=== PATIENT | female | born 1965 | race Caucasian/White ===

== ENCOUNTER 2016-12-09 07:35 | Day surgery (SDC) | payer MEDICARE, MEDICAID ==
[~2016-12-09 07:35] MED LIST: ALBUMIN HUMAN 250 ML IV PRN
[2016-12-09 08:15] LABS: HEMATOCRIT 29.5 % (36.0-47.0); HGB HCT DIFFERENCE -2.5; MEAN CORPUSCULAR HEMOGLOBIN 21.1 pg (27.0-33.4); MEAN CORPUSCULAR HGB CONC 30.5 g/dL (32.0-36.0); MEAN CORPUSCULAR VOLUME 69 fl (80-97); RED BLOOD COUNT 4.25 10^6/uL (3.72-5.28); RED CELL DISTRIBUTION WIDTH 22.5 % (11.5-14.0); WHITE BLOOD COUNT 7.6 10^3/uL (4.0-10.5)
[2016-12-09 08:21] LABS: PROTHROMBIN TIME 16.5 SEC (11.4-15.4)
[2016-12-09 08:22] LABS: PARTIAL THROMBOPLASTIN TIME 42.2 SEC (23.5-35.8)
[2016-12-09 08:33] LABS: BLOOD UREA NITROGEN 5 mg/dL (7-20); CREATININE RESULT 0.53 mg/dL (0.52-1.25)
[2016-12-09 10:45] LABS: FLUID APPEARANCE HAZY; FLUID TYPE PERITONEAL
[2016-12-09 11:07] LABS: FLUID RBC SIDE 1 65
[2016-12-09 11:08] LABS: FLUID RBC DILUENT USED NONE USED; FLUID RBC DILUTION FACTOR 1; FLUID RBC SIDE 2 75; TOTAL RBC SQUARES COUNTED FLD 225
[2016-12-09] MEDS ORDERED: OXYCODONE-ACETAMINOPHEN 5-325 MG TABLET ONE (11:10)
[2016-12-09] MEDS ORDERED: OXYCODONE-ACETAMINOPHEN 5-325 MG TABLET PO ONE (12:00)
[2016-12-09 12:31] VITALS: BP 97/54
== END 2016-12-09 12:35 | disposition home or self-care (01) ==
LOC: RAD 07:35
PROVIDERS: ATTEND Internal Medicine Gastroenterology
PROC: 0W9F3ZZ Drainage of Abdominal Wall, Percutaneous Approach (ICD-10-PCS; principal; 2016-12-09)
DX: R18.8 Other ascites (principal); K74.69 Other cirrhosis of liver; I85.00 Esophageal varices without bleeding; R10.13 Epigastric pain; F17.210 Nicotine dependence, cigarettes, uncomplicated; I10 Essential (primary) hypertension; E78.00 Pure hypercholesterolemia, unspecified; I25.10 Atherosclerotic heart disease of native coronary artery without angina pectoris; G62.9 Polyneuropathy, unspecified; M47.9 Spondylosis, unspecified; Z79.899 Other long term (current) drug therapy; Z79.1 Long term (current) use of non-steroidal anti-inflammatories (NSAID); Z79.01 Long term (current) use of anticoagulants; Z85.43 Personal history of malignant neoplasm of ovary
CPT/HCPCS: 36415; 84520; 82565; 85027; 85610; 85730; 89050; 88162; 49083; P9047; A9270

== ENCOUNTER 2017-02-16 20:27 | Emergency (ER) | payer MEDICARE, MEDICAID ==
[2017-02-16] MEDS ORDERED: OXYCODONE-ACETAMINOPHEN 5-325 MG TABLET PO ONE (22:29)
[2017-02-16] MEDS ORDERED: BENZONATATE 100 MG CAPSULE PO ONE (22:29)
--- NOTE | 2017-02-16 22:29 | ER Document Report ---
ED Respiratory Problem - General Chief Complaint: Productive Cough Stated Complaint: SHAKINESS/UNSTEADY Time Seen by Provider: 02/16/17 22:27 Mode of Arrival: Ambulatory Information source: Patient Notes: Patient is a 51-year-old female with a history of cirrhosis and ovarian cancer with chemotherapy ending in 2009 who presents to the ER today for possible pneumonia diagnosed on chest x-ray by primary care provider. Patient primary care provider, Dr. Mane told her to come to the emergency department for this. She states that she has had a cough that is productive after falling 4 days ago from a seizure and hurting her chest. Patient states that she fell flat on her chest onto the floor while having [address] Mane at the chest x-ray to begin with. Her generalized seizures that she has had for over a year now. she states that she thought she had broken her breastbone, she denies any history of COPD, asthma, congestive heart failure but has had 3 stents placed due to heart attack 2 years ago. She admits to chest pain All across her chest "from the cough." She states that she thinks she had a fever in the office but is uncertain. Denies any shortness of breath or wheezing. TRAVEL OUTSIDE OF THE [place] IN LAST 30 DAYS: No - Related Data Allergies/Adverse Reactions: No Known Allergies Allergy (Verified 09/20/16 15:54) Past Medical History - General Information source: Patient - Social History Smoking Status: Current Every Day Smoker Family History: Malignancy Patient has suicidal ideation: No Patient has homicidal ideation: No - Past Medical History Cardiac Medical History: Reports: Hx Congestive Heart Failure, Hx Coronary Artery Disease, Hx Heart Attack, Hx Hypercholesterolemia, Hx Hypertension, Hx Peripheral Vascular Disease Pulmonary Medical History: Denies: Hx Asthma, Hx Bronchitis, Hx COPD, Hx Pneumonia Neurological Medical History: Reports: Hx Cerebrovascular Accident, Hx Migraine. Denies: Hx Seizures Renal/ Medical History: Denies: Hx Peritoneal Dialysis Malignancy Medical History: Reports: Hx Ovarian Cancer GI Medical History: Reports: Hx Endoscopy Musculoskeltal Medical History: Reports Hx Arthritis Psychiatric Medical History: Reports: Hx Anxiety, Hx Bipolar Disorder, Hx Depression Past Surgical History: Reports: Hx Cardiac Surgery, Hx Coronary Stent - x2, Hx Gynecologic Surgery, Hx Hysterectomy, Hx Oral Surgery, Hx Orthopedic Surgery - C7 plate/fusion, Hx Tonsillectomy - Immunizations Hx Diphtheria, Pertussis, Tetanus Vaccination: Yes Review of Systems - Review of Systems Constitutional: See HPI EENT: No symptoms reported Cardiovascular: No symptoms reported Respiratory: See HPI Gastrointestinal: No symptoms reported Genitourinary: No symptoms reported Female Genitourinary: No symptoms reported Musculoskeletal: No symptoms reported Skin: No symptoms reported Hematologic/Lymphatic: No symptoms reported Neurological/Psychological: See HPI Physical Exam - Vital signs Vitals: Temp Pulse Resp BP Pulse Ox 97.7 F 70 17 136/78 H 98 02/16/17 21:10 02/16/17 21:10 02/16/17 21:10 02/16/17 21:10 02/16/17 21:10 - Notes Notes: PHYSICAL EXAMINATION: GENERAL: chronically ill-appearing, but in no acute distress. HEAD: Atraumatic, normocephalic. EYES: Pupils equal round and reactive to light, extraocular movements intact, sclera anicteric, conjunctiva are normal. NECK: Normal range of motion, supple without lymphadenopathy LUNGS: Diminished lung sounds in the right lung, No wheezes rales or rhonchi. HEART: Regular rate and rhythm without murmurs ABDOMEN: Distended, no tenderness. No guarding, no rebound BACK: no vertebral tenderness, normal ROM GI/: no CVA tenderness EXTREMITIES: Normal range of motion, no pitting edema. No cyanosis. NEUROLOGICAL: Cranial nerves grossly intact. Normal sensory/motor exams. PSYCH: Normal mood, normal affect. SKIN: Warm, Dry, normal turgor, no rashes or lesions noted Course - Re-evaluation Re-evalutation: 02/16/17 23:23 has a history of low potassium, today it is 3. Patient received IV potassium as well as p.o. potassium. her white blood cell count is normal today and chest x- ray reveals a moderate pleural effusion on the right with atelectasis. consulted with Dr. Archer on this case who agrees with my plan to send pt home with spirometer, keep her on abx and prednisone that Dr. Mane gave her, and since she's not having any issues breathing, have her follow up with him outpatient or return here with worsening symptoms. 02/16/17 23:24 02/17/17 04:15 - Vital Signs Vital signs: Temp Pulse Resp BP Pulse Ox 98.6 F 87 16 130/88 H 96 02/17/17 01:33 02/17/17 01:33 02/17/17 01:33 02/17/17 01:33 02/17/17 01:33 - Laboratory Result Diagrams: 02/16/17 22:30 02/16/17 22:30 Laboratory results interpreted by me: 02/16/17 02/16/17 22:30 22:30 Hgb 8.3 L Hct 27.6 L MCV 74 L MCH 22.3 L MCHC 30.1 L RDW 18.5 H Potassium 3.0 L* BUN 6 L Creatinine 0.51 L Glucose 112 H Direct Bilirubin 0.5 H Alkaline Phosphatase 167 H Creatine Kinase < 20 L Albumin 2.4 L Discharge - Discharge Clinical Impression: Pleural effusion, Cough, Hypokalemia Chest pain Qualifiers: Chest pain type: unspecified Qualified Code(s): R07.9 - Chest pain, unspecified Condition: Stable Disposition: HOME, SELF-CARE Additional Instructions: Use the incentive spirometer every hour while you are awake. This is very important. Return immediately for any new or worsening symptoms. Follow up with primary care provider, call tomorrow to make followup appointment. Prescriptions: Cyclobenzaprine HCl [Flexeril 10 mg Tablet] 10 mg PO TIDP PRN #15 tab PRN Reason: Promethazine/Dextromethorphan [Promethazine-Dm Syrup] 5 ml PO Q6 PRN #120 ml PRN Reason: Referrals: COURTNEY MANE DO [Primary Care Provider] - Follow up as needed
[2017-02-16 22:42] LABS: ABSOLUTE LYMPHOCYTES (AUTO) 1.4 10^3/uL (0.5-4.7); ABSOLUTE MONOCYTES (AUTO) 0.8 10^3/uL (0.1-1.4); BASOPHILS % (AUTO) 0.2 % (0-2); HEMATOCRIT 27.6 % (36.0-47.0); HEMOGLOBIN 8.3 g/dL (12.0-15.5); HGB HCT DIFFERENCE -2.7; LYMPHOCYTES % (AUTO) 17.3 % (13-45); MEAN CORPUSCULAR HEMOGLOBIN 22.3 pg (27.0-33.4); MEAN CORPUSCULAR HGB CONC 30.1 g/dL (32.0-36.0); MEAN CORPUSCULAR VOLUME 74 fl (80-97); RED BLOOD COUNT 3.72 10^6/uL (3.72-5.28); RED CELL DISTRIBUTION WIDTH 18.5 % (11.5-14.0); SEGMENTED NEUTROPHILS % (AUTO) 72.5 % (42-78); WHITE BLOOD COUNT 8.2 10^3/uL (4.0-10.5)
[2017-02-16 22:54] LABS: ALANINE AMINOTRANSFERASE 22 U/L (9-52); ALBUMIN 2.4 g/dL (3.5-5.0); ALKALINE PHOSPHATASE 167 U/L (38-126); ANION GAP 12 (5-19); ASPARTATE AMINO TRANSFERASE 17 U/L (14-36); BILIRUBIN,DIRECT 0.5 mg/dL (0.0-0.4); BILIRUBIN,TOTAL 0.6 mg/dL (0.2-1.3); BLOOD UREA NITROGEN 6 mg/dL (7-20); CALCIUM 8.9 mg/dL (8.4-10.2); CARBON DIOXIDE 27 mmol/L (22-30); CHLORIDE 104 mmol/L (98-107); CREATINE KINASE < 20 U/L (30-135); CREATININE RESULT 0.51 mg/dL (0.52-1.25); GLUCOSE 112 mg/dL (75-110); LIPASE 35.6 U/L (23-300); SODIUM 142.6 mmol/L (137-145); TOTAL PROTEIN 6.4 g/dL (6.3-8.2)
[2017-02-16] MEDS ORDERED: POTASSIUM CHLORIDE 10 MEQ TABLET.SA PO ONE (23:01)
[2017-02-16] MEDS ORDERED: POTASSI CL 20 MEQ/50 ML RIDER 50 ML IV ONE (23:01)
--- NOTE | 2017-02-16 23:05 | RADIOLOGY REPORT (SQ) ---
EXAM DESCRIPTION: CHEST PA/LAT COMPLETED DATE/TIME: 02/16/2017 10:39 pm REASON FOR STUDY: cough COMPARISON: 11/09/2015 EXAM PARAMETERS: NUMBER OF VIEWS: two views TECHNIQUE: Digital Frontal and Lateral radiographic views of the chest acquired. RADIATION DOSE: NA LIMITATIONS: none FINDINGS: LUNGS AND PLEURA: Moderate Right subpulmonic pleural effusion and lower lobe atelectasis- airspace disease. Left lung appears clear. MEDIASTINUM AND HILAR STRUCTURES: Age-appropriate contour in its visualized portions. HEART AND VASCULAR STRUCTURES: Heart normal size. No evidence for failure. BONES: No acute findings. Old left rib fractures. HARDWARE: None in the chest. OTHER: No other significant finding. IMPRESSION: Moderate Right subpulmonic pleural effusion and lower lobe atelectasis-airspace disease. TECHNICAL DOCUMENTATION: JOB ID: [id number] [email or web address]- All Rights Reserved
[2017-02-16 23:06] LABS: CREATINE KINASE MB 0.51 ng/mL (<4.55)
[2017-02-16 23:07] LABS: TROPONIN I < 0.012 ng/mL
[2017-02-17 01:34] VITALS: BP 130/88
--- NOTE | 2017-02-17 08:22 | EKG REPORT ---
SEVERITY:- ABNORMAL ECG - SINUS RHYTHM MULTIPLE PREMATURE COMPLEXES, SUPRAVEN BORDERLINE T ABNORMALITIES, INFERIOR-ANTERIOR LEADS : Confirmed by: Kevin Lange MD 17-Feb-2017 08:22:09
== END 2017-02-17 01:32 | disposition home or self-care (01) ==
LOC: ER 20:27
DX: J90 Pleural effusion, not elsewhere classified (principal); J98.11 Atelectasis; E87.6 Hypokalemia; R07.9 Chest pain, unspecified; R05 Cough; I25.10 Atherosclerotic heart disease of native coronary artery without angina pectoris; I25.2 Old myocardial infarction; I10 Essential (primary) hypertension; F17.200 Nicotine dependence, unspecified, uncomplicated; Z98.61 Coronary angioplasty status; Z85.43 Personal history of malignant neoplasm of ovary; Z92.21 Personal history of antineoplastic chemotherapy; Z91.81 History of falling; Z86.73 Personal history of transient ischemic attack (TIA), and cerebral infarction without residual deficits
CPT/HCPCS: 93005; 99284; 96365; 82553; 82550; 83690; 85025; 80053; 84484; 71020; 93010; A9270 ×3; J3480

== ENCOUNTER 2017-02-19 01:50 | Inpatient (IN) | payer MEDICARE, MEDICAID ==
[2017-02-19 02:19] LABS: PROTHROMBIN TIME 15.2 SEC (11.4-15.4)
[2017-02-19] MEDS ORDERED: ETOMIDATE INJ/PF 20 MG/10 ML SDV IV ONE (02:22)
[2017-02-19 02:33] LABS: CREATINE KINASE MB 0.54 ng/mL (<4.55)
[2017-02-19 02:34] LABS: TROPONIN I < 0.012 ng/mL
--- NOTE | 2017-02-19 02:34 | ER Document Report ---
ED General - General Stated Complaint: RESPIRATORY FAILURE Notes: Patient is a 51-year-old female is brought in by ambulance because she was found lying in her bed unresponsive. Paramedics arrived she was somewhat not arousable. They did give her Narcan. There is no response to Narcan. She received 2 mg IV. They said that the did not have much history for them. Patient is completely unresponsive and unable to give me any information. In reviewing her records she was seen here 3 days ago and was being treated for pneumonia. History from previous notes includes liver failure , cirrhosis, and history of ovarian cancer. TRAVEL OUTSIDE OF THE [place] IN LAST 30 DAYS: No - Related Data Allergies/Adverse Reactions: No Known Allergies Allergy (Verified 09/20/16 15:54) Past Medical History - Social History Smoking Status: Unknown if Ever Smoked Frequency of alcohol use: unknown Drug Abuse: Other - unknown Family History: Malignancy - Past Medical History Cardiac Medical History: Reports: Hx Congestive Heart Failure, Hx Coronary Artery Disease, Hx Heart Attack, Hx Hypercholesterolemia, Hx Hypertension, Hx Peripheral Vascular Disease Pulmonary Medical History: Denies: Hx Asthma, Hx Bronchitis, Hx COPD, Hx Pneumonia Neurological Medical History: Reports: Hx Cerebrovascular Accident, Hx Migraine. Denies: Hx Seizures Renal/ Medical History: Denies: Hx Peritoneal Dialysis Malignancy Medical History: Reports: Hx Ovarian Cancer GI Medical History: Reports: Hx Endoscopy Musculoskeltal Medical History: Reports Hx Arthritis Psychiatric Medical History: Reports: Hx Anxiety, Hx Bipolar Disorder, Hx Depression Past Surgical History: Reports: Hx Cardiac Surgery, Hx Coronary Stent - x2, Hx Gynecologic Surgery, Hx Hysterectomy, Hx Oral Surgery, Hx Orthopedic Surgery - C7 plate/fusion, Hx Tonsillectomy - Immunizations Hx Diphtheria, Pertussis, Tetanus Vaccination: Yes Review of Systems - Review of Systems -: Yes ROS unobtainable due to patient's medical condition - Patient is unresponsive. Physical Exam - Vital signs Vitals: Resp 18 02/19/17 01:52 - Notes Notes: General Appearance: Unresponsive. Does not respond to verbal or painful stimuli. Patient has recurrent posturing of upper extremities. Vitals: reviewed, See vital signs table. Head: no swelling or tenderness to the head Eyes: PERRL, EOMI, Conjuctiva clear. Pupils are normal size. They are not pinpoint. They both respond to light. Mouth: No decreasd moisture Throat: No tonsillar inflammation, No airway obstruction, No lymphadenopathy Lungs: No wheezing, No rales, No rhonci, No accessory muscle use, good air exchange bilaterally. Heart: Normal rate, Regular rythm, No murmur, no rub Abdomen: Normal BS, soft, No rigidity, No abdominal tenderness, large distended abdomen consistent with cirrhosis. Abdomen is soft and not tense. Extremities: strength 5/5 in all extremities, good pulses in all extremities, no swelling or tenderness in the extremities, no edema. Skin: warm, dry, appropriate color, no rash Neuro: Unresponsive. Does not respond to verbal or painful stimuli. Patient has recurrent posturing of upper extremities. Course - Re-evaluation Re-evalutation: 02/19/17 02:36 Upon evaluation of the patient patient is completely unresponsive. She had no significant gag reflex. She had posturing. She obviously not protecting her airway. She arrived with paramedics manually ventilating her via Ambu bag and mask. The above aforementioned medications for intubation. She was given etomidate as well as rocuronium. Patient was initially admitted with [place]. Cords were easily visualized however the patient's airways anterior and the rigid kaleidoscope stylette would not allow the tube to go anterior enough to cords. This is a patient with immediately aborted. We began to ventilate patient again she began to vomit. She vomited several times with recurrent suctioning. - Vital Signs Vital signs: Temp Pulse Resp BP Pulse Ox 30 H 171/102 H 97 02/19/17 03:47 02/19/17 03:47 02/19/17 03:47 - Laboratory Result Diagrams: 02/19/17 01:57 02/19/17 01:57 Laboratory results interpreted by me: 02/19/17 02/19/17 02/19/17 01:57 01:57 01:57 WBC 18.5 H D Hgb 10.0 L Hct 34.3 L MCV 76 L MCH 22.1 L MCHC 29.1 L RDW 18.3 H Absolute Neutrophils 10.8 H Absolute Lymphocytes 5.5 H Absolute Monocytes 2.1 H VBG pH VBG pCO2 Lactic Acid 4.1 H Direct Bilirubin 0.6 H Alkaline Phosphatase 181 H Albumin 3.1 L Urine Protein Salicylates < 1.0 L 02/19/17 02/19/17 01:57 03:36 WBC Hgb Hct MCV MCH MCHC RDW Absolute Neutrophils Absolute Lymphocytes Absolute Monocytes VBG pH 7.06 L* VBG pCO2 91.0 H* Lactic Acid Direct Bilirubin Alkaline Phosphatase Albumin Urine Protein 100 H Salicylates - EKG Interpretation by Me Additional EKG results interpreted by me: 02/19/17 03:26 Reviewed and interpreted by me. EKG shows normal sinus rhythm with rate [address] segment elevation or depression. No ischemic T-wave inversions. HI interval, QRS duration are within normal range. QT interval slightly prolonged. Patient does have small Q waves in inferior leads which are unchanged in comparison to old EKG from February 16, 2017. - Transfer of Care Notes: 02/19/17 04:26 Etiology of the patient's respiratory failure is not clear. Her lung parham were clear upon arrival. She was requiring manual ventilation upon arrival. She unfortunately did aspirate shortly after getting here. She was intubated. Patient will be started on antibiotics due to recent history of pneumonia as well as aspiration. I am very concerned that the patient was already having recurrent posturing of her upper extremities upon arrival to the ER. Unclear exactly how long she was unresponsive and down at her home for paramedics arriving. I did speak with the hospitalist who agrees to admit the patient for further workup and treatment. Dictation of this chart was performed using voice recognition software; therefore, there may be some unintended grammatical errors. Critical Care Note - Critical Care Note Total time excluding time spent on procedures (mins): 45 Comments: Critical Care time for this patient not including time spent on procedures approximately 45 minutes due to management of airway, sedation titration, discussions with the admitting hospitalist. Discharge - Discharge Clinical Impression: Respiratory failure Qualifiers: Chronicity: unspecified Respiratory failure complication: hypoxia and hypercapnia Qualified Code(s): J96.91 - Respiratory failure, unspecified with hypoxia Altered mental status Qualifiers: Altered mental status type: unspecified Qualified Code(s): R41.82 - Altered mental status, unspecified Pneumonia Qualifiers: Pneumonia type: due to unspecified organism Laterality: bilateral Lung location : unspecified part of lung Qualified Code(s): J18.9 - Pneumonia, unspecified organism Disposition: ADMITTED INPATIENT Admitting Provider: Hospitalist Unit Admitted: ICU
[2017-02-19 02:36] LABS: ALANINE AMINOTRANSFERASE 19 U/L (9-52); ALBUMIN 3.1 g/dL (3.5-5.0); ALCOHOL < 10 mg/dL (NONE DETECTED); ALKALINE PHOSPHATASE 181 U/L (38-126); ANION GAP 13 (5-19); ASPARTATE AMINO TRANSFERASE 25 U/L (14-36); BILIRUBIN,DIRECT 0.6 mg/dL (0.0-0.4); BILIRUBIN,TOTAL 0.8 mg/dL (0.2-1.3); BLOOD UREA NITROGEN 9 mg/dL (7-20); CALCIUM 8.9 mg/dL (8.4-10.2); CARBON DIOXIDE 25 mmol/L (22-30); CHLORIDE 106 mmol/L (98-107); CREATINE KINASE 30 U/L (30-135); CREATININE RESULT 0.66 mg/dL (0.52-1.25); GLUCOSE 102 mg/dL (75-110); POTASSIUM 3.9 mmol/L (3.6-5.0); SODIUM 143.9 mmol/L (137-145); TOTAL PROTEIN 7.8 g/dL (6.3-8.2)
[2017-02-19 02:43] LABS: VENOUS BLOOD BASE EXCESS -6.3 mmol/L; VENOUS BLOOD HCO3 25.2 mmol/L (20-32)
[2017-02-19] MEDS ORDERED: PROPOFOL INJ 200 MG/20 ML VIAL IV ONE (02:44)
[2017-02-19 02:45] LABS: VENOUS BLOOD PH 7.06 (7.30-7.42)
--- NOTE | 2017-02-19 02:47 | RADIOLOGY REPORT (SQ) ---
EXAM DESCRIPTION: CT HEAD WITHOUT COMPLETED DATE/TIME: 02/19/2017 2:34 am REASON FOR STUDY: ams COMPARISON: 08/08/2015 TECHNIQUE: Axial images acquired through the brain without intravenous contrast. Images reviewed wi th bone, brain and subdural windows. Images stored on PACS. All CT scanners at this facility use dose modulation, iterative reconstruction, and/or weight based d osing when appropriate to reduce radiation dose to as low as reasonably achievable (ALARA). [facility]: Dose Right [facility]: CareDose [facility]: Dose Right [facility]: Teradose 4D [facility]: reportbrain RADIATION DOSE: 64.61 mGy. LIMITATIONS: None. FINDINGS: VENTRICLES: Normal size and contour. CEREBRUM: No masses. No hemorrhage. No midline shift. Areas of low density in the white matter mos t likely due to chronic micro-vascular ischemic change. Specifically, previously described hypoatten uation involving the left frontal lobe, while slightly more conspicuous on today's exam, is stable in size and distribution. Note is made of interval development of a right lacunar infarct (chronic). No evidence for acute infarction. CEREBELLUM: No masses. No hemorrhage. No alteration of density. No evidence for acute infarction. EXTRAAXIAL SPACES: Mild age-related involutional change. No fluid collections. No masses. ORBITS AND GLOBE: No intra- or extraconal masses. Normal contour of globe without masses. CALVARIUM: No fracture. PARANASAL SINUSES: Fluid levels are seen within the maxillary, sphenoid and ethmoid air cells. The f rontal and mastoid air cells are clear. SOFT TISSUES: No mass or hematoma. OTHER: Atherosclerotic vascular calcifications are seen of the cavernous segments of the internal car otid arteries bilaterally as well as the intradural right vertebral artery. IMPRESSION: No acute findings. Interval development of a right lacunar infarct. Essentially stable appearance of left frontal lobe hypoattenuation ; given concomitant vascular calcifications, favor t his to be on the basis of previous ischemic event. TECHNICAL DOCUMENTATION: JOB ID: [id number] Quality ID # [id number]: Final reports with documentation of one or more dose reduction techniques (e.g., Au tomated exposure control, adjustment of the mA and/or kV according to patient size, use of iterative reconstruction technique) 2010 [employer]- All Rights Reserved
[2017-02-19] MEDS ORDERED: PROPOFOL 100 ML IV ONE (02:49)
[2017-02-19 03:04] LABS: ABSOLUTE LYMPHOCYTES (AUTO) 5.5 10^3/uL (0.5-4.7); ABSOLUTE MONOCYTES (AUTO) 2.1 10^3/uL (0.1-1.4); ABSOLUTE NEUT (AUTO) 10.8 10^3/uL (1.7-8.2); BASOPHILS % (AUTO) 0.2 % (0-2); EOSINOPHILS % (AUTO) 0.1 % (0-6); LYMPHOCYTES % (AUTO) 29.7 % (13-45); MEAN CORPUSCULAR HEMOGLOBIN 22.1 pg (27.0-33.4); MEAN CORPUSCULAR HGB CONC 29.1 g/dL (32.0-36.0); MEAN CORPUSCULAR VOLUME 76 fl (80-97); MONOCYTES % (AUTO) 11.4 % (3-13); RED BLOOD COUNT 4.52 10^6/uL (3.72-5.28); RED CELL DISTRIBUTION WIDTH 18.3 % (11.5-14.0); SEGMENTED NEUTROPHILS % (AUTO) 58.6 % (42-78)
--- NOTE | 2017-02-19 03:17 | RADIOLOGY REPORT (SQ) ---
EXAM DESCRIPTION: CHEST SINGLE VIEW COMPLETED DATE/TIME: 02/19/2017 2:47 am REASON FOR STUDY: ams COMPARISON: 02/16/2017 EXAM PARAMETERS: NUMBER OF VIEWS: One view. TECHNIQUE: Single frontal radiographic view of the chest acquired. RADIATION DOSE: NA LIMITATIONS: None. FINDINGS: LUNGS AND PLEURA: Near complete opacification of the right black thorax likely on the basis of pleural effusion and/or parenchymal opacities. Patchy left black thorax pulmonary opacities. No pneumothorax evident. MEDIASTINUM AND HILAR STRUCTURES: Grossly stable. HEART AND VASCULAR STRUCTURES: Unchanged. BONES: No acute findings. HARDWARE: Endotracheal tube which appears to abut the graham. Enteric tube terminates subdiaphragmat ically out of the field of view. Cervicothoracic ACDF. OTHER: No other significant finding. IMPRESSION: 1. Increased opacification of the right black thorax likely on the basis of layering ple ural effusion. Increased left pulmonary parenchymal opacities in the study interval. 2. The endotracheal tube appears to abut the graham; recommend retracting 4 to 5 cm. Enteric tube w ithout evidence of gross complication. TECHNICAL DOCUMENTATION: JOB ID: [id number]
[2017-02-19 03:23] LABS: HEMATOCRIT 34.3 % (36.0-47.0); HGB HCT DIFFERENCE -4.3
[2017-02-19 03:29] LABS: WHITE BLOOD COUNT 18.5 10^3/uL (4.0-10.5)
[2017-02-19] MEDS ORDERED: LEVOFLOXACIN 750 MG/D5W RTU 150 ML IV ONE (03:54)
[2017-02-19 04:10] LABS: URINE BARBITURATES SCREEN NEGATIVE; URINE METHADONE SCREEN NEGATIVE; URINE OPIATES LOW NEGATIVE; URINE PHENCYCLIDINE SCREEN NEGATIVE
[2017-02-19] MEDS ORDERED: METOPROLOL TARTRATE PF/INJ 5 MG/5 ML SDV IV PRN (04:10)
[2017-02-19 04:11] LABS: APPEARANCE,URINE CLEAR; BILIRUBIN,URINE NEGATIVE (NEGATIVE); GLUCOSE, URINE NEGATIVE (NEGATIVE); KETONES,URINE NEGATIVE (NEGATIVE); LEUKOCYTE ESTERASE,URINE NEGATIVE (NEGATIVE); NITRITE,URINE NEGATIVE (NEGATIVE); PROTEIN,URINE 100 mg/dL (NEGATIVE); URINE SPECIFIC GRAVITY 1.006; UROBILINOGEN,URINE NEGATIVE mg/dL (<2.0)
[2017-02-19] MEDS ORDERED: NORMAL SALINE 1000 ML 1,000 ML IV ONE ×2 (04:16→08:02)
--- NOTE | 2017-02-19 05:52 | PDOC H&P ---
History of Present Illness Admission Date/PCP: 02/19/17 04:10 Patient complains of: Unresponsive History of Present Illness: NIKKIE PAN is a 51 year old female with a past medical history of hepatic cirrhosis, coronary artery disease with stents, coagulopathy, neuropathy, AVM of the hip, peripheral vascular disease, CVA, congestive heart failure, bipolar , left-sided carotid artery disease. Patient was diagnosed with pneumonia 3 days ago and was found prior to arrival by her unresponsive without pulses and questionable respiration he delivered chest compressions upon EMS arrival she has an oxygen saturation of 40% is cyanotic and with extensor posturing of the upper extremity. In the emergency room she begins to vomit and aspirate and is intubated. Workup includes a CT of the head showing new lacunar infarct. And referred to the hospitalist for admission. Additional history is unavailable. Past Medical History Cardiac Medical History: Reports: Congestive Heart Failure, Coronary Artery Disease, Myocardial Infarction, Hyperlipidema, Hypertension, Peripheral Vascular Disease Pulmonary Medical History: Denies: Asthma, Bronchitis, Chronic Obstructive Pulmonary Disease (COPD), Pneumonia Neurological Medical History: Reports: Migraine Denies: Seizures Malignancy Medical History: Reports: Ovarian Cancer Musculoskeltal Medical History: Reports: Arthritis Psychiatric Medical History: Reports: Bipolar Disorder, Depression Hematology: Denies: Anemia Past Surgical History Past Surgical History: Reports: Coronary Stent - x2, Hysterectomy, Orthopedic Surgery - C7 plate/fusion, Tonsillectomy Social History Information Source: Emergency Med Personnel, [facility] Records Lives with: Family Smoking Status: Unknown if Ever Smoked Frequency of Alcohol Use: None Hx Recreational Drug Use: No Hx Prescription Drug Abuse: Yes - Advance Directive Resuscitation Status: Full Code Family History Family History: Malignancy Parental Family History Reviewed: No - Unobtainable Children Family History Reviewed: No - Unobtainable Sibling(s) Family History Reviewed.: No Medication/Allergy Home Medications: Duloxetine HCl [Cymbalta] 30 tab PO QHS 02/22/16 Gabapentin 400 cap PO ASDIR PRN 02/22/16 Simvastatin 1 tab PO QHS 02/22/16 Furosemide [Lasix 20 mg Tablet] 30 mg PO DAILY 03/11/16 Nadolol 40 mg PO DAILY 05/03/16 Nitroglycerin [Nitro-Dur 5 mg (0.2 mg/Hr) Transdermal Patch] 1 each TD ASDIR PRN 05/03/16 Spironolactone [Aldactone] 100 mg PO DAILY 05/03/16 Omeprazole 20 mg PO DAILY 08/26/16 Lorazepam [Ativan] 1 mg PO DAILY 09/15/16 Buprenorphine HCl [Belbuca] 450 mcg BC BID 12/09/16 Ranitidine HCl [Zantac] 150 mg PO ASDIR PRN 12/09/16 Cyclobenzaprine HCl [Flexeril 10 mg Tablet] 10 mg PO TIDP PRN #15 tab 02/17/17 Promethazine/Dextromethorphan [Promethazine-Dm Syrup] 5 ml PO Q6 PRN #120 ml Allergies/Adverse Reactions: No Known Allergies Allergy (Verified 09/20/16 15:54) Review of Systems ROS unobtainable: Due to mental status - Intubated and sedated Physical Exam Vital Signs: Temp Pulse Resp BP Pulse Ox 98.2 F 84 22 H 151/98 H 100 02/19/17 05:11 02/19/17 05:11 02/19/17 05:11 02/19/17 05:11 02/19/17 05:11 General appearance: PRESENT: disheveled, thin, other - Cachexia with temporal wasting, abdominal distention with ascites. ET tube with copious thin secretions Head exam: PRESENT: atraumatic, normocephalic Eye exam: PRESENT: conjunctiva pink, EOMI, PERRLA. ABSENT: scleral icterus Ear exam: PRESENT: normal external ear exam Mouth exam: PRESENT: moist, tongue midline Neck exam: ABSENT: carotid bruit, JVD, lymphadenopathy, thyromegaly Respiratory exam: PRESENT: decreased breath sounds - Right sided dullness at the base, prolonged expiratory phas, rales, retraction, unlabored Cardiovascular exam: PRESENT: RRR. ABSENT: diastolic murmur, rubs, systolic murmur Pulses: PRESENT: normal dorsalis pedis pul Vascular exam: PRESENT: normal capillary refill GI/Abdominal exam: PRESENT: ascites, diminished bowel sounds, distended, hypoactive bowel sounds, soft, other - Hepatomegaly. ABSENT: guarding, tenderness Rectal exam: PRESENT: deferred Extremities exam: PRESENT: full ROM. ABSENT: calf tenderness, clubbing, pedal edema Neurological exam: PRESENT: altered - Intubated and sedated, upper extremity extensor posturing intermittently Skin exam: PRESENT: dry, intact, warm. ABSENT: cyanosis, rash Results Impressions: Chest X-Ray 02/19/17 01:56 IMPRESSION: 1. Increased opacification of the right black thorax likely on the basis of layering pleural effusion. Increased left pulmonary parenchymal opacities in the study interval. 2. The endotracheal tube appears to abut the graham; recommend retracting 4 to 5 cm. Enteric tube without evidence of gross complication. Head CT 02/19/17 01:56 IMPRESSION: No acute findings. Interval development of a right lacunar infarct. Essentially stable appearance of left frontal lobe hypoattenuation ; given concomitant vascular calcifications, favor this to be on the basis of previous ischemic event. Assessment & Plan - Diagnosis (1) CVA (cerebral vascular accident) Is this a current diagnosis for this admission?: YesPlan: New lacunar infarct from previous imaging, aspirin, Lipitor and supportive care with permissive hypertension, reevaluation of imaging via CT or MRI (2) Altered mental status Qualifiers: Altered mental status type: unspecified Qualified Code(s): R41.82 - Altered mental status, unspecified Is this a current diagnosis for this admission?: YesPlan: Multifactorial secondary to CVA, acute respiratory failure with pneumonia. Continue supportive care (3) Pneumonia Qualifiers: Pneumonia type: due to unspecified organism Laterality: bilateral Lung location: unspecified part of lung Qualified Code(s): J18.9 - Pneumonia , unspecified organism Is this a current diagnosis for this admission?: YesPlan: Community-acquired pneumonia 3 days prior empiric antibiotics initiated, additional large volume aspiration prior to intubation empiric antibiotics initiated follow-up CBC, chemistry and chest x-ray continuing ventilator support (4) Respiratory failure Qualifiers: Chronicity: unspecified Respiratory failure complication: hypoxia and hypercapnia Qualified Code(s): J96.91 - Respiratory failure, unspecified with hypoxia Is this a current diagnosis for this admission?: YesPlan: Multifactorial possibly secondary to CVA, multifactorial pneumonia, ABG pending as needed albuterol Atrovent supportive ventilator management - Time Time Spent: 50 to 70 Minutes - Inpatient Certification Medical Necessity: Need Close Monitoring Due to Risk of Patient Decompensation
[2017-02-19] MEDS ORDERED: CLINDAMYCIN PHOSPHATE INJ 300 MG/2 ML SDV IV PRN (06:00)
[2017-02-19] MEDS ORDERED: CLINDAMYCIN PHOSPHATE 750 MG in DEXTROSE 5%-WATER 100 ML IV SCH ×2 (06:00→10:00)
[2017-02-19 06:20] LABS: ARTERIAL BLOOD BASE EXCESS -4.3 mmol/L; ARTERIAL BLOOD O2 SATURATION 89.2 % (94-98)
[2017-02-19] MEDS ORDERED: PIPERACILLIN SODIUM/TAZOBACTAM 4.5 GM in NORMAL SALINE 100 ML IV SCH (07:00)
[2017-02-19] MEDS ORDERED: PIPERACILLIN/TAZOBACTAM 4.5 GM VIAL IV PRN (07:00)
--- NOTE | 2017-02-19 07:17 | RADIOLOGY REPORT (SQ) ---
EXAM DESCRIPTION: CHEST SINGLE VIEW COMPLETED DATE/TIME: 02/19/2017 6:59 am REASON FOR STUDY: intubated COMPARISON: Earlier the same day. NUMBER OF VIEWS: One view. TECHNIQUE: Single frontal radiographic image of the chest acquired. LIMITATIONS: None. FINDINGS: LUNGS AND PLEURA: Stable appearance. There is persistent diffuse bilateral airspace disea se right greater than left. MEDIASTINUM AND HILAR STRUCTURES: Stable heart size and mediastinal structures. HEART AND VASCULAR STRUCTURES: Stable appearance. SUPPORT DEVICES: Support lines and tubes remain in place. The endotracheal tube is low in position i t is at the graham recommend withdrawal of approximately 1.2 cm. BONES: No acute findings. OTHER: No other significant finding. IMPRESSION: Stable appearance of the chest. Endotracheal tube remains low in position is at the lev el of the graham. Recommend withdrawal of approximately 1.5 cm. COMMENT: This report was called to Aide, the patient's nurse at07:08 on 02/19/2017. TECHNICAL DOCUMENTATION: JOB ID: [id number] [facility]- All Rights Reserved
[2017-02-19] MEDS ORDERED: NOREPINEPHRINE BITARTRATE INJ/PF 4 MG/4 ML SDV IV ONE (07:58)
--- NOTE | 2017-02-19 08:42 | RADIOLOGY REPORT (SQ) ---
EXAM DESCRIPTION: CHEST SINGLE VIEW COMPLETED DATE/TIME: 02/19/2017 8:15 am REASON FOR STUDY: R/O Pneumothorax COMPARISON: 02/19/2017 with at 0650 hours. EXAM PARAMETERS: NUMBER OF VIEWS: One view. TECHNIQUE: Single frontal radiographic view of the chest acquired. RADIATION DOSE: NA LIMITATIONS: None. FINDINGS: LUNGS AND PLEURA: Diffuse airspace disease with right pleural effusion. No pneumothorax. MEDIASTINUM AND HILAR STRUCTURES: No masses. Contour normal. HEART AND VASCULAR STRUCTURES: Heart normal in size. Normal vasculature. BONES: No acute findings. HARDWARE: Endotracheal tube remains unchanged with the tip at the graham. Nasogastric tube with the tip in stomach. Hardware in the cervical spine. OTHER: No other significant finding. IMPRESSION: NO CHANGE IN APPEARANCE OF THE CHEST. NO PNEUMOTHORAX. TECHNICAL DOCUMENTATION: JOB ID: [id number]
[2017-02-19] MEDS: HEPARIN SOD (PORCINE) 5,000 UNIT/ML 1 ML SYRINGE SUBCUT SCH ×3 (08:47→22:12)
[2017-02-19 08:48] LABS: CREATINE KINASE MB 0.8 ng/mL (<4.55); TROPONIN I 0.019 ng/mL
[2017-02-19] MEDS: NORMAL SALINE 1000 ML 1,000 ML IV PRN ×2 (08:53→13:38)
[2017-02-19] MEDS: IPRATROPIUM/ALBUTEROL 0.5-2.5 MG/3 ML AMPUL NEB PRN (08:56)
[2017-02-19 08:57] LABS: ARTERIAL BLOOD BASE EXCESS -1.9 mmol/L; ARTERIAL BLOOD O2 SATURATION 92.6 % (94-98)
[2017-02-19] MEDS: THIAMINE HCL 100 MG, FOLIC ACID 1 MG in NORMAL SALINE 50 ML IV SCH (09:23)
[2017-02-19] MEDS: PIPERACILLIN SODIUM/TAZOBACTAM 4.5 GM in NORMAL SALINE 100 ML IV SCH ×3 (09:23→21:53)
--- NOTE | 2017-02-19 09:23 | EKG REPORT ---
SEVERITY:- ABNORMAL ECG - SINUS RHYTHM CONSIDER ANTERIOR INFARCT : Confirmed by: Kevin Lange MD 19-Feb-2017 09:23:12
[2017-02-19] MEDS ORDERED: METHYLPREDNISOLONE INJ 40 MG/1 ML SDV IV ONE (09:30)
--- NOTE | 2017-02-19 10:50 | PDOC PROGRESS REPORT ---
Subjective Progress Note for:: 02/19/17 Subjective:: Patient is intubated however she has had problems of hypotension is requiring IV fluids and IV pressors. Physical Exam Vital Signs: Temp Pulse Resp BP Pulse Ox 100.4 F 91 22 H 87/63 L 91 L 02/19/17 09:59 02/19/17 09:59 02/19/17 09:59 02/19/17 09:59 02/19/17 09:59 Intake & Output 02/18/17 02/19/17 02/20/17 06:59 06:59 06:59 Output Total 245 Balance -245 Weight 73.5 kg General appearance: PRESENT: mild distress Eye exam: PRESENT: conjunctiva pink. ABSENT: scleral icterus Mouth exam: PRESENT: moist, tongue midline Neck exam: ABSENT: carotid bruit, JVD, lymphadenopathy, thyromegaly Respiratory exam: PRESENT: rhonchi - Coarse rhonchi bilaterally., wheezes - Bilateral expiratory wheezes. ABSENT: rales Cardiovascular exam: PRESENT: systolic murmur, tachycardia. ABSENT: diastolic murmur, rubs GI/Abdominal exam: PRESENT: ascites, soft. ABSENT: rebound, tenderness Extremities exam: PRESENT: pedal edema - Trace pedal edema. ABSENT: calf tenderness, clubbing Neurological exam: PRESENT: other - Patient is intubated and sedated. Psychiatric exam: PRESENT: other - Unable to assess Skin exam: PRESENT: dry, intact, warm. ABSENT: cyanosis, rash Results Laboratory Results: 02/19/17 02/19/17 06:00 08:45 Carbonic Acid 2.50 H 1.44 H HCO3/H2CO3 Ratio 10:1 16:1 ABG pH 7.12 L* 7.32 L ABG pCO2 83.2 H* 48.0 H ABG pO2 75.0 L 69.7 L ABG HCO3 26.6 H 24.4 ABG O2 Saturation 89.2 L 92.6 L ABG Base Excess -4.3 -1.9 FiO2 100% 100% 02/19/17 02/19/17 08:00 08:00 Creatine Kinase 27 L CK-MB (CK-2) 0.80 Troponin I 0.019 Impressions: Head CT 02/19/17 01:56 IMPRESSION: No acute findings. Interval development of a right lacunar infarct. Essentially stable appearance of left frontal lobe hypoattenuation ; given concomitant vascular calcifications, favor this to be on the basis of previous ischemic event. Chest X-Ray 02/19/17 07:58 IMPRESSION: NO CHANGE IN APPEARANCE OF THE CHEST. NO PNEUMOTHORAX. Assessment & Plan - Diagnosis (1) Sepsis Is this a current diagnosis for this admission?: YesPlan: Has pneumonia and has developed hypotension. She most likely has sepsis. We will continue with IV fluids and vasopressors have been started. We will also give IV steroids given her acute COPD exacerbation. Will consult pulmonary medicine for their assistance with this critically ill patient. (2) Altered mental status Qualifiers: Altered mental status type: unspecified Qualified Code(s): R41.82 - Altered mental status, unspecified Is this a current diagnosis for this admission?: YesPlan: Most likely a combination of her pneumonia and the possibility of a CVA along with her underlying liver disease. Will treat for the pneumonia and hopefully her mental status will improve. (3) Pneumonia Qualifiers: Pneumonia type: due to unspecified organism Laterality: bilateral Lung location: unspecified part of lung Qualified Code(s): J18.9 - Pneumonia , unspecified organism Is this a current diagnosis for this admission?: YesPlan: Patient has pneumonia as well as what appears to be a COPD exacerbation. Will add on IV steroids to the antibiotics and nebulizers. (4) CVA (cerebral vascular accident) Is this a current diagnosis for this admission?: YesPlan: CT is not clear whether this is an acute CVA or not. It is an interval development since the last time but nothing else that would suggest it is an acute event. Treat with aspirin (5) Respiratory failure Qualifiers: Chronicity: unspecified Respiratory failure complication: hypoxia and hypercapnia Qualified Code(s): J96.91 - Respiratory failure, unspecified with hypoxia Is this a current diagnosis for this admission?: YesPlan: She has respiratory failure secondary to her underlying pneumonia and COPD exacerbation. Continue the ventilator and antibiotics. - Time Time Spent with patient: 25-34 minutes - Inpatient Certification Medical Necessity: Need for IV Antibiotics
--- NOTE | 2017-02-19 10:54 | Operative Report ---
Operative Report DATE OF SURGERY: 02/19/17 PREOPERATIVE DIAGNOSIS: Pneumonia POSTOPERATIVE DIAGNOSIS: Same OPERATION: 1. Ultrasound right neck. 2. Ultrasound directed insertion of triple-lumen central venous access catheter right internal jugular vein SURGEON: FROILAN DWYER ANESTHESIA: Local TISSUE REMOVED OR ALTERED: None COMPLICATIONS: None ESTIMATED BLOOD LOSS: 5 cc INTRAOPERATIVE FINDINGS: See below PROCEDURE: Informed consent was provided by [facility] power of assistant city attorney. Patient was placed in the Trendelenburg position right subclavian area was prepped and draped in sterile fashion. Surgical plan surgical timeout conducted. Right neck was scanned with a variable frequency linear transducer. Findings were significant for patent compressible right internal jugular vein Skin was anesthetized 1% plain lidocaine. Using the Seldinger technique, ultrasound guidance, needle and wire was threaded into the right internal jugular vein. Tract was dilated up with a triple-lumen central venous access catheter was threaded into the house. There was excellent blood flow through all 3 lm. Catheter was flushed with saline, secured to the skin with a Biopatch to the silk suture and sterile dressing Portable x-ray pending at time of dictation dictating.
[2017-02-19] MEDS ORDERED: ROCURONIUM BROMIDE INJ 50 MG/5 ML VIAL IV ONE (10:58)
[2017-02-19] MEDS: CLINDAMYCIN 900 MG/D5W RTU 50 ML IV SCH ×2 (11:02→17:30)
[2017-02-19] MEDS ORDERED: PHENYLEPHRINE HCL INJ/PF 10 MG/1 ML SDV ONE (11:16)
[2017-02-19] MEDS ORDERED: DEXTROSE 5%-WATER 250 ML with PHENYLEPHRINE HCL 40 MG IV PRN ×2 (11:24)
--- NOTE | 2017-02-19 11:50 | RADIOLOGY REPORT (SQ) ---
EXAM DESCRIPTION: CHEST SINGLE VIEW COMPLETED DATE/TIME: 02/19/2017 11:27 am REASON FOR STUDY: Status post right IJ CVP placement COMPARISON: 02/19/2017. EXAM PARAMETERS: NUMBER OF VIEWS: One view. TECHNIQUE: Single frontal radiographic view of the chest acquired. RADIATION DOSE: NA LIMITATIONS: None. FINDINGS: LUNGS AND PLEURA: Diffuse airspace disease and right pleural effusion. No pneumothorax. MEDIASTINUM AND HILAR STRUCTURES: No masses. Contour normal. HEART AND VASCULAR STRUCTURES: Heart normal in size. Normal vasculature. BONES: No acute findings. HARDWARE: Interval placement of a right-sided central line with the tip at the level of the right atr ium. Tip of the endotracheal tube is now located 5 cm proximal to the graham. Nasogastric tube with the tip in the stomach. Hardware in the cervical spine. OTHER: No other significant finding. IMPRESSION: LIFE LINES DESCRIBED. WITHDRAWAL OF THE CENTRAL LINE BY 3-4 CM MAY IMPROVE POSITIONI NG. NO PNEUMOTHORAX. OTHERWISE NO CHANGE IN APPEARANCE OF THE CHEST. TECHNICAL DOCUMENTATION: JOB ID: [id number]
[2017-02-19] MEDS ORDERED: ASPIRIN 300 MG SUPP, RECTAL PR ONE (12:00)
[2017-02-19] MEDS ORDERED: SODIUM BICARBONATE 8.4% INJ 50 MEQ/50 ML DISP.SYRIN ONE (12:04)
[2017-02-19 12:08] LABS: ABSOLUTE BASOPHILS # (AUTO) 0.1 10^3/uL (0.0-0.2); ABSOLUTE EOSINOPHILS # (AUTO) 0.1 10^3/uL (0.0-0.6); ABSOLUTE LYMPHOCYTES (AUTO) 2.8 10^3/uL (0.5-4.7); ABSOLUTE MONOCYTES (AUTO) 0.5 10^3/uL (0.1-1.4); ABSOLUTE NEUT (AUTO) 13.1 10^3/uL (1.7-8.2); BASOPHILS % (AUTO) 0.3 % (0-2); EOSINOPHILS % (AUTO) 0.5 % (0-6); HEMOGLOBIN 10.6 g/dL (12.0-15.5); LYMPHOCYTES % (AUTO) 17.2 % (13-45); MEAN CORPUSCULAR HGB CONC 29.5 g/dL (32.0-36.0); MEAN CORPUSCULAR VOLUME 75 fl (80-97); MONOCYTES % (AUTO) 2.9 % (3-13); RED BLOOD COUNT 4.83 10^6/uL (3.72-5.28); RED CELL DISTRIBUTION WIDTH 17.9 % (11.5-14.0); SEGMENTED NEUTROPHILS % (AUTO) 79.1 % (42-78); WHITE BLOOD COUNT 16.5 10^3/uL (4.0-10.5)
[2017-02-19 12:15] LABS: ARTERIAL BLOOD BASE EXCESS -1.1 mmol/L; ARTERIAL BLOOD O2 SATURATION 89.5 % (94-98)
[2017-02-19 12:15] LABS: ANION GAP 8 (5-19); BLOOD UREA NITROGEN 11 mg/dL (7-20); CALCIUM 8.1 mg/dL (8.4-10.2); CARBON DIOXIDE 24 mmol/L (22-30); CHLORIDE 108 mmol/L (98-107); CREATININE RESULT 0.55 mg/dL (0.52-1.25); GLUCOSE 100 mg/dL (75-110); MAGNESIUM 1.5 mg/dL (1.6-2.3); PHOSPHORUS 3.4 mg/dL (2.5-4.5); POTASSIUM 3.4 mmol/L (3.6-5.0); SODIUM 139.5 mmol/L (137-145)
[2017-02-19 12:25] LABS: HGB HCT DIFFERENCE -4.2
[2017-02-19] MEDS: METHYLPREDNISOLONE INJ 40 MG/1 ML SDV IV SCH ×2 (13:38→22:14)
[2017-02-19] MEDS: DEXTROSE 5%-WATER 250 ML with NOREPINEPHRINE BITARTRATE 4 MG IV PRN ×4 (13:39→19:25)
[2017-02-19] MEDS ORDERED: MAGNESIUM SULFATE 1 GM/D5W 100 ML IV ONE ×2 (13:45)
[2017-02-19] MEDS ORDERED: POTASSIUM CHLORIDE 20 MEQ/50 ML RTU IV ONE (13:45)
[2017-02-19] MEDS ORDERED: POTASSIUM CHLORIDE INJ 40 MEQ/20 ML SDV IV ONE (13:45)
[2017-02-19 16:32] LABS: ARTERIAL BLOOD BASE EXCESS -1.2 mmol/L; ARTERIAL BLOOD O2 SATURATION 97.3 % (94-98)
[2017-02-19 16:37] LABS: CREATINE KINASE MB 0.74 ng/mL (<4.55); TROPONIN I 0.013 ng/mL
[2017-02-19] MEDS: PROPOFOL 100 ML IV PRN (16:58)
[2017-02-19 17:51] LABS: ARTERIAL BLOOD BASE EXCESS 0.3 mmol/L; ARTERIAL BLOOD O2 SATURATION 98.2 % (94-98)
--- NOTE | 2017-02-19 18:15 | PDOC CONSULTATION ---
Consultation Consult Date: 02/19/17 Attending physician:: FROILAN DOE Consult reason:: ARF/PNA History of Present Illness Admission Date/PCP: 02/19/17 04:10 History of Present Illness: history from chart patient intubated.NIKKIE PAN is a 51 year old female with a past medical history of hepatic cirrhosis, coronary artery disease with stents, coagulopathy, neuropathy, AVM of the hip, peripheral vascular disease, CVA, congestive heart failure, bipolar, left-sided carotid artery disease. Patient was diagnosed with pneumonia 3 days ago and was found prior to arrival by her unresponsive without pulses and questionable respiration he delivered chest compressions upon EMS arrival she has an oxygen saturation of 40 % is cyanotic and with extensor posturing of the upper extremity. In the emergency room she begins to vomit and aspirate and is intubated. Workup includes a CT of the head showing new lacunar infarct. Additional history is unavailable. Past Medical History Cardiac Medical History: Reports: Congestive Heart Failure, Coronary Artery Disease, Myocardial Infarction, Hyperlipidema, Hypertension, Peripheral Vascular Disease Pulmonary Medical History: Denies: Asthma, Bronchitis, Chronic Obstructive Pulmonary Disease (COPD), Pneumonia Neurological Medical History: Reports: Migraine Denies: Seizures Malignancy Medical History: Reports: Ovarian Cancer Musculoskeltal Medical History: Reports: Arthritis Psychiatric Medical History: Reports: Bipolar Disorder, Depression Hematology: Denies: Anemia Past Surgical History Past Surgical History: Reports: Coronary Stent - x2, Hysterectomy, Orthopedic Surgery - C7 plate/fusion, Tonsillectomy Social History Information Source: [facility] Records Lives with: Family Smoking Status: Unknown if Ever Smoked Frequency of Alcohol Use: None Hx Recreational Drug Use: No Hx Prescription Drug Abuse: Yes - Advance Directive Resuscitation Status: Full Code Family History Family History: Malignancy Parental Family History Reviewed: No Children Family History Reviewed: No Sibling(s) Family History Reviewed.: No Medication/Allergy Home Medications: Unobtainable [Unobtainable] 02/19/17 Allergies/Adverse Reactions: No Known Allergies Allergy (Verified 09/20/16 15:54) Review of Systems ROS unobtainable: Due to endotracheal tube, Due to mental status Physical Exam Vital Signs: Temp Pulse Resp BP Pulse Ox 100.4 F 91 22 H 87/63 L 91 L 02/19/17 09:59 02/19/17 09:59 02/19/17 09:59 02/19/17 09:59 02/19/17 09:59 Intake & Output 02/18/17 02/19/17 02/20/17 06:59 06:59 06:59 Output Total 245 Balance -245 Weight 73.5 kg General appearance: PRESENT: no acute distress, disheveled, obese, well- developed Head exam: PRESENT: atraumatic, normocephalic Eye exam: PRESENT: conjunctiva pale Mouth exam: PRESENT: dry mucosa, neck supple, other - ET tube in place Neck exam: ABSENT: carotid bruit, JVD, lymphadenopathy, thyromegaly Respiratory exam: PRESENT: decreased breath sounds, rales, rhonchi, symmetrical , unlabored Cardiovascular exam: PRESENT: RRR, +S1, +S2 Pulses: PRESENT: normal radial pulses GI/Abdominal exam: PRESENT: normal bowel sounds, soft. ABSENT: distended, guarding, mass, organolmegaly, rebound, tenderness Rectal exam: PRESENT: deferred Gentrourinary exam: PRESENT: indwelling catheter Musculoskeletal exam: PRESENT: normal inspection Skin exam: PRESENT: dry, warm Results Laboratory Results: 02/19/17 02/19/17 06:00 08:45 Carbonic Acid 2.50 H 1.44 H HCO3/H2CO3 Ratio 10:1 16:1 ABG pH 7.12 L* 7.32 L ABG pCO2 83.2 H* 48.0 H ABG pO2 75.0 L 69.7 L ABG HCO3 26.6 H 24.4 ABG O2 Saturation 89.2 L 92.6 L ABG Base Excess -4.3 -1.9 FiO2 100% 100% 02/19/17 02/19/17 08:00 08:00 Creatine Kinase 27 L CK-MB (CK-2) 0.80 Troponin I 0.019 Impressions: Head CT 02/19/17 01:56 IMPRESSION: No acute findings. Interval development of a right lacunar infarct. Essentially stable appearance of left frontal lobe hypoattenuation ; given concomitant vascular calcifications, favor this to be on the basis of previous ischemic event. Chest X-Ray 02/19/17 07:58 IMPRESSION: NO CHANGE IN APPEARANCE OF THE CHEST. NO PNEUMOTHORAX. Assessment & Plan - Diagnosis (1) CVA (cerebral vascular accident) Is this a current diagnosis for this admission?: YesPlan: head CT abnormality (2) Respiratory failure Qualifiers: Chronicity: unspecified Respiratory failure complication: hypoxia and hypercapnia Qualified Code(s): J96.91 - Respiratory failure, unspecified with hypoxia Is this a current diagnosis for this admission?: YesPlan: improved with airway clearance may invariably need bronchoscopy (3) Pneumonia Qualifiers: Pneumonia type: aspiration pneumonia Laterality: bilateral Lung location: unspecified part of lung Qualified Code(s): J18.9 - Pneumonia, unspecified organism Is this a current diagnosis for this admission?: YesPlan: difficult to oxygenate swithched to BU Level ventilation w/o sucess until RN and RT were able to aspirate large mucous plugs at which time SAO2 improved (4) Sepsis Is this a current diagnosis for this admission?: YesPlan: currently beginning 2nd vasopressor agent - Time Critical Time spent with patient: 35 or more minutes
[2017-02-19 19:45] LABS: MAGNESIUM 1.6 mg/dL (1.6-2.3); POTASSIUM 3.6 mmol/L (3.6-5.0)
[2017-02-19 20:56] LABS: ARTERIAL BLOOD BASE EXCESS -0.5 mmol/L; ARTERIAL BLOOD O2 SATURATION 98.3 % (94-98)
[2017-02-19] MEDS: ATORVASTATIN CALCIUM 80 MG TABLET NG SCH (22:13)
[2017-02-19] MEDS: NORMAL SALINE INJ/PF 0.9% 10 ML SDV IV PRN (22:14)
[2017-02-19 23:12] LABS: CREATINE KINASE MB 0.24 ng/mL (<4.55)
[2017-02-19 23:14] LABS: TROPONIN I < 0.012 ng/mL
[2017-02-20] MEDS: PROPOFOL 100 ML IV PRN ×4 (00:14→19:33)
[2017-02-20] MEDS: NORMAL SALINE 1000 ML 1,000 ML IV PRN ×4 (02:00→21:50)
[2017-02-20] MEDS: CLINDAMYCIN 900 MG/D5W RTU 50 ML IV SCH ×3 (02:02→17:26)
[2017-02-20] MEDS: DEXTROSE 5%-WATER 250 ML with NOREPINEPHRINE BITARTRATE 4 MG IV PRN ×4 (02:51→10:53)
[2017-02-20] MEDS: PIPERACILLIN SODIUM/TAZOBACTAM 4.5 GM in NORMAL SALINE 100 ML IV SCH ×4 (02:51→20:51)
[2017-02-20 05:17] LABS: ARTERIAL BLOOD BASE EXCESS -0.5 mmol/L
[2017-02-20 05:31] LABS: ALANINE AMINOTRANSFERASE 22 U/L (9-52); ALKALINE PHOSPHATASE 131 U/L (38-126); ANION GAP 9 (5-19); ASPARTATE AMINO TRANSFERASE 21 U/L (14-36); BILIRUBIN,DIRECT 0.9 mg/dL (0.0-0.4); BILIRUBIN,TOTAL 1.1 mg/dL (0.2-1.3); BLOOD UREA NITROGEN 13 mg/dL (7-20); CARBON DIOXIDE 23 mmol/L (22-30); CHLORIDE 109 mmol/L (98-107); CHOLESTEROL 72.77 mg/dL (0-200); CREATININE RESULT 0.74 mg/dL (0.52-1.25); Direct HDL 19 mg/dL (>40); GLUCOSE 148 mg/dL (75-110); POTASSIUM 3.4 mmol/L (3.6-5.0); SODIUM 140.9 mmol/L (137-145); TOTAL PROTEIN 5.4 g/dL (6.3-8.2); TRIGLYCERIDES 204 mg/dL (<150)
[2017-02-20 05:33] LABS: HEMATOCRIT 31.7 % (36.0-47.0); HEMOGLOBIN 9.5 g/dL (12.0-15.5); HGB HCT DIFFERENCE -3.2; MEAN CORPUSCULAR HEMOGLOBIN 21.5 pg (27.0-33.4); MEAN CORPUSCULAR VOLUME 72 fl (80-97); RED BLOOD COUNT 4.41 10^6/uL (3.72-5.28); RED CELL DISTRIBUTION WIDTH 18.6 % (11.5-14.0); WHITE BLOOD COUNT 27.7 10^3/uL (4.0-10.5)
[2017-02-20 05:43] LABS: DIRECT LDL < 30 mg/dL (<100); VLDL CHOLESTEROL 40.8 mg/dL (10-31)
[2017-02-20 06:14] LABS: BASOPHILS % (MANUAL) 0 % (0-2); EOSINOPHILS % (MANUAL) 0 % (0-6); LYMPHOCYTES % (MANUAL) 8 % (13-45); TOTAL CELLS COUNTED 100
[2017-02-20 06:16] LABS: ANISOCYTOSIS 1+; HYPOCHROMASIA 1+; MICROCYTOSIS 1+; OVALOCYTES 1+; POLYCHROMASIA SLIGHT; TOXIC VACUOLATION PRESENT
[2017-02-20] MEDS: HEPARIN SOD (PORCINE) 5,000 UNIT/ML 1 ML SYRINGE SUBCUT SCH ×3 (06:18→21:12)
[2017-02-20] MEDS: METHYLPREDNISOLONE INJ 40 MG/1 ML SDV IV SCH ×3 (06:19→21:12)
--- NOTE | 2017-02-20 07:14 | RADIOLOGY REPORT (SQ) ---
EXAM DESCRIPTION: CHEST SINGLE VIEW COMPLETED DATE/TIME: 02/20/2017 6:56 am REASON FOR STUDY: resp fail/pna COMPARISON: 02/19/2017. EXAM PARAMETERS: NUMBER OF VIEWS: One view. TECHNIQUE: Single frontal radiographic view of the chest acquired. RADIATION DOSE: NA LIMITATIONS: None. FINDINGS: LUNGS AND PLEURA: Moderate mixed interstitial and airspace opacity worse in the right lowe r lobe. Moderate right lung volume. MEDIASTINUM AND HILAR STRUCTURES: No masses. Contour normal. HEART AND VASCULAR STRUCTURES: Heart normal in size. Normal vasculature. BONES: Bilateral lower rib fractures. HARDWARE: Adequate appearing endotracheal tube. Likely adequate nasogastric tube partially imaged to . Right internal jugular central line tip in the right atrium; consider 9 cm retraction. OTHER: No other significant finding. IMPRESSION: Moderate mixed interstitial and airspace opacity worse in the right lower lobe with some interval improvement. TECHNICAL DOCUMENTATION: JOB ID: [id number]
--- NOTE | 2017-02-20 09:31 | PDOC PROGRESS REPORT ---
Subjective Progress Note for:: 02/20/17 Subjective:: The patient was very hypotensive yesterday requiring Levophed and Juan- Synephrine. Her blood pressure has improved dramatically and her oxygen requirement has decreased. Her vasopressor requirement also has decreased substantially. Physical Exam Vital Signs: Temp Pulse Resp BP Pulse Ox 100.9 F H 110 H 13 132/87 H 99 02/20/17 08:00 02/20/17 08:00 02/20/17 08:00 02/20/17 08:00 02/20/17 08:00 Intake & Output 02/19/17 02/20/17 02/21/17 06:59 06:59 06:59 Intake Total 7549 Output Total 1610 50 Balance 5939 -50 Weight 73.5 kg 78.8 kg General appearance: PRESENT: mild distress Eye exam: PRESENT: conjunctiva pink. ABSENT: scleral icterus Ear exam: PRESENT: normal external ear exam Mouth exam: PRESENT: moist, tongue midline Neck exam: ABSENT: JVD Respiratory exam: PRESENT: rhonchi - Course rhonchi bilaterally.. ABSENT: rales , wheezes Cardiovascular exam: PRESENT: RRR. ABSENT: diastolic murmur, rubs, systolic murmur GI/Abdominal exam: PRESENT: ascites, normal bowel sounds, soft. ABSENT: tenderness Extremities exam: ABSENT: calf tenderness, clubbing, pedal edema Neurological exam: PRESENT: other - Intubated and sedated Psychiatric exam: PRESENT: other - Unable to assess Skin exam: PRESENT: dry, intact, warm. ABSENT: cyanosis, rash Results Laboratory Results: 02/20/17 05:05 02/20/17 05:05 02/19/17 02/19/17 02/19/17 11:40 11:40 12:10 WBC 16.5 H RBC 4.83 Hgb 10.6 L Hct 36.0 MCV 75 L MCH 22.0 L MCHC 29.5 L RDW 17.9 H Plt Count 499 H Seg Neutrophils % 79.1 H Lymphocytes % 17.2 Monocytes % 2.9 L Eosinophils % 0.5 Basophils % 0.3 Absolute Neutrophils 13.1 H Absolute Lymphocytes 2.8 Absolute Monocytes 0.5 Absolute Eosinophils 0.1 Absolute Basophils 0.1 Carbonic Acid 1.22 HCO3/H2CO3 Ratio 19:1 ABG pH 7.39 ABG pCO2 40.5 ABG pO2 57.2 L ABG HCO3 23.8 ABG O2 Saturation 89.5 L ABG Base Excess -1.1 FiO2 100% Sodium 139.5 Potassium 3.4 L Chloride 108 H Carbon Dioxide 24 Anion Gap 8 BUN 11 Creatinine 0.55 Est GFR ( Amer) > 60 Est GFR (Non-Af Amer) > 60 Glucose 100 Calcium 8.1 L Phosphorus 3.4 Magnesium 1.5 L Total Bilirubin AST ALT Alkaline Phosphatase Total Protein Albumin Triglycerides Cholesterol LDL Cholesterol Direct VLDL Cholesterol HDL Cholesterol 02/19/17 02/19/17 02/19/17 15:38 15:38 16:15 WBC RBC Hgb Hct MCV MCH MCHC RDW Plt Count Seg Neutrophils % Lymphocytes % Monocytes % Eosinophils % Basophils % Absolute Neutrophils Absolute Lymphocytes Absolute Monocytes Absolute Eosinophils Absolute Basophils Carbonic Acid Cancelled 0.89 L HCO3/H2CO3 Ratio Cancelled 24:1 ABG pH Cancelled 7.48 H ABG pCO2 Cancelled 29.5 L ABG pO2 Cancelled 87.0 ABG HCO3 Cancelled 21.4 ABG O2 Saturation Cancelled 97.3 ABG Base Excess Cancelled -1.2 FiO2 Cancelled 80% Sodium Potassium 3.6 Chloride Carbon Dioxide Anion Gap BUN Creatinine Est GFR ( Amer) Est GFR (Non-Af Amer) Glucose Calcium Phosphorus Magnesium 1.6 Total Bilirubin AST ALT Alkaline Phosphatase Total Protein Albumin Triglycerides Cholesterol LDL Cholesterol Direct VLDL Cholesterol HDL Cholesterol 02/19/17 02/19/17 02/20/17 17:35 20:23 05:05 WBC 27.7 H RBC 4.41 Hgb 9.5 L Hct 31.7 L MCV 72 L MCH 21.5 L MCHC 30.0 L RDW 18.6 H Plt Count 407 Seg Neutrophils % Not Reportable Lymphocytes % Not Reportable Monocytes % Not Reportable Eosinophils % Not Reportable Basophils % Not Reportable Absolute Neutrophils Not Reportable Absolute Lymphocytes Not Reportable Absolute Monocytes Not Reportable Absolute Eosinophils Not Reportable Absolute Basophils Not Reportable Carbonic Acid 0.86 L 0.95 L HCO3/H2CO3 Ratio 26:1 23:1 ABG pH 7.51 H 7.47 H ABG pCO2 28.6 L 31.4 L ABG pO2 101.6 H 108.4 H ABG HCO3 22.4 22.4 ABG O2 Saturation 98.2 H 98.3 H ABG Base Excess 0.3 -0.5 FiO2 75% 65% Sodium Potassium Chloride Carbon Dioxide Anion Gap BUN Creatinine Est GFR ( Amer) Est GFR (Non-Af Amer) Glucose Calcium Phosphorus Magnesium Total Bilirubin AST ALT Alkaline Phosphatase Total Protein Albumin Triglycerides Cholesterol LDL Cholesterol Direct VLDL Cholesterol HDL Cholesterol 02/20/17 02/20/17 05:05 05:05 WBC RBC Hgb Hct MCV MCH MCHC RDW Plt Count Seg Neutrophils % Lymphocytes % Monocytes % Eosinophils % Basophils % Absolute Neutrophils Absolute Lymphocytes Absolute Monocytes Absolute Eosinophils Absolute Basophils Carbonic Acid 0.93 L HCO3/H2CO3 Ratio 24:1 ABG pH 7.48 H ABG pCO2 31.0 L ABG pO2 140.4 H ABG HCO3 22.4 ABG O2 Saturation 99.0 H ABG Base Excess -0.5 FiO2 60% Sodium 140.9 Potassium 3.4 L Chloride 109 H Carbon Dioxide 23 Anion Gap 9 BUN 13 Creatinine 0.74 Est GFR ( Amer) > 60 Est GFR (Non-Af Amer) > 60 Glucose 148 H Calcium 8.0 L Phosphorus Magnesium Total Bilirubin 1.1 AST 21 ALT 22 Alkaline Phosphatase 131 H Total Protein 5.4 L Albumin 2.0 L Triglycerides 204 H Cholesterol 72.77 LDL Cholesterol Direct < 30 VLDL Cholesterol 40.8 H HDL Cholesterol 19 L 02/19/17 08:30 Tracheal Aspirate Gram Stain - Final 02/19/17 02/19/17 02/19/17 08:00 08:00 15:38 Creatine Kinase 27 L < 20 L CK-MB (CK-2) 0.80 Troponin I 0.019 02/19/17 02/19/17 02/19/17 15:38 22:45 22:45 Creatine Kinase < 20 L CK-MB (CK-2) 0.74 0.24 Troponin I 0.013 < 0.012 Impressions: Head CT 02/19/17 01:56 IMPRESSION: No acute findings. Interval development of a right lacunar infarct. Essentially stable appearance of left frontal lobe hypoattenuation ; given concomitant vascular calcifications, favor this to be on the basis of previous ischemic event. Chest X-Ray 02/20/17 06:00 IMPRESSION: Moderate mixed interstitial and airspace opacity worse in the right lower lobe with some interval improvement. Assessment & Plan - Diagnosis (1) Sepsis Is this a current diagnosis for this admission?: YesPlan: She has pneumonia as the cause for her sepsis. Patient has required vasopressors overnight however they have been decreased and hopefully can be weaned off today. (2) Altered mental status Qualifiers: Altered mental status type: unspecified Qualified Code(s): R41.82 - Altered mental status, unspecified Is this a current diagnosis for this admission?: YesPlan: Most likely a combination of her pneumonia and the possibility of a CVA along with her underlying liver disease. Will treat for the pneumonia and hopefully her mental status will improve. (3) Pneumonia Qualifiers: Pneumonia type: aspiration pneumonia Laterality: bilateral Lung location: unspecified part of lung Qualified Code(s): J18.9 - Pneumonia, unspecified organism Is this a current diagnosis for this admission?: YesPlan: Patient has pneumonia as well as what appears to be a COPD exacerbation. Continue with clindamycin, Zosyn, Solu-Medrol and nebulizers. (4) CVA (cerebral vascular accident) Is this a current diagnosis for this admission?: YesPlan: CT is not clear whether this is an acute CVA or not. It is an interval development since the last time but nothing else that would suggest it is an acute event. Treat with aspirin (5) Respiratory failure Qualifiers: Chronicity: unspecified Respiratory failure complication: hypoxia and hypercapnia Qualified Code(s): J96.91 - Respiratory failure, unspecified with hypoxia Is this a current diagnosis for this admission?: YesPlan: She has respiratory failure secondary to her underlying pneumonia and COPD exacerbation. Continue the ventilator and antibiotics. - Time Time Spent with patient: 25-34 minutes - Inpatient Certification Medical Necessity: Need Close Monitoring Due to Risk of Patient Decompensation, Need for IV Antibiotics
[2017-02-20] MEDS: POTASSI CL 20 MEQ/50 ML RIDER 50 ML IV SCH ×3 (09:35→13:52)
[2017-02-20] MEDS: ASPIRIN 300 MG SUPP, RECTAL PR SCH (09:37)
[2017-02-20] MEDS: THIAMINE HCL 100 MG, FOLIC ACID 1 MG in NORMAL SALINE 50 ML IV SCH (09:37)
--- NOTE | 2017-02-20 10:02 | PDOC PROGRESS REPORT ---
Subjective Progress Note for:: 02/20/17 Subjective:: intubated Physical Exam Vital Signs: Temp Pulse Resp BP Pulse Ox 100.9 F H 110 H 13 132/87 H 99 02/20/17 08:00 02/20/17 08:00 02/20/17 08:00 02/20/17 08:00 02/20/17 08:00 Intake & Output 02/19/17 02/20/17 02/21/17 06:59 06:59 06:59 Intake Total 7549 Output Total 1610 50 Balance 5939 -50 Weight 73.5 kg 78.8 kg General appearance: PRESENT: no acute distress, disheveled, obese, well- developed Head exam: PRESENT: atraumatic, normocephalic Eye exam: PRESENT: conjunctiva pale, EOMI Mouth exam: PRESENT: dry mucosa, neck supple, other - ET tube in place Neck exam: PRESENT: carotid bruit Respiratory exam: PRESENT: crackles, decreased breath sounds, prolonged expiratory phas, rhonchi, symmetrical, unlabored Cardiovascular exam: PRESENT: RRR, +S1, +S2 Pulses: PRESENT: normal radial pulses GI/Abdominal exam: PRESENT: normal bowel sounds, soft. ABSENT: distended, guarding, mass, organolmegaly, rebound, tenderness Rectal exam: PRESENT: deferred Gentrourinary exam: PRESENT: indwelling catheter Extremities exam: PRESENT: +1 edema Skin exam: PRESENT: dry, warm Results Laboratory Results: 02/20/17 05:05 02/20/17 05:05 02/19/17 02/19/17 02/19/17 08:45 11:40 11:40 WBC 16.5 H RBC 4.83 Hgb 10.6 L Hct 36.0 MCV 75 L MCH 22.0 L MCHC 29.5 L RDW 17.9 H Plt Count 499 H Seg Neutrophils % 79.1 H Lymphocytes % 17.2 Monocytes % 2.9 L Eosinophils % 0.5 Basophils % 0.3 Absolute Neutrophils 13.1 H Absolute Lymphocytes 2.8 Absolute Monocytes 0.5 Absolute Eosinophils 0.1 Absolute Basophils 0.1 Carbonic Acid 1.44 H HCO3/H2CO3 Ratio 16:1 ABG pH 7.32 L ABG pCO2 48.0 H ABG pO2 69.7 L ABG HCO3 24.4 ABG O2 Saturation 92.6 L ABG Base Excess -1.9 FiO2 100% Sodium 139.5 Potassium 3.4 L Chloride 108 H Carbon Dioxide 24 Anion Gap 8 BUN 11 Creatinine 0.55 Est GFR ( Amer) > 60 Est GFR (Non-Af Amer) > 60 Glucose 100 Calcium 8.1 L Phosphorus 3.4 Magnesium 1.5 L Total Bilirubin AST ALT Alkaline Phosphatase Total Protein Albumin Triglycerides Cholesterol LDL Cholesterol Direct VLDL Cholesterol HDL Cholesterol 02/19/17 02/19/17 02/19/17 12:10 15:38 15:38 WBC RBC Hgb Hct MCV MCH MCHC RDW Plt Count Seg Neutrophils % Lymphocytes % Monocytes % Eosinophils % Basophils % Absolute Neutrophils Absolute Lymphocytes Absolute Monocytes Absolute Eosinophils Absolute Basophils Carbonic Acid 1.22 Cancelled HCO3/H2CO3 Ratio 19:1 Cancelled ABG pH 7.39 Cancelled ABG pCO2 40.5 Cancelled ABG pO2 57.2 L Cancelled ABG HCO3 23.8 Cancelled ABG O2 Saturation 89.5 L Cancelled ABG Base Excess -1.1 Cancelled FiO2 100% Cancelled Sodium Potassium 3.6 Chloride Carbon Dioxide Anion Gap BUN Creatinine Est GFR ( Amer) Est GFR (Non-Af Amer) Glucose Calcium Phosphorus Magnesium 1.6 Total Bilirubin AST ALT Alkaline Phosphatase Total Protein Albumin Triglycerides Cholesterol LDL Cholesterol Direct VLDL Cholesterol HDL Cholesterol 02/19/17 02/19/17 02/19/17 16:15 17:35 20:23 WBC RBC Hgb Hct MCV MCH MCHC RDW Plt Count Seg Neutrophils % Lymphocytes % Monocytes % Eosinophils % Basophils % Absolute Neutrophils Absolute Lymphocytes Absolute Monocytes Absolute Eosinophils Absolute Basophils Carbonic Acid 0.89 L 0.86 L 0.95 L HCO3/H2CO3 Ratio 24:1 26:1 23:1 ABG pH 7.48 H 7.51 H 7.47 H ABG pCO2 29.5 L 28.6 L 31.4 L ABG pO2 87.0 101.6 H 108.4 H ABG HCO3 21.4 22.4 22.4 ABG O2 Saturation 97.3 98.2 H 98.3 H ABG Base Excess -1.2 0.3 -0.5 FiO2 80% 75% 65% Sodium Potassium Chloride Carbon Dioxide Anion Gap BUN Creatinine Est GFR ( Amer) Est GFR (Non-Af Amer) Glucose Calcium Phosphorus Magnesium Total Bilirubin AST ALT Alkaline Phosphatase Total Protein Albumin Triglycerides Cholesterol LDL Cholesterol Direct VLDL Cholesterol HDL Cholesterol 02/20/17 02/20/17 02/20/17 05:05 05:05 05:05 WBC 27.7 H RBC 4.41 Hgb 9.5 L Hct 31.7 L MCV 72 L MCH 21.5 L MCHC 30.0 L RDW 18.6 H Plt Count 407 Seg Neutrophils % Not Reportable Lymphocytes % Not Reportable Monocytes % Not Reportable Eosinophils % Not Reportable Basophils % Not Reportable Absolute Neutrophils Not Reportable Absolute Lymphocytes Not Reportable Absolute Monocytes Not Reportable Absolute Eosinophils Not Reportable Absolute Basophils Not Reportable Carbonic Acid 0.93 L HCO3/H2CO3 Ratio 24:1 ABG pH 7.48 H ABG pCO2 31.0 L ABG pO2 140.4 H ABG HCO3 22.4 ABG O2 Saturation 99.0 H ABG Base Excess -0.5 FiO2 60% Sodium 140.9 Potassium 3.4 L Chloride 109 H Carbon Dioxide 23 Anion Gap 9 BUN 13 Creatinine 0.74 Est GFR ( Amer) > 60 Est GFR (Non-Af Amer) > 60 Glucose 148 H Calcium 8.0 L Phosphorus Magnesium Total Bilirubin 1.1 AST 21 ALT 22 Alkaline Phosphatase 131 H Total Protein 5.4 L Albumin 2.0 L Triglycerides 204 H Cholesterol 72.77 LDL Cholesterol Direct < 30 VLDL Cholesterol 40.8 H HDL Cholesterol 19 L 02/19/17 08:30 Tracheal Aspirate Gram Stain - Final 02/19/17 02/19/17 02/19/17 08:00 08:00 15:38 Creatine Kinase 27 L < 20 L CK-MB (CK-2) 0.80 Troponin I 0.019 02/19/17 02/19/17 02/19/17 15:38 22:45 22:45 Creatine Kinase < 20 L CK-MB (CK-2) 0.74 0.24 Troponin I 0.013 < 0.012 Impressions: Head CT 02/19/17 01:56 IMPRESSION: No acute findings. Interval development of a right lacunar infarct. Essentially stable appearance of left frontal lobe hypoattenuation ; given concomitant vascular calcifications, favor this to be on the basis of previous ischemic event. Chest X-Ray 02/20/17 06:00 IMPRESSION: Moderate mixed interstitial and airspace opacity worse in the right lower lobe with some interval improvement. Assessment & Plan - Diagnosis (1) CVA (cerebral vascular accident) Is this a current diagnosis for this admission?: Yes (2) Respiratory failure Qualifiers: Chronicity: unspecified Respiratory failure complication: hypoxia and hypercapnia Qualified Code(s): J96.91 - Respiratory failure, unspecified with hypoxia Is this a current diagnosis for this admission?: YesPlan: Improving requiring continued support (3) Pneumonia Qualifiers: Pneumonia type: aspiration pneumonia Laterality: bilateral Lung location: unspecified part of lung Is this a current diagnosis for this admission?: YesPlan: wbc elavated (4) Sepsis Is this a current diagnosis for this admission?: YesPlan: currently beginning 2nd vasopressor agent - Time Critical Time spent with patient: 35 or more minutes
[2017-02-20] MEDS: ATORVASTATIN CALCIUM 80 MG TABLET NG SCH (21:12)
--- NOTE | 2017-02-20 21:13 | EKG REPORT ---
SEVERITY:- ABNORMAL ECG - SINUS TACHYCARDIA LOW VOLTAGE IN FRONTAL LEADS PROBABLE LVH WITH SECONDARY REPOL ABNRM BORDERLINE INFERIOR Q WAVES : Confirmed by: Zain Mccoy 20-Feb-2017 21:11:44
[2017-02-21] MEDS: PROPOFOL 100 ML IV PRN ×4 (00:49→21:30)
[2017-02-21] MEDS: CLINDAMYCIN 900 MG/D5W RTU 50 ML IV SCH ×3 (01:05→17:45)
[2017-02-21] MEDS: PIPERACILLIN SODIUM/TAZOBACTAM 4.5 GM in NORMAL SALINE 100 ML IV SCH ×4 (02:25→21:27)
[2017-02-21] MEDS: NORMAL SALINE 1000 ML 1,000 ML IV PRN ×2 (03:50→09:48)
[2017-02-21] MEDS: METHYLPREDNISOLONE INJ 40 MG/1 ML SDV IV SCH ×3 (05:06→21:29)
[2017-02-21] MEDS: HEPARIN SOD (PORCINE) 5,000 UNIT/ML 1 ML SYRINGE SUBCUT SCH (05:08)
[2017-02-21 05:32] LABS: ARTERIAL BLOOD BASE EXCESS -0.8 mmol/L; ARTERIAL BLOOD O2 SATURATION 99.3 % (94-98)
[2017-02-21] MEDS: DEXTROSE 5%-WATER 250 ML with NOREPINEPHRINE BITARTRATE 4 MG IV PRN ×2 (05:36)
[2017-02-21 05:52] LABS: ALANINE AMINOTRANSFERASE 25 U/L (9-52); ALBUMIN 1.8 g/dL (3.5-5.0); ALKALINE PHOSPHATASE 95 U/L (38-126); ANION GAP 10 (5-19); ASPARTATE AMINO TRANSFERASE 13 U/L (14-36); BILIRUBIN,DIRECT 0.7 mg/dL (0.0-0.4); BILIRUBIN,TOTAL 0.7 mg/dL (0.2-1.3); BLOOD UREA NITROGEN 20 mg/dL (7-20); CALCIUM 7.3 mg/dL (8.4-10.2); CARBON DIOXIDE 21 mmol/L (22-30); CHLORIDE 110 mmol/L (98-107); CREATININE RESULT 0.78 mg/dL (0.52-1.25); GLUCOSE 140 mg/dL (75-110); MAGNESIUM 1.6 mg/dL (1.6-2.3); PHOSPHORUS 4.3 mg/dL (2.5-4.5); POTASSIUM 3.7 mmol/L (3.6-5.0); SODIUM 140.8 mmol/L (137-145); TOTAL PROTEIN 4.8 g/dL (6.3-8.2)
[2017-02-21 05:57] LABS: ABSOLUTE BASOPHILS # (AUTO) 0.1 10^3/uL (0.0-0.2); ABSOLUTE LYMPHOCYTES (AUTO) 1.1 10^3/uL (0.5-4.7); ABSOLUTE MONOCYTES (AUTO) 0.7 10^3/uL (0.1-1.4); ABSOLUTE NEUT (AUTO) 16.7 10^3/uL (1.7-8.2); BASOPHILS % (AUTO) 0.3 % (0-2); HEMATOCRIT 23.5 % (36.0-47.0); HGB HCT DIFFERENCE -1.9; LYMPHOCYTES % (AUTO) 6.1 % (13-45); MEAN CORPUSCULAR HEMOGLOBIN 21.7 pg (27.0-33.4); MEAN CORPUSCULAR HGB CONC 30.6 g/dL (32.0-36.0); MEAN CORPUSCULAR VOLUME 71 fl (80-97); MONOCYTES % (AUTO) 3.9 % (3-13); RED BLOOD COUNT 3.31 10^6/uL (3.72-5.28); RED CELL DISTRIBUTION WIDTH 18.2 % (11.5-14.0); SEGMENTED NEUTROPHILS % (AUTO) 89.7 % (42-78); WHITE BLOOD COUNT 18.7 10^3/uL (4.0-10.5)
[2017-02-21 06:00] LABS: HEMOGLOBIN 7.2 g/dL (12.0-15.5)
--- NOTE | 2017-02-21 07:41 | RADIOLOGY REPORT (SQ) ---
EXAM DESCRIPTION: CHEST SINGLE VIEW COMPLETED DATE/TIME: 02/21/2017 7:13 am REASON FOR STUDY: resp failure/pna/sepsis COMPARISON: 02/20/2017. EXAM PARAMETERS: NUMBER OF VIEWS: One view. TECHNIQUE: Single frontal radiographic view of the chest acquired. RADIATION DOSE: NA LIMITATIONS: None. FINDINGS: LUNGS AND PLEURA: Moderate right infrahilar opacity, small mixed interstitial and airspace opacity of the left mid lung field, and moderate lung volumes. Moderate haziness -layered effusion of the right lung base. MEDIASTINUM AND HILAR STRUCTURES: No masses. Contour normal. HEART AND VASCULAR STRUCTURES: Heart normal in size. Normal vasculature. BONES: No acute findings. HARDWARE: Adequate appearing endotracheal tube and likely adequate nasogastric tube partially imaged. Lower cervical hardware fusion. Tip of a right internal jugular central line at the right atrium ; consider 7 cm retraction. OTHER: No other significant finding. IMPRESSION: Moderate mixed interstitial and airspace opacity bilateral, somewhat evolved. Lines and tubes. TECHNICAL DOCUMENTATION: JOB ID: [id number]
--- NOTE | 2017-02-21 08:11 | PDOC PROGRESS REPORT ---
Subjective Progress Note for:: 02/21/17 Subjective:: Patient remained on the ventilator and intubated. Patient on Levophed and diprivan. No reported temperature spikes no respiratory distress diarrhea nor any nausea vomiting. Abdomen is more distended. History of cirrhosis. Hemoglobin dropped but platelets and WBC dropped as well. Physical Exam Vital Signs: Temp Pulse Resp BP Pulse Ox 99.3 F 73 13 102/60 100 02/20/17 18:00 02/20/17 20:00 02/21/17 06:15 02/21/17 06:07 02/21/17 06:15 Intake & Output 02/20/17 02/21/17 02/22/17 06:59 06:59 06:59 Intake Total 7549 3858 Output Total 1610 1710 Balance 5939 2148 Weight 78.8 kg 82.6 kg General appearance: PRESENT: obese, other - Intubated and sedated Head exam: PRESENT: normocephalic Eye exam: PRESENT: conjunctiva pale Mouth exam: PRESENT: moist, neck supple Neck exam: ABSENT: JVD Respiratory exam: PRESENT: clear to auscultation alecia - Anteriorly, decreased breath sounds - Lower lung parham posteriorly Cardiovascular exam: PRESENT: RRR. ABSENT: gallop GI/Abdominal exam: PRESENT: distended, hypoactive bowel sounds, other - Dullness to percussion Extremities exam: PRESENT: +1 edema Neurological exam: PRESENT: other - Sedated and intubated Psychiatric exam: ABSENT: agitated Focused psych exam: ABSENT: restlessness Skin exam: PRESENT: dry, warm. ABSENT: cyanosis Results Laboratory Results: 02/21/17 05:20 02/21/17 05:20 02/21/17 02/21/17 02/21/17 05:20 05:20 05:20 WBC 18.7 H RBC 3.31 L Hgb 7.2 L D Hct 23.5 L MCV 71 L MCH 21.7 L MCHC 30.6 L RDW 18.2 H Plt Count 286 Seg Neutrophils % 89.7 H Lymphocytes % 6.1 L Monocytes % 3.9 Eosinophils % 0.0 Basophils % 0.3 Absolute Neutrophils 16.7 H Absolute Lymphocytes 1.1 Absolute Monocytes 0.7 Absolute Eosinophils 0.0 Absolute Basophils 0.1 Carbonic Acid 0.93 L HCO3/H2CO3 Ratio 24:1 ABG pH 7.48 H ABG pCO2 31.0 L ABG pO2 173.6 H ABG HCO3 22.5 ABG O2 Saturation 99.3 H ABG Base Excess -0.8 FiO2 60% Sodium 140.8 Potassium 3.7 Chloride 110 H Carbon Dioxide 21 L Anion Gap 10 BUN 20 Creatinine 0.78 Est GFR ( Amer) > 60 Est GFR (Non-Af Amer) > 60 Glucose 140 H Calcium 7.3 L Phosphorus 4.3 Magnesium 1.6 Total Bilirubin 0.7 AST 13 L ALT 25 Alkaline Phosphatase 95 Total Protein 4.8 L Albumin 1.8 L 02/19/17 08:30 Tracheal Aspirate Gram Stain - Final 02/19/17 08:30 Tracheal Aspirate Sputum Culture - Final C.albicans/C.dubliniensis Normal Maria De Jesus Absent 02/19/17 02/19/17 02/19/17 08:00 08:00 15:38 Creatine Kinase 27 L < 20 L CK-MB (CK-2) 0.80 Troponin I 0.019 02/19/17 02/19/17 02/19/17 15:38 22:45 22:45 Creatine Kinase < 20 L CK-MB (CK-2) 0.74 0.24 Troponin I 0.013 < 0.012 Impressions: Head CT 02/19/17 01:56 IMPRESSION: No acute findings. Interval development of a right lacunar infarct. Essentially stable appearance of left frontal lobe hypoattenuation ; given concomitant vascular calcifications, favor this to be on the basis of previous ischemic event. Chest X-Ray 02/21/17 06:00 IMPRESSION: Moderate mixed interstitial and airspace opacity bilateral, somewhat evolved. Lines and tubes. Assessment & Plan - Diagnosis (1) Respiratory failure Qualifiers: Chronicity: acute Respiratory failure complication: hypoxia and hypercapnia Qualified Code(s): J96.01 - Acute respiratory failure with hypoxia; J96.02 - Acute respiratory failure with hypercapnia Is this a current diagnosis for this admission?: Yes (2) Pneumonia Qualifiers: Pneumonia type: aspiration pneumonia Laterality: bilateral Lung location: unspecified part of lung Is this a current diagnosis for this admission?: Yes (3) Sepsis Qualifiers: Sepsis type: sepsis due to unspecified organism Qualified Code(s): A41.9 - Sepsis, unspecified organism Is this a current diagnosis for this admission?: Yes (4) COPD exacerbation Is this a current diagnosis for this admission?: Yes (5) Anemia Qualifiers: Anemia type: unspecified type Qualified Code(s): D64.9 - Anemia, unspecified Is this a current diagnosis for this admission?: Yes (6) Liver cirrhosis Qualifiers: Hepatic cirrhosis type: unspecified hepatic cirrhosis Ascites presence : with ascites Qualified Code(s): K74.60 - Unspecified cirrhosis of liver Is this a current diagnosis for this admission?: Yes (7) Essential hypertension Is this a current diagnosis for this admission?: Yes (8) Peripheral vascular disease Is this a current diagnosis for this admission?: Yes (9) Carotid atherosclerosis Qualifiers: Laterality: left Qualified Code(s): I65.22 - Occlusion and stenosis of left carotid artery Is this a current diagnosis for this admission?: Yes (10) Hyperlipidemia Qualifiers: Hyperlipidemia type: unspecified Qualified Code(s): E78.5 - Hyperlipidemia, unspecified Is this a current diagnosis for this admission?: Yes (11) Bipolar disorder Qualifiers: Active/Remission status: remission status unspecified Qualified Code (s): F31.9 - Bipolar disorder, unspecified Is this a current diagnosis for this admission?: Yes (12) CVA (cerebral vascular accident) Qualifiers: CVA mechanism: unspecified Qualified Code(s): I63.9 - Cerebral infarction, unspecified Is this a current diagnosis for this admission?: Yes - Time Time Spent with patient: 25-34 minutes - Plan Summary Plan Summary: Begin diuretics. Therapeutic paracentesis. Decrease intravenous fluids. We will repeat hemoglobin hematocrit before deciding on transfusion. Monitor electrolytes. Follow-up chest x-ray in the morning. Continue current antibiotics. Weaning as per pulmonary.
[2017-02-21] MEDS: FUROSEMIDE INJ/PF 40 MG/4 ML SDV IV SCH ×2 (09:30→21:29)
[2017-02-21] MEDS: METOLAZONE 2.5 MG TABLET NG SCH ×2 (09:32→21:28)
[2017-02-21] MEDS: ASPIRIN 300 MG SUPP, RECTAL PR SCH (09:32)
[2017-02-21 09:48] LABS: HEMATOCRIT 23.8 % (36.0-47.0); HGB HCT DIFFERENCE -1.9; MEAN CORPUSCULAR HGB CONC 30.5 g/dL (32.0-36.0); MEAN CORPUSCULAR VOLUME 72 fl (80-97); RED BLOOD COUNT 3.31 10^6/uL (3.72-5.28); RED CELL DISTRIBUTION WIDTH 18.1 % (11.5-14.0); WHITE BLOOD COUNT 18.4 10^3/uL (4.0-10.5)
[2017-02-21] MEDS: THIAMINE HCL 100 MG, FOLIC ACID 1 MG in NORMAL SALINE 50 ML IV SCH (09:49)
[2017-02-21 09:55] LABS: HEMOGLOBIN 7.3 g/dL (12.0-15.5)
--- NOTE | 2017-02-21 13:43 | PDOC PROGRESS REPORT ---
Subjective Progress Note for:: 02/21/17 Subjective:: intubated Physical Exam Vital Signs: Temp Pulse Resp BP Pulse Ox 99.3 F 73 13 102/60 100 02/20/17 18:00 02/20/17 20:00 02/21/17 06:15 02/21/17 06:07 02/21/17 06:15 Intake & Output 02/20/17 02/21/17 02/22/17 06:59 06:59 06:59 Intake Total 7547 3858 Output Total 1618 1290 Balance 5939 2148 Weight 78.8 kg 82.6 kg General appearance: PRESENT: no acute distress, disheveled, obese, well- developed Head exam: PRESENT: atraumatic, normocephalic Eye exam: PRESENT: conjunctiva pale Mouth exam: PRESENT: dry mucosa, neck supple, tongue midline - ET tube in place Neck exam: ABSENT: carotid bruit, JVD, lymphadenopathy, thyromegaly Respiratory exam: PRESENT: crackles, decreased breath sounds, prolonged expiratory phas, rhonchi, symmetrical, unlabored Cardiovascular exam: PRESENT: RRR, +S1, +S2 Pulses: PRESENT: normal radial pulses GI/Abdominal exam: PRESENT: normal bowel sounds, soft. ABSENT: distended, guarding, mass, organolmegaly, rebound, tenderness Rectal exam: PRESENT: deferred Gentrourinary exam: PRESENT: indwelling catheter Skin exam: PRESENT: dry, warm Results Laboratory Results: 02/21/17 05:20 02/21/17 05:20 02/21/17 02/21/17 02/21/17 05:20 05:20 05:20 WBC 18.7 H RBC 3.31 L Hgb 7.2 L D Hct 23.5 L MCV 71 L MCH 21.7 L MCHC 30.6 L RDW 18.2 H Plt Count 286 Seg Neutrophils % 89.7 H Lymphocytes % 6.1 L Monocytes % 3.9 Eosinophils % 0.0 Basophils % 0.3 Absolute Neutrophils 16.7 H Absolute Lymphocytes 1.1 Absolute Monocytes 0.7 Absolute Eosinophils 0.0 Absolute Basophils 0.1 Carbonic Acid 0.93 L HCO3/H2CO3 Ratio 24:1 ABG pH 7.48 H ABG pCO2 31.0 L ABG pO2 173.6 H ABG HCO3 22.5 ABG O2 Saturation 99.3 H ABG Base Excess -0.8 FiO2 60% Sodium 140.8 Potassium 3.7 Chloride 110 H Carbon Dioxide 21 L Anion Gap 10 BUN 20 Creatinine 0.78 Est GFR ( Amer) > 60 Est GFR (Non-Af Amer) > 60 Glucose 140 H Calcium 7.3 L Phosphorus 4.3 Magnesium 1.6 Total Bilirubin 0.7 AST 13 L ALT 25 Alkaline Phosphatase 95 Total Protein 4.8 L Albumin 1.8 L 02/19/17 08:30 Tracheal Aspirate Gram Stain - Final 02/19/17 08:30 Tracheal Aspirate Sputum Culture - Final C.albicans/C.dubliniensis Normal Maria De Jesus Absent 02/19/17 02/19/17 02/19/17 08:00 08:00 15:38 Creatine Kinase 27 L < 20 L CK-MB (CK-2) 0.80 Troponin I 0.019 02/19/17 02/19/17 02/19/17 15:38 22:45 22:45 Creatine Kinase < 20 L CK-MB (CK-2) 0.74 0.24 Troponin I 0.013 < 0.012 Impressions: Head CT 02/19/17 01:56 IMPRESSION: No acute findings. Interval development of a right lacunar infarct. Essentially stable appearance of left frontal lobe hypoattenuation ; given concomitant vascular calcifications, favor this to be on the basis of previous ischemic event. Chest X-Ray 02/21/17 06:00 IMPRESSION: Moderate mixed interstitial and airspace opacity bilateral, somewhat evolved. Lines and tubes. Assessment & Plan - Diagnosis (1) CVA (cerebral vascular accident) Qualifiers: CVA mechanism: unspecified Qualified Code(s): I63.9 - Cerebral infarction, unspecified Is this a current diagnosis for this admission?: Yes (2) Respiratory failure Qualifiers: Chronicity: acute Respiratory failure complication: hypoxia and hypercapnia Qualified Code(s): J96.01 - Acute respiratory failure with hypoxia Is this a current diagnosis for this admission?: YesPlan: Remains on bilevel ventilation withdrawing support gradually tolerating well (3) Pneumonia Qualifiers: Pneumonia type: aspiration pneumonia Laterality: bilateral Lung location: unspecified part of lung Is this a current diagnosis for this admission?: YesPlan: no positive cultures (4) Sepsis Qualifiers: Sepsis type: sepsis due to unspecified organism Qualified Code(s): A41.9 - Sepsis, unspecified organism Is this a current diagnosis for this admission?: YesPlan: Currently down to 1 vasopressor agent and weaning from all support - Time Critical Time spent with patient: 35 or more minutes - 50 minutes
[2017-02-21] MEDS ORDERED: DEXTROSE 50%-WATER SYRINGE 12.5 GM/25 ML DOSE IV PRN (18:47)
[2017-02-21] MEDS ORDERED: DEXTROSE 40% GEL 15 GM TUBE X 2 PO PRN (18:47)
[2017-02-21] MEDS ORDERED: DEXTROSE 40% GEL 15 GM TUBE PO PRN (18:47)
[2017-02-21] MEDS ORDERED: DEXTROSE 50%-WATER SYRINGE 25 GM/50 ML DOSE IV PRN (18:47)
[2017-02-21] MEDS ORDERED: GLUCAGON,HUMAN RECOMB 1 MG INJ IM PRN (18:47)
[2017-02-21] MEDS: ATORVASTATIN CALCIUM 80 MG TABLET NG SCH (21:28)
[2017-02-22] MEDS: INSULIN LISPRO 100 UNIT/ML 3 ML VIAL SUBCUT SCH ×5 (00:20→23:15)
[2017-02-22] MEDS: CLINDAMYCIN 900 MG/D5W RTU 50 ML IV SCH ×3 (01:49→17:39)
[2017-02-22] MEDS: PIPERACILLIN SODIUM/TAZOBACTAM 4.5 GM in NORMAL SALINE 100 ML IV SCH ×4 (02:34→20:08)
[2017-02-22] MEDS: PROPOFOL 100 ML IV PRN ×4 (02:35→21:48)
[2017-02-22] MEDS: METHYLPREDNISOLONE INJ 40 MG/1 ML SDV IV SCH ×3 (05:00→21:47)
[2017-02-22] MEDS: NORMAL SALINE 1000 ML 1,000 ML IV PRN ×2 (05:02→17:39)
[2017-02-22 05:20] LABS: ARTERIAL BLOOD BASE EXCESS 3.4 mmol/L; ARTERIAL BLOOD O2 SATURATION 96.6 % (94-98)
[2017-02-22 05:42] LABS: ABSOLUTE LYMPHOCYTES (AUTO) 0.8 10^3/uL (0.5-4.7); ABSOLUTE MONOCYTES (AUTO) 0.8 10^3/uL (0.1-1.4); ABSOLUTE NEUT (AUTO) 8.7 10^3/uL (1.7-8.2); BASOPHILS % (AUTO) 0.3 % (0-2); HEMATOCRIT 21.6 % (36.0-47.0); HEMOGLOBIN 6.8 g/dL (12.0-15.5); HGB HCT DIFFERENCE -1.2; LYMPHOCYTES % (AUTO) 7.9 % (13-45); MEAN CORPUSCULAR HEMOGLOBIN 22.2 pg (27.0-33.4); MEAN CORPUSCULAR HGB CONC 31.3 g/dL (32.0-36.0); MEAN CORPUSCULAR VOLUME 71 fl (80-97); MONOCYTES % (AUTO) 7.3 % (3-13); RED BLOOD COUNT 3.06 10^6/uL (3.72-5.28); RED CELL DISTRIBUTION WIDTH 18.1 % (11.5-14.0); SEGMENTED NEUTROPHILS % (AUTO) 84.5 % (42-78); WHITE BLOOD COUNT 10.3 10^3/uL (4.0-10.5)
[2017-02-22 05:46] LABS: ANION GAP 9 (5-19); BLOOD UREA NITROGEN 19 mg/dL (7-20); CALCIUM 7.6 mg/dL (8.4-10.2); CARBON DIOXIDE 28 mmol/L (22-30); CHLORIDE 104 mmol/L (98-107); CREATININE RESULT 0.84 mg/dL (0.52-1.25); GLUCOSE 114 mg/dL (75-110); MAGNESIUM 1.5 mg/dL (1.6-2.3); PHOSPHORUS 4.6 mg/dL (2.5-4.5); SODIUM 141.2 mmol/L (137-145)
[2017-02-22 05:50] LABS: POTASSIUM 2.6 mmol/L (3.6-5.0)
[2017-02-22] MEDS ORDERED: MAGNESIUM SULFATE/D5W 1 GM/100 ML RTUPB IV ONE (06:32)
[2017-02-22] MEDS ORDERED: POTASSI CL 20 MEQ/50 ML RIDER 20 MEQ/50 ML RTUPB IV ONE ×2 (06:32→22:54)
--- NOTE | 2017-02-22 06:56 | RADIOLOGY REPORT (SQ) ---
EXAM DESCRIPTION: CHEST SINGLE VIEW COMPLETED DATE/TIME: 02/22/2017 6:35 am REASON FOR STUDY: Resp failure COMPARISON: 02/21/2017. EXAM PARAMETERS: NUMBER OF VIEWS: One view. TECHNIQUE: Single frontal radiographic view of the chest acquired. RADIATION DOSE: NA LIMITATIONS: Rotated. FINDINGS: LUNGS AND PLEURA: Moderate right infrahilar airspace opacity, worsened moderate pulmonary edema pattern, rotated view, moderate left pleural effusion. MEDIASTINUM AND HILAR STRUCTURES: No masses. Contour normal. HEART AND VASCULAR STRUCTURES: Heart normal in size. Normal vasculature. BONES: No acute findings. HARDWARE: Adequate appearing endotracheal tube. Likely adequate nasogastric tube courses inferiorly off the image midline. Right internal jugular central line is partially obscured with tip likely in the right atrium; consider 8 cm retraction. Lower cervical hardware. OTHER: No other significant finding. IMPRESSION: Interval worsening includes a moderate right infrahilar opacity and moderate pulmonary e gustabo pattern and left pleural effusion. Lines and tubes. TECHNICAL DOCUMENTATION: JOB ID: [id number]
[2017-02-22] MEDS: POTASSI CL 20 MEQ/50 ML RIDER 50 ML IV SCH ×4 (07:38→12:56)
[2017-02-22] MEDS ORDERED: FUROSEMIDE INJ/PF 40 MG/4 ML SDV IV PRN (07:50)
--- NOTE | 2017-02-22 07:58 | PDOC PROGRESS REPORT ---
Subjective Progress Note for:: 02/22/17 Subjective:: Patient remained on the ventilator and intubated. Patient off Levophed and remained on Diprivan. No reported temperature spikes no respiratory distress diarrhea nor any nausea vomiting. Abdomen is distended. History of cirrhosis. Hemoglobin dropped as well as magnesium and potassium. Negative fluid balance today of about 4 L. Physical Exam Vital Signs: Temp Pulse Resp BP Pulse Ox 99.3 F 67 23 H 99/54 L 94 02/20/17 18:00 02/21/17 19:47 02/22/17 06:00 02/22/17 05:53 02/22/17 06:00 Intake & Output 02/21/17 02/22/17 02/23/17 06:59 06:59 06:59 Intake Total 3858 2670 Output Total 1710 0395 Balance 2148 -4705 Weight 82.6 kg 77.6 kg General appearance: PRESENT: no acute distress, other - Intubated and sedated Head exam: PRESENT: normocephalic Eye exam: PRESENT: conjunctiva pale Mouth exam: PRESENT: moist, neck supple Neck exam: ABSENT: JVD Respiratory exam: PRESENT: rhonchi - Scattered bilateral. ABSENT: wheezes Cardiovascular exam: PRESENT: RRR. ABSENT: gallop GI/Abdominal exam: PRESENT: distended, other - Noted shifting dullness Extremities exam: PRESENT: +1 edema Neurological exam: PRESENT: other - Sedated and intubated Psychiatric exam: ABSENT: agitated Focused psych exam: ABSENT: restlessness Skin exam: PRESENT: dry, warm. ABSENT: cyanosis Results Laboratory Results: 02/22/17 05:00 02/22/17 05:00 02/21/17 02/22/17 02/22/17 07:55 05:00 05:00 WBC 18.4 H RBC 3.31 L Hgb 7.3 L Hct 23.8 L MCV 72 L MCH 22.0 L MCHC 30.5 L RDW 18.1 H Plt Count 284 Seg Neutrophils % Lymphocytes % Monocytes % Eosinophils % Basophils % Absolute Neutrophils Absolute Lymphocytes Absolute Monocytes Absolute Eosinophils Absolute Basophils Carbonic Acid 1.11 HCO3/H2CO3 Ratio 24:1 ABG pH 7.48 H ABG pCO2 36.8 ABG pO2 79.9 L ABG HCO3 27.0 H ABG O2 Saturation 96.6 ABG Base Excess 3.4 FiO2 40% Sodium 141.2 Potassium 2.6 L* D Chloride 104 Carbon Dioxide 28 Anion Gap 9 BUN 19 Creatinine 0.84 Est GFR ( Amer) > 60 Est GFR (Non-Af Amer) > 60 Glucose 114 H Calcium 7.6 L Phosphorus 4.6 H Magnesium 1.5 L Blood Type Antibody Screen 02/22/17 02/22/17 05:00 06:37 WBC 10.3 RBC 3.06 L Hgb 6.8 L Hct 21.6 L MCV 71 L MCH 22.2 L MCHC 31.3 L RDW 18.1 H Plt Count 200 Seg Neutrophils % 84.5 H Lymphocytes % 7.9 L Monocytes % 7.3 Eosinophils % 0.0 Basophils % 0.3 Absolute Neutrophils 8.7 H Absolute Lymphocytes 0.8 Absolute Monocytes 0.8 Absolute Eosinophils 0.0 Absolute Basophils 0.0 Carbonic Acid HCO3/H2CO3 Ratio ABG pH ABG pCO2 ABG pO2 ABG HCO3 ABG O2 Saturation ABG Base Excess FiO2 Sodium Potassium Chloride Carbon Dioxide Anion Gap BUN Creatinine Est GFR ( Amer) Est GFR (Non-Af Amer) Glucose Calcium Phosphorus Magnesium Blood Type O POSITIVE Antibody Screen NEGATIVE 02/19/17 02/19/17 02/19/17 08:00 08:00 15:38 Creatine Kinase 27 L < 20 L CK-MB (CK-2) 0.80 Troponin I 0.019 02/19/17 02/19/17 02/19/17 15:38 22:45 22:45 Creatine Kinase < 20 L CK-MB (CK-2) 0.74 0.24 Troponin I 0.013 < 0.012 Impressions: Head CT 02/19/17 01:56 IMPRESSION: No acute findings. Interval development of a right lacunar infarct. Essentially stable appearance of left frontal lobe hypoattenuation ; given concomitant vascular calcifications, favor this to be on the basis of previous ischemic event. Chest X-Ray 02/22/17 06:00 IMPRESSION: Interval worsening includes a moderate right infrahilar opacity and moderate pulmonary edema pattern and left pleural effusion. Lines and tubes. Assessment & Plan - Diagnosis (1) Respiratory failure Qualifiers: Chronicity: acute Respiratory failure complication: hypoxia and hypercapnia Qualified Code(s): J96.01 - Acute respiratory failure with hypoxia Is this a current diagnosis for this admission?: Yes (2) Pneumonia Qualifiers: Pneumonia type: aspiration pneumonia Laterality: bilateral Lung location: unspecified part of lung Is this a current diagnosis for this admission?: Yes (3) Sepsis Qualifiers: Sepsis type: sepsis due to unspecified organism Qualified Code(s): A41.9 - Sepsis, unspecified organism Is this a current diagnosis for this admission?: Yes (4) COPD exacerbation Is this a current diagnosis for this admission?: Yes (5) Anemia Qualifiers: Anemia type: unspecified type Qualified Code(s): D64.9 - Anemia, unspecified Is this a current diagnosis for this admission?: Yes (6) Liver cirrhosis Qualifiers: Hepatic cirrhosis type: unspecified hepatic cirrhosis Ascites presence : with ascites Qualified Code(s): K74.60 - Unspecified cirrhosis of liver Is this a current diagnosis for this admission?: Yes (7) Essential hypertension Is this a current diagnosis for this admission?: Yes (8) Peripheral vascular disease Is this a current diagnosis for this admission?: Yes (9) Carotid atherosclerosis Qualifiers: Laterality: left Qualified Code(s): I65.22 - Occlusion and stenosis of left carotid artery Is this a current diagnosis for this admission?: Yes (10) Hyperlipidemia Qualifiers: Hyperlipidemia type: unspecified Qualified Code(s): E78.5 - Hyperlipidemia, unspecified Is this a current diagnosis for this admission?: Yes (11) Bipolar disorder Qualifiers: Active/Remission status: remission status unspecified Qualified Code (s): F31.9 - Bipolar disorder, unspecified Is this a current diagnosis for this admission?: Yes (12) CVA (cerebral vascular accident) Qualifiers: CVA mechanism: unspecified Qualified Code(s): I63.9 - Cerebral infarction, unspecified Is this a current diagnosis for this admission?: Yes - Time Time Spent with patient: 25-34 minutes - Plan Summary Plan Summary: Transfuse 2 units of packed RBC. Replace magnesium and potassium and recheck hemoglobin hematocrit and electrolytes in the morning. Continue Lasix but discontinue Zaroxolyn. For possible therapeutic paracentesis today. We will check stool for occult blood, continue antibiotics and supportive care. Weaning ventilator per pulmonary protocol.
[2017-02-22] MEDS: MAGNESIUM SULFATE/D5W 100 ML IV SCH ×2 (08:16→09:08)
[2017-02-22] MEDS ORDERED: BISACODYL 10 MG SUPP.RECT PR ONE (09:30)
[2017-02-22] MEDS: THIAMINE HCL 100 MG, FOLIC ACID 1 MG in NORMAL SALINE 50 ML IV SCH (10:31)
[2017-02-22] MEDS: FAMOTIDINE INJ/PF 20 MG/2 ML SDV IV SCH ×2 (10:31→21:48)
[2017-02-22] MEDS: FUROSEMIDE INJ/PF 40 MG/4 ML SDV IV SCH ×2 (11:15→21:47)
--- NOTE | 2017-02-22 12:16 | RADIOLOGY REPORT (SQ) ---
EXAM DESCRIPTION: U/S ABD PARACENTESIS COMPLETED DATE/TIME: 02/22/2017 11:30 am REASON FOR STUDY: ascites/Therapeautic paracentesis COMPARISON Multiple previous LIMITATIONS: None. PROCEDURE: After obtaining informed consent, the patient was brought to the ultrasound suite. The p rocedure was performed with the patient on a gurney. Ultrasound was used to identify a prominent poc ket of ascites in the right lower quadrant. An appropriate access site was selected. The patient wa s prepped and draped in usual sterile fashion. The access site was anesthetized with 4.5 mL 1% lido wilian. A [id number] needle was advanced into the fluid. After aspiration of fluid the needle, the catheter was advanced off the needle into the fluid. A total of 6,000 mL of straw-colored fluid was removed. The patient tolerated the procedure well left the department in satisfactory condition. Specimens were sent for diagnostic testing. IMPRESSION: Successful ultrasound-guided diagnostic and therapeutic paracentesis COMMENT: Patient medication list reviewed: Yes- Quality ID# [id number]:Eligible professional attests to doc umenting in the medical record they obtained, updated, or reviewed the patient's current medications. Quality ID #76: The patient was prepped and draped using maximum sterile barrier technique including cap, mask, sterile gown, sterile gloves, a large sterile sheet, hand hygiene, and 2% Chlorhexidine fo r cutaneous antisepsis. When ultrasound is used, sterile ultrasound techniques are followed requiring sterile gel and sterile probes. Quality ID #[id number]: Final reports for procedures using fluoroscopy that document radiation exposure glendy fara, or exposure time and number of fluorographic images (if radiation exposure indices are not avail able) TECHNICAL DOCUMENTATION: JOB ID: [id number] [employer]- All Rights Reserved
[2017-02-22] MEDS: HEPARIN SOD (PORCINE) 5,000 UNIT/ML 1 ML SYRINGE SUBCUT SCH ×2 (14:35→21:47)
[2017-02-22] MEDS: IPRATROPIUM/ALBUTEROL 0.5-2.5 MG/3 ML AMPUL NEB PRN (20:24)
[2017-02-22 21:14] LABS: HEMATOCRIT 31.7 % (36.0-47.0); HGB HCT DIFFERENCE -1.1; MEAN CORPUSCULAR HEMOGLOBIN 23.8 pg (27.0-33.4); MEAN CORPUSCULAR HGB CONC 32.1 g/dL (32.0-36.0); MEAN CORPUSCULAR VOLUME 74 fl (80-97); RED BLOOD COUNT 4.27 10^6/uL (3.72-5.28); RED CELL DISTRIBUTION WIDTH 19.6 % (11.5-14.0); WHITE BLOOD COUNT 9.9 10^3/uL (4.0-10.5)
[2017-02-22 21:16] LABS: HEMOGLOBIN 10.2 g/dL (12.0-15.5)
[2017-02-22 21:33] LABS: ANION GAP 9 (5-19); BLOOD UREA NITROGEN 18 mg/dL (7-20); CALCIUM 7.9 mg/dL (8.4-10.2); CARBON DIOXIDE 28 mmol/L (22-30); CHLORIDE 102 mmol/L (98-107); CREATININE RESULT 0.69 mg/dL (0.52-1.25); GLUCOSE 129 mg/dL (75-110); MAGNESIUM 1.8 mg/dL (1.6-2.3); SODIUM 138.5 mmol/L (137-145)
[2017-02-22] MEDS: ATORVASTATIN CALCIUM 80 MG TABLET NG SCH (21:48)
[2017-02-23] MEDS: IPRATROPIUM/ALBUTEROL 0.5-2.5 MG/3 ML AMPUL NEB PRN (00:08)
[2017-02-23] MEDS: POTASSIUM CHLORIDE 20 MEQ/50 ML RTU IV SCH ×6 (00:18→20:19)
[2017-02-23] MEDS: CLINDAMYCIN 900 MG/D5W RTU 50 ML IV SCH ×3 (01:43→18:04)
[2017-02-23] MEDS: PROPOFOL 100 ML IV PRN ×2 (02:21→05:25)
[2017-02-23] MEDS: PIPERACILLIN SODIUM/TAZOBACTAM 4.5 GM in NORMAL SALINE 100 ML IV SCH ×4 (02:21→20:20)
[2017-02-23] MEDS: METHYLPREDNISOLONE INJ 40 MG/1 ML SDV IV SCH ×3 (05:24→21:53)
[2017-02-23] MEDS: NORMAL SALINE 1000 ML 1,000 ML IV PRN ×2 (05:25→21:52)
[2017-02-23] MEDS: HEPARIN SOD (PORCINE) 5,000 UNIT/ML 1 ML SYRINGE SUBCUT SCH (05:26)
[2017-02-23] MEDS: INSULIN LISPRO 100 UNIT/ML 3 ML VIAL SUBCUT SCH ×3 (06:34→18:07)
[2017-02-23 07:05] LABS: HEMATOCRIT 32.5 % (36.0-47.0); HEMOGLOBIN 10.5 g/dL (12.0-15.5); MEAN CORPUSCULAR HEMOGLOBIN 23.6 pg (27.0-33.4); MEAN CORPUSCULAR HGB CONC 32.3 g/dL (32.0-36.0); MEAN CORPUSCULAR VOLUME 73 fl (80-97); RED BLOOD COUNT 4.44 10^6/uL (3.72-5.28); RED CELL DISTRIBUTION WIDTH 19.9 % (11.5-14.0); WHITE BLOOD COUNT 12.3 10^3/uL (4.0-10.5)
[2017-02-23 07:06] LABS: ARTERIAL BLOOD BASE EXCESS 6.7 mmol/L; ARTERIAL BLOOD O2 SATURATION 96.8 % (94-98)
--- NOTE | 2017-02-23 07:17 | RADIOLOGY REPORT (SQ) ---
EXAM DESCRIPTION: CHEST SINGLE VIEW COMPLETED DATE/TIME: 02/23/2017 6:49 am REASON FOR STUDY: Follow-up congestion COMPARISON: Chest x-ray 02/22/2017. EXAM PARAMETERS: NUMBER OF VIEWS: One view TECHNIQUE: Single frontal radiograph of the chest. RADIATION DOSE: N/A LIMITATIONS: The patient is rotated. FINDINGS: TEMPORARY SUPPORT DEVICES:ETT in expected location. NG tube courses below the left black-d iaphragm in to the stomach. Right IJ central line with the tip overlying the region of the right atri um LUNGS AND PLEURA: There are small bilateral pleural effusions. There are bilateral infrahilar airspa ce opacities, right more than left. No pneumothorax. MEDIASTINUM AND HILAR STRUCTURES: No obvious masses. HEART AND VASCULAR STRUCTURES: The heart is not enlarged. Mild central vascular congestion. BONES: There are healed left-sided rib fractures. Orthopedic hardware in the lower cervical/ upper t horacic spine. IMPRESSION: Small bilateral pleural effusions. Bilateral infrahilar airspace opacities, right more than left, may represent pulmonary edema and /or pneumonia. Mild central vascular congestion. TECHNICAL DOCUMENTATION: JOB ID: [id number] 2010 [employer]- All Rights Reserved
[2017-02-23 07:23] LABS: ANION GAP 13 (5-19); BLOOD UREA NITROGEN 16 mg/dL (7-20); CARBON DIOXIDE 28 mmol/L (22-30); CHLORIDE 100 mmol/L (98-107); CREATININE RESULT 0.69 mg/dL (0.52-1.25); GLUCOSE 115 mg/dL (75-110); MAGNESIUM 1.6 mg/dL (1.6-2.3); PHOSPHORUS 4.7 mg/dL (2.5-4.5); POTASSIUM 3.2 mmol/L (3.6-5.0); SODIUM 140.7 mmol/L (137-145)
--- NOTE | 2017-02-23 08:20 | PDOC PROGRESS REPORT ---
Subjective Progress Note for:: 02/23/17 Subjective:: Patient had large volume paracentesis of about 6 L yesterday. Urine output negative balance of 5-6 L today. No reported temperature spikes, respiratory distress, nausea or vomiting. Patient had some bleeding reported on puncture sites and patient is on subcutaneous heparin. No reported melena or hematochezia. Had good bowel movement yesterday as well. Physical Exam Vital Signs: Temp Pulse Resp BP Pulse Ox 100.0 F 75 18 142/75 H 96 02/23/17 07:55 02/23/17 07:59 02/23/17 07:55 02/23/17 07:55 02/23/17 07:55 Intake & Output 02/22/17 02/23/17 02/24/17 06:59 06:59 06:59 Intake Total 2670 3881 Output Total 7375 9235 125 Balance -4705 -5354 -125 Weight 77.6 kg 65.5 kg General appearance: PRESENT: no acute distress, other - Intubated on dipriva drip Head exam: PRESENT: normocephalic Eye exam: PRESENT: conjunctiva pale Mouth exam: PRESENT: moist, neck supple Neck exam: ABSENT: JVD Respiratory exam: PRESENT: rhonchi - 148 overfew, unlabored. ABSENT: wheezes Cardiovascular exam: PRESENT: RRR. ABSENT: gallop GI/Abdominal exam: PRESENT: distended - Less, hyperactive bowel sounds, soft. ABSENT: tenderness Extremities exam: PRESENT: other - trace to +1 edema bilateral Neurological exam: PRESENT: alert, awake, oriented to situation Skin exam: PRESENT: dry, warm. ABSENT: cyanosis Results Laboratory Results: 02/23/17 06:47 02/23/17 06:47 02/22/17 02/22/17 02/22/17 06:37 15:45 21:04 WBC RBC Hgb Hct MCV MCH MCHC RDW Plt Count Carbonic Acid HCO3/H2CO3 Ratio ABG pH ABG pCO2 ABG pO2 ABG HCO3 ABG O2 Saturation ABG Base Excess FiO2 Sodium 138.5 Potassium 3.0 L* Chloride 102 Carbon Dioxide 28 Anion Gap 9 BUN 18 Creatinine 0.69 Est GFR ( Amer) > 60 Est GFR (Non-Af Amer) > 60 Glucose 129 H Calcium 7.9 L Phosphorus Magnesium 1.8 Stool Occult Blood POSITIVE Blood Type O POSITIVE Antibody Screen NEGATIVE 02/22/17 02/23/17 02/23/17 21:04 06:47 06:47 WBC 9.9 12.3 H RBC 4.27 4.44 Hgb 10.2 L D 10.5 L Hct 31.7 L 32.5 L MCV 74 L 73 L MCH 23.8 L 23.6 L MCHC 32.1 32.3 RDW 19.6 H 19.9 H Plt Count 185 209 Carbonic Acid HCO3/H2CO3 Ratio ABG pH ABG pCO2 ABG pO2 ABG HCO3 ABG O2 Saturation ABG Base Excess FiO2 Sodium 140.7 Potassium 3.2 L Chloride 100 Carbon Dioxide 28 Anion Gap 13 BUN 16 Creatinine 0.69 Est GFR ( Amer) > 60 Est GFR (Non-Af Amer) > 60 Glucose 115 H Calcium 8.0 L Phosphorus 4.7 H Magnesium 1.6 Stool Occult Blood Blood Type Antibody Screen 02/23/17 06:47 WBC RBC Hgb Hct MCV MCH MCHC RDW Plt Count Carbonic Acid 1.10 HCO3/H2CO3 Ratio 27:1 ABG pH 7.53 H ABG pCO2 36.7 ABG pO2 79.0 L ABG HCO3 29.8 H ABG O2 Saturation 96.8 ABG Base Excess 6.7 FiO2 30% Sodium Potassium Chloride Carbon Dioxide Anion Gap BUN Creatinine Est GFR ( Amer) Est GFR (Non-Af Amer) Glucose Calcium Phosphorus Magnesium Stool Occult Blood Blood Type Antibody Screen 02/19/17 02/19/17 02/19/17 08:00 08:00 15:38 Creatine Kinase 27 L < 20 L CK-MB (CK-2) 0.80 Troponin I 0.019 02/19/17 02/19/17 02/19/17 15:38 22:45 22:45 Creatine Kinase < 20 L CK-MB (CK-2) 0.74 0.24 Troponin I 0.013 < 0.012 Impressions: Head CT 02/19/17 01:56 IMPRESSION: No acute findings. Interval development of a right lacunar infarct. Essentially stable appearance of left frontal lobe hypoattenuation ; given concomitant vascular calcifications, favor this to be on the basis of previous ischemic event. Paracentesis Ultrasound 02/22/17 08:11 IMPRESSION: Successful ultrasound-guided diagnostic and therapeutic paracentesis Chest X-Ray 02/23/17 06:00 IMPRESSION: Small bilateral pleural effusions. Bilateral infrahilar airspace opacities, right more than left, may represent pulmonary edema and /or pneumonia. Mild central vascular congestion. Assessment & Plan - Diagnosis (1) Respiratory failure Qualifiers: Chronicity: acute Respiratory failure complication: hypoxia and hypercapnia Qualified Code(s): J96.01 - Acute respiratory failure with hypoxia Is this a current diagnosis for this admission?: Yes (2) Pneumonia Qualifiers: Pneumonia type: aspiration pneumonia Laterality: bilateral Lung location: unspecified part of lung Is this a current diagnosis for this admission?: Yes (3) Sepsis Qualifiers: Sepsis type: sepsis due to unspecified organism Qualified Code(s): A41.9 - Sepsis, unspecified organism Is this a current diagnosis for this admission?: Yes (4) COPD exacerbation Is this a current diagnosis for this admission?: Yes (5) Anemia Qualifiers: Anemia type: unspecified type Qualified Code(s): D64.9 - Anemia, unspecified Is this a current diagnosis for this admission?: Yes (6) Liver cirrhosis Qualifiers: Hepatic cirrhosis type: unspecified hepatic cirrhosis Ascites presence : with ascites Qualified Code(s): K74.60 - Unspecified cirrhosis of liver Is this a current diagnosis for this admission?: Yes (7) Essential hypertension Is this a current diagnosis for this admission?: Yes (8) Peripheral vascular disease Is this a current diagnosis for this admission?: Yes (9) Carotid atherosclerosis Qualifiers: Laterality: left Qualified Code(s): I65.22 - Occlusion and stenosis of left carotid artery Is this a current diagnosis for this admission?: Yes (10) Hyperlipidemia Qualifiers: Hyperlipidemia type: unspecified Qualified Code(s): E78.5 - Hyperlipidemia, unspecified Is this a current diagnosis for this admission?: Yes (11) Bipolar disorder Qualifiers: Active/Remission status: remission status unspecified Qualified Code (s): F31.9 - Bipolar disorder, unspecified Is this a current diagnosis for this admission?: Yes (12) CVA (cerebral vascular accident) Qualifiers: CVA mechanism: unspecified Qualified Code(s): I63.9 - Cerebral infarction, unspecified Is this a current diagnosis for this admission?: Yes (13) Esophageal varices Qualifiers: Esophageal varices type: secondary Esophageal varices bleeding: without bleeding Qualified Code(s): I85.10 - Secondary esophageal varices without bleeding Is this a current diagnosis for this admission?: Yes (14) Gastric ulcer Qualifiers: Gastric ulcer chronicity: unspecified ulcer chronicity Gastric ulcer complication status: unspecified whether hemorrhage or perforation present Qualified Code(s): K25.9 - Gastric ulcer, unspecified as acute or chronic, without hemorrhage or perforation Is this a current diagnosis for this admission?: Yes - Time Time Spent with patient: 25-34 minutes - Plan Summary Plan Summary: We will continue her current diuretics. Continue current antibiotics as well. We will check PT PTT. We will consult gastroenterology for the heme-positive stools and anemia. Continue to replace electrolytes as per protocol. Ventilator weaning per pulmonary service. I will resume the patient's nadolol and monitor blood pressure. D/C metoprolol.
[2017-02-23 08:59] LABS: PROTHROMBIN TIME 15.7 SEC (11.4-15.4)
[2017-02-23 09:00] LABS: PARTIAL THROMBOPLASTIN TIME 33.2 SEC (23.5-35.8)
[2017-02-23] MEDS ORDERED: NADOLOL 40 MG TABLET NG SCH (10:00)
[2017-02-23] MEDS: FAMOTIDINE INJ/PF 20 MG/2 ML SDV IV SCH (10:34)
[2017-02-23] MEDS: THIAMINE HCL 100 MG, FOLIC ACID 1 MG in NORMAL SALINE 50 ML IV SCH (10:35)
[2017-02-23] MEDS: FUROSEMIDE INJ/PF 40 MG/4 ML SDV IV SCH ×2 (10:38→21:53)
--- NOTE | 2017-02-23 12:47 | PDOC PROGRESS REPORT ---
Subjective Progress Note for:: 02/22/17 Subjective:: intubated Physical Exam Vital Signs: Temp Pulse Resp BP Pulse Ox 99.3 F 67 23 H 99/54 L 94 02/20/17 18:00 02/21/17 19:47 02/22/17 06:00 02/22/17 05:53 02/22/17 06:00 Intake & Output 02/21/17 02/22/17 02/23/17 06:59 06:59 06:59 Intake Total 3858 2260 Output Total 3883 8102 400 Balance 3926 -3454 -400 Weight 82.6 kg 77.6 kg General appearance: PRESENT: no acute distress, disheveled, obese, well- developed Head exam: PRESENT: atraumatic, normocephalic Eye exam: PRESENT: conjunctiva pale Mouth exam: PRESENT: dry mucosa, neck supple, other Neck exam: ABSENT: carotid bruit, JVD, lymphadenopathy, thyromegaly Respiratory exam: PRESENT: decreased breath sounds, prolonged expiratory phas, rales, rhonchi, symmetrical, unlabored Cardiovascular exam: PRESENT: RRR, +S1, +S2 Pulses: PRESENT: normal radial pulses GI/Abdominal exam: PRESENT: normal bowel sounds, soft. ABSENT: distended, guarding, mass, organolmegaly, rebound, tenderness Rectal exam: PRESENT: deferred Gentrourinary exam: PRESENT: indwelling catheter Extremities exam: PRESENT: +1 edema Skin exam: PRESENT: dry, warm Results Laboratory Results: 02/22/17 05:00 02/22/17 05:00 02/21/17 02/22/17 02/22/17 07:55 05:00 05:00 WBC 18.4 H RBC 3.31 L Hgb 7.3 L Hct 23.8 L MCV 72 L MCH 22.0 L MCHC 30.5 L RDW 18.1 H Plt Count 284 Seg Neutrophils % Lymphocytes % Monocytes % Eosinophils % Basophils % Absolute Neutrophils Absolute Lymphocytes Absolute Monocytes Absolute Eosinophils Absolute Basophils Carbonic Acid 1.11 HCO3/H2CO3 Ratio 24:1 ABG pH 7.48 H ABG pCO2 36.8 ABG pO2 79.9 L ABG HCO3 27.0 H ABG O2 Saturation 96.6 ABG Base Excess 3.4 FiO2 40% Sodium 141.2 Potassium 2.6 L* D Chloride 104 Carbon Dioxide 28 Anion Gap 9 BUN 19 Creatinine 0.84 Est GFR ( Amer) > 60 Est GFR (Non-Af Amer) > 60 Glucose 114 H Calcium 7.6 L Phosphorus 4.6 H Magnesium 1.5 L Blood Type Antibody Screen 02/22/17 02/22/17 05:00 06:37 WBC 10.3 RBC 3.06 L Hgb 6.8 L Hct 21.6 L MCV 71 L MCH 22.2 L MCHC 31.3 L RDW 18.1 H Plt Count 200 Seg Neutrophils % 84.5 H Lymphocytes % 7.9 L Monocytes % 7.3 Eosinophils % 0.0 Basophils % 0.3 Absolute Neutrophils 8.7 H Absolute Lymphocytes 0.8 Absolute Monocytes 0.8 Absolute Eosinophils 0.0 Absolute Basophils 0.0 Carbonic Acid HCO3/H2CO3 Ratio ABG pH ABG pCO2 ABG pO2 ABG HCO3 ABG O2 Saturation ABG Base Excess FiO2 Sodium Potassium Chloride Carbon Dioxide Anion Gap BUN Creatinine Est GFR ( Amer) Est GFR (Non-Af Amer) Glucose Calcium Phosphorus Magnesium Blood Type O POSITIVE Antibody Screen NEGATIVE 02/19/17 02/19/17 02/19/17 08:00 08:00 15:38 Creatine Kinase 27 L < 20 L CK-MB (CK-2) 0.80 Troponin I 0.019 02/19/17 02/19/17 02/19/17 15:38 22:45 22:45 Creatine Kinase < 20 L CK-MB (CK-2) 0.74 0.24 Troponin I 0.013 < 0.012 Impressions: Head CT 02/19/17 01:56 IMPRESSION: No acute findings. Interval development of a right lacunar infarct. Essentially stable appearance of left frontal lobe hypoattenuation ; given concomitant vascular calcifications, favor this to be on the basis of previous ischemic event. Chest X-Ray 02/22/17 06:00 IMPRESSION: Interval worsening includes a moderate right infrahilar opacity and moderate pulmonary edema pattern and left pleural effusion. Lines and tubes. Assessment & Plan - Diagnosis (1) CVA (cerebral vascular accident) Qualifiers: CVA mechanism: unspecified Qualified Code(s): I63.9 - Cerebral infarction, unspecified Is this a current diagnosis for this admission?: Yes (2) Respiratory failure Qualifiers: Chronicity: acute Respiratory failure complication: hypoxia and hypercapnia Qualified Code(s): J96.01 - Acute respiratory failure with hypoxia Is this a current diagnosis for this admission?: Yes (3) Pneumonia Qualifiers: Pneumonia type: aspiration pneumonia Laterality: bilateral Lung location: unspecified part of lung Is this a current diagnosis for this admission?: Yes (4) Sepsis Qualifiers: Sepsis type: sepsis due to unspecified organism Qualified Code(s): A41.9 - Sepsis, unspecified organism Is this a current diagnosis for this admission?: Yes (5) Pleural effusion Is this a current diagnosis for this admission?: Yes - Time Critical Time spent with patient: 35 or more minutes
--- NOTE | 2017-02-23 12:50 | PDOC PROGRESS REPORT ---
Subjective Progress Note for:: 02/23/17 Subjective:: Intubated, awake, responds to commands Physical Exam Vital Signs: Temp Pulse Resp BP Pulse Ox 100.0 F 75 18 142/75 H 96 02/23/17 07:55 02/23/17 07:59 02/23/17 07:55 02/23/17 07:55 02/23/17 07:55 Intake & Output 02/22/17 02/23/17 02/24/17 06:59 06:59 06:59 Intake Total 2670 3881 Output Total 7375 9235 125 Balance -4705 -5354 -125 Weight 77.6 kg 65.5 kg General appearance: PRESENT: no acute distress, cooperative, disheveled, well- developed Head exam: PRESENT: atraumatic, normocephalic Eye exam: PRESENT: conjunctiva pale, EOMI Mouth exam: PRESENT: moist, neck supple, other - Endotracheal tube in place Neck exam: ABSENT: carotid bruit, JVD, lymphadenopathy, thyromegaly Respiratory exam: PRESENT: decreased breath sounds, prolonged expiratory phas, rhonchi, symmetrical, unlabored Cardiovascular exam: PRESENT: RRR, +S1, +S2 Pulses: PRESENT: normal radial pulses GI/Abdominal exam: PRESENT: ascites Rectal exam: PRESENT: deferred Gentrourinary exam: PRESENT: indwelling catheter Extremities exam: PRESENT: +1 edema Neurological exam: PRESENT: alert, awake Skin exam: PRESENT: dry, warm Results Laboratory Results: 02/23/17 06:47 02/23/17 06:47 02/22/17 02/22/17 02/22/17 06:37 15:45 21:04 WBC RBC Hgb Hct MCV MCH MCHC RDW Plt Count Carbonic Acid HCO3/H2CO3 Ratio ABG pH ABG pCO2 ABG pO2 ABG HCO3 ABG O2 Saturation ABG Base Excess FiO2 Sodium 138.5 Potassium 3.0 L* Chloride 102 Carbon Dioxide 28 Anion Gap 9 BUN 18 Creatinine 0.69 Est GFR ( Amer) > 60 Est GFR (Non-Af Amer) > 60 Glucose 129 H Calcium 7.9 L Phosphorus Magnesium 1.8 Stool Occult Blood POSITIVE Blood Type O POSITIVE Antibody Screen NEGATIVE 02/22/17 02/23/17 02/23/17 21:04 06:47 06:47 WBC 9.9 12.3 H RBC 4.27 4.44 Hgb 10.2 L D 10.5 L Hct 31.7 L 32.5 L MCV 74 L 73 L MCH 23.8 L 23.6 L MCHC 32.1 32.3 RDW 19.6 H 19.9 H Plt Count 185 209 Carbonic Acid HCO3/H2CO3 Ratio ABG pH ABG pCO2 ABG pO2 ABG HCO3 ABG O2 Saturation ABG Base Excess FiO2 Sodium 140.7 Potassium 3.2 L Chloride 100 Carbon Dioxide 28 Anion Gap 13 BUN 16 Creatinine 0.69 Est GFR ( Amer) > 60 Est GFR (Non-Af Amer) > 60 Glucose 115 H Calcium 8.0 L Phosphorus 4.7 H Magnesium 1.6 Stool Occult Blood Blood Type Antibody Screen 02/23/17 06:47 WBC RBC Hgb Hct MCV MCH MCHC RDW Plt Count Carbonic Acid 1.10 HCO3/H2CO3 Ratio 27:1 ABG pH 7.53 H ABG pCO2 36.7 ABG pO2 79.0 L ABG HCO3 29.8 H ABG O2 Saturation 96.8 ABG Base Excess 6.7 FiO2 30% Sodium Potassium Chloride Carbon Dioxide Anion Gap BUN Creatinine Est GFR ( Amer) Est GFR (Non-Af Amer) Glucose Calcium Phosphorus Magnesium Stool Occult Blood Blood Type Antibody Screen 02/19/17 02/19/17 02/19/17 08:00 08:00 15:38 Creatine Kinase 27 L < 20 L CK-MB (CK-2) 0.80 Troponin I 0.019 02/19/17 02/19/17 02/19/17 15:38 22:45 22:45 Creatine Kinase < 20 L CK-MB (CK-2) 0.74 0.24 Troponin I 0.013 < 0.012 Impressions: Head CT 02/19/17 01:56 IMPRESSION: No acute findings. Interval development of a right lacunar infarct. Essentially stable appearance of left frontal lobe hypoattenuation ; given concomitant vascular calcifications, favor this to be on the basis of previous ischemic event. Paracentesis Ultrasound 02/22/17 08:11 IMPRESSION: Successful ultrasound-guided diagnostic and therapeutic paracentesis Chest X-Ray 02/23/17 06:00 IMPRESSION: Small bilateral pleural effusions. Bilateral infrahilar airspace opacities, right more than left, may represent pulmonary edema and /or pneumonia. Mild central vascular congestion. Assessment & Plan - Diagnosis (1) CVA (cerebral vascular accident) Qualifiers: CVA mechanism: unspecified Qualified Code(s): I63.9 - Cerebral infarction, unspecified Is this a current diagnosis for this admission?: Yes (2) Respiratory failure Qualifiers: Chronicity: acute Respiratory failure complication: hypoxia and hypercapnia Qualified Code(s): J96.01 - Acute respiratory failure with hypoxia Is this a current diagnosis for this admission?: YesPlan: Minute ventilation, respiratory rate, FiO2, airway pressures suggest successful extubation will proceed with extubation (3) Pneumonia Qualifiers: Pneumonia type: aspiration pneumonia Laterality: bilateral Lung location: unspecified part of lung Is this a current diagnosis for this admission?: Yes (4) Sepsis Qualifiers: Sepsis type: sepsis due to unspecified organism Qualified Code(s): A41.9 - Sepsis, unspecified organism Is this a current diagnosis for this admission?: Yes (5) Pleural effusion Is this a current diagnosis for this admission?: YesPlan: Endotracheal tube in place awaiting right-sided pleural drainage - Time Critical Time spent with patient: 35 or more minutes - 60 minutes extubation
[2017-02-23 15:36] LABS: ANION GAP 11 (5-19); BLOOD UREA NITROGEN 16 mg/dL (7-20); CALCIUM 7.7 mg/dL (8.4-10.2); CARBON DIOXIDE 31 mmol/L (22-30); CHLORIDE 98 mmol/L (98-107); CREATININE RESULT 0.64 mg/dL (0.52-1.25); GLUCOSE 104 mg/dL (75-110); POTASSIUM 3.2 mmol/L (3.6-5.0); SODIUM 140.1 mmol/L (137-145)
[2017-02-23 16:08] LABS: FLUID APPEARANCE HAZY; FLUID TYPE PLEURAL
[2017-02-23 16:18] LABS: FLUID RBC SIDE 1 125; FLUID RBC SIDE 2 135
[2017-02-23 16:19] LABS: FLUID RBC DILUENT USED NONE USED; FLUID RBC DILUTION FACTOR 1; TOTAL RBC SQUARES COUNTED FLD 50
--- NOTE | 2017-02-23 16:28 | RADIOLOGY REPORT (SQ) ---
EXAM DESCRIPTION: U/S THORACENTESIS WITH IMAGING COMPLETED DATE/TIME: 02/23/2017 3:41 pm REASON FOR STUDY: R thoracentesis COMPARISON: AP chest 02/23/2017, 0625 hours LIMITATIONS: None. PROCEDURE: Procedure, risks, benefit, and alternative explained to patient who then gave written con sent. The right lateral chest wall was marked using ultrasound guidance. A time-out was called for correct marking verification. Chest prepped and draped using sterile technique. Local anesthesia ach ieved using 4.5 ml of 1% lidocaine injection. An 18 gauge needle was introduced into the right later al pleural space. Fluid was aspirated. A 0.38 guidewire was placed through the needle into the righ t pleural space. Needle withdrawn. 10 German dilator used to dilate the tract. 10 German locking p igtail catheter was placed into the right posterior pleural space. Fluid was sent for testing. The 10 German locking pigtail catheter was placed to a Pleur-evac to water seal. No immediate complications Images acquired during the procedure were stored on PACS. FINDINGS: ENTRY SITE: Right lateral pleural space FLUID VOLUME: 400 mL FLUID ANALYSIS: Yes, sent for testing IMPRESSION: SUCCESSFUL ULTRASOUND-GUIDED CHEST TUBE PLACEMENT, RIGHT HEMITHORAX COMMENT: Patient medication list reviewed: Yes- Quality ID# [id number]:Eligible professional attests to doc umenting in the medical record they obtained, updated, or reviewed the patient's current medications. Quality ID #[id number]: Final reports for procedures using fluoroscopy that document radiation exposure glendy fara, or exposure time and number of fluorographic images (if radiation exposure indices are not avail able) TECHNICAL DOCUMENTATION: JOB ID: [id number] [employer]- All Rights Reserved
--- NOTE | 2017-02-23 16:30 | RADIOLOGY REPORT (SQ) ---
EXAM DESCRIPTION: CHEST SINGLE VIEW COMPLETED DATE/TIME: 02/23/2017 3:45 pm REASON FOR STUDY: chest tube placement COMPARISON: AP CHEST 02/23/2017 0625 HOURS EXAM PARAMETERS: NUMBER OF VIEWS: One view. TECHNIQUE: Single frontal radiographic view of the chest acquired. RADIATION DOSE: NA LIMITATIONS: None. FINDINGS: Since the prior chest film, a right-sided pleural space locking pigtail catheter was place d to drain pleural fluid. There is still residual pleural fluid in the right lateral costophrenic chaney lcus and along the inferior right hemithorax. Since the prior films, the endotracheal tube and nasogastric tubes have been removed. Right jugular central line tip right atrium unchanged. LUNGS AND PLEURA: Decrease in right pleural effusion compared to a 0625 hours. No right pneumothorax . Right basilar airspace disease atelectasis versus pneumonia. On the left side there is retrocardiac airspace disease atelectasis versus pneumonia. No left pleura l effusion or pneumothorax. MEDIASTINUM AND HILAR STRUCTURES: No masses. Contour normal. HEART AND VASCULAR STRUCTURES: Heart normal in size. Normal vasculature. BONES: No acute findings. HARDWARE: As above OTHER: No other significant finding. IMPRESSION: Slight decrease in right pleural effusion compared to 0625 hours. Right pleural space p igtail catheter, no right pneumothorax. Persistent dense consolidation in the right lower lobe and left retrocardiac region. TECHNICAL DOCUMENTATION: JOB ID: [id number]
[2017-02-23] MEDS ORDERED: POTASSI CL 20 MEQ/50 ML RIDER 20 MEQ/50 ML RTUPB IV ONE (17:17)
--- NOTE | 2017-02-23 19:41 | PDOC CONSULTATION ---
Consultation Consult Date: 02/23/17 History of Present Illness Admission Date/PCP: 02/19/17 04:10 History of Present Illness: This is a 51-year-old patient admitted on 02/11/2017 with change in mental status and pneumonia. She also had a new infarct from her CAT scan of the brain. She was intubated for a few days and seemed to be doing better off the ventilator. Consultation was requested for anemia and heme-positive stool. During this admission she has had a paracenteses with removal of 6 L of fluid. She also had a thoracocentesis with 400 cc of fluid removed. A chest tube was left in place. Patient has a chronic history of anemia presumably anemia of chronic disease. She has had GI bleeding from varices in the past and the last one was in March of last year. Her most recent hemoglobin was 9 in November of this year. She denies any bright red blood per rectum or melena. Her last EGD was in August during which small varices are identified and were not amenable to banding. She also had gastric ulcers. She had a colonoscopy also in August that showed diverticulosis. She has a history of cirrhosis and ascites and she has not been very compliant. She does not show up for appointments. She last had a large-volume paracenteses in November of this year. I am not sure if she has been taking medications including Lasix and spironolactone. She is also supposed to be on omeprazole. Past Medical History Cardiac Medical History: Reports: Congestive Heart Failure, Coronary Artery Disease, Myocardial Infarction, Hyperlipidema, Hypertension, Peripheral Vascular Disease Pulmonary Medical History: Denies: Asthma, Bronchitis, Chronic Obstructive Pulmonary Disease (COPD), Pneumonia Neurological Medical History: Reports: Migraine Denies: Seizures Malignancy Medical History: Reports: Ovarian Cancer Musculoskeltal Medical History: Reports: Arthritis Psychiatric Medical History: Reports: Bipolar Disorder, Depression Hematology: Denies: Anemia Past Surgical History Past Surgical History: EGD with banding in March 2016 and August 2016 without banding, colonoscopy in August 2016 Past Surgical History: Reports: Coronary Stent - x2, Hysterectomy, Orthopedic Surgery - C7 plate/fusion, Tonsillectomy Social History Lives with: Family Smoking Status: Unknown if Ever Smoked Frequency of Alcohol Use: None Hx Recreational Drug Use: No Hx Prescription Drug Abuse: Yes - Advance Directive Resuscitation Status: Full Code Family History Family History: Malignancy Parental Family History Reviewed: No Children Family History Reviewed: NA Sibling(s) Family History Reviewed.: NA Medication/Allergy Home Medications: Unobtainable [Unobtainable] 02/19/17 Allergies/Adverse Reactions: No Known Allergies Allergy (Verified 09/20/16 15:54) Physical Exam Vital Signs: Temp Pulse Resp BP Pulse Ox 99.9 F 69 20 157/77 H 99 02/23/17 18:00 02/23/17 18:00 02/23/17 18:41 02/23/17 18:40 02/23/17 18:41 Intake & Output 02/22/17 02/23/17 02/24/17 06:59 06:59 06:59 Intake Total 3681 8820 6710 Output Total 7442 [address] [facility] -4705 -5354 Weight 77.6 kg 65.5 kg Results Laboratory Results: 02/23/17 06:47 02/23/17 14:50 02/22/17 02/22/17 02/23/17 21:04 21:04 06:47 WBC 9.9 RBC 4.27 Hgb 10.2 L D Hct 31.7 L MCV 74 L MCH 23.8 L MCHC 32.1 RDW 19.6 H Plt Count 185 Carbonic Acid HCO3/H2CO3 Ratio ABG pH ABG pCO2 ABG pO2 ABG HCO3 ABG O2 Saturation ABG Base Excess FiO2 Sodium 138.5 140.7 Potassium 3.0 L* 3.2 L Chloride 102 100 Carbon Dioxide 28 28 Anion Gap 9 13 BUN 18 16 Creatinine 0.69 0.69 Est GFR ( Amer) > 60 > 60 Est GFR (Non-Af Amer) > 60 > 60 Glucose 129 H 115 H Calcium 7.9 L 8.0 L Phosphorus 4.7 H Magnesium 1.8 1.6 Fluid Type Fluid Source Fluid Color Fluid Appearance Fluid Viscosity Fluid WBC Fluid RBC 02/23/17 02/23/17 02/23/17 06:47 06:47 14:50 WBC 12.3 H RBC 4.44 Hgb 10.5 L Hct 32.5 L MCV 73 L MCH 23.6 L MCHC 32.3 RDW 19.9 H Plt Count 209 Carbonic Acid 1.10 HCO3/H2CO3 Ratio 27:1 ABG pH 7.53 H ABG pCO2 36.7 ABG pO2 79.0 L ABG HCO3 29.8 H ABG O2 Saturation 96.8 ABG Base Excess 6.7 FiO2 30% Sodium 140.1 Potassium 3.2 L Chloride 98 Carbon Dioxide 31 H Anion Gap 11 BUN 16 Creatinine 0.64 Est GFR ( Amer) > 60 Est GFR (Non-Af Amer) > 60 Glucose 104 Calcium 7.7 L Phosphorus Magnesium Fluid Type Fluid Source Fluid Color Fluid Appearance Fluid Viscosity Fluid WBC Fluid RBC 02/23/17 02/23/17 14:50 15:23 WBC RBC Hgb Hct MCV MCH MCHC RDW Plt Count Carbonic Acid HCO3/H2CO3 Ratio ABG pH ABG pCO2 ABG pO2 ABG HCO3 ABG O2 Saturation ABG Base Excess FiO2 Sodium Potassium Chloride Carbon Dioxide Anion Gap BUN Creatinine Est GFR ( Amer) Est GFR (Non-Af Amer) Glucose Calcium Phosphorus Magnesium 1.6 Fluid Type PLEURAL Fluid Source LUNG Fluid Color YELLOW Fluid Appearance HAZY Fluid Viscosity LIQUID Fluid WBC 553 Fluid RBC 650 02/19/17 02/19/17 02/19/17 08:00 08:00 15:38 Creatine Kinase 27 L < 20 L CK-MB (CK-2) 0.80 Troponin I 0.019 02/19/17 02/19/17 02/19/17 15:38 22:45 22:45 Creatine Kinase < 20 L CK-MB (CK-2) 0.74 0.24 Troponin I 0.013 < 0.012 Impressions: Head CT 02/19/17 01:56 IMPRESSION: No acute findings. Interval development of a right lacunar infarct. Essentially stable appearance of left frontal lobe hypoattenuation ; given concomitant vascular calcifications, favor this to be on the basis of previous ischemic event. Paracentesis Ultrasound 02/22/17 08:11 IMPRESSION: Successful ultrasound-guided diagnostic and therapeutic paracentesis Chest X-Ray 02/23/17 06:00 IMPRESSION: Small bilateral pleural effusions. Bilateral infrahilar airspace opacities, right more than left, may represent pulmonary edema and /or pneumonia. Mild central vascular congestion. Thoracentesis Ultrasound 02/23/17 08:31 IMPRESSION: SUCCESSFUL ULTRASOUND-GUIDED CHEST TUBE PLACEMENT, RIGHT HEMITHORAX Assessment & Plan - Diagnosis (1) Heme positive stool Is this a current diagnosis for this admission?: YesPlan: She has heme-positive stool with no evidence of significant GI bleed. No active intervention is planned at this time. She had an EGD and colonoscopy within the last 6 months that showed diverticulosis, small esophageal varices and gastric ulcers. She should remain on a PPI. She will need an EGD in another month or 2. (2) Ascites Qualifiers: Ascites type: other type Qualified Code(s): R18.8 - Other ascites Is this a current diagnosis for this admission?: YesPlan: She has chronic ascites that requires occasional large-volume paracenteses. 6 L was removed during this admission. We should continue with Lasix and spironolactone as soon as feasible. (3) Pleural effusion Is this a current diagnosis for this admission?: YesPlan: Pleural effusion is secondary to cirrhosis and ascites. She has a drainage tube in her right pleural cavity which I will suggest strongly to be removed. We should manage her effusion the same way her ascites is been managed. (4) Esophageal varices Qualifiers: Esophageal varices type: secondary Esophageal varices bleeding: without bleeding Qualified Code(s): I85.10 - Secondary esophageal varices without bleeding Is this a current diagnosis for this admission?: YesPlan: She only had small varices on her last endoscopy in August. Propranolol should be resumed as soon as feasible (5) Gastric ulcer Qualifiers: Gastric ulcer chronicity: unspecified ulcer chronicity Gastric ulcer complication status: unspecified whether hemorrhage or perforation present Qualified Code(s): K25.9 - Gastric ulcer, unspecified as acute or chronic, without hemorrhage or perforation Is this a current diagnosis for this admission?: Yes (6) Liver cirrhosis Qualifiers: Hepatic cirrhosis type: unspecified hepatic cirrhosis Ascites presence : with ascites Qualified Code(s): K74.60 - Unspecified cirrhosis of liver Is this a current diagnosis for this admission?: Yes
[2017-02-23] MEDS: FENTANYL CITRATE INJ/PF 100 MCG/2 ML AMPUL IV PRN (20:20)
[2017-02-23] MEDS: ATORVASTATIN CALCIUM 80 MG TABLET PO SCH (21:52)
[2017-02-24] MEDS: INSULIN LISPRO 100 UNIT/ML 3 ML VIAL SUBCUT SCH ×4 (01:46→17:32)
[2017-02-24] MEDS: CLINDAMYCIN 900 MG/D5W RTU 50 ML IV SCH ×3 (03:14→17:21)
[2017-02-24] MEDS: PIPERACILLIN SODIUM/TAZOBACTAM 4.5 GM in NORMAL SALINE 100 ML IV SCH ×4 (03:15→21:41)
[2017-02-24] MEDS: FENTANYL CITRATE INJ/PF 100 MCG/2 ML AMPUL IV PRN ×2 (03:15→08:29)
[2017-02-24 05:19] LABS: ARTERIAL BLOOD BASE EXCESS 9.3 mmol/L; ARTERIAL BLOOD O2 SATURATION 96.8 % (94-98)
[2017-02-24 05:22] LABS: HEMATOCRIT 33.6 % (36.0-47.0); HEMOGLOBIN 10.8 g/dL (12.0-15.5); HGB HCT DIFFERENCE -1.2; MEAN CORPUSCULAR HEMOGLOBIN 23.6 pg (27.0-33.4); MEAN CORPUSCULAR HGB CONC 32.3 g/dL (32.0-36.0); MEAN CORPUSCULAR VOLUME 73 fl (80-97); RED BLOOD COUNT 4.61 10^6/uL (3.72-5.28); RED CELL DISTRIBUTION WIDTH 20.9 % (11.5-14.0); WHITE BLOOD COUNT 14.8 10^3/uL (4.0-10.5)
[2017-02-24 05:36] LABS: ANION GAP 10 (5-19); BLOOD UREA NITROGEN 14 mg/dL (7-20); CARBON DIOXIDE 33 mmol/L (22-30); CHLORIDE 97 mmol/L (98-107); CREATININE RESULT 0.61 mg/dL (0.52-1.25); GLUCOSE 124 mg/dL (75-110); MAGNESIUM 1.6 mg/dL (1.6-2.3); POTASSIUM 3.4 mmol/L (3.6-5.0); SODIUM 139.5 mmol/L (137-145); TRIGLYCERIDES 187 mg/dL (<150)
[2017-02-24] MEDS: METHYLPREDNISOLONE INJ 40 MG/1 ML SDV IV SCH ×3 (06:31→21:42)
--- NOTE | 2017-02-24 07:15 | RADIOLOGY REPORT (SQ) ---
EXAM DESCRIPTION: CHEST SINGLE VIEW COMPLETED DATE/TIME: 02/24/2017 6:55 am REASON FOR STUDY: Respiratory failure COMPARISON: Chest x-ray 02/23/2017 EXAM PARAMETERS: NUMBER OF VIEWS: One view. TECHNIQUE: Single frontal radiographic view of the chest acquired. RADIATION DOSE: NA LIMITATIONS: The patient is rotated. FINDINGS: LUNGS AND PLEURA: Persistent small right-sided pleural effusion and right basilar airspace opacity. Airspace opacity also noted at the left lung base. MEDIASTINUM AND HILAR STRUCTURES: No masses. Contour normal. HEART AND VASCULAR STRUCTURES: Heart normal in size. No overt vascular congestion. BONES: No acute findings. HARDWARE: There is a right IJ central catheter with the tip overlying the region of the right atrium. There is a right-sided pigtail pleural catheter. IMPRESSION: No significant interval change in the small right pleural effusion. Bibasilar airspace opacities, may represent atelectasis or pneumonia. TECHNICAL DOCUMENTATION: JOB ID: [id number]
[2017-02-24] MEDS ORDERED: LANSOPRAZOLE 30 MG TAB.RAP.DR PO SCH (08:00)
[2017-02-24] MEDS: POTASSIUM CHLORIDE 20 MEQ/50 ML RTU IV SCH ×4 (08:14→19:51)
[2017-02-24] MEDS ORDERED: NORMAL SALINE 1000 ML 1,000 ML IV PRN ×2 (08:52→08:53)
--- NOTE | 2017-02-24 09:04 | PDOC PROGRESS REPORT ---
Subjective Progress Note for:: 02/24/17 Subjective:: Patient did well post extubation. No reported respiratory distress or temperature spikes. Patient denies any chest pain or shortness of breath. She denies any diarrhea as well. Patient remained on the chest tube. She is tolerating oral intake so far. Physical Exam Vital Signs: Temp Pulse Resp BP Pulse Ox 99.1 F 72 23 H 139/84 H 97 02/24/17 07:54 02/24/17 07:54 02/24/17 07:54 02/24/17 07:54 02/24/17 07:54 Intake & Output 02/23/17 02/24/17 02/25/17 06:59 06:59 06:59 Intake Total 3883 2406 Output Total 9235 6410 475 Balance -5354 -4004 -475 Weight 65.5 kg 61.8 kg General appearance: PRESENT: no acute distress, cooperative Head exam: PRESENT: normocephalic Eye exam: PRESENT: EOMI Mouth exam: PRESENT: moist, neck supple Neck exam: ABSENT: JVD Respiratory exam: PRESENT: clear to auscultation alecia, decreased breath sounds - Lower lung parham posteriorly. ABSENT: rhonchi, wheezes Cardiovascular exam: PRESENT: RRR. ABSENT: gallop GI/Abdominal exam: PRESENT: normal bowel sounds - On the other side, soft. ABSENT: distended, tenderness Extremities exam: PRESENT: other - Trace lower extremity edema Neurological exam: PRESENT: alert, awake, other - Mildly confused. Skin exam: PRESENT: dry, warm. ABSENT: cyanosis Results Laboratory Results: 02/24/17 05:05 02/24/17 05:05 02/23/17 02/23/17 02/23/17 14:50 14:50 15:23 WBC RBC Hgb Hct MCV MCH MCHC RDW Plt Count Carbonic Acid HCO3/H2CO3 Ratio ABG pH ABG pCO2 ABG pO2 ABG HCO3 ABG O2 Saturation ABG Base Excess FiO2 Sodium 140.1 Potassium 3.2 L Chloride 98 Carbon Dioxide 31 H Anion Gap 11 BUN 16 Creatinine 0.64 Est GFR ( Amer) > 60 Est GFR (Non-Af Amer) > 60 Glucose 104 Calcium 7.7 L Phosphorus Magnesium 1.6 Triglycerides Fluid Type PLEURAL Fluid Source LUNG Fluid Color YELLOW Fluid Appearance HAZY Fluid Viscosity LIQUID Fluid WBC 553 Fluid RBC 650 0602/24/17 02/24/17 05:05 05:05 05:05 WBC 14.8 H RBC 4.61 Hgb 10.8 L Hct 33.6 L MCV 73 L MCH 23.6 L MCHC 32.3 RDW 20.9 H Plt Count 188 Carbonic Acid 1.36 H HCO3/H2CO3 Ratio 24:1 ABG pH 7.49 H ABG pCO2 45.1 H ABG pO2 83.0 ABG HCO3 33.8 H ABG O2 Saturation 96.8 ABG Base Excess 9.3 FiO2 2L Sodium 139.5 Potassium 3.4 L Chloride 97 L Carbon Dioxide 33 H Anion Gap 10 BUN 14 Creatinine 0.61 Est GFR ( Amer) > 60 Est GFR (Non-Af Amer) > 60 Glucose 124 H Calcium 8.0 L Phosphorus 4.0 Magnesium 1.6 Triglycerides 187 H Fluid Type Fluid Source Fluid Color Fluid Appearance Fluid Viscosity Fluid WBC Fluid RBC 02/19/17 02/19/17 02/19/17 08:00 08:00 15:38 Creatine Kinase 27 L < 20 L CK-MB (CK-2) 0.80 Troponin I 0.019 02/19/17 02/19/17 02/19/17 15:38 22:45 22:45 Creatine Kinase < 20 L CK-MB (CK-2) 0.74 0.24 Troponin I 0.013 < 0.012 Impressions: Head CT 02/19/17 01:56 IMPRESSION: No acute findings. Interval development of a right lacunar infarct. Essentially stable appearance of left frontal lobe hypoattenuation ; given concomitant vascular calcifications, favor this to be on the basis of previous ischemic event. Paracentesis Ultrasound 02/22/17 08:11 IMPRESSION: Successful ultrasound-guided diagnostic and therapeutic paracentesis Thoracentesis Ultrasound 02/23/17 08:31 IMPRESSION: SUCCESSFUL ULTRASOUND-GUIDED CHEST TUBE PLACEMENT, RIGHT HEMITHORAX Chest X-Ray 02/24/17 06:00 IMPRESSION: No significant interval change in the small right pleural effusion. Bibasilar airspace opacities, may represent atelectasis or pneumonia. Assessment & Plan - Diagnosis (1) Respiratory failure Qualifiers: Chronicity: acute Respiratory failure complication: hypoxia and hypercapnia Qualified Code(s): J96.01 - Acute respiratory failure with hypoxia Is this a current diagnosis for this admission?: Yes (2) Pneumonia Qualifiers: Pneumonia type: aspiration pneumonia Laterality: bilateral Lung location: unspecified part of lung Is this a current diagnosis for this admission?: Yes (3) Sepsis Qualifiers: Sepsis type: sepsis due to unspecified organism Qualified Code(s): A41.9 - Sepsis, unspecified organism Is this a current diagnosis for this admission?: Yes (4) COPD exacerbation Is this a current diagnosis for this admission?: Yes (5) Anemia Qualifiers: Anemia type: unspecified type Qualified Code(s): D64.9 - Anemia, unspecified Is this a current diagnosis for this admission?: Yes (6) Liver cirrhosis Qualifiers: Hepatic cirrhosis type: unspecified hepatic cirrhosis Ascites presence : with ascites Qualified Code(s): K74.60 - Unspecified cirrhosis of liver Is this a current diagnosis for this admission?: Yes (7) Essential hypertension Is this a current diagnosis for this admission?: Yes (8) Peripheral vascular disease Is this a current diagnosis for this admission?: Yes (9) Carotid atherosclerosis Qualifiers: Laterality: left Qualified Code(s): I65.22 - Occlusion and stenosis of left carotid artery Is this a current diagnosis for this admission?: Yes (10) Hyperlipidemia Qualifiers: Hyperlipidemia type: unspecified Qualified Code(s): E78.5 - Hyperlipidemia, unspecified Is this a current diagnosis for this admission?: Yes (11) Bipolar disorder Qualifiers: Active/Remission status: remission status unspecified Qualified Code (s): F31.9 - Bipolar disorder, unspecified Is this a current diagnosis for this admission?: Yes (12) CVA (cerebral vascular accident) Qualifiers: CVA mechanism: unspecified Qualified Code(s): I63.9 - Cerebral infarction, unspecified Is this a current diagnosis for this admission?: Yes (13) Esophageal varices Qualifiers: Esophageal varices type: secondary Esophageal varices bleeding: without bleeding Qualified Code(s): I85.10 - Secondary esophageal varices without bleeding Is this a current diagnosis for this admission?: Yes (14) Gastric ulcer Qualifiers: Gastric ulcer chronicity: unspecified ulcer chronicity Gastric ulcer complication status: unspecified whether hemorrhage or perforation present Qualified Code(s): K25.9 - Gastric ulcer, unspecified as acute or chronic, without hemorrhage or perforation Is this a current diagnosis for this admission?: Yes - Time Time Spent with patient: 25-34 minutes - Plan Summary Plan Summary: Continue current antibiotics. We are going to decrease intravenous fluids. We will discuss with pulmonary regarding discontinuation of the chest tube. In the meantime I am going to decrease her diuretic dose. Replace electrolytes and monitor. We will transfer the patient to the stepdown unit. Continue supportive care.
[2017-02-24] MEDS ORDERED: NADOLOL 40 MG TABLET PO SCH (10:00)
--- NOTE | 2017-02-24 10:15 | PDOC PROGRESS REPORT ---
Subjective Progress Note for:: 02/24/17 Subjective:: 24 hrs s/p extubation Physical Exam Vital Signs: Temp Pulse Resp BP Pulse Ox 99.1 F 72 23 H 139/84 H 97 02/24/17 07:54 02/24/17 07:54 02/24/17 07:54 02/24/17 07:54 02/24/17 07:54 Intake & Output 02/23/17 02/24/17 02/25/17 06:59 06:59 06:59 Intake Total 3881 2406 Output Total 9235 6410 475 Balance -5354 -4004 -475 Weight 65.5 kg 61.8 kg General appearance: PRESENT: no acute distress, cooperative, disheveled, thin, well-developed Head exam: PRESENT: atraumatic, normocephalic Eye exam: PRESENT: conjunctiva pale, EOMI Mouth exam: PRESENT: dry mucosa, neck supple Neck exam: PRESENT: carotid bruit Respiratory exam: PRESENT: decreased breath sounds, prolonged expiratory phas, rhonchi, unlabored Cardiovascular exam: PRESENT: RRR, +S1, +S2 Pulses: PRESENT: normal radial pulses GI/Abdominal exam: PRESENT: normal bowel sounds, soft. ABSENT: distended, guarding, mass, organolmegaly, rebound, tenderness Rectal exam: PRESENT: deferred Gentrourinary exam: PRESENT: indwelling catheter Musculoskeletal exam: PRESENT: normal inspection Neurological exam: PRESENT: awake Psychiatric exam: PRESENT: flat affect Skin exam: PRESENT: dry, warm Results Laboratory Results: 02/24/17 05:05 02/24/17 05:05 02/23/17 02/23/17 02/23/17 14:50 14:50 15:23 WBC RBC Hgb Hct MCV MCH MCHC RDW Plt Count Carbonic Acid HCO3/H2CO3 Ratio ABG pH ABG pCO2 ABG pO2 ABG HCO3 ABG O2 Saturation ABG Base Excess FiO2 Sodium 140.1 Potassium 3.2 L Chloride 98 Carbon Dioxide 31 H Anion Gap 11 BUN 16 Creatinine 0.64 Est GFR ( Amer) > 60 Est GFR (Non-Af Amer) > 60 Glucose 104 Calcium 7.7 L Phosphorus Magnesium 1.6 Triglycerides Fluid Type PLEURAL Fluid Source LUNG Fluid Color YELLOW Fluid Appearance HAZY Fluid Viscosity LIQUID Fluid WBC 553 Fluid RBC 650 02/24/17 02/24/17 02/24/17 05:05 05:05 05:05 WBC 14.8 H RBC 4.61 Hgb 10.8 L Hct 33.6 L MCV 73 L MCH 23.6 L MCHC 32.3 RDW 20.9 H Plt Count 188 Carbonic Acid 1.36 H HCO3/H2CO3 Ratio 24:1 ABG pH 7.49 H ABG pCO2 45.1 H ABG pO2 83.0 ABG HCO3 33.8 H ABG O2 Saturation 96.8 ABG Base Excess 9.3 FiO2 2L Sodium 139.5 Potassium 3.4 L Chloride 97 L Carbon Dioxide 33 H Anion Gap 10 BUN 14 Creatinine 0.61 Est GFR ( Amer) > 60 Est GFR (Non-Af Amer) > 60 Glucose 124 H Calcium 8.0 L Phosphorus 4.0 Magnesium 1.6 Triglycerides 187 H Fluid Type Fluid Source Fluid Color Fluid Appearance Fluid Viscosity Fluid WBC Fluid RBC 02/19/17 02/19/17 02/19/17 08:00 08:00 15:38 Creatine Kinase 27 L < 20 L CK-MB (CK-2) 0.80 Troponin I 0.019 02/19/17 02/19/17 02/19/17 15:38 22:45 22:45 Creatine Kinase < 20 L CK-MB (CK-2) 0.74 0.24 Troponin I 0.013 < 0.012 Impressions: Head CT 02/19/17 01:56 IMPRESSION: No acute findings. Interval development of a right lacunar infarct. Essentially stable appearance of left frontal lobe hypoattenuation ; given concomitant vascular calcifications, favor this to be on the basis of previous ischemic event. Paracentesis Ultrasound 02/22/17 08:11 IMPRESSION: Successful ultrasound-guided diagnostic and therapeutic paracentesis Thoracentesis Ultrasound 02/23/17 08:31 IMPRESSION: SUCCESSFUL ULTRASOUND-GUIDED CHEST TUBE PLACEMENT, RIGHT HEMITHORAX Chest X-Ray 02/24/17 06:00 IMPRESSION: No significant interval change in the small right pleural effusion. Bibasilar airspace opacities, may represent atelectasis or pneumonia. Assessment & Plan - Diagnosis (1) CVA (cerebral vascular accident) Qualifiers: CVA mechanism: unspecified Qualified Code(s): I63.9 - Cerebral infarction, unspecified Is this a current diagnosis for this admission?: Yes (2) Respiratory failure Qualifiers: Chronicity: acute Respiratory failure complication: hypoxia and hypercapnia Qualified Code(s): J96.01 - Acute respiratory failure with hypoxia Is this a current diagnosis for this admission?: No (3) Pneumonia Qualifiers: Pneumonia type: aspiration pneumonia Laterality: bilateral Lung location: unspecified part of lung Is this a current diagnosis for this admission?: No (4) Sepsis Qualifiers: Sepsis type: sepsis due to unspecified organism Qualified Code(s): A41.9 - Sepsis, unspecified organism Is this a current diagnosis for this admission?: No (5) Pleural effusion Is this a current diagnosis for this admission?: YesPlan: thoracentesis - Time Critical Time spent with patient: 35 or more minutes - 40 min
[2017-02-24] MEDS: FUROSEMIDE INJ/PF 40 MG/4 ML SDV IV SCH (10:17)
[2017-02-24] MEDS: THIAMINE HCL 100 MG, FOLIC ACID 1 MG in NORMAL SALINE 50 ML IV SCH (10:52)
--- NOTE | 2017-02-24 11:48 | RADIOLOGY REPORT (SQ) ---
EXAM DESCRIPTION: CHEST SINGLE VIEW COMPLETED DATE/TIME: 02/24/2017 10:18 am REASON FOR STUDY: s/p chest tube removal COMPARISON: 02/25/2016 EXAM PARAMETERS: NUMBER OF VIEWS: One view. TECHNIQUE: Single frontal radiographic view of the chest acquired. RADIATION DOSE: NA LIMITATIONS: None. FINDINGS: LUNGS AND PLEURA: A chest tube is been removed from the right hemithorax. There appears t o be atelectasis in the right base. No pneumothorax is seen. Ill-defined airspace disease is presen t on the left. MEDIASTINUM AND HILAR STRUCTURES: No masses. Contour normal. HEART AND VASCULAR STRUCTURES: Heart normal in size. Normal vasculature. BONES: No acute findings. HARDWARE: A right internal jugular catheter has its tip in the right atrium. OTHER: No other significant finding. IMPRESSION: 1. Chest tube removal. 2. Atelectasis in the right lower lobe. A limited pneumonia versus subsegmental atelectasis is sugg ested on the left. TECHNICAL DOCUMENTATION: JOB ID: [id number]
[2017-02-24] MEDS: ONDANSETRON HCL INJ/PF 4 MG/2 ML SDV IV PRN (11:54)
[2017-02-24 14:55] LABS: PATH REVIEW PATHOLOGIST REVIEWED
[2017-02-24 15:52] LABS: ANION GAP 9 (5-19); BLOOD UREA NITROGEN 14 mg/dL (7-20); CALCIUM 8.4 mg/dL (8.4-10.2); CARBON DIOXIDE 34 mmol/L (22-30); CHLORIDE 95 mmol/L (98-107); CREATININE RESULT 0.61 mg/dL (0.52-1.25); GLUCOSE 109 mg/dL (75-110); POTASSIUM 3.4 mmol/L (3.6-5.0); SODIUM 138.1 mmol/L (137-145)
--- NOTE | 2017-02-24 17:28 | PDOC CONSULTATION ---
Consultation Consult Date: 02/24/17 Attending physician:: FERNANDA LYN Consult reason:: Previously placed central line in right atrium, requiring retraction back into superior vena cava. History of Present Illness Admission Date/PCP: 02/19/17 04:10 Patient complains of: Patient has no complaints. History of Present Illness: Patient had central line placed several days ago, and catheter has been noted in the right atrium. Catheter requires pullback into the superior vena cava. Past Medical History Cardiac Medical History: Reports: Congestive Heart Failure, Coronary Artery Disease, Myocardial Infarction, Hyperlipidema, Hypertension, Peripheral Vascular Disease Pulmonary Medical History: Denies: Asthma, Bronchitis, Chronic Obstructive Pulmonary Disease (COPD), Pneumonia Neurological Medical History: Reports: Migraine Denies: Seizures Malignancy Medical History: Reports: Ovarian Cancer Musculoskeltal Medical History: Reports: Arthritis Psychiatric Medical History: Reports: Bipolar Disorder, Depression Hematology: Denies: Anemia Past Surgical History Past Surgical History: Reports: Coronary Stent - x2, Hysterectomy, Orthopedic Surgery - C7 plate/fusion, Tonsillectomy Social History Lives with: Family Smoking Status: Unknown if Ever Smoked Frequency of Alcohol Use: None Hx Recreational Drug Use: No Hx Prescription Drug Abuse: Yes - Advance Directive Resuscitation Status: Full Code Family History Family History: Malignancy Parental Family History Reviewed: No - Not applicable Children Family History Reviewed: No Sibling(s) Family History Reviewed.: No - Not applicable. Medication/Allergy Home Medications: Unobtainable [Unobtainable] 02/19/17 Allergies/Adverse Reactions: No Known Allergies Allergy (Verified 09/20/16 15:54) Physical Exam Vital Signs: Temp Pulse Resp BP Pulse Ox 99.5 F 60 22 H 107/65 96 02/24/17 16:00 02/24/17 16:00 02/24/17 16:41 02/24/17 16:40 02/24/17 16:41 Intake & Output 02/23/17 02/24/17 02/25/17 06:59 06:59 06:59 Intake Total 1715 2255 50 Output Total 7381 6391 6778 Balance -5354 -4004 -3040 Weight 65.5 kg 61.8 kg Results Laboratory Results: 02/24/17 05:05 02/24/17 15:06 02/23/17 02/23/17 02/24/17 14:50 15:23 05:05 WBC RBC Hgb Hct MCV MCH MCHC RDW Plt Count Carbonic Acid 1.36 H HCO3/H2CO3 Ratio 24:1 ABG pH 7.49 H ABG pCO2 45.1 H ABG pO2 83.0 ABG HCO3 33.8 H ABG O2 Saturation 96.8 ABG Base Excess 9.3 FiO2 2L Sodium Potassium Chloride Carbon Dioxide Anion Gap BUN Creatinine Est GFR ( Amer) Est GFR (Non-Af Amer) Glucose Calcium Phosphorus Magnesium 1.6 Triglycerides Fluid Type PLEURAL Fluid Source LUNG Fluid Color YELLOW Fluid Appearance HAZY Fluid Viscosity LIQUID Fluid WBC 553 Fluid RBC 650 02/24/17 02/24/17 02/24/17 05:05 05:05 15:06 WBC 14.8 H RBC 4.61 Hgb 10.8 L Hct 33.6 L MCV 73 L MCH 23.6 L MCHC 32.3 RDW 20.9 H Plt Count 188 Carbonic Acid HCO3/H2CO3 Ratio ABG pH ABG pCO2 ABG pO2 ABG HCO3 ABG O2 Saturation ABG Base Excess FiO2 Sodium 139.5 138.1 Potassium 3.4 L 3.4 L Chloride 97 L 95 L Carbon Dioxide 33 H 34 H Anion Gap 10 9 BUN 14 14 Creatinine 0.61 0.61 Est GFR ( Amer) > 60 > 60 Est GFR (Non-Af Amer) > 60 > 60 Glucose 124 H 109 Calcium 8.0 L 8.4 Phosphorus 4.0 Magnesium 1.6 Triglycerides 187 H Fluid Type Fluid Source Fluid Color Fluid Appearance Fluid Viscosity Fluid WBC Fluid RBC 02/23/17 09:51 Sputum Gram Stain - Final 02/23/17 09:51 Sputum Sputum Culture - Final C.albicans/C.dubliniensis Normal Maria De Jesus Absent 02/19/17 02/19/17 02/19/17 08:00 08:00 15:38 Creatine Kinase 27 L < 20 L CK-MB (CK-2) 0.80 Troponin I 0.019 02/19/17 02/19/17 02/19/17 15:38 22:45 22:45 Creatine Kinase < 20 L CK-MB (CK-2) 0.74 0.24 Troponin I 0.013 < 0.012 Impressions: Head CT 02/19/17 01:56 IMPRESSION: No acute findings. Interval development of a right lacunar infarct. Essentially stable appearance of left frontal lobe hypoattenuation ; given concomitant vascular calcifications, favor this to be on the basis of previous ischemic event. Paracentesis Ultrasound 02/22/17 08:11 IMPRESSION: Successful ultrasound-guided diagnostic and therapeutic paracentesis Thoracentesis Ultrasound 02/23/17 08:31 IMPRESSION: SUCCESSFUL ULTRASOUND-GUIDED CHEST TUBE PLACEMENT, RIGHT HEMITHORAX Chest X-Ray 02/24/17 10:04 IMPRESSION: 1. Chest tube removal. 2. Atelectasis in the right lower lobe. A limited pneumonia versus subsegmental atelectasis is suggested on the left. Assessment & Plan - Plan Summary Plan Summary: Central line was pulled back 8 cm, after dressing removed and right neck prepped with alcohol based prep. Biopatch and Tegaderm applied and chest x-ray has been requested.
--- NOTE | 2017-02-24 18:04 | PDOC PROGRESS REPORT ---
Subjective Progress Note for:: 02/24/17 Physical Exam Vital Signs: Temp Pulse Resp BP Pulse Ox 99.5 F 60 20 129/60 H 97 02/24/17 16:00 02/24/17 16:00 02/24/17 17:41 02/24/17 17:40 02/24/17 17:41 Intake & Output 02/23/17 02/24/17 02/25/17 06:59 06:59 06:59 Intake Total 3886 5404 997 Output Total 1976 6450 3095 Balance -6290 -1266 -1129 Weight 65.5 kg 61.8 kg Results Laboratory Results: 02/24/17 05:05 02/24/17 15:06 02/23/17 02/24/17 02/24/17 15:23 05:05 05:05 WBC RBC Hgb Hct MCV MCH MCHC RDW Plt Count Carbonic Acid 1.36 H HCO3/H2CO3 Ratio 24:1 ABG pH 7.49 H ABG pCO2 45.1 H ABG pO2 83.0 ABG HCO3 33.8 H ABG O2 Saturation 96.8 ABG Base Excess 9.3 FiO2 2L Sodium 139.5 Potassium 3.4 L Chloride 97 L Carbon Dioxide 33 H Anion Gap 10 BUN 14 Creatinine 0.61 Est GFR ( Amer) > 60 Est GFR (Non-Af Amer) > 60 Glucose 124 H Calcium 8.0 L Phosphorus 4.0 Magnesium 1.6 Triglycerides 187 H Fluid Type PLEURAL Fluid Source LUNG Fluid Color YELLOW Fluid Appearance HAZY Fluid Viscosity LIQUID Fluid WBC 553 Fluid RBC 650 02/24/17 02/24/17 05:05 15:06 WBC 14.8 H RBC 4.61 Hgb 10.8 L Hct 33.6 L MCV 73 L MCH 23.6 L MCHC 32.3 RDW 20.9 H Plt Count 188 Carbonic Acid HCO3/H2CO3 Ratio ABG pH ABG pCO2 ABG pO2 ABG HCO3 ABG O2 Saturation ABG Base Excess FiO2 Sodium 138.1 Potassium 3.4 L Chloride 95 L Carbon Dioxide 34 H Anion Gap 9 BUN 14 Creatinine 0.61 Est GFR ( Amer) > 60 Est GFR (Non-Af Amer) > 60 Glucose 109 Calcium 8.4 Phosphorus Magnesium Triglycerides Fluid Type Fluid Source Fluid Color Fluid Appearance Fluid Viscosity Fluid WBC Fluid RBC 02/23/17 09:51 Sputum Gram Stain - Final 02/23/17 09:51 Sputum Sputum Culture - Final C.albicans/C.dubliniensis Normal Maria De Jesus Absent 02/19/17 02/19/17 02/19/17 08:00 08:00 15:38 Creatine Kinase 27 L < 20 L CK-MB (CK-2) 0.80 Troponin I 0.019 02/19/17 02/19/17 02/19/17 15:38 22:45 22:45 Creatine Kinase < 20 L CK-MB (CK-2) 0.74 0.24 Troponin I 0.013 < 0.012 Impressions: Head CT 02/19/17 01:56 IMPRESSION: No acute findings. Interval development of a right lacunar infarct. Essentially stable appearance of left frontal lobe hypoattenuation ; given concomitant vascular calcifications, favor this to be on the basis of previous ischemic event. Paracentesis Ultrasound 02/22/17 08:11 IMPRESSION: Successful ultrasound-guided diagnostic and therapeutic paracentesis Thoracentesis Ultrasound 02/23/17 08:31 IMPRESSION: SUCCESSFUL ULTRASOUND-GUIDED CHEST TUBE PLACEMENT, RIGHT HEMITHORAX Assessment & Plan - Plan Summary Plan Summary: Central line is now in the superior vena cava after being retracted 8 cm.
--- NOTE | 2017-02-24 18:06 | RADIOLOGY REPORT (SQ) ---
EXAM DESCRIPTION: CHEST SINGLE VIEW COMPLETED DATE/TIME: 02/24/2017 5:54 pm REASON FOR STUDY: Central Line retraction COMPARISON: None. EXAM PARAMETERS: NUMBER OF VIEWS: One view. TECHNIQUE: Single frontal radiographic view of the chest acquired. RADIATION DOSE: NA LIMITATIONS: None. FINDINGS: LUNGS AND PLEURA: The appearance of the lower lung parham is unchanged. There may be a sm all right pleural effusion. A limited infiltrate cannot be ruled out in either lung base. MEDIASTINUM AND HILAR STRUCTURES: No masses. Contour normal. HEART AND VASCULAR STRUCTURES: Heart normal in size. Normal vasculature. BONES: No acute findings. HARDWARE: The right internal jugular catheter has been withdrawn so that the tip is clearly in the chaney perior vena cava. OTHER: No other significant finding. IMPRESSION: Possible small right pleural effusion. Cannot rule out and infiltrate in either lung ba se. Catheter has been withdrawn somewhat. TECHNICAL DOCUMENTATION: JOB ID: [id number]
[2017-02-24] MEDS: ATORVASTATIN CALCIUM 80 MG TABLET PO SCH (21:41)
[2017-02-24] MEDS: NORMAL SALINE INJ/PF 0.9% 10 ML SDV IV PRN (21:42)
[2017-02-24] MEDS: IPRATROPIUM/ALBUTEROL 0.5-2.5 MG/3 ML AMPUL NEB PRN (22:25)
[2017-02-24 22:26] LABS: ANION GAP 7 (5-19); BLOOD UREA NITROGEN 14 mg/dL (7-20); CALCIUM 8.4 mg/dL (8.4-10.2); CARBON DIOXIDE 33 mmol/L (22-30); CHLORIDE 98 mmol/L (98-107); CREATININE RESULT 0.52 mg/dL (0.52-1.25); GLUCOSE 103 mg/dL (75-110); SODIUM 137.9 mmol/L (137-145)
[2017-02-24 22:43] LABS: ARTERIAL BLOOD BASE EXCESS 5.9 mmol/L
[2017-02-24] MEDS ORDERED: METHYLPREDNISOLONE INJ 40 MG/1 ML SDV ONE (22:43)
[2017-02-24] MEDS ORDERED: METHYLPREDNISOLONE INJ 40 MG/1 ML SDV IV ONE (22:45)
[2017-02-24] MEDS ORDERED: PROPOFOL 100 ML IV ONE (22:59)
[2017-02-24] MEDS ORDERED: PHARMACY COMMUNICATION ORDER MC NR (23:00)
--- NOTE | 2017-02-24 23:04 | RADIOLOGY REPORT (SQ) ---
EXAM DESCRIPTION: CHEST SINGLE VIEW COMPLETED DATE/TIME: 02/24/2017 10:54 pm REASON FOR STUDY: resp distress COMPARISON: 02/24/2017 NUMBER OF VIEWS: One view. TECHNIQUE: Single frontal radiographic view of the chest acquired. LIMITATIONS: None. FINDINGS: LUNGS AND PLEURA: Small to moderate bilateral pleural effusions with associated airspace d isease likely representing compressive atelectasis. MEDIASTINUM AND HILAR STRUCTURES: No masses or contour abnormality. HEART AND VASCULATURE: Cardiac enlargement. Vascular congestion. BONES: No acute findings. HARDWARE: Stable. OTHER: No other significant finding. IMPRESSION: MILD PULMONARY EDEMA WITH BILATERAL PLEURAL EFFUSIONS AND ASSOCIATED COMPRESSIVE ATELECT ASIS. TECHNICAL DOCUMENTATION: JOB ID: [id number] [employer]- All Rights Reserved
[2017-02-24 23:05] LABS: ARTERIAL BLOOD O2 SATURATION 70.6 % (94-98)
[2017-02-24] MEDS ORDERED: VANCOMYCIN HCL 0 MG in DEXTROSE 5%-WATER 250 ML IV NR (23:15)
[2017-02-24] MEDS ORDERED: ALBUTEROL SULFATE 0.083% NEB 2.5 MG/3 ML AMPUL NEB PRN (23:22)
[2017-02-24] MEDS ORDERED: VANCOMYCIN HCL INJ 1000 MG VIAL IV PRN (23:24)
[2017-02-24] MEDS ORDERED: VANCOMYCIN HCL INJ 500 MG VIAL IV PRN (23:25)
[2017-02-24] MEDS ORDERED: ACETYLCYSTEINE 20% SOLN 800 MG/4 ML VIAL.NEB NEB ONE (23:45)
--- NOTE | 2017-02-24 23:46 | RADIOLOGY REPORT (SQ) ---
EXAM DESCRIPTION: CHEST SINGLE VIEW COMPLETED DATE/TIME: 02/24/2017 11:36 pm REASON FOR STUDY: intubation COMPARISON: 02/24/2017. EXAM PARAMETERS: NUMBER OF VIEWS: One view. TECHNIQUE: Single frontal radiographic view of the chest acquired. RADIATION DOSE: NA LIMITATIONS: None. FINDINGS: LUNGS AND PLEURA: Overall improved aeration of the lungs with persistent bilateral pleural effusions and associated bibasilar airspace disease. No pneumothorax. MEDIASTINUM AND HILAR STRUCTURES: No masses. Contour normal. HEART AND VASCULAR STRUCTURES: Heart stable in size. Normal vasculature. BONES: No acute findings. HARDWARE: Interval placement of endotracheal tube which terminates approximately 14 mm above the tunde na. Enteric tube in expected location of the stomach. Right IJ venous catheter has been pulled back and is likely located within the brachiocephalic vein. OTHER: No other significant finding. IMPRESSION: INTERVAL PLACEMENT OF ENDOTRACHEAL TUBE AND NASOGASTRIC TUBE. ENDOTRACHEAL TUBE TERMINA ALBARO APPROXIMATELY 14 MM ABOVE THE HOLLY. RECOMMEND PULLING BACK 1 TO 2 CM. RIGHT IJ VENOUS CATHETER IS BEEN PULLED BACK AND IS NOW LOCATED LIKELY WITHIN THE BRACHIOCEPHALIC VEI N. IMPROVED AERATION OF THE LUNGS WITH PERSISTENT BILATERAL PLEURAL EFFUSIONS AND ASSOCIATED BIBASILAR A IRSPACE DISEASE. NO PNEUMOTHORAX. TECHNICAL DOCUMENTATION: JOB ID: [id number]
[2017-02-25] MEDS ORDERED: VANCOMYCIN HCL 1,250 MG in DEXTROSE 5%-WATER 250 ML IV ONE ×2
--- NOTE | 2017-02-25 00:06 | Operative Report ---
Operative Report DATE OF SURGERY: 02/25/17 Operative Report: Right subclavian vein central line insertion PREOPERATIVE DIAGNOSIS: No peripheral venous access, post-intubation for resp. failure. POSTOPERATIVE DIAGNOSIS: Same OPERATION: 1. Ultrasound right neck. 2. Ultrasound directed insertion of triple-lumen central venous access catheter right internal jugular vein SURGEON: FERNANDA LYN ANESTHESIA: Local TISSUE REMOVED OR ALTERED: None ESTIMATED BLOOD LOSS: 5 cc PROCEDURE: Insertion of right subclavian vein central line.
[2017-02-25 00:34] LABS: ARTERIAL BLOOD BASE EXCESS 4.8 mmol/L; ARTERIAL BLOOD O2 SATURATION 91.8 % (94-98)
[2017-02-25 00:38] LABS: HEMATOCRIT 35.6 % (36.0-47.0); HGB HCT DIFFERENCE -2.6; MEAN CORPUSCULAR HGB CONC 30.9 g/dL (32.0-36.0); MEAN CORPUSCULAR VOLUME 74 fl (80-97); RED CELL DISTRIBUTION WIDTH 20.3 % (11.5-14.0); WHITE BLOOD COUNT 21.6 10^3/uL (4.0-10.5)
[2017-02-25 00:40] LABS: PROTHROMBIN TIME 15.8 SEC (11.4-15.4)
[2017-02-25 00:41] LABS: PARTIAL THROMBOPLASTIN TIME 32.6 SEC (23.5-35.8)
[2017-02-25 00:48] LABS: ALANINE AMINOTRANSFERASE 30 U/L (9-52); ALBUMIN 2.4 g/dL (3.5-5.0); ALKALINE PHOSPHATASE 108 U/L (38-126); ASPARTATE AMINO TRANSFERASE 23 U/L (14-36); BILIRUBIN,DIRECT 0.7 mg/dL (0.0-0.4); BILIRUBIN,TOTAL 0.9 mg/dL (0.2-1.3); TOTAL PROTEIN 5.4 g/dL (6.3-8.2)
[2017-02-25 00:59] LABS: BASOPHILS % (MANUAL) 0 % (0-2); EOSINOPHILS % (MANUAL) 0 % (0-6); LYMPHOCYTES % (MANUAL) 7 % (13-45); TOTAL CELLS COUNTED 100
[2017-02-25 01:02] LABS: HYPOCHROMASIA 1+; TOXIC GRANULATION 1+
[2017-02-25 01:03] LABS: ANISOCYTOSIS 2+; MICROCYTOSIS 1+; OVALOCYTES 1+; POIKILOCYTOSIS 1+; TEAR DROP CELLS SLIGHT
--- NOTE | 2017-02-25 01:27 | OPERATIVE REPORT E ---
Operative Report NAME: NIKKIE PAN : 1965 AGE: 51Y DATE OF SURGERY: 02/25/2017 ROOM: 608 PREOPERATIVE DIAGNOSIS: No peripheral venous access post intubation for respiratory failure. POSTOPERATIVE DIAGNOSIS: No peripheral venous access post intubation for respiratory failure. OPERATION: Insertion of a right subclavian vein triple lumen catheter. SURGEON: FERNANDA LYN M.D. ANESTHESIA: Local 1% Xylocaine. COMPLICATIONS: None. CONDITION: Stable. FINDINGS: This 51-year-old female underwent pull back of a right internal jugular vein triple lumen catheter earlier today as the catheter was in the right atrium. The catheter was pulled back successfully and was lodged in the right superior vena cava. However, during the code, the patient went to respiratory failure and the catheter was dislodged out of the superior vena cava and venous access was lost. The patient is now in need of new venous access as she is respiratory failure and has been intubated. PROCEDURE: The patient's right chest was prepped and draped in usual sterile manner and local anesthesia was infiltrated. After injecting local anesthesia, we accessed her right subclavian vein percutaneously. When venous blood was noted in the syringe, the syringe was removed and guidewire was advanced through the needle into the superior vena cava presumably. The needle was removed. Vein dilators were placed over the guidewire to dilate the tract and then using the thorough Seldinger technique, the triple lumen catheter was advanced over the guidewire to 15 cm earl as the guidewire was removed. There was good upgrade and retrograde flow to each lumen and each was flushed with saline. The catheter was secured in usual manner. The Biopatch and Tegaderm were then placed in usual fashion. Portable chest x-rays shows a catheter in the superior vena cava without evidence of pneumothorax. The patient tolerated the procedure well and maintained on the ventilator and venous access has been successful. DICTATING PHYSICIAN: FERNANDA LYN M.D. [id number] PHY#: [id number] ID: [id number] JOB#: [id number] ACCT: [id number] cc:FERNANDA LYN M.D. >
[2017-02-25] MEDS: INSULIN LISPRO 100 UNIT/ML 3 ML VIAL SUBCUT SCH ×4 (01:28→17:08)
--- NOTE | 2017-02-25 02:46 | RADIOLOGY REPORT (SQ) ---
EXAM DESCRIPTION: CHEST SINGLE VIEW COMPLETED DATE/TIME: 02/25/2017 12:43 am REASON FOR STUDY: S/P Central Line Insertion COMPARISON: Chest x-ray 02/24/2017. EXAM PARAMETERS: NUMBER OF VIEWS: One view. TECHNIQUE: Single frontal radiographic view of the chest acquired portable upright at 2358 hours on . RADIATION DOSE: NA LIMITATIONS: The patient is rotated. FINDINGS: LUNGS AND PLEURA: There are small bilateral pleural effusions with bibasilar airspace opac ities. Trace right-sided pneumothorax. MEDIASTINUM AND HILAR STRUCTURES: Stable. HEART AND VASCULAR STRUCTURES: The heart is upper normal limit in size. No overt vascular congestion . BONES: No acute findings. HARDWARE: Endotracheal tube terminates approximately 2 cm above the graham. Right-sided subclavian c entral line has the tip overlying the region of the SVC. The right-sided IJ central catheter has bee n removed. Orthopedic hardware noted in the lower cervical spine. IMPRESSION: Trace right-sided pneumothorax status post central line placement. Small bilateral pleural effusions with bibasilar airspace opacities, may represent atelectasis or pne umonia. COMMENT: Pertinent findings on the imaging study reported as a CRITICAL RESULT to FERNANDA LYN MD at 02:37 hrs on 02/25/2017. Category of Critical Result: Pneumothorax. TECHNICAL DOCUMENTATION: JOB ID: [id number]
[2017-02-25] MEDS: IPRATROPIUM/ALBUTEROL 0.5-2.5 MG/3 ML AMPUL NEB SCH ×4 (02:54→20:09)
[2017-02-25] MEDS: CLINDAMYCIN 900 MG/D5W RTU 50 ML IV SCH ×3 (03:07→17:06)
[2017-02-25] MEDS: PROPOFOL 100 ML IV PRN ×4 (03:09→17:06)
[2017-02-25] MEDS: PIPERACILLIN SODIUM/TAZOBACTAM 4.5 GM in NORMAL SALINE 100 ML IV SCH ×4 (03:18→20:20)
--- NOTE | 2017-02-25 03:25 | RADIOLOGY REPORT (SQ) ---
EXAM DESCRIPTION: CHEST SINGLE VIEW COMPLETED DATE/TIME: 02/25/2017 1:21 am REASON FOR STUDY: ET Tube Adjustment COMPARISON: Chest x-ray 02/24/2017 EXAM PARAMETERS: NUMBER OF VIEWS: One view. TECHNIQUE: Single frontal radiographic view of the chest acquired portable upright on 02/25/2017 at 005 1 hours. RADIATION DOSE: NA LIMITATIONS: None. FINDINGS: LUNGS AND PLEURA: Redemonstration of a trace right pneumothorax measuring up to 1.0 cm at the lung apex. There are small bilateral pleural effusions with bibasilar airspace opacities. MEDIASTINUM AND HILAR STRUCTURES: No masses. Contour normal. HEART AND VASCULAR STRUCTURES: The heart is upper normal limit in size. No overt vascular congestion . BONES: No acute findings. HARDWARE: The endotracheal tube has the tip approximately 3 cm above the graham. The NG tube courses along the midline and terminates under the left hemidiaphragm, its tip is not included on this exam. There is a right-sided subclavian central line with the tip overlying the region of the SVC. Ortho pedic hardware noted in the lower cervical spine. IMPRESSION: No significant interval change in the appearance of the chest with a trace right-sided p neumothorax, small bilateral pleural effusions and bibasilar airspace opacities. TECHNICAL DOCUMENTATION: JOB ID: [id number]
--- NOTE | 2017-02-25 03:49 | PDOC PROGRESS REPORT ---
Subjective Progress Note for:: 02/25/17 Physical Exam Vital Signs: Temp Pulse Resp BP Pulse Ox 99.7 F 53 L 16 134/81 H 100 02/25/17 01:23 02/25/17 01:23 02/25/17 02:17 02/25/17 02:17 02/25/17 02:17 Intake & Output 02/23/17 02/24/17 02/25/17 06:59 06:59 06:59 Intake Total 3883 8073 997 Output Total 3640 6414 3990 Balance -5444 -2306 -1334 Weight 65.5 kg 61.8 kg Respiratory exam: PRESENT: clear to auscultation alecia, crackles, rhonchi, symmetrical. ABSENT: decreased breath sounds Results Laboratory Results: 02/25/17 00:15 02/24/17 21:45 02/23/17 02/24/17 02/24/17 15:23 05:05 05:05 WBC RBC Hgb Hct MCV MCH MCHC RDW Plt Count Seg Neutrophils % Lymphocytes % Monocytes % Eosinophils % Basophils % Absolute Neutrophils Absolute Lymphocytes Absolute Monocytes Absolute Eosinophils Absolute Basophils Carbonic Acid 1.36 H HCO3/H2CO3 Ratio 24:1 ABG pH 7.49 H ABG pCO2 45.1 H ABG pO2 83.0 ABG HCO3 33.8 H ABG O2 Saturation 96.8 ABG Base Excess 9.3 FiO2 2L Sodium 139.5 Potassium 3.4 L Chloride 97 L Carbon Dioxide 33 H Anion Gap 10 BUN 14 Creatinine 0.61 Est GFR ( Amer) > 60 Est GFR (Non-Af Amer) > 60 Glucose 124 H Calcium 8.0 L Phosphorus 4.0 Magnesium 1.6 Total Bilirubin AST ALT Alkaline Phosphatase Total Protein Albumin Triglycerides 187 H Fluid Type PLEURAL Fluid Source LUNG Fluid Color YELLOW Fluid Appearance HAZY Fluid Viscosity LIQUID Fluid WBC 553 Fluid RBC 650 02/24/17 02/24/17 02/24/17 05:05 15:06 21:45 WBC 14.8 H RBC 4.61 Hgb 10.8 L Hct 33.6 L MCV 73 L MCH 23.6 L MCHC 32.3 RDW 20.9 H Plt Count 188 Seg Neutrophils % Lymphocytes % Monocytes % Eosinophils % Basophils % Absolute Neutrophils Absolute Lymphocytes Absolute Monocytes Absolute Eosinophils Absolute Basophils Carbonic Acid HCO3/H2CO3 Ratio ABG pH ABG pCO2 ABG pO2 ABG HCO3 ABG O2 Saturation ABG Base Excess FiO2 Sodium 138.1 137.9 Potassium 3.4 L 4.0 Chloride 95 L 98 Carbon Dioxide 34 H 33 H Anion Gap 9 7 BUN 14 14 Creatinine 0.61 0.52 Est GFR ( Amer) > 60 > 60 Est GFR (Non-Af Amer) > 60 > 60 Glucose 109 103 Calcium 8.4 8.4 Phosphorus Magnesium Total Bilirubin AST ALT Alkaline Phosphatase Total Protein Albumin Triglycerides Fluid Type Fluid Source Fluid Color Fluid Appearance Fluid Viscosity Fluid WBC Fluid RBC 02/24/17 02/24/17 02/25/17 22:35 22:55 00:11 WBC RBC Hgb Hct MCV MCH MCHC RDW Plt Count Seg Neutrophils % Lymphocytes % Monocytes % Eosinophils % Basophils % Absolute Neutrophils Absolute Lymphocytes Absolute Monocytes Absolute Eosinophils Absolute Basophils Carbonic Acid 1.73 H 1.78 H 1.62 H HCO3/H2CO3 Ratio 18:1 18:1 19:1 ABG pH 7.38 7.35 7.38 ABG pCO2 57.4 H 59.1 H 53.8 H ABG pO2 36.5 L* 39.5 L* 64.2 L ABG HCO3 32.8 H 32.2 H 31.1 H ABG O2 Saturation 67.0 L 70.6 L 91.8 L ABG Base Excess 5.9 5.0 4.8 FiO2 10L 100% 100% Sodium Potassium Chloride Carbon Dioxide Anion Gap BUN Creatinine Est GFR ( Amer) Est GFR (Non-Af Amer) Glucose Calcium Phosphorus Magnesium Total Bilirubin AST ALT Alkaline Phosphatase Total Protein Albumin Triglycerides Fluid Type Fluid Source Fluid Color Fluid Appearance Fluid Viscosity Fluid WBC Fluid RBC 02/25/17 02/25/17 00:15 00:15 WBC 21.6 H RBC 4.80 Hgb 11.0 L Hct 35.6 L MCV 74 L MCH 23.0 L MCHC 30.9 L RDW 20.3 H Plt Count 243 Seg Neutrophils % Not Reportable Lymphocytes % Not Reportable Monocytes % Not Reportable Eosinophils % Not Reportable Basophils % Not Reportable Absolute Neutrophils Not Reportable Absolute Lymphocytes Not Reportable Absolute Monocytes Not Reportable Absolute Eosinophils Not Reportable Absolute Basophils Not Reportable Carbonic Acid HCO3/H2CO3 Ratio ABG pH ABG pCO2 ABG pO2 ABG HCO3 ABG O2 Saturation ABG Base Excess FiO2 Sodium Potassium Chloride Carbon Dioxide Anion Gap BUN Creatinine Est GFR ( Amer) Est GFR (Non-Af Amer) Glucose Calcium Phosphorus Magnesium Total Bilirubin 0.9 AST 23 ALT 30 Alkaline Phosphatase 108 Total Protein 5.4 L Albumin 2.4 L Triglycerides Fluid Type Fluid Source Fluid Color Fluid Appearance Fluid Viscosity Fluid WBC Fluid RBC 02/23/17 09:51 Sputum Gram Stain - Final 02/23/17 09:51 Sputum Sputum Culture - Final C.albicans/C.dubliniensis Normal Maria De Jesus Absent 02/19/17 02/19/17 02/19/17 08:00 08:00 15:38 Creatine Kinase 27 L < 20 L CK-MB (CK-2) 0.80 Troponin I 0.019 02/19/17 02/19/17 02/19/17 15:38 22:45 22:45 Creatine Kinase < 20 L CK-MB (CK-2) 0.74 0.24 Troponin I 0.013 < 0.012 02/25/17 00:15 Creatine Kinase CK-MB (CK-2) Troponin I 0.028 Impressions: Head CT 02/19/17 01:56 IMPRESSION: No acute findings. Interval development of a right lacunar infarct. Essentially stable appearance of left frontal lobe hypoattenuation ; given concomitant vascular calcifications, favor this to be on the basis of previous ischemic event. Paracentesis Ultrasound 02/22/17 08:11 IMPRESSION: Successful ultrasound-guided diagnostic and therapeutic paracentesis Thoracentesis Ultrasound 02/23/17 08:31 IMPRESSION: SUCCESSFUL ULTRASOUND-GUIDED CHEST TUBE PLACEMENT, RIGHT HEMITHORAX Chest X-Ray 02/25/17 00:00 IMPRESSION: No significant interval change in the appearance of the chest with a trace right-sided pneumothorax, small bilateral pleural effusions and bibasilar airspace opacities. Assessment & Plan - Plan Summary Plan Summary: Patient has 100% SaO2 with stable V.S. Pt, is on PEEP of 8. PTX is 5-7%. Pt. had right chest tube removed 2 days ago. Will observe with daily CXR's. Will intervene if Sao2 drops or if pt, becomes hemodynamically unstable.
[2017-02-25 04:19] LABS: ARTERIAL BLOOD BASE EXCESS 2.6 mmol/L; ARTERIAL BLOOD O2 SATURATION 98.7 % (94-98)
[2017-02-25 04:20] LABS: HEMATOCRIT 35.8 % (36.0-47.0); HEMOGLOBIN 11.2 g/dL (12.0-15.5); HGB HCT DIFFERENCE -2.2; MEAN CORPUSCULAR HGB CONC 31.2 g/dL (32.0-36.0); MEAN CORPUSCULAR VOLUME 74 fl (80-97); RED BLOOD COUNT 4.86 10^6/uL (3.72-5.28); RED CELL DISTRIBUTION WIDTH 20.5 % (11.5-14.0); WHITE BLOOD COUNT 26.5 10^3/uL (4.0-10.5)
[2017-02-25 04:37] LABS: BASOPHILS % (MANUAL) 0 % (0-2); EOSINOPHILS % (MANUAL) 0 % (0-6); LYMPHOCYTES % (MANUAL) 6 % (13-45); TOTAL CELLS COUNTED 100
[2017-02-25 04:40] LABS: TOXIC GRANULATION 1+
[2017-02-25 04:42] LABS: ACANTHOCYTES SLIGHT; ANISOCYTOSIS 2+; HYPOCHROMASIA 1+; MICROCYTOSIS 1+; OVALOCYTES 1+; POIKILOCYTOSIS 1+; TEAR DROP CELLS SLIGHT
[2017-02-25 04:43] LABS: ANION GAP 10 (5-19); BLOOD UREA NITROGEN 15 mg/dL (7-20); CALCIUM 8.3 mg/dL (8.4-10.2); CARBON DIOXIDE 30 mmol/L (22-30); CHLORIDE 99 mmol/L (98-107); CREATININE RESULT 0.57 mg/dL (0.52-1.25); GLUCOSE 148 mg/dL (75-110); MAGNESIUM 1.6 mg/dL (1.6-2.3); PHOSPHORUS 4.6 mg/dL (2.5-4.5); POTASSIUM 3.4 mmol/L (3.6-5.0); SODIUM 138.7 mmol/L (137-145)
[2017-02-25] MEDS: NORMAL SALINE INJ/PF 0.9% 10 ML SDV IV PRN (05:26)
[2017-02-25] MEDS: METHYLPREDNISOLONE INJ 40 MG/1 ML SDV IV SCH ×3 (05:26→22:10)
[2017-02-25] MEDS: HEPARIN SOD (PORCINE) 5,000 UNIT/ML 1 ML SYRINGE SUBCUT SCH ×3 (05:26→22:11)
[2017-02-25] MEDS: POTASSIUM CHLORIDE 20 MEQ/50 ML RTU IV SCH ×2 (06:38→07:45)
--- NOTE | 2017-02-25 07:01 | RADIOLOGY REPORT (SQ) ---
EXAM DESCRIPTION: CHEST SINGLE VIEW COMPLETED DATE/TIME: 02/25/2017 6:46 am REASON FOR STUDY: effusions COMPARISON: Chest x-ray 02/25/2017 at 0051 hours EXAM PARAMETERS: NUMBER OF VIEWS: One view TECHNIQUE: Single frontal radiograph of the chest portable upright on 02/25/2017 at 0633 hours. RADIATION DOSE: N/A LIMITATIONS: The patient is rotated. FINDINGS: TEMPORARY SUPPORT DEVICES:ETT in expected location. NG tube courses below the left black-d iaphragm in to the stomach. Right subclavian central line with the tip overlying the region of the SV C. LUNGS AND PLEURA: Interval improvement in the aeration of the lungs with decrease in the bilateral pl eural effusions and bibasilar airspace opacities. No pneumothorax is noted on this exam. MEDIASTINUM AND HILAR STRUCTURES: No masses. Contour normal. HEART AND VASCULAR STRUCTURES: The heart is not enlarged. No overt vascular congestion. BONES: No acute findings. OTHER: Orthopedic hardware noted in the lower cervical spine. IMPRESSION: Interval improvement in the aeration of the lungs with interval decrease in the small bi lateral pleural effusions and bibasilar airspace opacities. No pneumothorax visualized. Support devices in expected locations. TECHNICAL DOCUMENTATION: JOB ID: [id number] 2010 [employer]- All Rights Reserved
[2017-02-25] MEDS: LANSOPRAZOLE 30 MG TAB.RAP.DR NG SCH (07:45)
[2017-02-25] MEDS: ACETYLCYSTEINE 20% SOLN 800 MG/4 ML VIAL.NEB NEB SCH ×2 (08:06→20:09)
--- NOTE | 2017-02-25 08:14 | PDOC PROGRESS REPORT ---
Subjective Progress Note for:: 02/25/17 Subjective:: Patient condition deteriorated last night. Reportedly the patient developed hypoxia and cyanosis in the chest x-ray shows small pneumothorax from recent chest tube placement. No new infiltrates were noted. Patient eventually intubated and obtain thick mucus secretions. No reported temperature spikes, nausea or vomiting, diarrhea. Patient was not hypotensive. She is back on sedation. Physical Exam Vital Signs: Temp Pulse Resp BP Pulse Ox 99.3 F 64 16 147/78 H 98 02/25/17 05:49 02/25/17 05:49 02/25/17 06:32 02/25/17 06:32 02/25/17 06:32 Intake & Output 02/24/17 02/25/17 02/26/17 06:59 06:59 06:59 Intake Total 2406 2162 Output Total 6410 4195 Balance -4004 -2033 Weight 61.8 kg 61.1 kg General appearance: PRESENT: no acute distress, other - Intubated and sedated Head exam: PRESENT: normocephalic Eye exam: PRESENT: conjunctiva pale Mouth exam: PRESENT: moist, neck supple Neck exam: ABSENT: JVD Respiratory exam: PRESENT: rhonchi - Metabolic bilateral. ABSENT: wheezes Cardiovascular exam: PRESENT: RRR, systolic murmur - Left sternal border. ABSENT: gallop GI/Abdominal exam: PRESENT: soft. ABSENT: distended, tenderness Extremities exam: PRESENT: other - Trace lower extremity edema Neurological exam: PRESENT: altered - Intubated and sedated Skin exam: PRESENT: dry, warm. ABSENT: cyanosis Results Laboratory Results: 02/25/17 04:00 02/25/17 04:00 02/23/17 02/24/17 02/24/17 15:23 15:06 21:45 WBC RBC Hgb Hct MCV MCH MCHC RDW Plt Count Seg Neutrophils % Lymphocytes % Monocytes % Eosinophils % Basophils % Absolute Neutrophils Absolute Lymphocytes Absolute Monocytes Absolute Eosinophils Absolute Basophils Carbonic Acid HCO3/H2CO3 Ratio ABG pH ABG pCO2 ABG pO2 ABG HCO3 ABG O2 Saturation ABG Base Excess FiO2 Sodium 138.1 137.9 Potassium 3.4 L 4.0 Chloride 95 L 98 Carbon Dioxide 34 H 33 H Anion Gap 9 7 BUN 14 14 Creatinine 0.61 0.52 Est GFR ( Amer) > 60 > 60 Est GFR (Non-Af Amer) > 60 > 60 Glucose 109 103 Calcium 8.4 8.4 Phosphorus Magnesium Total Bilirubin AST ALT Alkaline Phosphatase Total Protein Albumin Fluid Type PLEURAL Fluid Source LUNG Fluid Color YELLOW Fluid Appearance HAZY Fluid Viscosity LIQUID Fluid WBC 553 Fluid RBC 650 02/24/17 02/24/17 02/25/17 22:35 22:55 00:11 WBC RBC Hgb Hct MCV MCH MCHC RDW Plt Count Seg Neutrophils % Lymphocytes % Monocytes % Eosinophils % Basophils % Absolute Neutrophils Absolute Lymphocytes Absolute Monocytes Absolute Eosinophils Absolute Basophils Carbonic Acid 1.73 H 1.78 H 1.62 H HCO3/H2CO3 Ratio 18:1 18:1 19:1 ABG pH 7.38 7.35 7.38 ABG pCO2 57.4 H 59.1 H 53.8 H ABG pO2 36.5 L* 39.5 L* 64.2 L ABG HCO3 32.8 H 32.2 H 31.1 H ABG O2 Saturation 67.0 L 70.6 L 91.8 L ABG Base Excess 5.9 5.0 4.8 FiO2 10L 100% 100% Sodium Potassium Chloride Carbon Dioxide Anion Gap BUN Creatinine Est GFR ( Amer) Est GFR (Non-Af Amer) Glucose Calcium Phosphorus Magnesium Total Bilirubin AST ALT Alkaline Phosphatase Total Protein Albumin Fluid Type Fluid Source Fluid Color Fluid Appearance Fluid Viscosity Fluid WBC Fluid RBC 02/25/17 02/25/17 02/25/17 00:15 00:15 04:00 WBC 21.6 H RBC 4.80 Hgb 11.0 L Hct 35.6 L MCV 74 L MCH 23.0 L MCHC 30.9 L RDW 20.3 H Plt Count 243 Seg Neutrophils % Not Reportable Lymphocytes % Not Reportable Monocytes % Not Reportable Eosinophils % Not Reportable Basophils % Not Reportable Absolute Neutrophils Not Reportable Absolute Lymphocytes Not Reportable Absolute Monocytes Not Reportable Absolute Eosinophils Not Reportable Absolute Basophils Not Reportable Carbonic Acid HCO3/H2CO3 Ratio ABG pH ABG pCO2 ABG pO2 ABG HCO3 ABG O2 Saturation ABG Base Excess FiO2 Sodium 138.7 Potassium 3.4 L Chloride 99 Carbon Dioxide 30 Anion Gap 10 BUN 15 Creatinine 0.57 Est GFR ( Amer) > 60 Est GFR (Non-Af Amer) > 60 Glucose 148 H Calcium 8.3 L Phosphorus 4.6 H Magnesium 1.6 Total Bilirubin 0.9 AST 23 ALT 30 Alkaline Phosphatase 108 Total Protein 5.4 L Albumin 2.4 L Fluid Type Fluid Source Fluid Color Fluid Appearance Fluid Viscosity Fluid WBC Fluid RBC 02/25/17 02/25/17 04:00 04:00 WBC 26.5 H RBC 4.86 Hgb 11.2 L Hct 35.8 L MCV 74 L MCH 23.0 L MCHC 31.2 L RDW 20.5 H Plt Count 222 Seg Neutrophils % Not Reportable Lymphocytes % Not Reportable Monocytes % Not Reportable Eosinophils % Not Reportable Basophils % Not Reportable Absolute Neutrophils Not Reportable Absolute Lymphocytes Not Reportable Absolute Monocytes Not Reportable Absolute Eosinophils Not Reportable Absolute Basophils Not Reportable Carbonic Acid 1.30 HCO3/H2CO3 Ratio 21:1 ABG pH 7.42 ABG pCO2 43.2 ABG pO2 130.8 H ABG HCO3 27.4 H ABG O2 Saturation 98.7 H ABG Base Excess 2.6 FiO2 80% Sodium Potassium Chloride Carbon Dioxide Anion Gap BUN Creatinine Est GFR ( Amer) Est GFR (Non-Af Amer) Glucose Calcium Phosphorus Magnesium Total Bilirubin AST ALT Alkaline Phosphatase Total Protein Albumin Fluid Type Fluid Source Fluid Color Fluid Appearance Fluid Viscosity Fluid WBC Fluid RBC 02/23/17 09:51 Sputum Gram Stain - Final 02/23/17 09:51 Sputum Sputum Culture - Final C.albicans/C.dubliniensis Normal Maria De Jesus Absent 02/19/17 02/19/17 02/19/17 08:00 08:00 15:38 Creatine Kinase 27 L < 20 L CK-MB (CK-2) 0.80 Troponin I 0.019 02/19/17 02/19/17 02/19/17 15:38 22:45 22:45 Creatine Kinase < 20 L CK-MB (CK-2) 0.74 0.24 Troponin I 0.013 < 0.012 02/25/17 00:15 Creatine Kinase CK-MB (CK-2) Troponin I 0.028 Impressions: Head CT 02/19/17 01:56 IMPRESSION: No acute findings. Interval development of a right lacunar infarct. Essentially stable appearance of left frontal lobe hypoattenuation ; given concomitant vascular calcifications, favor this to be on the basis of previous ischemic event. Paracentesis Ultrasound 02/22/17 08:11 IMPRESSION: Successful ultrasound-guided diagnostic and therapeutic paracentesis Thoracentesis Ultrasound 02/23/17 08:31 IMPRESSION: SUCCESSFUL ULTRASOUND-GUIDED CHEST TUBE PLACEMENT, RIGHT HEMITHORAX Chest X-Ray 02/25/17 06:00 IMPRESSION: Interval improvement in the aeration of the lungs with interval decrease in the small bilateral pleural effusions and bibasilar airspace opacities. No pneumothorax visualized. Support devices in expected locations. Assessment & Plan - Diagnosis (1) Respiratory failure Qualifiers: Chronicity: acute Respiratory failure complication: hypoxia and hypercapnia Qualified Code(s): J96.01 - Acute respiratory failure with hypoxia Is this a current diagnosis for this admission?: No (2) Pneumothorax on right Is this a current diagnosis for this admission?: Yes (3) Pneumonia Qualifiers: Pneumonia type: aspiration pneumonia Laterality: bilateral Lung location: unspecified part of lung Is this a current diagnosis for this admission?: No (4) Sepsis Qualifiers: Sepsis type: sepsis due to unspecified organism Qualified Code(s): A41.9 - Sepsis, unspecified organism Is this a current diagnosis for this admission?: No (5) COPD exacerbation Is this a current diagnosis for this admission?: Yes (6) Anemia Qualifiers: Anemia type: unspecified type Qualified Code(s): D64.9 - Anemia, unspecified Is this a current diagnosis for this admission?: Yes (7) Liver cirrhosis Qualifiers: Hepatic cirrhosis type: unspecified hepatic cirrhosis Ascites presence : with ascites Qualified Code(s): K74.60 - Unspecified cirrhosis of liver Is this a current diagnosis for this admission?: Yes (8) Essential hypertension Is this a current diagnosis for this admission?: Yes (9) Peripheral vascular disease Is this a current diagnosis for this admission?: Yes (10) Carotid atherosclerosis Qualifiers: Laterality: left Qualified Code(s): I65.22 - Occlusion and stenosis of left carotid artery Is this a current diagnosis for this admission?: Yes (11) Hyperlipidemia Qualifiers: Hyperlipidemia type: unspecified Qualified Code(s): E78.5 - Hyperlipidemia, unspecified Is this a current diagnosis for this admission?: Yes (12) Bipolar disorder Qualifiers: Active/Remission status: remission status unspecified Qualified Code (s): F31.9 - Bipolar disorder, unspecified Is this a current diagnosis for this admission?: Yes (13) CVA (cerebral vascular accident) Qualifiers: CVA mechanism: unspecified Qualified Code(s): I63.9 - Cerebral infarction, unspecified Is this a current diagnosis for this admission?: Yes (14) Esophageal varices Qualifiers: Esophageal varices type: secondary Esophageal varices bleeding: without bleeding Qualified Code(s): I85.10 - Secondary esophageal varices without bleeding Is this a current diagnosis for this admission?: Yes (15) Gastric ulcer Qualifiers: Gastric ulcer chronicity: unspecified ulcer chronicity Gastric ulcer complication status: unspecified whether hemorrhage or perforation present Qualified Code(s): K25.9 - Gastric ulcer, unspecified as acute or chronic, without hemorrhage or perforation Is this a current diagnosis for this admission?: Yes - Time Time Spent with patient: 25-34 minutes - Plan Summary Plan Summary: Patient's respiratory failure probably attributed to mucus plugging's. Small pneumothorax unlikely. We will continue antibiotics and sedation and ventilatory support. Pulmonary service to manage weaning and extubation. Begin tube feedings, replace electrolytes, continue supportive care. Monitor patient's pneumothorax with serial x-rays.
[2017-02-25] MEDS: NADOLOL 40 MG TABLET NG SCH (09:23)
[2017-02-25] MEDS: THIAMINE HCL 100 MG, FOLIC ACID 1 MG in NORMAL SALINE 50 ML IV SCH (09:24)
[2017-02-25] MEDS: FUROSEMIDE INJ/PF 40 MG/4 ML SDV IV SCH (09:24)
[2017-02-25] MEDS: FENTANYL CITRATE INJ/PF 100 MCG/2 ML AMPUL IV PRN ×3 (09:38→22:09)
--- NOTE | 2017-02-25 09:51 | Progress Note ---
Provider Note Provider Note: February 24, 2017: Contacted by patient's intensive care unit nurse approximately 10:30 PM stating that patient had experienced a sudden worsening of her respiratory status, along with development of rather prominent cyanosis. I went to the bedside several minutes later. Patient was noted to be rather prominently cyanotic. Acceptable blood pressure. Placed on BiPAP. Slight improvement in her overall level of cyanosis, but still fairly pronounced. Minimal improvement in her work of breathing, with respiratory rate in the high 20s/low 30s. Coarse respiratory sounds bilaterally. Chart reviewed. Given her multiple medical problems and overall clinical appearance, decision was made to proceed with endotracheal intubation. Discussed with patient in layperson's terms. She agreed. Accomplished by [employer]. Prior to her intubation, nursing staff did speak by phone with patient's daughter, relaying our plans. Daughter agreed with plans. Slow improvement post intubation in her overall level of cyanosis. Again, acceptable blood pressure. I discussed the patient by phone with Dr. Yip, who has been following her during her hospital stay. Recommendations made, entered into the electronic health record, and discussed with ICU nursing staff , including increased PEEP and addition of Mucomyst nebulizer treatments. Cyanosis fairly quickly resolved after this, again with acceptable blood pressure. Intravenous vancomycin added; pharmacy assisted with dosing. 60 minutes critical care time spent in evaluation management of patient, including direct bedside evaluation and multiple discussions with patient, multiple discussions with intensive care unit nursing staff, chart review, entering of multiple orders into the electronic health record, lab and radiology review, including direct review of the films themselves, followed by x -ray report review, along with telephone discussion with Dr. Yip.
--- NOTE | 2017-02-25 10:46 | EKG REPORT ---
SEVERITY:- BORDERLINE ECG - SINUS RHYTHM PROBABLE LEFT ATRIAL ABNORMALITY : Confirmed by: Zain Mccoy 25-Feb-2017 10:46:08
--- NOTE | 2017-02-25 11:13 | PDOC PROGRESS REPORT ---
Subjective Progress Note for:: 02/25/17 Subjective:: reintubate Physical Exam Vital Signs: Temp Pulse Resp BP Pulse Ox 99.3 F 66 27 H 144/88 H 92 02/25/17 05:49 02/25/17 08:54 02/25/17 08:45 02/25/17 08:32 02/25/17 08:45 Intake & Output 02/24/17 02/25/17 02/26/17 06:59 06:59 06:59 Intake Total 2406 2162 Output Total 6410 4195 310 Balance -4004 -2033 -310 Weight 61.8 kg 61.1 kg General appearance: PRESENT: no acute distress, disheveled, obese, well- developed Head exam: PRESENT: atraumatic, normocephalic Eye exam: PRESENT: conjunctiva pale Mouth exam: PRESENT: dry mucosa, neck supple, other - ET tube Neck exam: ABSENT: carotid bruit, JVD, lymphadenopathy, thyromegaly Respiratory exam: PRESENT: decreased breath sounds, prolonged expiratory phas, rhonchi, symmetrical Cardiovascular exam: PRESENT: RRR, +S1 Pulses: PRESENT: normal radial pulses GI/Abdominal exam: PRESENT: ascites Rectal exam: PRESENT: deferred Gentrourinary exam: PRESENT: indwelling catheter Skin exam: PRESENT: dry Results Laboratory Results: 02/25/17 04:00 02/25/17 04:00 02/23/17 02/24/17 02/24/17 15:23 15:06 21:45 WBC RBC Hgb Hct MCV MCH MCHC RDW Plt Count Seg Neutrophils % Lymphocytes % Monocytes % Eosinophils % Basophils % Absolute Neutrophils Absolute Lymphocytes Absolute Monocytes Absolute Eosinophils Absolute Basophils Carbonic Acid HCO3/H2CO3 Ratio ABG pH ABG pCO2 ABG pO2 ABG HCO3 ABG O2 Saturation ABG Base Excess FiO2 Sodium 138.1 137.9 Potassium 3.4 L 4.0 Chloride 95 L 98 Carbon Dioxide 34 H 33 H Anion Gap 9 7 BUN 14 14 Creatinine 0.61 0.52 Est GFR ( Amer) > 60 > 60 Est GFR (Non-Af Amer) > 60 > 60 Glucose 109 103 Calcium 8.4 8.4 Phosphorus Magnesium Total Bilirubin AST ALT Alkaline Phosphatase Total Protein Albumin Fluid Type PLEURAL Fluid Source LUNG Fluid Color YELLOW Fluid Appearance HAZY Fluid Viscosity LIQUID Fluid WBC 553 Fluid RBC 650 02/24/17 02/24/17 02/25/17 22:35 22:55 00:11 WBC RBC Hgb Hct MCV MCH MCHC RDW Plt Count Seg Neutrophils % Lymphocytes % Monocytes % Eosinophils % Basophils % Absolute Neutrophils Absolute Lymphocytes Absolute Monocytes Absolute Eosinophils Absolute Basophils Carbonic Acid 1.73 H 1.78 H 1.62 H HCO3/H2CO3 Ratio 18:1 18:1 19:1 ABG pH 7.38 7.35 7.38 ABG pCO2 57.4 H 59.1 H 53.8 H ABG pO2 36.5 L* 39.5 L* 64.2 L ABG HCO3 32.8 H 32.2 H 31.1 H ABG O2 Saturation 67.0 L 70.6 L 91.8 L ABG Base Excess 5.9 5.0 4.8 FiO2 10L 100% 100% Sodium Potassium Chloride Carbon Dioxide Anion Gap BUN Creatinine Est GFR ( Amer) Est GFR (Non-Af Amer) Glucose Calcium Phosphorus Magnesium Total Bilirubin AST ALT Alkaline Phosphatase Total Protein Albumin Fluid Type Fluid Source Fluid Color Fluid Appearance Fluid Viscosity Fluid WBC Fluid RBC 02/25/17 02/25/17 02/25/17 00:15 00:15 04:00 WBC 21.6 H RBC 4.80 Hgb 11.0 L Hct 35.6 L MCV 74 L MCH 23.0 L MCHC 30.9 L RDW 20.3 H Plt Count 243 Seg Neutrophils % Not Reportable Lymphocytes % Not Reportable Monocytes % Not Reportable Eosinophils % Not Reportable Basophils % Not Reportable Absolute Neutrophils Not Reportable Absolute Lymphocytes Not Reportable Absolute Monocytes Not Reportable Absolute Eosinophils Not Reportable Absolute Basophils Not Reportable Carbonic Acid HCO3/H2CO3 Ratio ABG pH ABG pCO2 ABG pO2 ABG HCO3 ABG O2 Saturation ABG Base Excess FiO2 Sodium 138.7 Potassium 3.4 L Chloride 99 Carbon Dioxide 30 Anion Gap 10 BUN 15 Creatinine 0.57 Est GFR ( Amer) > 60 Est GFR (Non-Af Amer) > 60 Glucose 148 H Calcium 8.3 L Phosphorus 4.6 H Magnesium 1.6 Total Bilirubin 0.9 AST 23 ALT 30 Alkaline Phosphatase 108 Total Protein 5.4 L Albumin 2.4 L Fluid Type Fluid Source Fluid Color Fluid Appearance Fluid Viscosity Fluid WBC Fluid RBC 02/25/17 02/25/17 04:00 04:00 WBC 26.5 H RBC 4.86 Hgb 11.2 L Hct 35.8 L MCV 74 L MCH 23.0 L MCHC 31.2 L RDW 20.5 H Plt Count 222 Seg Neutrophils % Not Reportable Lymphocytes % Not Reportable Monocytes % Not Reportable Eosinophils % Not Reportable Basophils % Not Reportable Absolute Neutrophils Not Reportable Absolute Lymphocytes Not Reportable Absolute Monocytes Not Reportable Absolute Eosinophils Not Reportable Absolute Basophils Not Reportable Carbonic Acid 1.30 HCO3/H2CO3 Ratio 21:1 ABG pH 7.42 ABG pCO2 43.2 ABG pO2 130.8 H ABG HCO3 27.4 H ABG O2 Saturation 98.7 H ABG Base Excess 2.6 FiO2 80% Sodium Potassium Chloride Carbon Dioxide Anion Gap BUN Creatinine Est GFR ( Amer) Est GFR (Non-Af Amer) Glucose Calcium Phosphorus Magnesium Total Bilirubin AST ALT Alkaline Phosphatase Total Protein Albumin Fluid Type Fluid Source Fluid Color Fluid Appearance Fluid Viscosity Fluid WBC Fluid RBC 02/23/17 09:51 Sputum Gram Stain - Final 02/23/17 09:51 Sputum Sputum Culture - Final C.albicans/C.dubliniensis Normal Maria De Jesus Absent 02/19/17 02/19/17 02/19/17 08:00 08:00 15:38 Creatine Kinase 27 L < 20 L CK-MB (CK-2) 0.80 Troponin I 0.019 02/19/17 02/19/17 02/19/17 15:38 22:45 22:45 Creatine Kinase < 20 L CK-MB (CK-2) 0.74 0.24 Troponin I 0.013 < 0.012 02/25/17 00:15 Creatine Kinase CK-MB (CK-2) Troponin I 0.028 Impressions: Head CT 02/19/17 01:56 IMPRESSION: No acute findings. Interval development of a right lacunar infarct. Essentially stable appearance of left frontal lobe hypoattenuation ; given concomitant vascular calcifications, favor this to be on the basis of previous ischemic event. Paracentesis Ultrasound 02/22/17 08:11 IMPRESSION: Successful ultrasound-guided diagnostic and therapeutic paracentesis Thoracentesis Ultrasound 02/23/17 08:31 IMPRESSION: SUCCESSFUL ULTRASOUND-GUIDED CHEST TUBE PLACEMENT, RIGHT HEMITHORAX Chest X-Ray 02/25/17 06:00 IMPRESSION: Interval improvement in the aeration of the lungs with interval decrease in the small bilateral pleural effusions and bibasilar airspace opacities. No pneumothorax visualized. Support devices in expected locations. Assessment & Plan - Diagnosis (1) CVA (cerebral vascular accident) Qualifiers: CVA mechanism: unspecified Qualified Code(s): I63.9 - Cerebral infarction, unspecified Is this a current diagnosis for this admission?: Yes (2) Respiratory failure Qualifiers: Chronicity: acute Respiratory failure complication: hypoxia and hypercapnia Qualified Code(s): J96.01 - Acute respiratory failure with hypoxia Is this a current diagnosis for this admission?: NoPlan: reintubated (3) Pneumonia Qualifiers: Pneumonia type: aspiration pneumonia Laterality: bilateral Lung location: unspecified part of lung Is this a current diagnosis for this admission?: NoPlan: new CXR changes R LOWer lobe presumably reaspiration (4) Sepsis Qualifiers: Sepsis type: sepsis due to unspecified organism Qualified Code(s): A41.9 - Sepsis, unspecified organism Is this a current diagnosis for this admission?: No - Time Critical Time spent with patient: 35 or more minutes
[2017-02-25] MEDS ORDERED: SUCCINYLCHOLINE CHLORIDE INJ 200 MG/10 ML VIAL ONE (15:24)
[2017-02-25] MEDS: NORMAL SALINE 1000 ML 1,000 ML IV PRN (15:38)
[2017-02-25] MEDS: VANCOMYCIN HCL 1,000 MG in DEXTROSE 5%-WATER 250 ML IV SCH (18:17)
[2017-02-25] MEDS: ATORVASTATIN CALCIUM 80 MG TABLET NG SCH (22:10)
[2017-02-26] MEDS: INSULIN LISPRO 100 UNIT/ML 3 ML VIAL SUBCUT SCH ×4 (00:48→17:39)
[2017-02-26] MEDS: CLINDAMYCIN 900 MG/D5W RTU 50 ML IV SCH ×3 (01:03→17:30)
[2017-02-26] MEDS: IPRATROPIUM/ALBUTEROL 0.5-2.5 MG/3 ML AMPUL NEB SCH ×4 (01:51→21:01)
[2017-02-26] MEDS: PIPERACILLIN SODIUM/TAZOBACTAM 4.5 GM in NORMAL SALINE 100 ML IV SCH ×4 (02:17→21:25)
[2017-02-26] MEDS: NORMAL SALINE 1000 ML 1,000 ML IV PRN (03:33)
[2017-02-26] MEDS: PROPOFOL 100 ML IV PRN ×3 (03:33→17:29)
[2017-02-26] MEDS: METHYLPREDNISOLONE INJ 40 MG/1 ML SDV IV SCH ×3 (05:04→21:26)
[2017-02-26] MEDS: NORMAL SALINE INJ/PF 0.9% 10 ML SDV IV PRN ×2 (05:04→21:26)
[2017-02-26] MEDS: HEPARIN SOD (PORCINE) 5,000 UNIT/ML 1 ML SYRINGE SUBCUT SCH ×3 (05:04→21:26)
[2017-02-26 05:42] LABS: ABSOLUTE LYMPHOCYTES (AUTO) 1.4 10^3/uL (0.5-4.7); ABSOLUTE MONOCYTES (AUTO) 0.9 10^3/uL (0.1-1.4); ABSOLUTE NEUT (AUTO) 11.3 10^3/uL (1.7-8.2); BASOPHILS % (AUTO) 0.2 % (0-2); HEMOGLOBIN 10.1 g/dL (12.0-15.5); HGB HCT DIFFERENCE -1.7; LYMPHOCYTES % (AUTO) 10.1 % (13-45); MEAN CORPUSCULAR HEMOGLOBIN 23.4 pg (27.0-33.4); MEAN CORPUSCULAR HGB CONC 31.6 g/dL (32.0-36.0); MEAN CORPUSCULAR VOLUME 74 fl (80-97); MONOCYTES % (AUTO) 6.4 % (3-13); RED BLOOD COUNT 4.32 10^6/uL (3.72-5.28); RED CELL DISTRIBUTION WIDTH 20.8 % (11.5-14.0); SEGMENTED NEUTROPHILS % (AUTO) 83.3 % (42-78); WHITE BLOOD COUNT 13.5 10^3/uL (4.0-10.5)
[2017-02-26 05:49] LABS: ARTERIAL BLOOD BASE EXCESS 5.8 mmol/L; ARTERIAL BLOOD O2 SATURATION 96.8 % (94-98)
[2017-02-26 05:55] LABS: ANION GAP 9 (5-19); BLOOD UREA NITROGEN 17 mg/dL (7-20); CALCIUM 8.1 mg/dL (8.4-10.2); CARBON DIOXIDE 30 mmol/L (22-30); CHLORIDE 100 mmol/L (98-107); CREATININE RESULT 0.54 mg/dL (0.52-1.25); GLUCOSE 117 mg/dL (75-110); MAGNESIUM 1.7 mg/dL (1.6-2.3); POTASSIUM 3.3 mmol/L (3.6-5.0); SODIUM 138.7 mmol/L (137-145); TRIGLYCERIDES 224 mg/dL (<150)
[2017-02-26] MEDS: VANCOMYCIN HCL 1,000 MG in DEXTROSE 5%-WATER 250 ML IV SCH ×2 (06:09→18:14)
[2017-02-26] MEDS: ACETYLCYSTEINE 20% SOLN 800 MG/4 ML VIAL.NEB NEB SCH ×2 (07:49→21:02)
--- NOTE | 2017-02-26 08:01 | RADIOLOGY REPORT (SQ) ---
EXAM DESCRIPTION: CHEST SINGLE VIEW COMPLETED DATE/TIME: 02/26/2017 6:07 am REASON FOR STUDY: Respiratory failure, intubated COMPARISON: Chest x-ray 02/25/2017. EXAM PARAMETERS: NUMBER OF VIEWS: One view TECHNIQUE: Single frontal radiograph of the chest. RADIATION DOSE: N/A LIMITATIONS: None. FINDINGS: TEMPORARY SUPPORT DEVICES:ETT in expected location. NG tube courses below the left black-d iaphragm in to the stomach. Right subclavian central line with the tip overlying the region of the SV C. LUNGS AND PLEURA: Mild bibasilar atelectasis. No pleural effusion or pneumothorax. MEDIASTINUM AND HILAR STRUCTURES: No masses. Contour normal. HEART AND VASCULAR STRUCTURES: Heart size normal. No overt vascular congestion. BONES: Remote left-sided rib fractures. OTHER: Orthopedic hardware noted at the lower cervical spine. IMPRESSION: Mild bibasilar atelectasis. Support devices in expected locations. TECHNICAL DOCUMENTATION: JOB ID: [id number] [employer]- All Rights Reserved
[2017-02-26] MEDS: FENTANYL CITRATE INJ/PF 100 MCG/2 ML AMPUL IV PRN (08:07)
[2017-02-26] MEDS: LANSOPRAZOLE 30 MG TAB.RAP.DR NG SCH (08:08)
[2017-02-26] MEDS: NADOLOL 40 MG TABLET NG SCH (09:15)
[2017-02-26] MEDS: POTASSIUM CHLORIDE 20 MEQ/50 ML RTU IV SCH ×4 (09:15→19:40)
[2017-02-26] MEDS: THIAMINE HCL 100 MG, FOLIC ACID 1 MG in NORMAL SALINE 50 ML IV SCH (09:15)
--- NOTE | 2017-02-26 09:17 | PDOC PROGRESS REPORT ---
Subjective Progress Note for:: 02/26/17 Subjective:: Patient remains on the ventilator. No reported temperature spikes, respiratory distress, diarrhea. Tolerating tube feedings. Slightly positive balance today. This is apparently discontinued as reported. Abdomen however started to have increasing girth. Physical Exam Vital Signs: Temp Pulse Resp BP Pulse Ox 99.3 F 62 15 121/74 98 02/26/17 08:00 02/26/17 08:00 02/26/17 08:00 02/26/17 08:00 02/26/17 08:00 Intake & Output 02/25/17 02/26/17 02/27/17 06:59 06:59 06:59 Intake Total 2162 2914 60 Output Total 4195 2880 75 Balance -2032 34 -15 Weight 61.1 kg 59.1 kg General appearance: PRESENT: no acute distress, other - Intubated and sedated Head exam: PRESENT: normocephalic Eye exam: PRESENT: conjunctiva pale Mouth exam: PRESENT: neck supple Neck exam: ABSENT: JVD Respiratory exam: PRESENT: rhonchi - Minimal bilateral. ABSENT: wheezes Cardiovascular exam: PRESENT: RRR, systolic murmur - Left sternal border. ABSENT: gallop GI/Abdominal exam: PRESENT: distended - Mildly, positive fluid wave, soft, other. ABSENT: tenderness Extremities exam: PRESENT: other - Trace lower extremity edema Psychiatric exam: ABSENT: agitated Focused psych exam: ABSENT: restlessness Skin exam: PRESENT: dry, warm. ABSENT: cyanosis Results Laboratory Results: 02/26/17 05:15 02/26/17 05:15 02/23/17 02/23/17 02/23/17 15:23 15:23 15:23 WBC RBC Hgb Hct MCV MCH MCHC RDW Plt Count Seg Neutrophils % Lymphocytes % Monocytes % Eosinophils % Basophils % Absolute Neutrophils Absolute Lymphocytes Absolute Monocytes Absolute Eosinophils Absolute Basophils Carbonic Acid HCO3/H2CO3 Ratio ABG pH ABG pCO2 ABG pO2 ABG HCO3 ABG O2 Saturation ABG Base Excess FiO2 Sodium Potassium Chloride Carbon Dioxide Anion Gap BUN Creatinine Est GFR ( Amer) Est GFR (Non-Af Amer) Glucose Calcium Magnesium Triglycerides Fluid Glucose 121 Fluid Total Protein Fluid LDH 180 Fluid Amylase 101 02/23/17 02/25/17 02/26/17 15:23 11:55 05:15 WBC RBC Hgb Hct MCV MCH MCHC RDW Plt Count Seg Neutrophils % Lymphocytes % Monocytes % Eosinophils % Basophils % Absolute Neutrophils Absolute Lymphocytes Absolute Monocytes Absolute Eosinophils Absolute Basophils Carbonic Acid 1.30 HCO3/H2CO3 Ratio 23:1 ABG pH 7.46 H ABG pCO2 43.2 ABG pO2 84.5 ABG HCO3 30.2 H ABG O2 Saturation 96.8 ABG Base Excess 5.8 FiO2 30% Sodium Potassium 3.9 Chloride Carbon Dioxide Anion Gap BUN Creatinine Est GFR ( Amer) Est GFR (Non-Af Amer) Glucose Calcium Magnesium Triglycerides Fluid Glucose Fluid Total Protein 2.7 Fluid LDH Fluid Amylase 02/26/17 02/26/17 05:15 05:15 WBC 13.5 H RBC 4.32 Hgb 10.1 L Hct 32.0 L MCV 74 L MCH 23.4 L MCHC 31.6 L RDW 20.8 H Plt Count 227 Seg Neutrophils % 83.3 H Lymphocytes % 10.1 L Monocytes % 6.4 Eosinophils % 0.0 Basophils % 0.2 Absolute Neutrophils 11.3 H Absolute Lymphocytes 1.4 Absolute Monocytes 0.9 Absolute Eosinophils 0.0 Absolute Basophils 0.0 Carbonic Acid HCO3/H2CO3 Ratio ABG pH ABG pCO2 ABG pO2 ABG HCO3 ABG O2 Saturation ABG Base Excess FiO2 Sodium 138.7 Potassium 3.3 L Chloride 100 Carbon Dioxide 30 Anion Gap 9 BUN 17 Creatinine 0.54 Est GFR ( Amer) > 60 Est GFR (Non-Af Amer) > 60 Glucose 117 H Calcium 8.1 L Magnesium 1.7 Triglycerides 224 H Fluid Glucose Fluid Total Protein Fluid LDH Fluid Amylase 02/23/17 15:23 Pleural Fluid - Right Pleural Effusion AFB Smear Concentration - Final 02/23/17 15:23 Pleural Fluid - Right Pleural Effusion Acid Fast Bacilli Smear - Final 02/19/17 02/19/17 02/19/17 08:00 08:00 15:38 Creatine Kinase 27 L < 20 L CK-MB (CK-2) 0.80 Troponin I 0.019 02/19/17 02/19/17 02/19/17 15:38 22:45 22:45 Creatine Kinase < 20 L CK-MB (CK-2) 0.74 0.24 Troponin I 0.013 < 0.012 02/25/17 00:15 Creatine Kinase CK-MB (CK-2) Troponin I 0.028 Impressions: Head CT 02/19/17 01:56 IMPRESSION: No acute findings. Interval development of a right lacunar infarct. Essentially stable appearance of left frontal lobe hypoattenuation ; given concomitant vascular calcifications, favor this to be on the basis of previous ischemic event. Paracentesis Ultrasound 02/22/17 08:11 IMPRESSION: Successful ultrasound-guided diagnostic and therapeutic paracentesis Thoracentesis Ultrasound 02/23/17 08:31 IMPRESSION: SUCCESSFUL ULTRASOUND-GUIDED CHEST TUBE PLACEMENT, RIGHT HEMITHORAX Chest X-Ray 02/26/17 06:00 IMPRESSION: Mild bibasilar atelectasis. Support devices in expected locations. Assessment & Plan - Diagnosis (1) Respiratory failure Qualifiers: Chronicity: acute Respiratory failure complication: hypoxia and hypercapnia Qualified Code(s): J96.01 - Acute respiratory failure with hypoxia Is this a current diagnosis for this admission?: No (2) Pneumothorax on right Is this a current diagnosis for this admission?: Yes (3) Pneumonia Qualifiers: Pneumonia type: aspiration pneumonia Laterality: bilateral Lung location: unspecified part of lung Is this a current diagnosis for this admission?: No (4) Sepsis Qualifiers: Sepsis type: sepsis due to unspecified organism Qualified Code(s): A41.9 - Sepsis, unspecified organism Is this a current diagnosis for this admission?: No (5) COPD exacerbation Is this a current diagnosis for this admission?: Yes (6) Anemia Qualifiers: Anemia type: unspecified type Qualified Code(s): D64.9 - Anemia, unspecified Is this a current diagnosis for this admission?: Yes (7) Liver cirrhosis Qualifiers: Hepatic cirrhosis type: unspecified hepatic cirrhosis Ascites presence : with ascites Qualified Code(s): K74.60 - Unspecified cirrhosis of liver Is this a current diagnosis for this admission?: Yes (8) Essential hypertension Is this a current diagnosis for this admission?: Yes (9) Peripheral vascular disease Is this a current diagnosis for this admission?: Yes (10) Carotid atherosclerosis Qualifiers: Laterality: left Qualified Code(s): I65.22 - Occlusion and stenosis of left carotid artery Is this a current diagnosis for this admission?: Yes (11) Hyperlipidemia Qualifiers: Hyperlipidemia type: unspecified Qualified Code(s): E78.5 - Hyperlipidemia, unspecified Is this a current diagnosis for this admission?: Yes (12) Bipolar disorder Qualifiers: Active/Remission status: remission status unspecified Qualified Code (s): F31.9 - Bipolar disorder, unspecified Is this a current diagnosis for this admission?: Yes (13) CVA (cerebral vascular accident) Qualifiers: CVA mechanism: unspecified Qualified Code(s): I63.9 - Cerebral infarction, unspecified Is this a current diagnosis for this admission?: Yes (14) Esophageal varices Qualifiers: Esophageal varices type: secondary Esophageal varices bleeding: without bleeding Qualified Code(s): I85.10 - Secondary esophageal varices without bleeding Is this a current diagnosis for this admission?: Yes (15) Gastric ulcer Qualifiers: Gastric ulcer chronicity: unspecified ulcer chronicity Gastric ulcer complication status: unspecified whether hemorrhage or perforation present Qualified Code(s): K25.9 - Gastric ulcer, unspecified as acute or chronic, without hemorrhage or perforation Is this a current diagnosis for this admission?: Yes - Time Time Spent with patient: 25-34 minutes - Plan Summary Plan Summary: We are going to continue antibiotics to complete a total of 2 weeks. In the meantime we will resume Lasix about once a day. Continue to monitor input and output. We will add Aldactone. Monitor and replace electrolytes as per protocol. Continue supportive care. Weaning as per pulmonary service.
[2017-02-26] MEDS: FUROSEMIDE INJ/PF 40 MG/4 ML SDV IV SCH (10:29)
[2017-02-26] MEDS: SPIRONOLACTONE 25 MG TABLET NG SCH (10:30)
--- NOTE | 2017-02-26 13:26 | RADIOLOGY REPORT (SQ) ---
EXAM DESCRIPTION: KUB/ABDOMEN (SINGLE VIEW) COMPLETED DATE/TIME: 02/26/2017 12:55 pm REASON FOR STUDY: NG placement COMPARISON: None. NUMBER OF VIEWS: One view. TECHNIQUE: Supine radiographic image of the abdomen acquired for nasogastric tube placement LIMITATIONS: Pelvis not included in the field of view FINDINGS: A nasogastric tube is present with the tip and side port in the stomach. BOWEL GAS PATTERN: Stomach is decompressed. Few dilated small bowel loops in the mid abdomen, nonspe cific . CALCIFICATIONS: No suspicious calcifications. SOFT TISSUES: No gross mass or suggestion of organomegaly. HARDWARE: Nasogastric tube tip and side port in the stomach. BONES: No acute fracture. No worrisome bone lesions. OTHER: Lung bases are clear. IMPRESSION: Nasogastric tube tip and side port in the stomach. Mild gaseous distension of mid small bowel loops. TECHNICAL DOCUMENTATION: JOB ID: [id number] [employer]- All Rights Reserved
--- NOTE | 2017-02-26 15:24 | PDOC PROGRESS REPORT ---
Subjective Progress Note for:: 02/26/17 Subjective:: reintubate Physical Exam Vital Signs: Temp Pulse Resp BP Pulse Ox 99.1 F 54 L 15 108/63 97 02/26/17 12:00 02/26/17 14:16 02/26/17 14:16 02/26/17 12:00 02/26/17 15:05 Intake & Output 02/25/17 02/26/17 02/27/17 06:59 06:59 06:59 Intake Total 2162 2914 60 Output Total 4195 5730 275 Balance -2032 34 -215 Weight 61.1 kg 59.1 kg General appearance: PRESENT: no acute distress, disheveled, well-developed Head exam: PRESENT: atraumatic, normocephalic Eye exam: PRESENT: conjunctiva pale Mouth exam: PRESENT: dry mucosa, neck supple, other - ET tube Neck exam: ABSENT: carotid bruit, JVD, lymphadenopathy, thyromegaly Respiratory exam: PRESENT: decreased breath sounds, prolonged expiratory phas, unlabored Cardiovascular exam: PRESENT: RRR, +S1, +S2 Pulses: PRESENT: normal radial pulses GI/Abdominal exam: PRESENT: normal bowel sounds, soft. ABSENT: distended, guarding, mass, organolmegaly, rebound, tenderness Rectal exam: PRESENT: deferred Gentrourinary exam: PRESENT: indwelling catheter Musculoskeletal exam: PRESENT: normal inspection Skin exam: PRESENT: dry, warm Results Laboratory Results: 02/26/17 05:15 02/23/17 02/23/17 02/23/17 15:23 15:23 15:23 WBC RBC Hgb Hct MCV MCH MCHC RDW Plt Count Seg Neutrophils % Lymphocytes % Monocytes % Eosinophils % Basophils % Absolute Neutrophils Absolute Lymphocytes Absolute Monocytes Absolute Eosinophils Absolute Basophils Carbonic Acid HCO3/H2CO3 Ratio ABG pH ABG pCO2 ABG pO2 ABG HCO3 ABG O2 Saturation ABG Base Excess FiO2 Sodium Potassium Chloride Carbon Dioxide Anion Gap BUN Creatinine Est GFR ( Amer) Est GFR (Non-Af Amer) Glucose Calcium Magnesium Triglycerides Fluid Glucose 121 Fluid Total Protein Fluid LDH 180 Fluid Amylase 101 02/23/17 02/26/17 02/26/17 15:23 05:15 05:15 WBC RBC Hgb Hct MCV MCH MCHC RDW Plt Count Seg Neutrophils % Lymphocytes % Monocytes % Eosinophils % Basophils % Absolute Neutrophils Absolute Lymphocytes Absolute Monocytes Absolute Eosinophils Absolute Basophils Carbonic Acid 1.30 HCO3/H2CO3 Ratio 23:1 ABG pH 7.46 H ABG pCO2 43.2 ABG pO2 84.5 ABG HCO3 30.2 H ABG O2 Saturation 96.8 ABG Base Excess 5.8 FiO2 30% Sodium 138.7 Potassium 3.3 L Chloride 100 Carbon Dioxide 30 Anion Gap 9 BUN 17 Creatinine 0.54 Est GFR ( Amer) > 60 Est GFR (Non-Af Amer) > 60 Glucose 117 H Calcium 8.1 L Magnesium 1.7 Triglycerides 224 H Fluid Glucose Fluid Total Protein 2.7 Fluid LDH Fluid Amylase 02/26/17 05:15 WBC 13.5 H RBC 4.32 Hgb 10.1 L Hct 32.0 L MCV 74 L MCH 23.4 L MCHC 31.6 L RDW 20.8 H Plt Count 227 Seg Neutrophils % 83.3 H Lymphocytes % 10.1 L Monocytes % 6.4 Eosinophils % 0.0 Basophils % 0.2 Absolute Neutrophils 11.3 H Absolute Lymphocytes 1.4 Absolute Monocytes 0.9 Absolute Eosinophils 0.0 Absolute Basophils 0.0 Carbonic Acid HCO3/H2CO3 Ratio ABG pH ABG pCO2 ABG pO2 ABG HCO3 ABG O2 Saturation ABG Base Excess FiO2 Sodium Potassium Chloride Carbon Dioxide Anion Gap BUN Creatinine Est GFR ( Amer) Est GFR (Non-Af Amer) Glucose Calcium Magnesium Triglycerides Fluid Glucose Fluid Total Protein Fluid LDH Fluid Amylase 02/22/17 10:50 Abdominal Fluid Gram Stain - Final 02/22/17 10:50 Abdominal Fluid Body Fluid Culture - Final NO AEROBIC OR ANAEROBIC ORGANISMS RECOVERED 02/23/17 15:23 Pleural Fluid - Right Pleural Effusion AFB Smear Concentration - Final 02/23/17 15:23 Pleural Fluid - Right Pleural Effusion Acid Fast Bacilli Smear - Final 02/19/17 02/19/17 02/19/17 08:00 08:00 15:38 Creatine Kinase 27 L < 20 L CK-MB (CK-2) 0.80 Troponin I 0.019 02/19/17 02/19/17 02/19/17 15:38 22:45 22:45 Creatine Kinase < 20 L CK-MB (CK-2) 0.74 0.24 Troponin I 0.013 < 0.012 02/25/17 00:15 Creatine Kinase CK-MB (CK-2) Troponin I 0.028 Impressions: Head CT 02/19/17 01:56 IMPRESSION: No acute findings. Interval development of a right lacunar infarct. Essentially stable appearance of left frontal lobe hypoattenuation ; given concomitant vascular calcifications, favor this to be on the basis of previous ischemic event. Paracentesis Ultrasound 02/22/17 08:11 IMPRESSION: Successful ultrasound-guided diagnostic and therapeutic paracentesis Thoracentesis Ultrasound 02/23/17 08:31 IMPRESSION: SUCCESSFUL ULTRASOUND-GUIDED CHEST TUBE PLACEMENT, RIGHT HEMITHORAX Chest X-Ray 02/26/17 06:00 IMPRESSION: Mild bibasilar atelectasis. Support devices in expected locations. KUB X-Ray 02/26/17 12:21 IMPRESSION: Nasogastric tube tip and side port in the stomach. Mild gaseous distension of mid small bowel loops. Assessment & Plan - Diagnosis (1) CVA (cerebral vascular accident) Qualifiers: CVA mechanism: unspecified Qualified Code(s): I63.9 - Cerebral infarction, unspecified Is this a current diagnosis for this admission?: Yes (2) Respiratory failure Qualifiers: Chronicity: acute Respiratory failure complication: hypoxia and hypercapnia Qualified Code(s): J96.01 - Acute respiratory failure with hypoxia Is this a current diagnosis for this admission?: YesPlan: improving decreasing FIO2 (3) Pneumonia Qualifiers: Pneumonia type: aspiration pneumonia Laterality: bilateral Lung location: unspecified part of lung Is this a current diagnosis for this admission?: YesPlan: new CXR changes R LOWer lobe presumably reaspiration (4) Sepsis Qualifiers: Sepsis type: sepsis due to unspecified organism Qualified Code(s): A41.9 - Sepsis, unspecified organism Is this a current diagnosis for this admission?: No - Time Critical Time spent with patient: 35 or more minutes
[2017-02-26] MEDS: ATORVASTATIN CALCIUM 80 MG TABLET NG SCH (21:25)
[2017-02-27] MEDS: INSULIN LISPRO 100 UNIT/ML 3 ML VIAL SUBCUT SCH ×4 (00:55→19:36)
[2017-02-27] MEDS: CLINDAMYCIN 900 MG/D5W RTU 50 ML IV SCH (01:36)
[2017-02-27] MEDS: NORMAL SALINE 1000 ML 1,000 ML IV PRN (01:58)
[2017-02-27] MEDS: PIPERACILLIN SODIUM/TAZOBACTAM 4.5 GM in NORMAL SALINE 100 ML IV SCH ×4 (02:00→20:01)
[2017-02-27] MEDS: IPRATROPIUM/ALBUTEROL 0.5-2.5 MG/3 ML AMPUL NEB SCH ×4 (02:20→20:31)
[2017-02-27] MEDS: METHYLPREDNISOLONE INJ 40 MG/1 ML SDV IV SCH ×3 (05:08→21:19)
[2017-02-27] MEDS: NORMAL SALINE INJ/PF 0.9% 10 ML SDV IV PRN (05:08)
[2017-02-27] MEDS: HEPARIN SOD (PORCINE) 5,000 UNIT/ML 1 ML SYRINGE SUBCUT SCH ×3 (05:09→21:21)
[2017-02-27] MEDS: PROPOFOL 100 ML IV PRN (05:10)
[2017-02-27 05:33] LABS: ARTERIAL BLOOD BASE EXCESS 4.3 mmol/L; ARTERIAL BLOOD O2 SATURATION 96.3 % (94-98)
[2017-02-27 05:49] LABS: ANION GAP 6 (5-19); BLOOD UREA NITROGEN 16 mg/dL (7-20); CALCIUM 8.3 mg/dL (8.4-10.2); CARBON DIOXIDE 30 mmol/L (22-30); CHLORIDE 101 mmol/L (98-107); CREATININE RESULT 0.56 mg/dL (0.52-1.25); GLUCOSE 123 mg/dL (75-110); MAGNESIUM 1.8 mg/dL (1.6-2.3); POTASSIUM 3.5 mmol/L (3.6-5.0); SODIUM 137.2 mmol/L (137-145)
[2017-02-27 06:02] LABS: ABSOLUTE LYMPHOCYTES (AUTO) 1.3 10^3/uL (0.5-4.7); ABSOLUTE MONOCYTES (AUTO) 0.7 10^3/uL (0.1-1.4); ABSOLUTE NEUT (AUTO) 9.5 10^3/uL (1.7-8.2); BASOPHILS % (AUTO) 0.1 % (0-2); HEMATOCRIT 31.4 % (36.0-47.0); HEMOGLOBIN 9.7 g/dL (12.0-15.5); HGB HCT DIFFERENCE -2.3; LYMPHOCYTES % (AUTO) 10.9 % (13-45); MEAN CORPUSCULAR VOLUME 74 fl (80-97); MONOCYTES % (AUTO) 6.5 % (3-13); RED BLOOD COUNT 4.23 10^6/uL (3.72-5.28); RED CELL DISTRIBUTION WIDTH 21.2 % (11.5-14.0); SEGMENTED NEUTROPHILS % (AUTO) 82.5 % (42-78); WHITE BLOOD COUNT 11.5 10^3/uL (4.0-10.5)
[2017-02-27] MEDS: VANCOMYCIN HCL 1,000 MG in DEXTROSE 5%-WATER 250 ML IV SCH (06:08)
--- NOTE | 2017-02-27 07:15 | RADIOLOGY REPORT (SQ) ---
EXAM DESCRIPTION: CHEST SINGLE VIEW COMPLETED DATE/TIME: 02/27/2017 6:05 am REASON FOR STUDY: Respiratory failure COMPARISON: 02/26/2017. EXAM PARAMETERS: NUMBER OF VIEWS: One view. TECHNIQUE: Single frontal radiographic view of the chest acquired. RADIATION DOSE: NA LIMITATIONS: None. FINDINGS: LUNGS AND PLEURA: No opacities, masses or pneumothorax. No pleural effusion. MEDIASTINUM AND HILAR STRUCTURES: No masses. Contour normal. HEART AND VASCULAR STRUCTURES: Heart normal in size. Normal vasculature. BONES: No acute findings. HARDWARE: Adequate appearing endotracheal tube, right subclavian central line tip at the cavoatrial j unction, and likely adequate nasogastric tube tip coursing inferiorly off the image over the left upp er abdominal quadrant -stomach. Hardware fixation at the T1-T2 level. OTHER: No other significant finding. IMPRESSION: Lines and tubes. Otherwise no acute cardiopulmonary findings. TECHNICAL DOCUMENTATION: JOB ID: [id number]
[2017-02-27] MEDS: ACETYLCYSTEINE 20% SOLN 800 MG/4 ML VIAL.NEB NEB SCH ×2 (08:01→20:32)
--- NOTE | 2017-02-27 08:20 | PDOC PROGRESS REPORT ---
Subjective Progress Note for:: 02/27/17 Subjective:: Patient remains on the ventilator. No reported temperature spikes, respiratory distress, diarrhea. Tolerating tube feedings. Being weaned today. UO negative balance today. Abdominal distention same. No reported diarrhea. Physical Exam Vital Signs: Temp Pulse Resp BP Pulse Ox 98.8 F 52 L 15 114/66 98 02/27/17 08:00 02/27/17 08:00 02/27/17 08:00 02/27/17 08:00 02/27/17 08:00 Intake & Output 02/26/17 02/27/17 02/28/17 06:59 06:59 06:59 Intake Total 2914 2784 Output Total 2880 3025 45 Balance 34 -241 -45 Weight 59.1 kg 59.4 kg General appearance: PRESENT: no acute distress, other - Intubated, on diprivan Head exam: PRESENT: normocephalic Eye exam: PRESENT: conjunctiva pale Mouth exam: PRESENT: moist, neck supple Neck exam: ABSENT: JVD Respiratory exam: PRESENT: clear to auscultation alecia. ABSENT: rhonchi, wheezes Cardiovascular exam: PRESENT: RRR, systolic murmur - Left sternal border. ABSENT: gallop GI/Abdominal exam: PRESENT: distended - Mildly, positive fluid wave, soft. ABSENT: tenderness Extremities exam: PRESENT: other - Trace lower extremity edema Psychiatric exam: ABSENT: agitated Focused psych exam: ABSENT: restlessness Skin exam: PRESENT: dry, warm. ABSENT: cyanosis Results Laboratory Results: 02/27/17 05:22 02/27/17 05:22 02/26/17 02/26/17 02/27/17 15:00 22:20 05:22 WBC RBC Hgb Hct MCV MCH MCHC RDW Plt Count Seg Neutrophils % Lymphocytes % Monocytes % Eosinophils % Basophils % Absolute Neutrophils Absolute Lymphocytes Absolute Monocytes Absolute Eosinophils Absolute Basophils Carbonic Acid 1.11 HCO3/H2CO3 Ratio 24:1 ABG pH 7.49 H ABG pCO2 36.9 ABG pO2 76.9 L ABG HCO3 27.7 H ABG O2 Saturation 96.3 ABG Base Excess 4.3 FiO2 25% Sodium Potassium 3.4 L 3.8 Chloride Carbon Dioxide Anion Gap BUN Creatinine Est GFR ( Amer) Est GFR (Non-Af Amer) Glucose Calcium Magnesium 02/27/17 02/27/17 05:22 05:22 WBC 11.5 H RBC 4.23 Hgb 9.7 L Hct 31.4 L MCV 74 L MCH 23.0 L MCHC 31.0 L RDW 21.2 H Plt Count 219 Seg Neutrophils % 82.5 H Lymphocytes % 10.9 L Monocytes % 6.5 Eosinophils % 0.0 Basophils % 0.1 Absolute Neutrophils 9.5 H Absolute Lymphocytes 1.3 Absolute Monocytes 0.7 Absolute Eosinophils 0.0 Absolute Basophils 0.0 Carbonic Acid HCO3/H2CO3 Ratio ABG pH ABG pCO2 ABG pO2 ABG HCO3 ABG O2 Saturation ABG Base Excess FiO2 Sodium 137.2 Potassium 3.5 L Chloride 101 Carbon Dioxide 30 Anion Gap 6 BUN 16 Creatinine 0.56 Est GFR ( Amer) > 60 Est GFR (Non-Af Amer) > 60 Glucose 123 H Calcium 8.3 L Magnesium 1.8 02/22/17 10:50 Abdominal Fluid Gram Stain - Final 02/22/17 10:50 Abdominal Fluid Body Fluid Culture - Final NO AEROBIC OR ANAEROBIC ORGANISMS RECOVERED 02/23/17 15:23 Pleural Fluid - Right Pleural Effusion AFB Smear Concentration - Final 02/23/17 15:23 Pleural Fluid - Right Pleural Effusion Acid Fast Bacilli Smear - Final 02/19/17 02/19/17 02/19/17 08:00 08:00 15:38 Creatine Kinase 27 L < 20 L CK-MB (CK-2) 0.80 Troponin I 0.019 02/19/17 02/19/17 02/19/17 15:38 22:45 22:45 Creatine Kinase < 20 L CK-MB (CK-2) 0.74 0.24 Troponin I 0.013 < 0.012 02/25/17 00:15 Creatine Kinase CK-MB (CK-2) Troponin I 0.028 Impressions: Head CT 02/19/17 01:56 IMPRESSION: No acute findings. Interval development of a right lacunar infarct. Essentially stable appearance of left frontal lobe hypoattenuation ; given concomitant vascular calcifications, favor this to be on the basis of previous ischemic event. Paracentesis Ultrasound 02/22/17 08:11 IMPRESSION: Successful ultrasound-guided diagnostic and therapeutic paracentesis Thoracentesis Ultrasound 02/23/17 08:31 IMPRESSION: SUCCESSFUL ULTRASOUND-GUIDED CHEST TUBE PLACEMENT, RIGHT HEMITHORAX KUB X-Ray 02/26/17 12:21 IMPRESSION: Nasogastric tube tip and side port in the stomach. Mild gaseous distension of mid small bowel loops. Chest X-Ray 02/27/17 06:00 IMPRESSION: Lines and tubes. Otherwise no acute cardiopulmonary findings. Assessment & Plan - Diagnosis (1) Respiratory failure Qualifiers: Chronicity: acute Respiratory failure complication: hypoxia and hypercapnia Qualified Code(s): J96.01 - Acute respiratory failure with hypoxia Is this a current diagnosis for this admission?: Yes (2) Pneumothorax on right Is this a current diagnosis for this admission?: Yes (3) Pneumonia Qualifiers: Pneumonia type: aspiration pneumonia Laterality: bilateral Lung location: unspecified part of lung Is this a current diagnosis for this admission?: Yes (4) Sepsis Qualifiers: Sepsis type: sepsis due to unspecified organism Qualified Code(s): A41.9 - Sepsis, unspecified organism Is this a current diagnosis for this admission?: No (5) COPD exacerbation Is this a current diagnosis for this admission?: Yes (6) Anemia Qualifiers: Anemia type: unspecified type Qualified Code(s): D64.9 - Anemia, unspecified Is this a current diagnosis for this admission?: Yes (7) Liver cirrhosis Qualifiers: Hepatic cirrhosis type: unspecified hepatic cirrhosis Ascites presence : with ascites Qualified Code(s): K74.60 - Unspecified cirrhosis of liver Is this a current diagnosis for this admission?: Yes (8) Essential hypertension Is this a current diagnosis for this admission?: Yes (9) Peripheral vascular disease Is this a current diagnosis for this admission?: Yes (10) Carotid atherosclerosis Qualifiers: Laterality: left Qualified Code(s): I65.22 - Occlusion and stenosis of left carotid artery Is this a current diagnosis for this admission?: Yes (11) Hyperlipidemia Qualifiers: Hyperlipidemia type: unspecified Qualified Code(s): E78.5 - Hyperlipidemia, unspecified Is this a current diagnosis for this admission?: Yes (12) Bipolar disorder Qualifiers: Active/Remission status: remission status unspecified Qualified Code (s): F31.9 - Bipolar disorder, unspecified Is this a current diagnosis for this admission?: Yes (13) CVA (cerebral vascular accident) Qualifiers: CVA mechanism: unspecified Qualified Code(s): I63.9 - Cerebral infarction, unspecified Is this a current diagnosis for this admission?: Yes (14) Esophageal varices Qualifiers: Esophageal varices type: secondary Esophageal varices bleeding: without bleeding Qualified Code(s): I85.10 - Secondary esophageal varices without bleeding Is this a current diagnosis for this admission?: Yes (15) Gastric ulcer Qualifiers: Gastric ulcer chronicity: unspecified ulcer chronicity Gastric ulcer complication status: unspecified whether hemorrhage or perforation present Qualified Code(s): K25.9 - Gastric ulcer, unspecified as acute or chronic, without hemorrhage or perforation Is this a current diagnosis for this admission?: Yes - Time Time Spent with patient: 25-34 minutes - Plan Summary Plan Summary: Her cultures has been negative. We will discontinue clindamycin and vancomycin. Continue the intravenous Zosyn. Patient is for extubation today. We will do a follow-up chest x-ray in the morning. Continue steroids intravenously overnight and begin tapering in the morning. Replace electrolytes and monitor. Continue supportive care. Case discussed w/ pulmonary service.
[2017-02-27] MEDS: NADOLOL 40 MG TABLET NG SCH (10:22)
[2017-02-27] MEDS: SPIRONOLACTONE 25 MG TABLET NG SCH (10:23)
[2017-02-27] MEDS: FUROSEMIDE INJ/PF 40 MG/4 ML SDV IV SCH (10:23)
[2017-02-27] MEDS: LANSOPRAZOLE 30 MG TAB.RAP.DR NG SCH (10:23)
[2017-02-27] MEDS: THIAMINE HCL 100 MG, FOLIC ACID 1 MG in NORMAL SALINE 50 ML IV SCH (10:25)
[2017-02-27] MEDS: FENTANYL CITRATE INJ/PF 100 MCG/2 ML AMPUL IV PRN (19:42)
[2017-02-27] MEDS: ATORVASTATIN CALCIUM 80 MG TABLET NG SCH (21:19)
[2017-02-28] MEDS: INSULIN LISPRO 100 UNIT/ML 3 ML VIAL SUBCUT SCH ×5 (00:47→23:40)
[2017-02-28] MEDS: IPRATROPIUM/ALBUTEROL 0.5-2.5 MG/3 ML AMPUL NEB SCH ×4 (02:02→19:48)
[2017-02-28] MEDS: FENTANYL CITRATE INJ/PF 100 MCG/2 ML AMPUL IV PRN (02:04)
[2017-02-28] MEDS: PIPERACILLIN SODIUM/TAZOBACTAM 4.5 GM in NORMAL SALINE 100 ML IV SCH ×4 (02:04→20:33)
[2017-02-28] MEDS: METHYLPREDNISOLONE INJ 40 MG/1 ML SDV IV SCH (05:12)
[2017-02-28] MEDS: HEPARIN SOD (PORCINE) 5,000 UNIT/ML 1 ML SYRINGE SUBCUT SCH ×3 (05:13→21:33)
[2017-02-28 05:14] LABS: HEMOGLOBIN 10.1 g/dL (12.0-15.5); HGB HCT DIFFERENCE -2.7; MEAN CORPUSCULAR HEMOGLOBIN 23.2 pg (27.0-33.4); MEAN CORPUSCULAR HGB CONC 30.7 g/dL (32.0-36.0); MEAN CORPUSCULAR VOLUME 75 fl (80-97); RED BLOOD COUNT 4.38 10^6/uL (3.72-5.28); RED CELL DISTRIBUTION WIDTH 21.5 % (11.5-14.0); WHITE BLOOD COUNT 12.1 10^3/uL (4.0-10.5)
[2017-02-28 05:31] LABS: ANION GAP 11 (5-19); BLOOD UREA NITROGEN 14 mg/dL (7-20); CALCIUM 8.6 mg/dL (8.4-10.2); CARBON DIOXIDE 28 mmol/L (22-30); CHLORIDE 100 mmol/L (98-107); CREATININE RESULT 0.55 mg/dL (0.52-1.25); GLUCOSE 137 mg/dL (75-110)
[2017-02-28 05:36] LABS: POTASSIUM 2.9 mmol/L (3.6-5.0)
[2017-02-28] MEDS: POTASSIUM CHLORIDE 20 MEQ/50 ML RTU IV SCH ×3 (06:24→10:36)
[2017-02-28] MEDS: NORMAL SALINE 1000 ML 1,000 ML IV PRN (06:25)
--- NOTE | 2017-02-28 06:37 | RADIOLOGY REPORT (SQ) ---
EXAM DESCRIPTION: CHEST SINGLE VIEW COMPLETED DATE/TIME: 02/28/2017 6:23 am REASON FOR STUDY: pneumothorax, pneumonia COMPARISON: 02/27/2017. EXAM PARAMETERS: NUMBER OF VIEWS: One view. TECHNIQUE: Single frontal radiographic view of the chest acquired. RADIATION DOSE: NA LIMITATIONS: None. FINDINGS: LUNGS AND PLEURA: Small blunting of the left costophrenic angle. MEDIASTINUM AND HILAR STRUCTURES: No masses. Contour normal. HEART AND VASCULAR STRUCTURES: Heart normal in size. Normal vasculature. BONES: Left lower lateral rib fractures. HARDWARE: Right subclavian central line tip is 3.5 cm above the cavoatrial junction. Lower cervical hardware. OTHER: No other significant finding. IMPRESSION: No significant interval change. TECHNICAL DOCUMENTATION: JOB ID: [id number]
[2017-02-28] MEDS: LANSOPRAZOLE 30 MG TAB.RAP.DR NG SCH (08:08)
[2017-02-28] MEDS: ACETYLCYSTEINE 20% SOLN 800 MG/4 ML VIAL.NEB NEB SCH ×2 (08:41→19:48)
[2017-02-28] MEDS: THIAMINE HCL 100 MG, FOLIC ACID 1 MG in NORMAL SALINE 50 ML IV SCH (10:34)
[2017-02-28] MEDS: FUROSEMIDE INJ/PF 40 MG/4 ML SDV IV SCH (10:34)
[2017-02-28] MEDS: PREDNISONE 20 MG TABLET PO SCH (10:35)
[2017-02-28] MEDS: SPIRONOLACTONE 25 MG TABLET NG SCH (10:35)
[2017-02-28] MEDS: NADOLOL 40 MG TABLET NG SCH (10:35)
[2017-02-28] MEDS: OXYCODONE HCL IR 5 MG TABLET PO PRN ×2 (10:41→16:42)
--- NOTE | 2017-02-28 11:08 | PDOC PROGRESS REPORT ---
Subjective Progress Note for:: 02/27/17 Subjective:: extubate Physical Exam Vital Signs: Temp Pulse Resp BP Pulse Ox 98.8 F 52 L 15 114/66 98 02/27/17 08:00 02/27/17 08:00 02/27/17 08:00 02/27/17 08:00 02/27/17 08:00 Intake & Output 02/26/17 02/27/17 02/28/17 06:59 06:59 06:59 Intake Total 2918 3234 Output Total 2885 8533 45 Balance 34 -241 -45 Weight 59.1 kg 59.4 kg General appearance: PRESENT: no acute distress, cooperative, disheveled, well- developed Head exam: PRESENT: atraumatic, normocephalic Eye exam: PRESENT: conjunctiva pale, EOMI Mouth exam: PRESENT: moist, neck supple, other - ET tube Neck exam: ABSENT: carotid bruit, JVD, lymphadenopathy, thyromegaly Respiratory exam: PRESENT: decreased breath sounds, prolonged expiratory phas, rhonchi, symmetrical, unlabored Cardiovascular exam: PRESENT: irregular rhythm Pulses: PRESENT: normal radial pulses GI/Abdominal exam: PRESENT: normal bowel sounds, soft. ABSENT: distended, guarding, mass, organolmegaly, rebound, tenderness Rectal exam: PRESENT: deferred Gentrourinary exam: PRESENT: indwelling catheter Musculoskeletal exam: PRESENT: normal inspection Neurological exam: PRESENT: awake Skin exam: PRESENT: warm Results Laboratory Results: 02/27/17 05:22 02/27/17 05:22 02/26/17 02/26/17 02/27/17 15:00 22:20 05:22 WBC RBC Hgb Hct MCV MCH MCHC RDW Plt Count Seg Neutrophils % Lymphocytes % Monocytes % Eosinophils % Basophils % Absolute Neutrophils Absolute Lymphocytes Absolute Monocytes Absolute Eosinophils Absolute Basophils Carbonic Acid 1.11 HCO3/H2CO3 Ratio 24:1 ABG pH 7.49 H ABG pCO2 36.9 ABG pO2 76.9 L ABG HCO3 27.7 H ABG O2 Saturation 96.3 ABG Base Excess 4.3 FiO2 25% Sodium Potassium 3.4 L 3.8 Chloride Carbon Dioxide Anion Gap BUN Creatinine Est GFR ( Amer) Est GFR (Non-Af Amer) Glucose Calcium Magnesium 02/27/17 02/27/17 05:22 05:22 WBC 11.5 H RBC 4.23 Hgb 9.7 L Hct 31.4 L MCV 74 L MCH 23.0 L MCHC 31.0 L RDW 21.2 H Plt Count 219 Seg Neutrophils % 82.5 H Lymphocytes % 10.9 L Monocytes % 6.5 Eosinophils % 0.0 Basophils % 0.1 Absolute Neutrophils 9.5 H Absolute Lymphocytes 1.3 Absolute Monocytes 0.7 Absolute Eosinophils 0.0 Absolute Basophils 0.0 Carbonic Acid HCO3/H2CO3 Ratio ABG pH ABG pCO2 ABG pO2 ABG HCO3 ABG O2 Saturation ABG Base Excess FiO2 Sodium 137.2 Potassium 3.5 L Chloride 101 Carbon Dioxide 30 Anion Gap 6 BUN 16 Creatinine 0.56 Est GFR ( Amer) > 60 Est GFR (Non-Af Amer) > 60 Glucose 123 H Calcium 8.3 L Magnesium 1.8 02/22/17 10:50 Abdominal Fluid Gram Stain - Final 02/22/17 10:50 Abdominal Fluid Body Fluid Culture - Final NO AEROBIC OR ANAEROBIC ORGANISMS RECOVERED 02/23/17 15:23 Pleural Fluid - Right Pleural Effusion AFB Smear Concentration - Final 02/23/17 15:23 Pleural Fluid - Right Pleural Effusion Acid Fast Bacilli Smear - Final 02/19/17 02/19/17 02/19/17 08:00 08:00 15:38 Creatine Kinase 27 L < 20 L CK-MB (CK-2) 0.80 Troponin I 0.019 02/19/17 02/19/17 02/19/17 15:38 22:45 22:45 Creatine Kinase < 20 L CK-MB (CK-2) 0.74 0.24 Troponin I 0.013 < 0.012 02/25/17 00:15 Creatine Kinase CK-MB (CK-2) Troponin I 0.028 Impressions: Head CT 02/19/17 01:56 IMPRESSION: No acute findings. Interval development of a right lacunar infarct. Essentially stable appearance of left frontal lobe hypoattenuation ; given concomitant vascular calcifications, favor this to be on the basis of previous ischemic event. Paracentesis Ultrasound 02/22/17 08:11 IMPRESSION: Successful ultrasound-guided diagnostic and therapeutic paracentesis Thoracentesis Ultrasound 02/23/17 08:31 IMPRESSION: SUCCESSFUL ULTRASOUND-GUIDED CHEST TUBE PLACEMENT, RIGHT HEMITHORAX KUB X-Ray 02/26/17 12:21 IMPRESSION: Nasogastric tube tip and side port in the stomach. Mild gaseous distension of mid small bowel loops. Chest X-Ray 02/27/17 06:00 IMPRESSION: Lines and tubes. Otherwise no acute cardiopulmonary findings. Assessment & Plan - Diagnosis (1) CVA (cerebral vascular accident) Qualifiers: CVA mechanism: unspecified Qualified Code(s): I63.9 - Cerebral infarction, unspecified Is this a current diagnosis for this admission?: Yes (2) Respiratory failure Qualifiers: Chronicity: acute Respiratory failure complication: hypoxia and hypercapnia Qualified Code(s): J96.01 - Acute respiratory failure with hypoxia Is this a current diagnosis for this admission?: YesPlan: rr,min vol,fio2 ok to extubate (3) Pneumonia Qualifiers: Pneumonia type: aspiration pneumonia Laterality: bilateral Lung location: unspecified part of lung Is this a current diagnosis for this admission?: Yes (4) Sepsis Qualifiers: Sepsis type: sepsis due to unspecified organism Qualified Code(s): A41.9 - Sepsis, unspecified organism Is this a current diagnosis for this admission?: No - Time Critical Time spent with patient: 35 or more minutes - 55 min extubation
--- NOTE | 2017-02-28 11:08 | PDOC PROGRESS REPORT ---
Subjective Progress Note for:: 02/28/17 Subjective:: i want to go home Physical Exam Vital Signs: Temp Pulse Resp BP Pulse Ox 99.5 F 51 L 20 154/79 H 94 02/28/17 08:00 02/28/17 10:00 02/28/17 10:00 02/28/17 09:01 02/28/17 10:00 Intake & Output 02/27/17 02/28/17 03/01/17 06:59 06:59 06:59 Intake Total 2784 1541 Output Total 3025 3980 250 Balance -241 -1339 -250 Weight 59.4 kg 57.2 kg General appearance: PRESENT: no acute distress, disheveled, well-developed Head exam: PRESENT: atraumatic, normocephalic Eye exam: PRESENT: conjunctiva pale, EOMI Mouth exam: PRESENT: moist, neck supple, tongue midline Neck exam: ABSENT: carotid bruit, JVD, lymphadenopathy, thyromegaly Respiratory exam: PRESENT: decreased breath sounds, prolonged expiratory phas, rhonchi, symmetrical, unlabored Cardiovascular exam: PRESENT: irregular rhythm Pulses: PRESENT: normal radial pulses GI/Abdominal exam: PRESENT: normal bowel sounds, soft. ABSENT: distended, guarding, mass, organolmegaly, rebound, tenderness Rectal exam: PRESENT: deferred Gentrourinary exam: PRESENT: indwelling catheter Musculoskeletal exam: PRESENT: normal inspection Neurological exam: PRESENT: awake Psychiatric exam: PRESENT: agitated Skin exam: PRESENT: dry, warm Results Laboratory Results: 02/28/17 04:50 02/28/17 04:50 02/28/17 02/28/17 04:50 04:50 WBC 12.1 H RBC 4.38 Hgb 10.1 L Hct 33.0 L MCV 75 L MCH 23.2 L MCHC 30.7 L RDW 21.5 H Plt Count 223 Sodium 139.0 Potassium 2.9 L* Chloride 100 Carbon Dioxide 28 Anion Gap 11 BUN 14 Creatinine 0.55 Est GFR ( Amer) > 60 Est GFR (Non-Af Amer) > 60 Glucose 137 H Calcium 8.6 02/24/17 23:26 Tracheal Aspirate Gram Stain - Final 02/24/17 23:26 Tracheal Aspirate Sputum Culture - Final C.albicans/C.dubliniensis Normal Maria De Jesus Absent 02/23/17 15:23 Pleural Fluid Gram Stain - Final 02/23/17 15:23 Pleural Fluid Body Fluid Culture - Final NO AEROBIC OR ANAEROBIC ORGANISMS RECOVERED 02/19/17 02/19/17 02/19/17 08:00 08:00 15:38 Creatine Kinase 27 L < 20 L CK-MB (CK-2) 0.80 Troponin I 0.019 02/19/17 02/19/17 02/19/17 15:38 22:45 22:45 Creatine Kinase < 20 L CK-MB (CK-2) 0.74 0.24 Troponin I 0.013 < 0.012 02/25/17 00:15 Creatine Kinase CK-MB (CK-2) Troponin I 0.028 Impressions: Head CT 02/19/17 01:56 IMPRESSION: No acute findings. Interval development of a right lacunar infarct. Essentially stable appearance of left frontal lobe hypoattenuation ; given concomitant vascular calcifications, favor this to be on the basis of previous ischemic event. Paracentesis Ultrasound 02/22/17 08:11 IMPRESSION: Successful ultrasound-guided diagnostic and therapeutic paracentesis Thoracentesis Ultrasound 02/23/17 08:31 IMPRESSION: SUCCESSFUL ULTRASOUND-GUIDED CHEST TUBE PLACEMENT, RIGHT HEMITHORAX KUB X-Ray 02/26/17 12:21 IMPRESSION: Nasogastric tube tip and side port in the stomach. Mild gaseous distension of mid small bowel loops. Chest X-Ray 02/28/17 06:00 IMPRESSION: No significant interval change. Assessment & Plan - Diagnosis (1) CVA (cerebral vascular accident) Qualifiers: CVA mechanism: unspecified Qualified Code(s): I63.9 - Cerebral infarction, unspecified Is this a current diagnosis for this admission?: Yes (2) Respiratory failure Qualifiers: Chronicity: acute Respiratory failure complication: hypoxia and hypercapnia Qualified Code(s): J96.01 - Acute respiratory failure with hypoxia Is this a current diagnosis for this admission?: YesPlan: 24 hrs s/p extubation stable resp (3) Pneumonia Qualifiers: Pneumonia type: aspiration pneumonia Laterality: bilateral Lung location: unspecified part of lung Is this a current diagnosis for this admission?: Yes (4) Sepsis Qualifiers: Sepsis type: sepsis due to unspecified organism Qualified Code(s): A41.9 - Sepsis, unspecified organism Is this a current diagnosis for this admission?: No - Time Critical Time spent with patient: 25-34 minutes
--- NOTE | 2017-02-28 13:01 | PDOC PROGRESS REPORT ---
Subjective Progress Note for:: 02/28/17 Subjective:: The patient states she wants to go home. Physical Exam Vital Signs: Temp Pulse Resp BP Pulse Ox 98.8 F 52 L 20 146/80 H 94 02/28/17 12:00 02/28/17 12:00 02/28/17 12:00 02/28/17 12:00 02/28/17 12:00 Intake & Output 02/27/17 02/28/17 03/01/17 06:59 06:59 06:59 Intake Total 2784 1541 Output Total 3025 3980 650 Balance -702 -1349 -650 Weight 59.4 kg 57.2 kg General appearance: PRESENT: no acute distress Eye exam: PRESENT: conjunctiva pink. ABSENT: scleral icterus Ear exam: PRESENT: normal external ear exam Mouth exam: PRESENT: moist, tongue midline Neck exam: ABSENT: carotid bruit, JVD, lymphadenopathy, thyromegaly Respiratory exam: PRESENT: clear to auscultation alecia. ABSENT: rales, rhonchi, wheezes Cardiovascular exam: PRESENT: RRR. ABSENT: diastolic murmur, rubs, systolic murmur GI/Abdominal exam: PRESENT: normal bowel sounds, soft. ABSENT: distended, guarding, mass, organolmegaly, rebound, tenderness Extremities exam: ABSENT: calf tenderness, clubbing, pedal edema Neurological exam: PRESENT: alert, awake, oriented to person, oriented to place , oriented to time, oriented to situation, CN II-XII grossly intact. ABSENT: motor sensory deficit Psychiatric exam: PRESENT: appropriate affect Skin exam: PRESENT: dry, intact, warm. ABSENT: cyanosis, rash Results Laboratory Results: 02/28/17 04:50 02/28/17 04:50 02/28/17 02/28/17 04:50 04:50 WBC 12.1 H RBC 4.38 Hgb 10.1 L Hct 33.0 L MCV 75 L MCH 23.2 L MCHC 30.7 L RDW 21.5 H Plt Count 223 Sodium 139.0 Potassium 2.9 L* Chloride 100 Carbon Dioxide 28 Anion Gap 11 BUN 14 Creatinine 0.55 Est GFR ( Amer) > 60 Est GFR (Non-Af Amer) > 60 Glucose 137 H Calcium 8.6 02/24/17 23:26 Tracheal Aspirate Gram Stain - Final 02/24/17 23:26 Tracheal Aspirate Sputum Culture - Final C.albicans/C.dubliniensis Normal Maria De Jesus Absent 02/19/17 02/19/17 02/19/17 08:00 08:00 15:38 Creatine Kinase 27 L < 20 L CK-MB (CK-2) 0.80 Troponin I 0.019 02/19/17 02/19/17 02/19/17 15:38 22:45 22:45 Creatine Kinase < 20 L CK-MB (CK-2) 0.74 0.24 Troponin I 0.013 < 0.012 02/25/17 00:15 Creatine Kinase CK-MB (CK-2) Troponin I 0.028 Impressions: Head CT 02/19/17 01:56 IMPRESSION: No acute findings. Interval development of a right lacunar infarct. Essentially stable appearance of left frontal lobe hypoattenuation ; given concomitant vascular calcifications, favor this to be on the basis of previous ischemic event. Paracentesis Ultrasound 02/22/17 08:11 IMPRESSION: Successful ultrasound-guided diagnostic and therapeutic paracentesis Thoracentesis Ultrasound 02/23/17 08:31 IMPRESSION: SUCCESSFUL ULTRASOUND-GUIDED CHEST TUBE PLACEMENT, RIGHT HEMITHORAX KUB X-Ray 02/26/17 12:21 IMPRESSION: Nasogastric tube tip and side port in the stomach. Mild gaseous distension of mid small bowel loops. Chest X-Ray 02/28/17 06:00 IMPRESSION: No significant interval change. Assessment & Plan - Diagnosis (1) Sepsis Qualifiers: Sepsis type: sepsis due to unspecified organism Qualified Code(s): A41.9 - Sepsis, unspecified organism Is this a current diagnosis for this admission?: NoPlan: She has pneumonia as the cause for her sepsis. (2) Altered mental status Qualifiers: Altered mental status type: unspecified Qualified Code(s): R41.82 - Altered mental status, unspecified Is this a current diagnosis for this admission?: YesPlan: Resolved (3) Pneumonia Qualifiers: Pneumonia type: aspiration pneumonia Laterality: bilateral Lung location: unspecified part of lung Is this a current diagnosis for this admission?: YesPlan: Continue Zosyn. (4) CVA (cerebral vascular accident) Qualifiers: CVA mechanism: unspecified Qualified Code(s): I63.9 - Cerebral infarction, unspecified Is this a current diagnosis for this admission?: YesPlan: Treat with aspirin (5) Respiratory failure Qualifiers: Chronicity: acute Respiratory failure complication: hypoxia and hypercapnia Qualified Code(s): J96.01 - Acute respiratory failure with hypoxia Is this a current diagnosis for this admission?: YesPlan: Resolved - Time Time Spent with patient: 25-34 minutes - Inpatient Certification Medical Necessity: Need for IV Antibiotics - Plan Summary Plan Summary: We will consult physical therapy and try to get the patient out of bed. She can be transferred out of the intensive care unit. I have instructed the patient she would benefit from short-term rehab stay. She is adamant that she is going home. She appears to be competent at this time.
[2017-02-28] MEDS: ATORVASTATIN CALCIUM 80 MG TABLET NG SCH (21:32)
[2017-03-01] MEDS: IPRATROPIUM/ALBUTEROL 0.5-2.5 MG/3 ML AMPUL NEB SCH ×4 (02:30→20:04)
[2017-03-01] MEDS: PIPERACILLIN SODIUM/TAZOBACTAM 4.5 GM in NORMAL SALINE 100 ML IV SCH ×4 (03:52→20:17)
[2017-03-01 04:34] LABS: ABSOLUTE LYMPHOCYTES (AUTO) 1.8 10^3/uL (0.5-4.7); ABSOLUTE MONOCYTES (AUTO) 1.3 10^3/uL (0.1-1.4); ABSOLUTE NEUT (AUTO) 15.6 10^3/uL (1.7-8.2); BASOPHILS % (AUTO) 0.1 % (0-2); HEMATOCRIT 37.3 % (36.0-47.0); HEMOGLOBIN 11.5 g/dL (12.0-15.5); HGB HCT DIFFERENCE -2.8; LYMPHOCYTES % (AUTO) 9.7 % (13-45); MEAN CORPUSCULAR HEMOGLOBIN 23.3 pg (27.0-33.4); MEAN CORPUSCULAR HGB CONC 30.9 g/dL (32.0-36.0); MEAN CORPUSCULAR VOLUME 75 fl (80-97); MONOCYTES % (AUTO) 6.7 % (3-13); RED BLOOD COUNT 4.95 10^6/uL (3.72-5.28); RED CELL DISTRIBUTION WIDTH 21.1 % (11.5-14.0); SEGMENTED NEUTROPHILS % (AUTO) 83.5 % (42-78); WHITE BLOOD COUNT 18.7 10^3/uL (4.0-10.5)
[2017-03-01 04:48] LABS: ANION GAP 12 (5-19); BLOOD UREA NITROGEN 14 mg/dL (7-20); CALCIUM 9.3 mg/dL (8.4-10.2); CARBON DIOXIDE 27 mmol/L (22-30); CHLORIDE 102 mmol/L (98-107); CREATININE RESULT 0.49 mg/dL (0.52-1.25); GLUCOSE 112 mg/dL (75-110); SODIUM 140.7 mmol/L (137-145)
[2017-03-01] MEDS: POTASSIUM CHLORIDE 20 MEQ/50 ML RTU IV SCH ×3 (05:44→10:41)
[2017-03-01] MEDS: HEPARIN SOD (PORCINE) 5,000 UNIT/ML 1 ML SYRINGE SUBCUT SCH ×3 (05:45→21:27)
[2017-03-01] MEDS: INSULIN LISPRO 100 UNIT/ML 3 ML VIAL SUBCUT SCH ×3 (05:46→18:16)
[2017-03-01] MEDS: LANSOPRAZOLE 30 MG TAB.RAP.DR NG SCH (08:11)
[2017-03-01] MEDS: ACETYLCYSTEINE 20% SOLN 800 MG/4 ML VIAL.NEB NEB SCH ×2 (08:24→20:04)
[2017-03-01] MEDS: THIAMINE HCL 100 MG, FOLIC ACID 1 MG in NORMAL SALINE 50 ML IV SCH (10:41)
[2017-03-01] MEDS: PREDNISONE 20 MG TABLET PO SCH (10:42)
[2017-03-01] MEDS: SPIRONOLACTONE 25 MG TABLET NG SCH (10:42)
[2017-03-01] MEDS: POTASSIUM CHLORIDE 10 MEQ TABLET.SA PO SCH ×2 (10:42→21:28)
[2017-03-01] MEDS: FUROSEMIDE INJ/PF 40 MG/4 ML SDV IV SCH (10:43)
--- NOTE | 2017-03-01 12:01 | PDOC PROGRESS REPORT ---
Subjective Progress Note for:: 03/01/17 Subjective:: Denies any complaints. Physical Exam Vital Signs: Temp Pulse Resp BP Pulse Ox 99.7 F 67 20 151/87 H 97 03/01/17 07:32 03/01/17 08:24 03/01/17 11:30 03/01/17 10:24 03/01/17 11:30 Intake & Output 02/28/17 03/01/17 03/02/17 06:59 06:59 06:59 Intake Total 1541 1697 Output Total 3980 5795 Balance -2439 -208 Weight 57.2 kg 57.2 kg General appearance: PRESENT: no acute distress Eye exam: PRESENT: conjunctiva pink. ABSENT: scleral icterus Ear exam: PRESENT: normal external ear exam Mouth exam: PRESENT: moist, tongue midline Neck exam: ABSENT: JVD Respiratory exam: PRESENT: clear to auscultation alecia. ABSENT: rales, rhonchi, wheezes Cardiovascular exam: PRESENT: RRR, systolic murmur - 2/6 systolic murmur. ABSENT: diastolic murmur, rubs Pulses: PRESENT: normal dorsalis pedis pul Vascular exam: PRESENT: normal capillary refill GI/Abdominal exam: PRESENT: normal bowel sounds, soft. ABSENT: distended, guarding, mass, organolmegaly, rebound, tenderness Extremities exam: PRESENT: full ROM. ABSENT: calf tenderness, clubbing, pedal edema Neurological exam: PRESENT: alert, awake, oriented to person, oriented to place , oriented to time, oriented to situation, CN II-XII grossly intact. ABSENT: motor sensory deficit Psychiatric exam: PRESENT: appropriate affect Skin exam: PRESENT: dry, intact, warm. ABSENT: cyanosis, rash Results Laboratory Results: 03/01/17 04:10 03/01/17 04:10 02/28/17 03/01/17 03/01/17 16:40 04:10 04:10 WBC 18.7 H RBC 4.95 Hgb 11.5 L Hct 37.3 MCV 75 L MCH 23.3 L MCHC 30.9 L RDW 21.1 H Plt Count 256 Seg Neutrophils % 83.5 H Lymphocytes % 9.7 L Monocytes % 6.7 Eosinophils % 0.0 Basophils % 0.1 Absolute Neutrophils 15.6 H Absolute Lymphocytes 1.8 Absolute Monocytes 1.3 Absolute Eosinophils 0.0 Absolute Basophils 0.0 Sodium 140.7 Potassium 3.4 L 3.0 L* Chloride 102 Carbon Dioxide 27 Anion Gap 12 BUN 14 Creatinine 0.49 L Est GFR ( Amer) > 60 Est GFR (Non-Af Amer) > 60 Glucose 112 H Calcium 9.3 02/19/17 02/19/17 02/19/17 08:00 08:00 15:38 Creatine Kinase 27 L < 20 L CK-MB (CK-2) 0.80 Troponin I 0.019 02/19/17 02/19/17 02/19/17 15:38 22:45 22:45 Creatine Kinase < 20 L CK-MB (CK-2) 0.74 0.24 Troponin I 0.013 < 0.012 02/25/17 00:15 Creatine Kinase CK-MB (CK-2) Troponin I 0.028 Impressions: Head CT 02/19/17 01:56 IMPRESSION: No acute findings. Interval development of a right lacunar infarct. Essentially stable appearance of left frontal lobe hypoattenuation ; given concomitant vascular calcifications, favor this to be on the basis of previous ischemic event. Paracentesis Ultrasound 02/22/17 08:11 IMPRESSION: Successful ultrasound-guided diagnostic and therapeutic paracentesis Thoracentesis Ultrasound 02/23/17 08:31 IMPRESSION: SUCCESSFUL ULTRASOUND-GUIDED CHEST TUBE PLACEMENT, RIGHT HEMITHORAX KUB X-Ray 02/26/17 12:21 IMPRESSION: Nasogastric tube tip and side port in the stomach. Mild gaseous distension of mid small bowel loops. Chest X-Ray 02/28/17 06:00 IMPRESSION: No significant interval change. Assessment & Plan - Diagnosis (1) Sepsis Qualifiers: Sepsis type: sepsis due to unspecified organism Qualified Code(s): A41.9 - Sepsis, unspecified organism Is this a current diagnosis for this admission?: NoPlan: She has pneumonia as the cause for her sepsis. (2) Altered mental status Qualifiers: Altered mental status type: unspecified Qualified Code(s): R41.82 - Altered mental status, unspecified Is this a current diagnosis for this admission?: YesPlan: Resolved (3) Pneumonia Qualifiers: Pneumonia type: aspiration pneumonia Laterality: bilateral Lung location: unspecified part of lung Is this a current diagnosis for this admission?: YesPlan: Continue Zosyn. (4) CVA (cerebral vascular accident) Qualifiers: CVA mechanism: unspecified Qualified Code(s): I63.9 - Cerebral infarction, unspecified Is this a current diagnosis for this admission?: YesPlan: Treat with aspirin (5) Respiratory failure Qualifiers: Chronicity: acute Respiratory failure complication: hypoxia and hypercapnia Qualified Code(s): J96.01 - Acute respiratory failure with hypoxia Is this a current diagnosis for this admission?: YesPlan: Resolved - Time Time Spent with patient: 25-34 minutes - Inpatient Certification Medical Necessity: Need Close Monitoring Due to Risk of Patient Decompensation, Need for IV Antibiotics
[2017-03-01 16:06] LABS: ANION GAP 12 (5-19); BLOOD UREA NITROGEN 14 mg/dL (7-20); CALCIUM 9.7 mg/dL (8.4-10.2); CARBON DIOXIDE 28 mmol/L (22-30); CHLORIDE 100 mmol/L (98-107); CREATININE RESULT 0.53 mg/dL (0.52-1.25); GLUCOSE 137 mg/dL (75-110); POTASSIUM 3.9 mmol/L (3.6-5.0); SODIUM 139.5 mmol/L (137-145)
[2017-03-01] MEDS: ATORVASTATIN CALCIUM 80 MG TABLET NG SCH (21:28)
[2017-03-01] MEDS: NORMAL SALINE INJ/PF 0.9% 10 ML SDV IV PRN (21:28)
[2017-03-02] MEDS: INSULIN LISPRO 100 UNIT/ML 3 ML VIAL SUBCUT SCH ×5 (00:51→23:05)
[2017-03-02] MEDS: PIPERACILLIN SODIUM/TAZOBACTAM 4.5 GM in NORMAL SALINE 100 ML IV SCH ×4 (02:27→21:28)
[2017-03-02] MEDS: ONDANSETRON HCL INJ/PF 4 MG/2 ML SDV IV PRN (02:27)
[2017-03-02] MEDS: IPRATROPIUM/ALBUTEROL 0.5-2.5 MG/3 ML AMPUL NEB SCH ×4 (02:33→19:50)
[2017-03-02 04:47] LABS: ABSOLUTE BASOPHILS # (AUTO) 0.1 10^3/uL (0.0-0.2); ABSOLUTE MONOCYTES (AUTO) 1.3 10^3/uL (0.1-1.4); ABSOLUTE NEUT (AUTO) 14.1 10^3/uL (1.7-8.2); BASOPHILS % (AUTO) 0.5 % (0-2); HEMATOCRIT 36.9 % (36.0-47.0); HEMOGLOBIN 11.6 g/dL (12.0-15.5); HGB HCT DIFFERENCE -2.1; LYMPHOCYTES % (AUTO) 11.4 % (13-45); MEAN CORPUSCULAR HEMOGLOBIN 23.3 pg (27.0-33.4); MEAN CORPUSCULAR HGB CONC 31.5 g/dL (32.0-36.0); MEAN CORPUSCULAR VOLUME 74 fl (80-97); MONOCYTES % (AUTO) 7.5 % (3-13); RED BLOOD COUNT 4.99 10^6/uL (3.72-5.28); RED CELL DISTRIBUTION WIDTH 21.6 % (11.5-14.0); SEGMENTED NEUTROPHILS % (AUTO) 80.6 % (42-78); WHITE BLOOD COUNT 17.5 10^3/uL (4.0-10.5)
[2017-03-02 04:54] LABS: ANION GAP 9 (5-19); BLOOD UREA NITROGEN 14 mg/dL (7-20); CALCIUM 9.6 mg/dL (8.4-10.2); CARBON DIOXIDE 27 mmol/L (22-30); CHLORIDE 105 mmol/L (98-107); CREATININE RESULT 0.53 mg/dL (0.52-1.25); GLUCOSE 106 mg/dL (75-110); SODIUM 141.1 mmol/L (137-145)
[2017-03-02] MEDS: HEPARIN SOD (PORCINE) 5,000 UNIT/ML 1 ML SYRINGE SUBCUT SCH ×3 (05:11→21:26)
[2017-03-02] MEDS: ACETYLCYSTEINE 20% SOLN 800 MG/4 ML VIAL.NEB NEB SCH ×2 (08:28→19:55)
[2017-03-02] MEDS: LANSOPRAZOLE 30 MG TAB.RAP.DR NG SCH (09:48)
[2017-03-02] MEDS: POTASSIUM CHLORIDE 10 MEQ TABLET.SA PO SCH ×2 (09:49→21:26)
[2017-03-02] MEDS: FUROSEMIDE INJ/PF 40 MG/4 ML SDV IV SCH (09:51)
[2017-03-02] MEDS: SPIRONOLACTONE 25 MG TABLET NG SCH (09:51)
[2017-03-02] MEDS: PREDNISONE 20 MG TABLET PO SCH (09:51)
--- NOTE | 2017-03-02 10:13 | PDOC PROGRESS REPORT ---
Subjective Progress Note for:: 03/02/17 Subjective:: Denies any complaints. Physical Exam Vital Signs: Temp Pulse Resp BP Pulse Ox 97.4 F 78 16 159/89 H 98 03/02/17 08:22 03/02/17 08:22 03/02/17 08:22 03/02/17 08:22 03/02/17 08:22 Intake & Output 03/01/17 03/02/17 03/03/17 06:59 06:59 06:59 Intake Total 1697 1604 Output Total 3783 9445 Balance -2088 -621 Weight 57.2 kg 53.6 kg General appearance: PRESENT: no acute distress Eye exam: PRESENT: conjunctiva pink. ABSENT: scleral icterus Mouth exam: PRESENT: moist, tongue midline Neck exam: ABSENT: JVD Respiratory exam: PRESENT: clear to auscultation alecia. ABSENT: rales, rhonchi, wheezes Cardiovascular exam: PRESENT: RRR, systolic murmur. ABSENT: diastolic murmur, rubs GI/Abdominal exam: PRESENT: ascites, normal bowel sounds, soft. ABSENT: distended, guarding, mass, organolmegaly, rebound, tenderness Extremities exam: ABSENT: calf tenderness, clubbing, pedal edema Neurological exam: PRESENT: alert, awake, oriented to person, oriented to place , oriented to time, oriented to situation, CN II-XII grossly intact. ABSENT: motor sensory deficit Psychiatric exam: PRESENT: appropriate affect Skin exam: PRESENT: dry, intact, warm. ABSENT: cyanosis, rash Results Laboratory Results: 03/02/17 04:20 03/02/17 04:20 03/01/17 03/02/17 03/02/17 15:30 04:20 04:20 WBC 17.5 H RBC 4.99 Hgb 11.6 L Hct 36.9 MCV 74 L MCH 23.3 L MCHC 31.5 L RDW 21.6 H Plt Count 291 Seg Neutrophils % 80.6 H Lymphocytes % 11.4 L Monocytes % 7.5 Eosinophils % 0.0 Basophils % 0.5 Absolute Neutrophils 14.1 H Absolute Lymphocytes 2.0 Absolute Monocytes 1.3 Absolute Eosinophils 0.0 Absolute Basophils 0.1 Sodium 139.5 141.1 Potassium 3.9 4.0 Chloride 100 105 Carbon Dioxide 28 27 Anion Gap 12 9 BUN 14 14 Creatinine 0.53 0.53 Est GFR ( Amer) > 60 > 60 Est GFR (Non-Af Amer) > 60 > 60 Glucose 137 H 106 Calcium 9.7 9.6 02/25/17 00:15 Blood Blood Culture - Final NO GROWTH IN 5 DAYS 02/24/17 23:15 Blood Blood Culture - Final NO GROWTH IN 5 DAYS 02/19/17 02/19/17 02/19/17 08:00 08:00 15:38 Creatine Kinase 27 L < 20 L CK-MB (CK-2) 0.80 Troponin I 0.019 02/19/17 02/19/17 02/19/17 15:38 22:45 22:45 Creatine Kinase < 20 L CK-MB (CK-2) 0.74 0.24 Troponin I 0.013 < 0.012 02/25/17 00:15 Creatine Kinase CK-MB (CK-2) Troponin I 0.028 Impressions: Head CT 02/19/17 01:56 IMPRESSION: No acute findings. Interval development of a right lacunar infarct. Essentially stable appearance of left frontal lobe hypoattenuation ; given concomitant vascular calcifications, favor this to be on the basis of previous ischemic event. Paracentesis Ultrasound 02/22/17 08:11 IMPRESSION: Successful ultrasound-guided diagnostic and therapeutic paracentesis Thoracentesis Ultrasound 02/23/17 08:31 IMPRESSION: SUCCESSFUL ULTRASOUND-GUIDED CHEST TUBE PLACEMENT, RIGHT HEMITHORAX KUB X-Ray 02/26/17 12:21 IMPRESSION: Nasogastric tube tip and side port in the stomach. Mild gaseous distension of mid small bowel loops. Chest X-Ray 02/28/17 06:00 IMPRESSION: No significant interval change. Assessment & Plan - Diagnosis (1) Sepsis Qualifiers: Sepsis type: sepsis due to unspecified organism Qualified Code(s): A41.9 - Sepsis, unspecified organism Is this a current diagnosis for this admission?: NoPlan: She has pneumonia as the cause for her sepsis. (2) Altered mental status Qualifiers: Altered mental status type: unspecified Qualified Code(s): R41.82 - Altered mental status, unspecified Is this a current diagnosis for this admission?: YesPlan: Resolved (3) Pneumonia Qualifiers: Pneumonia type: aspiration pneumonia Laterality: bilateral Lung location: unspecified part of lung Is this a current diagnosis for this admission?: YesPlan: Continue Zosyn. (4) CVA (cerebral vascular accident) Qualifiers: CVA mechanism: unspecified Qualified Code(s): I63.9 - Cerebral infarction, unspecified Is this a current diagnosis for this admission?: YesPlan: Treat with aspirin (5) Respiratory failure Qualifiers: Chronicity: acute Respiratory failure complication: hypoxia and hypercapnia Qualified Code(s): J96.01 - Acute respiratory failure with hypoxia Is this a current diagnosis for this admission?: YesPlan: Resolved - Time Time Spent with patient: 25-34 minutes - Inpatient Certification Medical Necessity: Need Close Monitoring Due to Risk of Patient Decompensation, Need for IV Antibiotics
[2017-03-02] MEDS: THIAMINE HCL 100 MG, FOLIC ACID 1 MG in NORMAL SALINE 50 ML IV SCH (10:32)
[2017-03-02] MEDS: NORMAL SALINE 1000 ML 1,000 ML IV PRN (12:49)
--- NOTE | 2017-03-02 15:53 | PDOC PROGRESS REPORT ---
Subjective Progress Note for:: 03/02/17 Subjective:: I am here Physical Exam Vital Signs: Temp Pulse Resp BP Pulse Ox 98.7 F 88 16 133/82 H 96 03/02/17 11:23 03/02/17 14:00 03/02/17 11:23 03/02/17 11:23 03/02/17 11:23 Intake & Output 03/01/17 03/02/17 03/03/17 06:59 06:59 06:59 Intake Total 1697 1604 150 Output Total 7061 6538 700 Balance -2088 -621 -550 Weight 57.2 kg 53.6 kg General appearance: PRESENT: no acute distress, cooperative, disheveled, thin, well-developed Head exam: PRESENT: atraumatic, normocephalic Eye exam: PRESENT: conjunctiva pale, EOMI Mouth exam: PRESENT: moist, neck supple Teeth exam: PRESENT: poor dentation Neck exam: ABSENT: carotid bruit, JVD, lymphadenopathy, thyromegaly Respiratory exam: PRESENT: decreased breath sounds, prolonged expiratory phas, rhonchi, symmetrical, unlabored Cardiovascular exam: PRESENT: RRR, +S1, +S2 Pulses: PRESENT: normal radial pulses GI/Abdominal exam: PRESENT: ascites Rectal exam: PRESENT: deferred Musculoskeletal exam: PRESENT: normal inspection Neurological exam: PRESENT: awake Psychiatric exam: PRESENT: flat affect Skin exam: PRESENT: dry, warm Results Laboratory Results: 03/02/17 04:20 03/02/17 04:20 03/01/17 03/02/17 03/02/17 15:30 04:20 04:20 WBC 17.5 H RBC 4.99 Hgb 11.6 L Hct 36.9 MCV 74 L MCH 23.3 L MCHC 31.5 L RDW 21.6 H Plt Count 291 Seg Neutrophils % 80.6 H Lymphocytes % 11.4 L Monocytes % 7.5 Eosinophils % 0.0 Basophils % 0.5 Absolute Neutrophils 14.1 H Absolute Lymphocytes 2.0 Absolute Monocytes 1.3 Absolute Eosinophils 0.0 Absolute Basophils 0.1 Sodium 139.5 141.1 Potassium 3.9 4.0 Chloride 100 105 Carbon Dioxide 28 27 Anion Gap 12 9 BUN 14 14 Creatinine 0.53 0.53 Est GFR ( Amer) > 60 > 60 Est GFR (Non-Af Amer) > 60 > 60 Glucose 137 H 106 Calcium 9.7 9.6 02/25/17 00:15 Blood Blood Culture - Final NO GROWTH IN 5 DAYS 02/24/17 23:15 Blood Blood Culture - Final NO GROWTH IN 5 DAYS 02/19/17 02/19/17 02/19/17 08:00 08:00 15:38 Creatine Kinase 27 L < 20 L CK-MB (CK-2) 0.80 Troponin I 0.019 02/19/17 02/19/17 02/19/17 15:38 22:45 22:45 Creatine Kinase < 20 L CK-MB (CK-2) 0.74 0.24 Troponin I 0.013 < 0.012 02/25/17 00:15 Creatine Kinase CK-MB (CK-2) Troponin I 0.028 Impressions: Head CT 02/19/17 01:56 IMPRESSION: No acute findings. Interval development of a right lacunar infarct. Essentially stable appearance of left frontal lobe hypoattenuation ; given concomitant vascular calcifications, favor this to be on the basis of previous ischemic event. Paracentesis Ultrasound 02/22/17 08:11 IMPRESSION: Successful ultrasound-guided diagnostic and therapeutic paracentesis Thoracentesis Ultrasound 02/23/17 08:31 IMPRESSION: SUCCESSFUL ULTRASOUND-GUIDED CHEST TUBE PLACEMENT, RIGHT HEMITHORAX KUB X-Ray 02/26/17 12:21 IMPRESSION: Nasogastric tube tip and side port in the stomach. Mild gaseous distension of mid small bowel loops. Chest X-Ray 02/28/17 06:00 IMPRESSION: No significant interval change. Assessment & Plan - Diagnosis (1) CVA (cerebral vascular accident) Qualifiers: CVA mechanism: unspecified Qualified Code(s): I63.9 - Cerebral infarction, unspecified Is this a current diagnosis for this admission?: Yes (2) Respiratory failure Qualifiers: Chronicity: acute Respiratory failure complication: hypoxia and hypercapnia Qualified Code(s): J96.01 - Acute respiratory failure with hypoxia Is this a current diagnosis for this admission?: No (3) Pneumonia Qualifiers: Pneumonia type: aspiration pneumonia Laterality: bilateral Lung location: unspecified part of lung Is this a current diagnosis for this admission?: Yes (4) Sepsis Qualifiers: Sepsis type: sepsis due to unspecified organism Qualified Code(s): A41.9 - Sepsis, unspecified organism Is this a current diagnosis for this admission?: No
--- NOTE | 2017-03-02 15:55 | PDOC PROGRESS REPORT ---
Subjective Progress Note for:: 03/01/17 Subjective:: Not particularly verbal Physical Exam Vital Signs: Temp Pulse Resp BP Pulse Ox 99.7 F 60 20 154/92 H 100 03/01/17 07:32 03/01/17 07:32 03/01/17 07:32 03/01/17 07:32 03/01/17 07:32 Intake & Output 02/28/17 03/01/17 03/02/17 06:59 06:59 06:59 Intake Total 1541 1697 Output Total 3986 6373 Balance -2439 -2081 Weight 57.2 kg 57.2 kg General appearance: PRESENT: no acute distress, disheveled, thin, well-developed Head exam: PRESENT: atraumatic, normocephalic Eye exam: PRESENT: conjunctiva pale, EOMI Mouth exam: PRESENT: dry mucosa, neck supple Teeth exam: PRESENT: poor dentation Neck exam: ABSENT: carotid bruit, JVD, lymphadenopathy, thyromegaly Respiratory exam: PRESENT: decreased breath sounds, prolonged expiratory phas, rhonchi, symmetrical, unlabored Cardiovascular exam: PRESENT: RRR, +S1, +S2 Pulses: PRESENT: normal radial pulses GI/Abdominal exam: PRESENT: normal bowel sounds, soft. ABSENT: distended, guarding, mass, organolmegaly, rebound, tenderness Rectal exam: PRESENT: deferred Musculoskeletal exam: PRESENT: normal inspection Neurological exam: PRESENT: awake Psychiatric exam: PRESENT: flat affect Skin exam: PRESENT: dry, warm Results Laboratory Results: 03/01/17 04:10 03/01/17 04:10 02/28/17 03/01/17 03/01/17 16:40 04:10 04:10 WBC 18.7 H RBC 4.95 Hgb 11.5 L Hct 37.3 MCV 75 L MCH 23.3 L MCHC 30.9 L RDW 21.1 H Plt Count 256 Seg Neutrophils % 83.5 H Lymphocytes % 9.7 L Monocytes % 6.7 Eosinophils % 0.0 Basophils % 0.1 Absolute Neutrophils 15.6 H Absolute Lymphocytes 1.8 Absolute Monocytes 1.3 Absolute Eosinophils 0.0 Absolute Basophils 0.0 Sodium 140.7 Potassium 3.4 L 3.0 L* Chloride 102 Carbon Dioxide 27 Anion Gap 12 BUN 14 Creatinine 0.49 L Est GFR ( Amer) > 60 Est GFR (Non-Af Amer) > 60 Glucose 112 H Calcium 9.3 02/19/17 02/19/17 02/19/17 08:00 08:00 15:38 Creatine Kinase 27 L < 20 L CK-MB (CK-2) 0.80 Troponin I 0.019 02/19/17 02/19/17 02/19/17 15:38 22:45 22:45 Creatine Kinase < 20 L CK-MB (CK-2) 0.74 0.24 Troponin I 0.013 < 0.012 02/25/17 00:15 Creatine Kinase CK-MB (CK-2) Troponin I 0.028 Impressions: Head CT 02/19/17 01:56 IMPRESSION: No acute findings. Interval development of a right lacunar infarct. Essentially stable appearance of left frontal lobe hypoattenuation ; given concomitant vascular calcifications, favor this to be on the basis of previous ischemic event. Paracentesis Ultrasound 02/22/17 08:11 IMPRESSION: Successful ultrasound-guided diagnostic and therapeutic paracentesis Thoracentesis Ultrasound 02/23/17 08:31 IMPRESSION: SUCCESSFUL ULTRASOUND-GUIDED CHEST TUBE PLACEMENT, RIGHT HEMITHORAX KUB X-Ray 02/26/17 12:21 IMPRESSION: Nasogastric tube tip and side port in the stomach. Mild gaseous distension of mid small bowel loops. Chest X-Ray 02/28/17 06:00 IMPRESSION: No significant interval change. Assessment & Plan - Diagnosis (1) CVA (cerebral vascular accident) Qualifiers: CVA mechanism: unspecified Qualified Code(s): I63.9 - Cerebral infarction, unspecified Is this a current diagnosis for this admission?: Yes (2) Respiratory failure Qualifiers: Chronicity: acute Respiratory failure complication: hypoxia and hypercapnia Qualified Code(s): J96.01 - Acute respiratory failure with hypoxia Is this a current diagnosis for this admission?: Yes (3) Pneumonia Qualifiers: Pneumonia type: aspiration pneumonia Laterality: bilateral Lung location: unspecified part of lung Is this a current diagnosis for this admission?: YesPlan: Tracheal cultures only positive for [place] no bacterial pathogens noted (4) Sepsis Qualifiers: Sepsis type: sepsis due to unspecified organism Qualified Code(s): A41.9 - Sepsis, unspecified organism Is this a current diagnosis for this admission?: No
[2017-03-02] MEDS: ATORVASTATIN CALCIUM 80 MG TABLET NG SCH (21:26)
[2017-03-03] MEDS: IPRATROPIUM/ALBUTEROL 0.5-2.5 MG/3 ML AMPUL NEB SCH ×4 (02:14→19:47)
[2017-03-03] MEDS: PIPERACILLIN SODIUM/TAZOBACTAM 4.5 GM in NORMAL SALINE 100 ML IV SCH ×2 (03:54→08:47)
[2017-03-03] MEDS: OXYCODONE HCL IR 5 MG TABLET PO PRN ×2 (03:55→19:48)
[2017-03-03 04:23] LABS: ABSOLUTE BASOPHILS # (AUTO) 0.1 10^3/uL (0.0-0.2); ABSOLUTE LYMPHOCYTES (AUTO) 2.3 10^3/uL (0.5-4.7); ABSOLUTE MONOCYTES (AUTO) 1.3 10^3/uL (0.1-1.4); ABSOLUTE NEUT (AUTO) 12.4 10^3/uL (1.7-8.2); BASOPHILS % (AUTO) 0.3 % (0-2); HEMATOCRIT 35.7 % (36.0-47.0); HGB HCT DIFFERENCE -2.7; LYMPHOCYTES % (AUTO) 14.5 % (13-45); MEAN CORPUSCULAR HEMOGLOBIN 23.1 pg (27.0-33.4); MEAN CORPUSCULAR HGB CONC 30.8 g/dL (32.0-36.0); MEAN CORPUSCULAR VOLUME 75 fl (80-97); MONOCYTES % (AUTO) 8.1 % (3-13); RED BLOOD COUNT 4.76 10^6/uL (3.72-5.28); SEGMENTED NEUTROPHILS % (AUTO) 77.1 % (42-78); WHITE BLOOD COUNT 16.1 10^3/uL (4.0-10.5)
[2017-03-03 04:36] LABS: ANION GAP 10 (5-19); BLOOD UREA NITROGEN 14 mg/dL (7-20); CALCIUM 9.7 mg/dL (8.4-10.2); CARBON DIOXIDE 26 mmol/L (22-30); CHLORIDE 105 mmol/L (98-107); CREATININE RESULT 0.53 mg/dL (0.52-1.25); GLUCOSE 106 mg/dL (75-110); POTASSIUM 4.2 mmol/L (3.6-5.0); SODIUM 141.2 mmol/L (137-145)
[2017-03-03] MEDS: HEPARIN SOD (PORCINE) 5,000 UNIT/ML 1 ML SYRINGE SUBCUT SCH ×3 (05:12→21:32)
[2017-03-03] MEDS: INSULIN LISPRO 100 UNIT/ML 3 ML VIAL SUBCUT SCH ×4 (05:13→23:13)
[2017-03-03] MEDS: ACETYLCYSTEINE 20% SOLN 800 MG/4 ML VIAL.NEB NEB SCH ×2 (07:55→19:47)
[2017-03-03] MEDS: LANSOPRAZOLE 30 MG TAB.RAP.DR NG SCH (08:47)
[2017-03-03] MEDS: FUROSEMIDE INJ/PF 40 MG/4 ML SDV IV SCH (09:07)
[2017-03-03] MEDS: PREDNISONE 20 MG TABLET PO SCH (09:08)
[2017-03-03] MEDS: THIAMINE HCL 100 MG, FOLIC ACID 1 MG in NORMAL SALINE 50 ML IV SCH (09:08)
[2017-03-03] MEDS: SPIRONOLACTONE 25 MG TABLET NG SCH (09:08)
[2017-03-03] MEDS: POTASSIUM CHLORIDE 10 MEQ TABLET.SA PO SCH ×2 (09:08→21:31)
--- NOTE | 2017-03-03 11:43 | PDOC PROGRESS REPORT ---
Subjective Progress Note for:: 03/03/17 Subjective:: Hello Physical Exam Vital Signs: Temp Pulse Resp BP Pulse Ox 97.7 F 84 16 134/82 H 94 03/03/17 07:20 03/03/17 07:20 03/03/17 07:20 03/03/17 07:20 03/03/17 07:20 Intake & Output 03/02/17 03/03/17 03/04/17 06:59 06:59 06:59 Intake Total 1604 1467 Output Total 1842 4575 Balance -621 -1508 Weight 53.6 kg 50.9 kg General appearance: PRESENT: no acute distress, cooperative, disheveled, thin, well-developed Head exam: PRESENT: atraumatic, normocephalic Eye exam: PRESENT: conjunctiva pale, EOMI Mouth exam: PRESENT: dry mucosa, neck supple, tongue midline Teeth exam: PRESENT: poor dentation Neck exam: ABSENT: carotid bruit, JVD, lymphadenopathy, thyromegaly Respiratory exam: PRESENT: decreased breath sounds, prolonged expiratory phas, rhonchi, symmetrical, unlabored Cardiovascular exam: PRESENT: RRR, +S1, +S2 Pulses: PRESENT: normal radial pulses GI/Abdominal exam: PRESENT: normal bowel sounds, soft. ABSENT: distended, guarding, mass, organolmegaly, rebound, tenderness Rectal exam: PRESENT: deferred Gentrourinary exam: PRESENT: indwelling catheter Musculoskeletal exam: PRESENT: normal inspection Neurological exam: PRESENT: awake Psychiatric exam: PRESENT: flat affect Skin exam: PRESENT: dry, warm Results Laboratory Results: 03/03/17 04:00 03/03/17 04:00 03/03/17 03/03/17 04:00 04:00 WBC 16.1 H RBC 4.76 Hgb 11.0 L Hct 35.7 L MCV 75 L MCH 23.1 L MCHC 30.8 L RDW 21.0 H Plt Count 269 Seg Neutrophils % 77.1 Lymphocytes % 14.5 Monocytes % 8.1 Eosinophils % 0.0 Basophils % 0.3 Absolute Neutrophils 12.4 H Absolute Lymphocytes 2.3 Absolute Monocytes 1.3 Absolute Eosinophils 0.0 Absolute Basophils 0.1 Sodium 141.2 Potassium 4.2 Chloride 105 Carbon Dioxide 26 Anion Gap 10 BUN 14 Creatinine 0.53 Est GFR ( Amer) > 60 Est GFR (Non-Af Amer) > 60 Glucose 106 Calcium 9.7 02/19/17 02/19/17 02/19/17 08:00 08:00 15:38 Creatine Kinase 27 L < 20 L CK-MB (CK-2) 0.80 Troponin I 0.019 02/19/17 02/19/17 02/19/17 15:38 22:45 22:45 Creatine Kinase < 20 L CK-MB (CK-2) 0.74 0.24 Troponin I 0.013 < 0.012 02/25/17 00:15 Creatine Kinase CK-MB (CK-2) Troponin I 0.028 Impressions: Head CT 02/19/17 01:56 IMPRESSION: No acute findings. Interval development of a right lacunar infarct. Essentially stable appearance of left frontal lobe hypoattenuation ; given concomitant vascular calcifications, favor this to be on the basis of previous ischemic event. Paracentesis Ultrasound 02/22/17 08:11 IMPRESSION: Successful ultrasound-guided diagnostic and therapeutic paracentesis Thoracentesis Ultrasound 02/23/17 08:31 IMPRESSION: SUCCESSFUL ULTRASOUND-GUIDED CHEST TUBE PLACEMENT, RIGHT HEMITHORAX KUB X-Ray 02/26/17 12:21 IMPRESSION: Nasogastric tube tip and side port in the stomach. Mild gaseous distension of mid small bowel loops. Chest X-Ray 02/28/17 06:00 IMPRESSION: No significant interval change. Assessment & Plan - Diagnosis (1) CVA (cerebral vascular accident) Qualifiers: CVA mechanism: unspecified Qualified Code(s): I63.9 - Cerebral infarction, unspecified Is this a current diagnosis for this admission?: Yes (2) Respiratory failure Qualifiers: Chronicity: acute Respiratory failure complication: hypoxia and hypercapnia Qualified Code(s): J96.01 - Acute respiratory failure with hypoxia Is this a current diagnosis for this admission?: No (3) Pneumonia Qualifiers: Pneumonia type: aspiration pneumonia Laterality: bilateral Lung location: unspecified part of lung Is this a current diagnosis for this admission?: Yes (4) Sepsis Qualifiers: Sepsis type: sepsis due to unspecified organism Qualified Code(s): A41.9 - Sepsis, unspecified organism Is this a current diagnosis for this admission?: No
--- NOTE | 2017-03-03 12:47 | PDOC PROGRESS REPORT ---
Subjective Progress Note for:: 03/03/17 Subjective:: Denies any complaints. Physical Exam Vital Signs: Temp Pulse Resp BP Pulse Ox 98.8 F 97 16 117/73 90 L 03/03/17 11:21 03/03/17 11:21 03/03/17 11:21 03/03/17 11:21 03/03/17 11:21 Intake & Output 03/02/17 03/03/17 03/04/17 06:59 06:59 06:59 Intake Total 1604 1467 500 Output Total 2222 0945 1450 Balance -621 1501 -950 Weight 53.6 kg 50.9 kg General appearance: PRESENT: no acute distress Eye exam: PRESENT: conjunctiva pink. ABSENT: scleral icterus Ear exam: PRESENT: normal external ear exam Mouth exam: PRESENT: moist, tongue midline Neck exam: ABSENT: JVD Respiratory exam: PRESENT: clear to auscultation alecia. ABSENT: rales, rhonchi, wheezes Cardiovascular exam: PRESENT: RRR, systolic murmur - 2/6 systolic murmur. ABSENT: diastolic murmur, rubs GI/Abdominal exam: PRESENT: normal bowel sounds, soft. ABSENT: distended, guarding, mass, organolmegaly, rebound, tenderness Extremities exam: ABSENT: calf tenderness, clubbing, pedal edema Neurological exam: PRESENT: alert, awake, oriented to person, oriented to place , oriented to time, oriented to situation, CN II-XII grossly intact. ABSENT: motor sensory deficit Psychiatric exam: PRESENT: flat affect Skin exam: PRESENT: dry, intact, warm. ABSENT: cyanosis, rash Results Laboratory Results: 03/03/17 04:00 03/03/17 04:00 03/03/17 03/03/17 04:00 04:00 WBC 16.1 H RBC 4.76 Hgb 11.0 L Hct 35.7 L MCV 75 L MCH 23.1 L MCHC 30.8 L RDW 21.0 H Plt Count 269 Seg Neutrophils % 77.1 Lymphocytes % 14.5 Monocytes % 8.1 Eosinophils % 0.0 Basophils % 0.3 Absolute Neutrophils 12.4 H Absolute Lymphocytes 2.3 Absolute Monocytes 1.3 Absolute Eosinophils 0.0 Absolute Basophils 0.1 Sodium 141.2 Potassium 4.2 Chloride 105 Carbon Dioxide 26 Anion Gap 10 BUN 14 Creatinine 0.53 Est GFR ( Amer) > 60 Est GFR (Non-Af Amer) > 60 Glucose 106 Calcium 9.7 02/19/17 02/19/17 02/19/17 08:00 08:00 15:38 Creatine Kinase 27 L < 20 L CK-MB (CK-2) 0.80 Troponin I 0.019 02/19/17 02/19/17 02/19/17 15:38 22:45 22:45 Creatine Kinase < 20 L CK-MB (CK-2) 0.74 0.24 Troponin I 0.013 < 0.012 02/25/17 00:15 Creatine Kinase CK-MB (CK-2) Troponin I 0.028 Impressions: Head CT 02/19/17 01:56 IMPRESSION: No acute findings. Interval development of a right lacunar infarct. Essentially stable appearance of left frontal lobe hypoattenuation ; given concomitant vascular calcifications, favor this to be on the basis of previous ischemic event. Paracentesis Ultrasound 02/22/17 08:11 IMPRESSION: Successful ultrasound-guided diagnostic and therapeutic paracentesis Thoracentesis Ultrasound 02/23/17 08:31 IMPRESSION: SUCCESSFUL ULTRASOUND-GUIDED CHEST TUBE PLACEMENT, RIGHT HEMITHORAX KUB X-Ray 02/26/17 12:21 IMPRESSION: Nasogastric tube tip and side port in the stomach. Mild gaseous distension of mid small bowel loops. Chest X-Ray 02/28/17 06:00 IMPRESSION: No significant interval change. Assessment & Plan - Diagnosis (1) Sepsis Qualifiers: Sepsis type: sepsis due to unspecified organism Qualified Code(s): A41.9 - Sepsis, unspecified organism Is this a current diagnosis for this admission?: NoPlan: She has pneumonia as the cause for her sepsis. (2) Altered mental status Qualifiers: Altered mental status type: unspecified Qualified Code(s): R41.82 - Altered mental status, unspecified Is this a current diagnosis for this admission?: YesPlan: Resolved (3) Pneumonia Qualifiers: Pneumonia type: aspiration pneumonia Laterality: bilateral Lung location: unspecified part of lung Is this a current diagnosis for this admission?: YesPlan: Will DC the Zosyn and private branch exchange service advisor to Augmentin. (4) CVA (cerebral vascular accident) Qualifiers: CVA mechanism: unspecified Qualified Code(s): I63.9 - Cerebral infarction, unspecified Is this a current diagnosis for this admission?: YesPlan: Treat with aspirin (5) Respiratory failure Qualifiers: Chronicity: acute Respiratory failure complication: hypoxia and hypercapnia Qualified Code(s): J96.01 - Acute respiratory failure with hypoxia Is this a current diagnosis for this admission?: NoPlan: Resolved - Time Time Spent with patient: 25-34 minutes - Inpatient Certification Medical Necessity: Need Close Monitoring Due to Risk of Patient Decompensation - Plan Summary Plan Summary: Patient is adamant that she wants to go home however she is very weak. I have recommended to the patient that she go to rehab. Will consult discharge planning for possible placement for rehab.
[2017-03-03] MEDS: AMOXICILLIN TR/POT CLAVULANATE 500-125 MG TAB PO SCH ×2 (14:05→21:31)
[2017-03-03] MEDS: NORMAL SALINE 1000 ML 1,000 ML IV PRN (19:47)
[2017-03-03] MEDS: ATORVASTATIN CALCIUM 80 MG TABLET NG SCH (21:31)
[2017-03-03] MEDS: NORMAL SALINE INJ/PF 0.9% 10 ML SDV IV PRN (21:34)
[2017-03-04] MEDS: IPRATROPIUM/ALBUTEROL 0.5-2.5 MG/3 ML AMPUL NEB SCH ×4 (02:59→20:09)
[2017-03-04 04:47] LABS: ABSOLUTE BASOPHILS # (AUTO) 0.1 10^3/uL (0.0-0.2); ABSOLUTE LYMPHOCYTES (AUTO) 1.6 10^3/uL (0.5-4.7); ABSOLUTE MONOCYTES (AUTO) 1.1 10^3/uL (0.1-1.4); BASOPHILS % (AUTO) 0.4 % (0-2); HEMATOCRIT 35.5 % (36.0-47.0); HEMOGLOBIN 10.9 g/dL (12.0-15.5); HGB HCT DIFFERENCE -2.8; LYMPHOCYTES % (AUTO) 10.8 % (13-45); MEAN CORPUSCULAR HEMOGLOBIN 23.2 pg (27.0-33.4); MEAN CORPUSCULAR HGB CONC 30.8 g/dL (32.0-36.0); MEAN CORPUSCULAR VOLUME 75 fl (80-97); MONOCYTES % (AUTO) 7.3 % (3-13); RED BLOOD COUNT 4.72 10^6/uL (3.72-5.28); RED CELL DISTRIBUTION WIDTH 21.4 % (11.5-14.0); SEGMENTED NEUTROPHILS % (AUTO) 81.5 % (42-78); WHITE BLOOD COUNT 14.7 10^3/uL (4.0-10.5)
[2017-03-04 05:00] LABS: ANION GAP 8 (5-19); BLOOD UREA NITROGEN 15 mg/dL (7-20); CALCIUM 9.5 mg/dL (8.4-10.2); CARBON DIOXIDE 26 mmol/L (22-30); CHLORIDE 104 mmol/L (98-107); CREATININE RESULT 0.38 mg/dL (0.52-1.25); GLUCOSE 114 mg/dL (75-110); POTASSIUM 4.6 mmol/L (3.6-5.0); SODIUM 137.6 mmol/L (137-145)
[2017-03-04] MEDS: HEPARIN SOD (PORCINE) 5,000 UNIT/ML 1 ML SYRINGE SUBCUT SCH ×3 (05:04→22:40)
[2017-03-04] MEDS: AMOXICILLIN TR/POT CLAVULANATE 500-125 MG TAB PO SCH ×3 (05:04→22:40)
[2017-03-04] MEDS: NORMAL SALINE INJ/PF 0.9% 10 ML SDV IV PRN (05:05)
[2017-03-04] MEDS: INSULIN LISPRO 100 UNIT/ML 3 ML VIAL SUBCUT SCH (05:05)
[2017-03-04] MEDS: OXYCODONE HCL IR 5 MG TABLET PO PRN ×3 (08:01→19:44)
[2017-03-04] MEDS: LANSOPRAZOLE 30 MG TAB.RAP.DR NG SCH (08:02)
[2017-03-04] MEDS: ACETYLCYSTEINE 20% SOLN 800 MG/4 ML VIAL.NEB NEB SCH ×2 (08:43→20:10)
--- NOTE | 2017-03-04 09:13 | PDOC PROGRESS REPORT ---
Subjective Progress Note for:: 03/04/17 Subjective:: Denies any complaints. Physical Exam Vital Signs: Temp Pulse Resp BP Pulse Ox 97.8 F 94 19 119/75 100 03/04/17 07:34 03/04/17 07:34 03/04/17 07:34 03/04/17 07:34 03/04/17 07:34 Intake & Output 03/03/17 03/04/17 03/05/17 06:59 06:59 06:59 Intake Total 1467 2173 Output Total 2976 8085 Balance -1508 -1202 Weight 50.9 kg 50.5 kg General appearance: PRESENT: no acute distress Eye exam: PRESENT: conjunctiva pink. ABSENT: scleral icterus Ear exam: PRESENT: normal external ear exam Mouth exam: PRESENT: moist, tongue midline Neck exam: ABSENT: JVD Respiratory exam: PRESENT: clear to auscultation alecia. ABSENT: rales, rhonchi, wheezes Cardiovascular exam: PRESENT: RRR, systolic murmur - 2/6 systolic murmur. ABSENT: diastolic murmur, rubs GI/Abdominal exam: PRESENT: normal bowel sounds, soft. ABSENT: distended, guarding, mass, organolmegaly, rebound, tenderness Extremities exam: ABSENT: calf tenderness, clubbing, pedal edema Neurological exam: PRESENT: alert, awake, oriented to person, oriented to place , oriented to time, oriented to situation, CN II-XII grossly intact, other - Otherwise weakness. Psychiatric exam: PRESENT: appropriate affect Results Laboratory Results: 03/04/17 04:25 03/04/17 04:25 03/04/17 03/04/17 04:25 04:25 WBC 14.7 H RBC 4.72 Hgb 10.9 L Hct 35.5 L MCV 75 L MCH 23.2 L MCHC 30.8 L RDW 21.4 H Plt Count 246 Seg Neutrophils % 81.5 H Lymphocytes % 10.8 L Monocytes % 7.3 Eosinophils % 0.0 Basophils % 0.4 Absolute Neutrophils 12.0 H Absolute Lymphocytes 1.6 Absolute Monocytes 1.1 Absolute Eosinophils 0.0 Absolute Basophils 0.1 Sodium 137.6 Potassium 4.6 Chloride 104 Carbon Dioxide 26 Anion Gap 8 BUN 15 Creatinine 0.38 L Est GFR ( Amer) > 60 Est GFR (Non-Af Amer) > 60 Glucose 114 H Calcium 9.5 02/19/17 02/19/17 02/19/17 08:00 08:00 15:38 Creatine Kinase 27 L < 20 L CK-MB (CK-2) 0.80 Troponin I 0.019 02/19/17 02/19/17 02/19/17 15:38 22:45 22:45 Creatine Kinase < 20 L CK-MB (CK-2) 0.74 0.24 Troponin I 0.013 < 0.012 02/25/17 00:15 Creatine Kinase CK-MB (CK-2) Troponin I 0.028 Impressions: Head CT 02/19/17 01:56 IMPRESSION: No acute findings. Interval development of a right lacunar infarct. Essentially stable appearance of left frontal lobe hypoattenuation ; given concomitant vascular calcifications, favor this to be on the basis of previous ischemic event. Paracentesis Ultrasound 02/22/17 08:11 IMPRESSION: Successful ultrasound-guided diagnostic and therapeutic paracentesis Thoracentesis Ultrasound 02/23/17 08:31 IMPRESSION: SUCCESSFUL ULTRASOUND-GUIDED CHEST TUBE PLACEMENT, RIGHT HEMITHORAX KUB X-Ray 02/26/17 12:21 IMPRESSION: Nasogastric tube tip and side port in the stomach. Mild gaseous distension of mid small bowel loops. Chest X-Ray 02/28/17 06:00 IMPRESSION: No significant interval change. Assessment & Plan - Diagnosis (1) Sepsis Qualifiers: Sepsis type: sepsis due to unspecified organism Qualified Code(s): A41.9 - Sepsis, unspecified organism Is this a current diagnosis for this admission?: NoPlan: She has pneumonia as the cause for her sepsis. Continue with Augmentin. (2) Altered mental status Qualifiers: Altered mental status type: unspecified Qualified Code(s): R41.82 - Altered mental status, unspecified Is this a current diagnosis for this admission?: YesPlan: Resolved (3) Pneumonia Qualifiers: Pneumonia type: aspiration pneumonia Laterality: bilateral Lung location: unspecified part of lung Is this a current diagnosis for this admission?: YesPlan: Continue Augmentin. (4) CVA (cerebral vascular accident) Qualifiers: CVA mechanism: unspecified Qualified Code(s): I63.9 - Cerebral infarction, unspecified Is this a current diagnosis for this admission?: YesPlan: Treat with aspirin (5) Respiratory failure Qualifiers: Chronicity: acute Respiratory failure complication: hypoxia and hypercapnia Qualified Code(s): J96.01 - Acute respiratory failure with hypoxia Is this a current diagnosis for this admission?: NoPlan: Resolved - Time Time Spent with patient: 25-34 minutes - Plan Summary Plan Summary: Patient is too weak to go home although she is adamant that she wants to go home. Will continue physical therapy and plan on her going to short-term rehab.
[2017-03-04] MEDS: POTASSIUM CHLORIDE 10 MEQ TABLET.SA PO SCH ×2 (10:22→22:40)
[2017-03-04] MEDS: PREDNISONE 20 MG TABLET PO SCH (10:22)
[2017-03-04] MEDS: FUROSEMIDE 40 MG TABLET PO SCH (10:23)
[2017-03-04] MEDS: SPIRONOLACTONE 25 MG TABLET NG SCH (10:23)
[2017-03-04] MEDS: THIAMINE HCL 100 MG, FOLIC ACID 1 MG in NORMAL SALINE 50 ML IV SCH (10:23)
[2017-03-04] MEDS: ATORVASTATIN CALCIUM 80 MG TABLET NG SCH (22:40)
[2017-03-04] MEDS: NORMAL SALINE 1000 ML 1,000 ML IV PRN (22:40)
[2017-03-05] MEDS: OXYCODONE HCL IR 5 MG TABLET PO PRN ×3 (01:10→13:51)
[2017-03-05] MEDS: IPRATROPIUM/ALBUTEROL 0.5-2.5 MG/3 ML AMPUL NEB SCH ×4 (01:44→19:49)
[2017-03-05] MEDS: AMOXICILLIN TR/POT CLAVULANATE 500-125 MG TAB PO SCH ×3 (06:16→22:20)
[2017-03-05] MEDS: HEPARIN SOD (PORCINE) 5,000 UNIT/ML 1 ML SYRINGE SUBCUT SCH ×3 (06:16→22:20)
[2017-03-05 07:05] LABS: ANION GAP 10 (5-19); BLOOD UREA NITROGEN 15 mg/dL (7-20); CALCIUM 10.1 mg/dL (8.4-10.2); CARBON DIOXIDE 26 mmol/L (22-30); CHLORIDE 102 mmol/L (98-107); CREATININE RESULT 0.44 mg/dL (0.52-1.25); GLUCOSE 86 mg/dL (75-110); POTASSIUM 4.8 mmol/L (3.6-5.0); SODIUM 138.2 mmol/L (137-145)
[2017-03-05] MEDS: ACETYLCYSTEINE 20% SOLN 800 MG/4 ML VIAL.NEB NEB SCH (08:32)
[2017-03-05] MEDS: FUROSEMIDE 40 MG TABLET PO SCH (09:10)
[2017-03-05] MEDS: SPIRONOLACTONE 25 MG TABLET NG SCH (09:11)
[2017-03-05] MEDS: PREDNISONE 20 MG TABLET PO SCH (09:11)
[2017-03-05] MEDS: LANSOPRAZOLE 30 MG TAB.RAP.DR NG SCH (09:12)
[2017-03-05] MEDS: POTASSIUM CHLORIDE 10 MEQ TABLET.SA PO SCH ×2 (09:12→22:20)
[2017-03-05] MEDS: THIAMINE HCL 100 MG, FOLIC ACID 1 MG in NORMAL SALINE 50 ML IV SCH (09:21)
--- NOTE | 2017-03-05 10:07 | PDOC PROGRESS REPORT ---
Subjective Progress Note for:: 03/05/17 Subjective:: Denies any complaints. Physical Exam Vital Signs: Temp Pulse Resp BP Pulse Ox 98.8 F 100 18 132/83 H 94 03/05/17 08:05 03/05/17 08:05 03/05/17 08:05 03/05/17 08:05 03/05/17 08:05 Intake & Output 03/04/17 03/05/17 03/06/17 06:59 06:59 06:59 Intake Total 2173 1238 Output Total 3375 500 Balance -1202 738 Weight 50.5 kg 48.4 kg General appearance: PRESENT: no acute distress Eye exam: PRESENT: conjunctiva pink. ABSENT: scleral icterus Mouth exam: PRESENT: moist, tongue midline Neck exam: ABSENT: JVD Respiratory exam: PRESENT: clear to auscultation alecia. ABSENT: rales, rhonchi, wheezes Cardiovascular exam: PRESENT: RRR, systolic murmur - 2/6 systolic murmur. ABSENT: diastolic murmur, rubs GI/Abdominal exam: PRESENT: normal bowel sounds, soft. ABSENT: distended, guarding, mass, organolmegaly, rebound, tenderness Extremities exam: ABSENT: calf tenderness, clubbing, pedal edema Neurological exam: PRESENT: alert, awake, oriented to person, oriented to place , oriented to time, oriented to situation, CN II-XII grossly intact. ABSENT: motor sensory deficit Psychiatric exam: PRESENT: appropriate affect Skin exam: PRESENT: dry, intact, warm. ABSENT: cyanosis, rash Results Laboratory Results: 03/04/17 04:25 03/05/17 06:39 03/05/17 06:39 Sodium 138.2 Potassium 4.8 Chloride 102 Carbon Dioxide 26 Anion Gap 10 BUN 15 Creatinine 0.44 L Est GFR ( Amer) > 60 Est GFR (Non-Af Amer) > 60 Glucose 86 Calcium 10.1 02/19/17 02/19/17 02/19/17 08:00 08:00 15:38 Creatine Kinase 27 L < 20 L CK-MB (CK-2) 0.80 Troponin I 0.019 02/19/17 02/19/17 02/19/17 15:38 22:45 22:45 Creatine Kinase < 20 L CK-MB (CK-2) 0.74 0.24 Troponin I 0.013 < 0.012 02/25/17 00:15 Creatine Kinase CK-MB (CK-2) Troponin I 0.028 Impressions: Head CT 02/19/17 01:56 IMPRESSION: No acute findings. Interval development of a right lacunar infarct. Essentially stable appearance of left frontal lobe hypoattenuation ; given concomitant vascular calcifications, favor this to be on the basis of previous ischemic event. Paracentesis Ultrasound 02/22/17 08:11 IMPRESSION: Successful ultrasound-guided diagnostic and therapeutic paracentesis Thoracentesis Ultrasound 02/23/17 08:31 IMPRESSION: SUCCESSFUL ULTRASOUND-GUIDED CHEST TUBE PLACEMENT, RIGHT HEMITHORAX KUB X-Ray 02/26/17 12:21 IMPRESSION: Nasogastric tube tip and side port in the stomach. Mild gaseous distension of mid small bowel loops. Chest X-Ray 02/28/17 06:00 IMPRESSION: No significant interval change. Assessment & Plan - Diagnosis (1) Sepsis Qualifiers: Sepsis type: sepsis due to unspecified organism Qualified Code(s): A41.9 - Sepsis, unspecified organism Is this a current diagnosis for this admission?: NoPlan: She has pneumonia as the cause for her sepsis. Continue with Augmentin. (2) Altered mental status Qualifiers: Altered mental status type: unspecified Qualified Code(s): R41.82 - Altered mental status, unspecified Is this a current diagnosis for this admission?: YesPlan: Resolved (3) Pneumonia Qualifiers: Pneumonia type: aspiration pneumonia Laterality: bilateral Lung location: unspecified part of lung Is this a current diagnosis for this admission?: YesPlan: Continue Augmentin. (4) CVA (cerebral vascular accident) Qualifiers: CVA mechanism: unspecified Qualified Code(s): I63.9 - Cerebral infarction, unspecified Is this a current diagnosis for this admission?: YesPlan: Treat with aspirin (5) Respiratory failure Qualifiers: Chronicity: acute Respiratory failure complication: hypoxia and hypercapnia Qualified Code(s): J96.01 - Acute respiratory failure with hypoxia Is this a current diagnosis for this admission?: NoPlan: Resolved - Time Time Spent with patient: 15-24 minutes - Plan Summary Plan Summary: Awaiting rehab placement
[2017-03-05] MEDS: NORMAL SALINE INJ/PF 0.9% 10 ML SDV IV PRN (13:53)
[2017-03-05] MEDS ORDERED: HYDROXYZINE HCL 10 MG TABLET PO PRN (17:06)
[2017-03-05] MEDS: ATORVASTATIN CALCIUM 80 MG TABLET NG SCH (22:21)
[2017-03-05] MEDS: NORMAL SALINE 1000 ML 1,000 ML IV PRN (22:21)
[2017-03-06] MEDS: IPRATROPIUM/ALBUTEROL 0.5-2.5 MG/3 ML AMPUL NEB SCH ×3 (02:27→13:50)
[2017-03-06] MEDS: NORMAL SALINE INJ/PF 0.9% 10 ML SDV IV PRN (05:16)
[2017-03-06] MEDS: AMOXICILLIN TR/POT CLAVULANATE 500-125 MG TAB PO SCH (05:17)
[2017-03-06] MEDS: HEPARIN SOD (PORCINE) 5,000 UNIT/ML 1 ML SYRINGE SUBCUT SCH ×2 (05:17→15:02)
[2017-03-06 05:59] LABS: ABSOLUTE MONOCYTES (AUTO) 1.2 10^3/uL (0.1-1.4); BASOPHILS % (AUTO) 0.2 % (0-2); EOSINOPHILS % (AUTO) 0.1 % (0-6); HEMATOCRIT 37.8 % (36.0-47.0); HEMOGLOBIN 11.9 g/dL (12.0-15.5); HGB HCT DIFFERENCE -2.1; LYMPHOCYTES % (AUTO) 18.4 % (13-45); MEAN CORPUSCULAR HEMOGLOBIN 23.7 pg (27.0-33.4); MEAN CORPUSCULAR HGB CONC 31.6 g/dL (32.0-36.0); MEAN CORPUSCULAR VOLUME 75 fl (80-97); MONOCYTES % (AUTO) 7.3 % (3-13); RED BLOOD COUNT 5.03 10^6/uL (3.72-5.28); RED CELL DISTRIBUTION WIDTH 22.1 % (11.5-14.0); WHITE BLOOD COUNT 16.2 10^3/uL (4.0-10.5)
[2017-03-06 06:03] LABS: ANION GAP 13 (5-19); BLOOD UREA NITROGEN 12 mg/dL (7-20); CALCIUM 10.2 mg/dL (8.4-10.2); CARBON DIOXIDE 24 mmol/L (22-30); CHLORIDE 103 mmol/L (98-107); CREATININE RESULT 0.46 mg/dL (0.52-1.25); GLUCOSE 87 mg/dL (75-110); POTASSIUM 4.6 mmol/L (3.6-5.0); SODIUM 139.7 mmol/L (137-145)
[2017-03-06 06:28] LABS: ANISOCYTOSIS 2+; BURR CELLS SLIGHT; MICROCYTOSIS 1+; OVALOCYTES SLIGHT; POIKILOCYTOSIS 1+; POLYCHROMASIA SLIGHT
[2017-03-06] MEDS: OXYCODONE HCL IR 5 MG TABLET PO PRN (07:56)
[2017-03-06] MEDS: LANSOPRAZOLE 30 MG TAB.RAP.DR NG SCH (07:56)
[2017-03-06] MEDS: SPIRONOLACTONE 25 MG TABLET NG SCH (09:50)
[2017-03-06] MEDS: POTASSIUM CHLORIDE 10 MEQ TABLET.SA PO SCH (09:50)
[2017-03-06] MEDS: FUROSEMIDE 40 MG TABLET PO SCH (09:50)
[2017-03-06] MEDS: PREDNISONE 20 MG TABLET PO SCH (09:51)
[2017-03-06] MEDS ORDERED: PREDNISONE 20 MG TABLET PO SCH ×2 (10:00→10:12)
--- NOTE | 2017-03-06 10:36 | PDOC PROGRESS REPORT ---
Subjective Progress Note for:: 03/06/17 Subjective:: Denies any complaints. Physical Exam Vital Signs: Temp Pulse Resp BP Pulse Ox 97.7 F 120 H 18 134/80 H 92 03/06/17 07:25 03/06/17 07:56 03/06/17 07:56 03/06/17 07:25 03/06/17 07:56 Intake & Output 03/05/17 03/06/17 03/07/17 06:59 06:59 06:59 Intake Total 1238 1740 Output Total 500 Balance 738 1740 Weight 48.4 kg 47.6 kg General appearance: PRESENT: no acute distress Eye exam: PRESENT: conjunctiva pink. ABSENT: scleral icterus Ear exam: PRESENT: normal external ear exam Mouth exam: PRESENT: moist, tongue midline Neck exam: ABSENT: JVD Respiratory exam: PRESENT: clear to auscultation alecia. ABSENT: rales, rhonchi, wheezes Cardiovascular exam: PRESENT: RRR, systolic murmur - 2/6 systolic murmur.. ABSENT: diastolic murmur, rubs GI/Abdominal exam: PRESENT: normal bowel sounds, soft. ABSENT: distended, guarding, mass, organolmegaly, rebound, tenderness Extremities exam: ABSENT: calf tenderness, clubbing, pedal edema Neurological exam: PRESENT: alert, awake, oriented to person, oriented to place , oriented to time, oriented to situation, CN II-XII grossly intact, other - Generalized weakness. ABSENT: motor sensory deficit Psychiatric exam: PRESENT: appropriate affect Skin exam: PRESENT: dry, intact, warm. ABSENT: cyanosis, rash Results Laboratory Results: 03/06/17 05:30 03/06/17 05:30 03/06/17 03/06/17 05:30 05:30 WBC 16.2 H RBC 5.03 Hgb 11.9 L Hct 37.8 MCV 75 L MCH 23.7 L MCHC 31.6 L RDW 22.1 H Plt Count 299 Seg Neutrophils % 74.0 Lymphocytes % 18.4 Monocytes % 7.3 Eosinophils % 0.1 Basophils % 0.2 Absolute Neutrophils 12.0 H Absolute Lymphocytes 3.0 Absolute Monocytes 1.2 Absolute Eosinophils 0.0 Absolute Basophils 0.0 Sodium 139.7 Potassium 4.6 Chloride 103 Carbon Dioxide 24 Anion Gap 13 BUN 12 Creatinine 0.46 L Est GFR ( Amer) > 60 Est GFR (Non-Af Amer) > 60 Glucose 87 Calcium 10.2 02/19/17 02/19/17 02/19/17 08:00 08:00 15:38 Creatine Kinase 27 L < 20 L CK-MB (CK-2) 0.80 Troponin I 0.019 02/19/17 02/19/17 02/19/17 15:38 22:45 22:45 Creatine Kinase < 20 L CK-MB (CK-2) 0.74 0.24 Troponin I 0.013 < 0.012 02/25/17 00:15 Creatine Kinase CK-MB (CK-2) Troponin I 0.028 Impressions: Head CT 02/19/17 01:56 IMPRESSION: No acute findings. Interval development of a right lacunar infarct. Essentially stable appearance of left frontal lobe hypoattenuation ; given concomitant vascular calcifications, favor this to be on the basis of previous ischemic event. Paracentesis Ultrasound 02/22/17 08:11 IMPRESSION: Successful ultrasound-guided diagnostic and therapeutic paracentesis Thoracentesis Ultrasound 02/23/17 08:31 IMPRESSION: SUCCESSFUL ULTRASOUND-GUIDED CHEST TUBE PLACEMENT, RIGHT HEMITHORAX KUB X-Ray 02/26/17 12:21 IMPRESSION: Nasogastric tube tip and side port in the stomach. Mild gaseous distension of mid small bowel loops. Chest X-Ray 02/28/17 06:00 IMPRESSION: No significant interval change. Assessment & Plan - Diagnosis (1) Sepsis Qualifiers: Sepsis type: sepsis due to unspecified organism Qualified Code(s): A41.9 - Sepsis, unspecified organism Is this a current diagnosis for this admission?: NoPlan: She has pneumonia as the cause for her sepsis. Has completed a course of antibiotics. (2) Altered mental status Qualifiers: Altered mental status type: unspecified Qualified Code(s): R41.82 - Altered mental status, unspecified Is this a current diagnosis for this admission?: YesPlan: Resolved (3) Pneumonia Qualifiers: Pneumonia type: aspiration pneumonia Laterality: bilateral Lung location: unspecified part of lung Is this a current diagnosis for this admission?: YesPlan: Has completed 14 days of antibiotics. (4) CVA (cerebral vascular accident) Qualifiers: CVA mechanism: unspecified Qualified Code(s): I63.9 - Cerebral infarction, unspecified Is this a current diagnosis for this admission?: YesPlan: Treat with aspirin (5) Respiratory failure Qualifiers: Chronicity: acute Respiratory failure complication: hypoxia and hypercapnia Qualified Code(s): J96.01 - Acute respiratory failure with hypoxia Is this a current diagnosis for this admission?: NoPlan: Resolved (6) Anemia Qualifiers: Anemia type: unspecified type Qualified Code(s): D64.9 - Anemia, unspecified Is this a current diagnosis for this admission?: YesPlan: Hemoglobin has remained stable (7) Bipolar disorder Qualifiers: Active/Remission status: remission status unspecified Qualified Code (s): F31.9 - Bipolar disorder, unspecified Is this a current diagnosis for this admission?: Yes (8) Carotid atherosclerosis Qualifiers: Laterality: left Qualified Code(s): I65.22 - Occlusion and stenosis of left carotid artery Is this a current diagnosis for this admission?: Yes (9) Essential hypertension Is this a current diagnosis for this admission?: Yes (10) Hyperlipidemia Qualifiers: Hyperlipidemia type: unspecified Qualified Code(s): E78.5 - Hyperlipidemia, unspecified Is this a current diagnosis for this admission?: Yes (11) Liver cirrhosis Qualifiers: Hepatic cirrhosis type: unspecified hepatic cirrhosis Ascites presence : with ascites Qualified Code(s): K74.60 - Unspecified cirrhosis of liver Is this a current diagnosis for this admission?: Yes (12) Peripheral vascular disease Is this a current diagnosis for this admission?: Yes (13) Coronary artery disease Is this a current diagnosis for this admission?: YesPlan: Denies any chest pain - Time Time Spent with patient: 25-34 minutes - Plan Summary Plan Summary: Awaiting rehab placement
--- NOTE | 2017-03-06 14:52 | PDOC TRANSFER SUMMARY ---
General - Admit/Disc Date/PCP Admission Date/Primary Care Provider: 02/19/17 04:10 Discharge Date: 03/06/17 - Discharge Diagnosis (1) Sepsis Is this a current diagnosis for this admission?: YesSummary: Secondary to pneumonia (2) Altered mental status Is this a current diagnosis for this admission?: YesSummary: Secondary to the acute infection as well as hepatic encephalopathy. (3) Pneumonia Is this a current diagnosis for this admission?: YesSummary: No bacteria grew from cultures. Completed a full course of 14 days of antibiotics. The patient had a pleural effusion that was drained with thoracentesis while hospitalized. (4) CVA (cerebral vascular accident) Is this a current diagnosis for this admission?: YesSummary: Treated with aspirin (5) Respiratory failure Is this a current diagnosis for this admission?: Yes (6) Anemia Is this a current diagnosis for this admission?: YesSummary: Patient was evaluated by GI while here. He recommended an EGD in 2 months. (7) Bipolar disorder Is this a current diagnosis for this admission?: Yes (8) Carotid atherosclerosis Is this a current diagnosis for this admission?: Yes (9) Essential hypertension Is this a current diagnosis for this admission?: Yes (10) Hyperlipidemia Is this a current diagnosis for this admission?: Yes (11) Liver cirrhosis Is this a current diagnosis for this admission?: YesSummary: Had a paracentesis with removal of 6 L while hospitalized. (12) Peripheral vascular disease Is this a current diagnosis for this admission?: Yes (13) Coronary artery disease Is this a current diagnosis for this admission?: Yes - Additional Information Resuscitation Status: Full Code Discharge Diet: Cardiac Discharge Activity: Activity As Tolerated Home Medications: Aspirin 81 mg PO DAILY PRN #1 pkg 03/06/17 Atorvastatin Calcium [Lipitor 80 mg Tablet] 80 mg NG QHS tablet 03/06/17 Hydroxyzine HCl [Atarax 10 mg Tablet] 10 mg PO Q6HP PRN tablet 03/06/17 Ipratropium/Albuterol Sulfate [Duoneb 3 ml Ampul] 3 ml NEB RTQ6 vial.neb Nadolol [Corgard 40 Mg Tablet] 40 mg PO DAILY #30 tablet 03/06/17 Oxycodone HCl [Oxy-Ir 5 mg Tablet] 10 mg PO Q4HP PRN #20 tablet 03/06/17 Potassium Chloride [Klor-Con 10 Meq Tablet.sa] 40 meq PO Q12 tablet.sa Prednisone [Deltasone 20 mg Tablet] 20 mg PO DAILY tablet 03/06/17 Spironolactone [Aldactone 25 mg Tablet] 50 mg NG DAILY tablet 03/06/17 History of Present Illness Admission Date/PCP: 02/19/17 04:10 History of Present Illness: 51-year-old female with a history of cirrhosis of coronary artery disease who presented with respiratory failure. The patient was diagnosed 3 days prior to admission with pneumonia and started on outpatient antibiotics. Patient was found by her and she was unresponsive and was hypoxic with oxygen saturations of 40%. The patient's did chest compressions and the patient was transferred to the hospital by EMS. Patient was intubated and had a head CT which showed a new infarction. The patient was noted to have pneumonia and effusion. Hospital Course Hospital Course: 51-year-old female who presented with respiratory failure secondary to pneumonia and possible new CVA. Patient was hypoxic and appeared to have aspirated prior to presentation. Her performed CPR on her and she was admitted to the hospital and treated for pneumonia. Patient was started on broad-spectrum antibiotics and was eventually switched over to Augmentin. Patient has completed a 14 day course of antibiotics. Patient was in the intensive care unit because of intubation and she did have a pleural effusion that required a thoracentesis for drainage of the fluid. Patient also has a history of cirrhosis and had anemia and GI was consulted. They recommended an EGD in 2 months and to restart the beta blockers when feasible. Patient had a distended abdomen consistent with ascites and she underwent a paracentesis with removal of 6 L. The patient has improved from her pneumonia and would like to go home however she is very weak. She is requiring maximum assistance to get out of bed. Because of this it was felt that she would benefit from rehabilitation. She will be sent to [facility] for physical therapy Physical Exam Vital Signs: Temp Pulse Resp BP Pulse Ox 98.3 F 115 H 16 136/83 H 96 03/06/17 11:52 03/06/17 13:50 03/06/17 13:50 03/06/17 11:52 03/06/17 11:52 Intake & Output 03/05/17 03/06/17 03/07/17 06:59 06:59 06:59 Intake Total 1238 1740 462 Output Total 500 Balance 738 1740 462 Weight 48.4 kg 47.6 kg General appearance: PRESENT: no acute distress Eye exam: PRESENT: conjunctiva pink. ABSENT: scleral icterus Ear exam: PRESENT: normal external ear exam Mouth exam: PRESENT: moist, tongue midline Neck exam: ABSENT: carotid bruit, JVD, lymphadenopathy, thyromegaly Respiratory exam: PRESENT: clear to auscultation alecia. ABSENT: rales, rhonchi, wheezes Cardiovascular exam: PRESENT: RRR. ABSENT: diastolic murmur, rubs, systolic murmur GI/Abdominal exam: PRESENT: normal bowel sounds, soft. ABSENT: distended, guarding, mass, organolmegaly, rebound, tenderness Extremities exam: ABSENT: calf tenderness, clubbing, pedal edema Neurological exam: PRESENT: alert, awake, oriented to person, oriented to place , oriented to time, oriented to situation, CN II-XII grossly intact. ABSENT: motor sensory deficit Psychiatric exam: PRESENT: appropriate affect Skin exam: PRESENT: dry, intact, warm. ABSENT: cyanosis, rash Results Laboratory Results: 03/06/17 05:30 03/06/17 05:30 03/06/17 03/06/17 05:30 05:30 WBC 16.2 H RBC 5.03 Hgb 11.9 L Hct 37.8 MCV 75 L MCH 23.7 L MCHC 31.6 L RDW 22.1 H Plt Count 299 Seg Neutrophils % 74.0 Lymphocytes % 18.4 Monocytes % 7.3 Eosinophils % 0.1 Basophils % 0.2 Absolute Neutrophils 12.0 H Absolute Lymphocytes 3.0 Absolute Monocytes 1.2 Absolute Eosinophils 0.0 Absolute Basophils 0.0 Sodium 139.7 Potassium 4.6 Chloride 103 Carbon Dioxide 24 Anion Gap 13 BUN 12 Creatinine 0.46 L Est GFR ( Amer) > 60 Est GFR (Non-Af Amer) > 60 Glucose 87 Calcium 10.2 02/19/17 02/19/17 02/19/17 08:00 08:00 15:38 Creatine Kinase 27 L < 20 L CK-MB (CK-2) 0.80 Troponin I 0.019 02/19/17 02/19/17 02/19/17 15:38 22:45 22:45 Creatine Kinase < 20 L CK-MB (CK-2) 0.74 0.24 Troponin I 0.013 < 0.012 02/25/17 00:15 Creatine Kinase CK-MB (CK-2) Troponin I 0.028 Impressions: Head CT 02/19/17 01:56 IMPRESSION: No acute findings. Interval development of a right lacunar infarct. Essentially stable appearance of left frontal lobe hypoattenuation ; given concomitant vascular calcifications, favor this to be on the basis of previous ischemic event. Paracentesis Ultrasound 02/22/17 08:11 IMPRESSION: Successful ultrasound-guided diagnostic and therapeutic paracentesis Thoracentesis Ultrasound 02/23/17 08:31 IMPRESSION: SUCCESSFUL ULTRASOUND-GUIDED CHEST TUBE PLACEMENT, RIGHT HEMITHORAX KUB X-Ray 02/26/17 12:21 IMPRESSION: Nasogastric tube tip and side port in the stomach. Mild gaseous distension of mid small bowel loops. Chest X-Ray 02/28/17 06:00 IMPRESSION: No significant interval change. Transfer Plan - Disposition Transfer Plan: Patient will be transferred to [facility] - Time Spent with Patient Time spent with patient: Greater than 30 Minutes Qualifiers PATEINT BEING DISCHARGED WITH ANY OF THE FOLLOWING DIAGNOSIS?: Stroke Stroke Pt being discharged on Anti-thrombolytic therapy?: Yes Stroke Pt being discharged on Anti-coagulation therapy?: No Reason(s) for not prescribing Anti-coagulation therapy:: Procedure Contraindicated Stroke Pt being discharged on Statins?: Yes Plan Discharge Plan: Patient is discharged to [facility]. Time Spent: Greater than 30 Minutes
[2017-03-06 16:33] VITALS: BP 157/97
== END 2017-03-06 17:00 | DRG 870 ==
LOC: ER 01:50 → EH 04:10 → UNDOADMIN 04:12 → EH 04:12 → ICU 05:44 → 3W 03-01 14:07
PROVIDERS: ADMIT Internal Medicine; ATTEND Internal Medicine
PROC: 02H633Z Insertion of Infusion Device into Right Atrium, Percutaneous Approach (ICD-10-PCS; 2017-02-19)
PROC: 5A1955Z Respiratory Ventilation, Greater than 96 Consecutive Hours (ICD-10-PCS; principal; 2017-02-22)
PROC: 0W9G3ZZ Drainage of Peritoneal Cavity, Percutaneous Approach (ICD-10-PCS; 2017-02-22)
PROC: 30233N1 Transfusion of Nonautologous Red Blood Cells into Peripheral Vein, Percutaneous Approach (ICD-10-PCS; 2017-02-22)
PROC: 0W9930Z Drainage of Right Pleural Cavity with Drainage Device, Percutaneous Approach (ICD-10-PCS; 2017-02-23)
PROC: 0BH17EZ Insertion of Endotracheal Airway into Trachea, Via Natural or Artificial Opening (ICD-10-PCS; 2017-02-24)
PROC: 5A1945Z Respiratory Ventilation, 24-96 Consecutive Hours (ICD-10-PCS; 2017-02-24)
PROC: 02HV33Z Insertion of Infusion Device into Superior Vena Cava, Percutaneous Approach (ICD-10-PCS; 2017-02-25)
DX: A41.9 Sepsis, unspecified organism (principal); J96.01 Acute respiratory failure with hypoxia; I63.9 Cerebral infarction, unspecified; J69.0 Pneumonitis due to inhalation of food and vomit; J96.02 Acute respiratory failure with hypercapnia; J44.1 Chronic obstructive pulmonary disease with (acute) exacerbation; I85.10 Secondary esophageal varices without bleeding; R18.8 Other ascites; J91.8 Pleural effusion in other conditions classified elsewhere; I11.0 Hypertensive heart disease with heart failure; I50.9 Heart failure, unspecified; R65.20 Severe sepsis without septic shock; I70.90 Unspecified atherosclerosis; E66.9 Obesity, unspecified; E78.5 Hyperlipidemia, unspecified; K74.60 Unspecified cirrhosis of liver; I25.10 Atherosclerotic heart disease of native coronary artery without angina pectoris; I87.2 Venous insufficiency (chronic) (peripheral); K25.9 Gastric ulcer, unspecified as acute or chronic, without hemorrhage or perforation; Z95.5 Presence of coronary angioplasty implant and graft; G62.9 Polyneuropathy, unspecified; I73.9 Peripheral vascular disease, unspecified; D64.9 Anemia, unspecified; R19.5 Other fecal abnormalities; F31.9 Bipolar disorder, unspecified; M19.90 Unspecified osteoarthritis, unspecified site; Z91.19 Patient's noncompliance with other medical treatment and regimen; Z85.43 Personal history of malignant neoplasm of ovary; Z79.899 Other long term (current) drug therapy; Z78.1 Physical restraint status; Z86.73 Personal history of transient ischemic attack (TIA), and cerebral infarction without residual deficits; Z90.710 Acquired absence of both cervix and uterus; Z80.9 Family history of malignant neoplasm, unspecified; G43.909 Migraine, unspecified, not intractable, without status migrainosus
CPT/HCPCS: 31500; 32555; 36415; 36430; 36600; 49083; 51702; 70450; 71010; 71020; 74000; 80048; 80053; 80061; 80076; 80202; 80307; 81001; 82140; 82150; 82272; 82550; 82553; 82803; 82945; 82962; 83605; 83615; 83690; 83735; 84100; 84132; 84157; 84478; 84484; 85025; 85027; 85610; 85730; 86850; 86900; 86901; 86920; 87015; 87040; 87070; 87075; 87116; 87205; 87206; 89050; 93005; 93010; 94002; 94003; 94640; 94660; 94667; 94668; 94799; 99291; C1751; G8978-GP; G8979-GP; J0330; J1642; J1644; J1815; J1940; J1956; J2370; J2405; J2543; J2704; J2920; J3010; J3370; J3411; J3475; J3480; J3490; J7030; J7060; J7512; J7620; P9016; S0028

== ENCOUNTER 2017-03-07 12:33 | Emergency (ER) | payer MEDICARE, MEDICAID ==
[2017-03-07] MEDS ORDERED: NORMAL SALINE 1000 ML 1,000 ML IV ONE (13:26)
[2017-03-07 14:16] LABS: VENOUS BLOOD BASE EXCESS 3.2 mmol/L; VENOUS BLOOD HCO3 26.7 mmol/L (20-32); VENOUS BLOOD PH 7.48 (7.30-7.42)
[2017-03-07 14:18] LABS: ABSOLUTE LYMPHOCYTES (AUTO) 2.3 10^3/uL (0.5-4.7); ABSOLUTE MONOCYTES (AUTO) 0.8 10^3/uL (0.1-1.4); ABSOLUTE NEUT (AUTO) 10.6 10^3/uL (1.7-8.2); BASOPHILS % (AUTO) 0.2 % (0-2); EOSINOPHILS % (AUTO) 0.1 % (0-6); HEMATOCRIT 43.2 % (36.0-47.0); HEMOGLOBIN 13.6 g/dL (12.0-15.5); HGB HCT DIFFERENCE -2.4; LYMPHOCYTES % (AUTO) 17.1 % (13-45); MEAN CORPUSCULAR HEMOGLOBIN 23.5 pg (27.0-33.4); MEAN CORPUSCULAR HGB CONC 31.5 g/dL (32.0-36.0); MEAN CORPUSCULAR VOLUME 75 fl (80-97); MONOCYTES % (AUTO) 5.6 % (3-13); RED BLOOD COUNT 5.77 10^6/uL (3.72-5.28); RED CELL DISTRIBUTION WIDTH 22.8 % (11.5-14.0); WHITE BLOOD COUNT 13.7 10^3/uL (4.0-10.5)
[2017-03-07 14:19] LABS: PROTHROMBIN TIME 15.8 SEC (11.4-15.4)
[2017-03-07 14:20] LABS: PARTIAL THROMBOPLASTIN TIME 32.9 SEC (23.5-35.8)
[2017-03-07 14:31] LABS: ALANINE AMINOTRANSFERASE 49 U/L (9-52); ALBUMIN 3.8 g/dL (3.5-5.0); ALKALINE PHOSPHATASE 161 U/L (38-126); ANION GAP 17 (5-19); ASPARTATE AMINO TRANSFERASE 46 U/L (14-36); BILIRUBIN,DIRECT 0.6 mg/dL (0.0-0.4); BILIRUBIN,TOTAL 1.3 mg/dL (0.2-1.3); BLOOD UREA NITROGEN 21 mg/dL (7-20); CALCIUM 10.9 mg/dL (8.4-10.2); CARBON DIOXIDE 22 mmol/L (22-30); CHLORIDE 101 mmol/L (98-107); CREATININE RESULT 0.52 mg/dL (0.52-1.25); GLUCOSE 128 mg/dL (75-110); TOTAL PROTEIN 7.4 g/dL (6.3-8.2)
[2017-03-07 14:34] LABS: ALCOHOL < 10 mg/dL (NONE DETECTED)
[2017-03-07] MEDS ORDERED: LORAZEPAM INJ 2 MG/1 ML VIAL IV ONE ×2 (14:53→14:55)
--- NOTE | 2017-03-07 16:26 | RADIOLOGY REPORT (SQ) ---
EXAM DESCRIPTION: CTA CHEST COMPLETED DATE/TIME: 03/07/2017 4:08 pm REASON FOR STUDY: tachy COMPARISON: None. TECHNIQUE: CT scan of the chest performed using helical scanning technique with dynamic intravenous contrast injection. Images reviewed with lung, soft tissue and bone windows. Reconstructed coronal and sagittal MPR images reviewed. Additional 3 dimensional post-processing performed to develop Maximal Intensity Projection images (KS P). All images stored on PACS. All CT scanners at this facility use dose modulation, iterative reconstruction, and/or weight based d osing when appropriate to reduce radiation dose to as low as reasonably achievable (ALARA). [facility]: Dose Right [facility]: CareDose [facility]: Dose Right [facility]: Teradose 4D [facility]: netomat CONTRAST TYPE AND DOSE: contrast/concentration: Isovue 370.00 mg/ml; Total Contrast Delivered: 63.0 ml; Total Saline Delivered: 100.0 ml RENAL FUNCTION: BUN 21 creatinine 0.52. RADIATION DOSE: 27.55 . LIMITATIONS: None. FINDINGS: LUNGS AND PLEURA: Small-moderate right pleural effusion with mild basilar atelectasis. Josselin ngs are otherwise clear. No infiltrates. No pneumothorax. AORTA AND GREAT VESSELS: No aneurysm or dissection. HEART: No pericardial effusion. PULMONARY ARTERIES: No emboli visualized in the main pulmonary arteries or the segmental branches. HILAR AND MEDIASTINAL STRUCTURES: No identified masses or abnormal nodes. HARDWARE: None in the chest. UPPER ABDOMEN: Ascites. Limited exam. THYROID AND OTHER SOFT TISSUES: No masses. No adenopathy. BONES: Several bilateral healing rib fractures. 3D MIPS: Confirm above findings. OTHER: No other significant finding. IMPRESSION: 1. NORMAL CTA OF THE CHEST. NO PULMONARY EMBOLI. 2. SMALL-MODERATE RIGHT PLEURAL EFFUSION WITH MILD BASILAR ATELECTASIS. LUNGS OTHERWISE CLEAR. 3. ASCITES. 4. SEVERAL SUBACUTE HEALING RIB FRACTURES. TECHNICAL DOCUMENTATION: JOB ID: [id number] Quality ID # [id number]: Final reports with documentation of one or more dose reduction techniques (e.g., Au tomated exposure control, adjustment of the mA and/or kV according to patient size, use of iterative reconstruction technique) 2010 [employer]- All Rights Reserved
[2017-03-07] MEDS ORDERED: METOPROLOL TARTRATE 25 MG TABLET PO ONE (16:58)
[2017-03-07 17:12] LABS: APPEARANCE,URINE SLIGHTLY-CLOUDY; BILIRUBIN,URINE NEGATIVE (NEGATIVE); GLUCOSE, URINE NEGATIVE (NEGATIVE); KETONES,URINE NEGATIVE (NEGATIVE); LEUKOCYTE ESTERASE,URINE TRACE (NEGATIVE); NITRITE,URINE NEGATIVE (NEGATIVE); PROTEIN,URINE NEGATIVE (NEGATIVE); URINE SPECIFIC GRAVITY 1.032; UROBILINOGEN,URINE NEGATIVE mg/dL (<2.0)
[2017-03-07] MEDS ORDERED: METOPROLOL TARTRATE PF/INJ 5 MG/5 ML SDV IV ONE (17:19)
[2017-03-07 17:27] LABS: URINE BARBITURATES SCREEN NEGATIVE; URINE METHADONE SCREEN NEGATIVE; URINE OPIATES LOW NEGATIVE; URINE PHENCYCLIDINE SCREEN NEGATIVE
--- NOTE | 2017-03-07 18:24 | ER Document Report ---
ED General - General Chief Complaint: Other Stated Complaint: PSYCH EVAL Time Seen by Provider: 03/07/17 12:45 TRAVEL OUTSIDE OF THE [place] IN LAST 30 DAYS: No - HPI Patient complains to provider of: Evaluation Notes: Patient coming in for evaluation. Patient coming in for evaluation. [facility] being [facility] to the hospital for approximately 14 days for IV antibiotic therapy due to the pneumonia. Patient has a history of coronary artery disease with stent placement liver cirrhosis with ascites coagulopathies hypertension. Patient according to our social and political studies professor was calling 911 at the half-way facility multiple times the police were contacted and patient called 911 in front of her local [place] law enforcement officers and was arrested taken to penitentiary then released patient was doing this due to the fact that she did want to leave the half-way half-way would not allow the patient to return therefore patient was released in the custody of her family family due to the patient's multiple medical problems does not know what to do with her therefore EMS was called and patient was brought into the ER for further evaluation. Upon my evaluation patient has no complaints denies chest pain fever chills nausea vomiting abdominal pain. Patient's vital signs are being taken multiple times does show significant tachycardia. - Related Data Allergies/Adverse Reactions: No Known Allergies Allergy (Verified 03/07/17 13:16) Home Medications: Current Home Medications Potassium Chloride 10 meq PO Q12H 03/07/17 [History] Prednisone 20 mg PO DAILY 03/07/17 [History] Spironolactone [Aldactone 25 mg Tablet] 50 mg PO DAILY 03/07/17 [History] Past Medical History - Social History Smoking Status: Current Every Day Smoker Chew tobacco use (# tins/day): No Frequency of alcohol use: None Drug Abuse: None Family History: Reviewed & Not Pertinent, Malignancy - Past Medical History Cardiac Medical History: Reports: Hx Congestive Heart Failure, Hx Coronary Artery Disease, Hx Heart Attack, Hx Hypercholesterolemia, Hx Hypertension, Hx Peripheral Vascular Disease Pulmonary Medical History: Denies: Hx Asthma, Hx Bronchitis, Hx COPD, Hx Pneumonia Neurological Medical History: Reports: Hx Cerebrovascular Accident, Hx Migraine. Denies: Hx Seizures Renal/ Medical History: Denies: Hx Peritoneal Dialysis Malignancy Medical History: Reports: Hx Ovarian Cancer GI Medical History: Reports: Hx Endoscopy Musculoskeltal Medical History: Reports Hx Arthritis Psychiatric Medical History: Reports: Hx Anxiety, Hx Bipolar Disorder, Hx Depression Past Surgical History: Reports: Hx Cardiac Surgery, Hx Coronary Stent - x2, Hx Gynecologic Surgery, Hx Hysterectomy, Hx Oral Surgery, Hx Orthopedic Surgery - C7 plate/fusion, Hx Tonsillectomy - Immunizations Hx Diphtheria, Pertussis, Tetanus Vaccination: Yes Review of Systems - Review of Systems Constitutional: No symptoms reported EENT: No symptoms reported Cardiovascular: No symptoms reported Respiratory: No symptoms reported Gastrointestinal: No symptoms reported Genitourinary: No symptoms reported Female Genitourinary: No symptoms reported Musculoskeletal: No symptoms reported Skin: No symptoms reported Hematologic/Lymphatic: No symptoms reported Neurological/Psychological: No symptoms reported Physical Exam - Vital signs Vitals: Resp BP 30 H 162/114 H 03/07/17 13:20 03/07/17 13:20 Interpretation: Normal - General General appearance: Alert - HEENT Head: Normocephalic, Atraumatic Eyes: Normal Pupils: PERRL - Respiratory Respiratory status: No respiratory distress Chest status: Nontender Breath sounds: Normal Chest palpation: Normal - Cardiovascular Rhythm: Regular Heart sounds: Normal auscultation Murmur: No - Abdominal Inspection: Normal Distension: No distension Bowel sounds: Normal Tenderness: Nontender Organomegaly: No organomegaly - Back Back: Normal, Nontender - Extremities General upper extremity: Normal inspection, Nontender, Normal color, Normal ROM , Normal temperature General lower extremity: Normal inspection, Nontender, Normal color, Normal ROM , Normal temperature, Normal weight bearing. No: Ange's sign - Neurological Neuro grossly intact: Yes Cognition: Normal Orientation: AAOx4 Abner Coma Scale Eye Opening: Spontaneous Berclair Coma Scale Verbal: Oriented Abner Coma Scale Motor: Obeys Commands Berclair Coma Scale Total: 15 Speech: Normal Motor strength normal: LUE, RUE, LLE, RLE Sensory: Normal - Psychological Associated symptoms: Normal affect, Normal mood - Skin Skin Temperature: Warm Skin Moisture: Dry Skin Color: Normal Course - Re-evaluation Re-evalutation: 03/07/17 18:44 Due to the tachycardia and EKG was performed which showed diffuse T-wave and ST segment depressions inversions especially in V4 V5 V6 which are new compared to recent EKG performed on the patient was here in the hospital. Lab work otherwise did not show any significant pathology. Troponin returned at 0.1. I discussed with our hospitalist team and her mfg assoc last ironer Dr. mirza who suggested the patient be transferred to tertiary care facility due to EKG changes and possibly elevated troponin. Dr. Conn suggested giving a beta- mark anthony as well as anticoagulating the patient with Lovenox. Beta-mark anthony was given Lovenox was held due to the patient's history liver cirrhosis and coagulopathy. Discussed with cardiology and [facility] Dr. Richmond and hospitalist Dr. De Los Santos who accepted the patient in transfer due to EKG changes. All medications were given to the patient. Patient will continue on IV fluids at that her heart rate did improve after IV fluid administration. More likely tachycardia and EKG changes are due to demand as patient according to Dr. Richmond does have distal peripheral disease that is not a candidate for revascularization according to the last catheterization performed in 2014. - Vital Signs Vital signs: Temp Pulse Resp BP Pulse Ox 25 H 141/101 H 99 03/07/17 18:01 03/07/17 18:01 03/07/17 18:01 - Laboratory Result Diagrams: 03/07/17 13:50 03/07/17 13:50 Laboratory results interpreted by me: 03/07/17 03/07/17 03/07/17 13:50 13:50 13:50 WBC 13.7 H RBC 5.77 H MCV 75 L MCH 23.5 L MCHC 31.5 L RDW 22.8 H Absolute Neutrophils 10.6 H PT 15.8 H VBG pH BUN 21 H Glucose 128 H Calcium 10.9 H Direct Bilirubin 0.6 H AST 46 H Alkaline Phosphatase 161 H Ammonia Creatine Kinase Ur Leukocyte Esterase Salicylates < 1.0 L Acetaminophen < 10 L 03/07/17 03/07/17 03/07/17 13:50 13:50 13:50 WBC RBC MCV MCH MCHC RDW Absolute Neutrophils PT VBG pH 7.48 H BUN Glucose Calcium Direct Bilirubin AST Alkaline Phosphatase Ammonia < 8.7 L Creatine Kinase 168 H Ur Leukocyte Esterase Salicylates Acetaminophen 03/07/17 16:55 WBC RBC MCV MCH MCHC RDW Absolute Neutrophils PT VBG pH BUN Glucose Calcium Direct Bilirubin AST Alkaline Phosphatase Ammonia Creatine Kinase Ur Leukocyte Esterase TRACE H Salicylates Acetaminophen Discharge - Discharge Clinical Impression: ST segment changes on electrocardiography, Elevated troponin level Disposition: [facility]
[2017-03-07 21:45] VITALS: BP 153/109
--- NOTE | 2017-03-07 22:38 | EKG REPORT ---
SEVERITY:- ABNORMAL ECG - SINUS TACHYCARDIA PROBABLE LEFT ATRIAL ABNORMALITY LVH WITH SECONDARY REPOLARIZATION ABNORMALITY ST DEPRESSION, CONSIDER ISCHEMIA, ANT-LAT LDS : Confirmed by: Zain Mccoy 07-Mar-2017 22:37:48
--- NOTE | 2017-03-07 22:40 | EKG REPORT ---
SEVERITY:- ABNORMAL ECG - SINUS TACHYCARDIA PROBABLE LEFT ATRIAL ABNORMALITY PROBABLE LVH WITH SECONDARY REPOL ABNRM ST DEPRESSION, CONSIDER ISCHEMIA, DIFFUSE LDS : Confirmed by: Zain Mccoy 07-Mar-2017 22:38:33
--- NOTE | 2017-03-07 22:40 | EKG REPORT ---
SEVERITY:- ABNORMAL ECG - SINUS TACHYCARDIA VENTRICULAR PREMATURE COMPLEX PROBABLE LEFT ATRIAL ABNORMALITY LVH WITH SECONDARY REPOLARIZATION ABNORMALITY PROBABLE INFERIOR INFARCT, AGE INDETERMINATE ST DEPRESSION, CONSIDER ISCHEMIA, ANT-LAT LDS : Confirmed by: Zain Mccoy 07-Mar-2017 22:38:22
[2017-03-08] MEDS ORDERED: SPIRONOLACTONE 25 MG TABLET PO SCH (10:00)
== END 2017-03-07 21:53 | disposition short-term general hospital (02) ==
LOC: ER 12:33
DX: R94.31 Abnormal electrocardiogram [ECG] [EKG] (principal); R74.8 Abnormal levels of other serum enzymes; F17.200 Nicotine dependence, unspecified, uncomplicated; I50.9 Heart failure, unspecified; I25.10 Atherosclerotic heart disease of native coronary artery without angina pectoris; E78.00 Pure hypercholesterolemia, unspecified; I11.0 Hypertensive heart disease with heart failure; Z86.73 Personal history of transient ischemic attack (TIA), and cerebral infarction without residual deficits; Z90.710 Acquired absence of both cervix and uterus; Z98.1 Arthrodesis status; I25.2 Old myocardial infarction
CPT/HCPCS: 93005; 99285; 51701; 96374; 96375; 36415; 80307 ×4; 82140; 82550; 85025; 85610; 85730; 80053; 81001; 84484; 82803; 83605; 71275; 93010; J3490; J2060; J7030

== ENCOUNTER → 2017-10-20 | Outpatient (CLI) | payer MEDICARE, MEDICAID ==
[2017-10-20 18:14] LABS: HEMATOCRIT 31.6 % (36.0-47.0); HEMOGLOBIN 9.6 g/dL (12.0-15.5); MEAN CORPUSCULAR HEMOGLOBIN 18.4 pg (27.0-33.4); MEAN CORPUSCULAR HGB CONC 30.3 g/dL (32.0-36.0); PLATELET COUNT 198 10^3/uL (150-450); RED CELL DISTRIBUTION WIDTH 22.5 % (11.5-14.0); WHITE BLOOD COUNT 9.2 10^3/uL (4.0-10.5)
[2017-10-20 18:22] LABS: INTERNATIONAL RATION (INR) 1.18; PROTHROMBIN TIME 15.8 SEC (11.4-15.4)
[2017-10-20 18:35] LABS: ALANINE AMINOTRANSFERASE 21 U/L (9-52); ALBUMIN 4.4 g/dL (3.5-5.0); ALKALINE PHOSPHATASE 136 U/L (38-126); ANION GAP 12 (5-19); ASPARTATE AMINO TRANSFERASE 18 U/L (14-36); BILIRUBIN,DIRECT 0.3 mg/dL (0.0-0.4); BILIRUBIN,TOTAL 0.6 mg/dL (0.2-1.3); BLOOD UREA NITROGEN 8 mg/dL (7-20); CALCIUM 10.3 mg/dL (8.4-10.2); CARBON DIOXIDE 24 mmol/L (22-30); CHLORIDE 102 mmol/L (98-107); GLUCOSE 102 mg/dL (75-110); POTASSIUM 4.2 mmol/L (3.6-5.0); SODIUM 138.3 mmol/L (137-145); TOTAL PROTEIN 7.9 g/dL (6.3-8.2)
[2017-10-20 18:46] LABS: MEAN CORPUSCULAR VOLUME 61 fl (80-97)
== END ==
LOC: LAB 16:33
PROVIDERS: ATTEND Physician Assistant Surgical
DX: G93.41 Metabolic encephalopathy (principal); K74.69 Other cirrhosis of liver
CPT/HCPCS: 36415; 80053; 82105; 82140; 85027; 85610

== ENCOUNTER 2017-10-23 07:30 | Day surgery (SDC) | payer MEDICARE, MEDICAID ==
[2017-10-23] MEDS ORDERED: ALBUMIN HUMAN 200 ML IV PRN (08:59)
--- NOTE | 2017-10-23 11:11 | RADIOLOGY REPORT (SQ) ---
EXAM DESCRIPTION: U/S ABD PARACENTESIS COMPLETED DATE/TIME: 10/23/2017 10:43 am REASON FOR STUDY: ASCITES COMPARISON None. LIMITATIONS: None. PROCEDURE: After obtaining informed consent, the patient was brought to the ultrasound suite. The p rocedure was performed with the patient on a gurney. Ultrasound was used to identify a prominent poc ket of ascites in the right lower quadrant. An appropriate access site was selected. The patient wa s prepped and draped in usual sterile fashion. The access site was anesthetized with 3 mL 1% lidoca ine. A Auyu-C-[id number] needle was advanced into the fluid. After aspiration of fluid the needle, th e catheter was advanced off the needle into the fluid. A total of 1,300 mL of iain fluid was remove d. The patient tolerated the procedure well left the department in satisfactory condition. IMPRESSION: Successful ultrasound-guided paracentesis COMMENT: Patient medication list reviewed: Yes- Quality ID# [id number]:Eligible professional attests to doc umenting in the medical record they obtained, updated, or reviewed the patient's current medications. Quality ID #76: The patient was prepped and draped using maximum sterile barrier technique including cap, mask, sterile gown, sterile gloves, a large sterile sheet, hand hygiene, and 2% Chlorhexidine fo r cutaneous antisepsis. When ultrasound is used, sterile ultrasound techniques are followed requiring sterile gel and sterile probes. Quality ID #[id number]: Final reports for procedures using fluoroscopy that document radiation exposure glendy fara, or exposure time and number of fluorographic images (if radiation exposure indices are not avail able) TECHNICAL DOCUMENTATION: JOB ID: [id number] [employer]- All Rights Reserved
[2017-10-23 14:32] VITALS: BP 108/59
== END 2017-10-23 12:00 | disposition home or self-care (01) ==
LOC: RAD 07:30
PROVIDERS: ATTEND Internal Medicine Gastroenterology
PROC: 0W9G3ZZ Drainage of Peritoneal Cavity, Percutaneous Approach (ICD-10-PCS; principal; 2017-10-23)
DX: R18.8 Other ascites (principal); K74.60 Unspecified cirrhosis of liver
CPT/HCPCS: 49083; P9047

== ENCOUNTER 2017-10-24 16:05 | Day surgery (SDC) | payer MEDICARE, MEDICAID ==
[~2017-10-24 16:05] MED LIST changes: -ALBUMIN HUMAN 250 ML IV PRN; +EPINEPHRINE INJ 1 MG/10 ML DISP.SYRIN ONE; +FENTANYL CITRATE INJ/PF 100 MCG/2 ML AMPUL ONE; +FLUMAZENIL INJ 0.5 MG/5 ML VIAL ONE; +GLUCAGON,HUMAN RECOMB 1 MG INJ ONE; +MIDAZOLAM 2 MG/2 ML INJ ONE; +NALOXONE HCL INJ/PF 0.4 MG/1 ML SDV ONE
[2017-10-24] MEDS: MIDAZOLAM 2 MG/2 ML INJ ONE ×3 (17:25→17:37)
--- NOTE | 2017-10-24 18:23 | OPERATIVE REPORT E ---
Operative Report NAME: NIKKIE PAN : 1965 AGE: 52Y DATE OF SURGERY: 10/24/2017 ROOM: PREOPERATIVE DIAGNOSIS: CIRRHOSIS WITH HISTORY OF VARICES. POSTOPERATIVE DIAGNOSIS: ESOPHAGEAL VARICES. OPERATION: Esophagogastroduodenoscopy with variceal rubber-banding. SURGEON: OSWALD CRANE M.D. ANESTHESIA: Versed 4 mg, fentanyl 100 mcg IV push. TISSUE REMOVED OR ALTERED: None. PROCEDURE: After informed consent obtained from patient, conscious sedation was achieved. The upper endoscope was inserted into the esophagus and advanced into the stomach. The duodenum was entered and found to be normal. The gastric antrum, body and fundus were normal, except for evidence of portal gastropathy in the antrum and body. There were 2 small columns of varices noted in the distal esophagus, with some scarring from previous rubber-banding. The endoscope was pulled out of the patient and the rubber band kit was loaded. Four rubber bands were then applied to the distal esophagus. She tolerated the procedure well. PLAN: Continue nadolol and repeat EGD in 6 months. DICTATING PHYSICIAN: OSWALD CRANE M.D. [id number] PHY#: [id number] ID: [id number] JOB#: [id number] ACCT: [id number] cc:OSWALD CRANE M.D. >
[2017-10-24] MEDS ORDERED: SUCRALFATE 1 GM TABLET PO ONE (19:00)
[2017-10-24] MEDS ORDERED: TRAMADOL HCL 50 MG TABLET PO ONE (19:00)
[2017-10-24 19:31] VITALS: BP 135/67
== END 2017-10-24 19:28 | disposition home or self-care (01) ==
LOC: END 16:05
PROVIDERS: ATTEND Internal Medicine Gastroenterology
PROC: 06L38CZ Occlusion of Esophageal Vein with Extraluminal Device, Via Natural or Artificial Opening Endoscopic (ICD-10-PCS; principal; 2017-10-24 16:15)
DX: I85.00 Esophageal varices without bleeding (principal); K74.69 Other cirrhosis of liver; G93.41 Metabolic encephalopathy; I10 Essential (primary) hypertension; E78.00 Pure hypercholesterolemia, unspecified; I25.10 Atherosclerotic heart disease of native coronary artery without angina pectoris; R18.8 Other ascites; G62.9 Polyneuropathy, unspecified; M46.90 Unspecified inflammatory spondylopathy, site unspecified; Z79.899 Other long term (current) drug therapy; Z86.73 Personal history of transient ischemic attack (TIA), and cerebral infarction without residual deficits; Z85.43 Personal history of malignant neoplasm of ovary
CPT/HCPCS: 43244; J2250; J3010; A9270 ×2; J0171; J1610; J2310; J3490

== ENCOUNTER 2018-02-27 21:17 | Inpatient (IN) | payer MEDICARE, MEDICAID ==
[2018-02-27] MEDS ORDERED: NORMAL SALINE 500 ML with OCTREOTIDE ACETATE 500 MCG IV PRN ×2 (22:07)
[2018-02-27] MEDS ORDERED: OCTREOTIDE ACETATE INJ/PF 100 MCG/1 ML SDV IV ONE (22:09)
[2018-02-27 22:42] LABS: ABSOLUTE BASOPHILS # (AUTO) 0.2 10^3/uL (0.0-0.2); ABSOLUTE EOSINOPHILS # (AUTO) 0.1 10^3/uL (0.0-0.6); ABSOLUTE MONOCYTES (AUTO) 1.2 10^3/uL (0.1-1.4); ABSOLUTE NEUT (AUTO) 12.9 10^3/uL (1.7-8.2); BASOPHILS % (AUTO) 1.2 % (0-2); EOSINOPHILS % (AUTO) 0.3 % (0-6); HEMATOCRIT 37.5 % (36.0-47.0); HEMOGLOBIN 11.7 g/dL (12.0-15.5); LYMPHOCYTES % (AUTO) 25.7 % (13-45); MEAN CORPUSCULAR HEMOGLOBIN 22.5 pg (27.0-33.4); MEAN CORPUSCULAR HGB CONC 31.3 g/dL (32.0-36.0); MEAN CORPUSCULAR VOLUME 72 fl (80-97); MONOCYTES % (AUTO) 5.9 % (3-13); PLATELET COUNT 322 10^3/uL (150-450); RED BLOOD COUNT 5.21 10^6/uL (3.72-5.28); RED CELL DISTRIBUTION WIDTH 19.7 % (11.5-14.0); SEGMENTED NEUTROPHILS % (AUTO) 66.9 % (42-78); TOTAL CELLS COUNTED % (AUTO) 100 %; WHITE BLOOD COUNT 19.4 10^3/uL (4.0-10.5)
[2018-02-27 22:45] LABS: INTERNATIONAL RATION (INR) 1.16; PROTHROMBIN TIME 15.4 SEC (11.4-15.4)
[2018-02-27 22:46] LABS: PARTIAL THROMBOPLASTIN TIME 37.9 SEC (23.5-35.8)
[2018-02-27 23:02] LABS: ALANINE AMINOTRANSFERASE 22 U/L (9-52); ALBUMIN 4.1 g/dL (3.5-5.0); ALKALINE PHOSPHATASE 123 U/L (38-126); ANION GAP 10 (5-19); ASPARTATE AMINO TRANSFERASE 36 U/L (14-36); BILIRUBIN,DIRECT 0.4 mg/dL (0.0-0.4); BILIRUBIN,TOTAL 0.7 mg/dL (0.2-1.3); BLOOD UREA NITROGEN 28 mg/dL (7-20); CALCIUM 10.5 mg/dL (8.4-10.2); CARBON DIOXIDE 27 mmol/L (22-30); CHLORIDE 104 mmol/L (98-107); GLUCOSE 113 mg/dL (75-110); LIPASE 42.8 U/L (23-300); POTASSIUM 4.7 mmol/L (3.6-5.0); TOTAL PROTEIN 8.1 g/dL (6.3-8.2)
[2018-02-27] MEDS ORDERED: ACETAMINOPHEN 325 MG TABLET PO ONE (23:10)
[2018-02-27] MEDS ORDERED: MORPHINE SULFATE 10 MG/ML INJ IV ONE (23:15)
[2018-02-28] MEDS ORDERED: ONDANSETRON HCL INJ/PF 4 MG/2 ML SDV IV PRN (00:06)
[2018-02-28] MEDS ORDERED: IPRATROPIUM/ALBUTEROL 0.5-2.5 MG/3 ML AMPUL NEB PRN (00:06)
--- NOTE | 2018-02-28 00:13 | ER Document Report ---
ED General - General Chief Complaint: GI Bleeding Stated Complaint: VOMITING Time Seen by Provider: 02/27/18 22:03 Notes: Patient is a 52-year-old female presents with complaint of episode of vomiting blood. She said she was at home and felt nauseous and vomited a moderate amount of blood with several blood clots. She has a history of esophageal varices. She has a history of cirrhosis of the liver that occurred because a chemotherapy for ovarian cancer. She is currently cancer free. She is followed by Dr. Wyatt. She has had banding of several varices in the past. She currently denies any pain. She denies any recent fevers. She denies any other complaints at this time. TRAVEL OUTSIDE OF THE [place] IN LAST 30 DAYS: No - Related Data Allergies/Adverse Reactions: No Known Allergies Allergy (Verified 10/24/17 16:13) Past Medical History - Social History Smoking Status: Current Every Day Smoker Frequency of alcohol use: None Drug Abuse: None Family History: Reviewed & Not Pertinent, Malignancy - Past Medical History Cardiac Medical History: Reports: Hx Congestive Heart Failure, Hx Coronary Artery Disease, Hx Heart Attack, Hx Hypercholesterolemia, Hx Hypertension, Hx Peripheral Vascular Disease Pulmonary Medical History: Denies: Hx Asthma, Hx Bronchitis, Hx COPD, Hx Pneumonia Neurological Medical History: Reports: Hx Cerebrovascular Accident - FEBRUARY 2016, Hx Migraine. Denies: Hx Seizures Renal/ Medical History: Denies: Hx Peritoneal Dialysis Malignancy Medical History: Reports: Hx Ovarian Cancer GI Medical History: Reports: Hx Endoscopy Musculoskeltal Medical History: Reports Hx Arthritis Psychiatric Medical History: Reports: Hx Anxiety, Hx Bipolar Disorder, Hx Depression Past Surgical History: Reports: Hx Cardiac Surgery, Hx Coronary Stent - x2, Hx Gynecologic Surgery, Hx Hysterectomy, Hx Oral Surgery, Hx Orthopedic Surgery - C7 plate/fusion, Hx Tonsillectomy - Immunizations Hx Diphtheria, Pertussis, Tetanus Vaccination: Yes Review of Systems - Review of Systems Notes: My Normal Review Basic REVIEW OF SYSTEMS: CONSTITUTIONAL : Denies fever, chills, or sweats. Denies recent illness. EENT: Denies eye, ear, throat, or mouth pain or symptoms. Denies nasal or sinus congestion. CARDIOVASCULAR: Denies chest pain. RESPIRATORY: Denies cough, cold, or chest congestion. Denies shortness of breath, difficulty breathing, or wheezing. GASTROINTESTINAL: Vomiting of blood GENITOURINARY: Denies difficulty urinating, painful urination, burning, frequency, or blood in urine. HEMATOLOGIC : Denies easy bruising or bleeding. NEUROLOGICAL: Denies altered mental status or loss of consciousness. Denies headache. Denies weakness or paralysis or loss of use of either side. Denies problems with gait or speech. Denies sensory or motor loss. ALL OTHER SYSTEMS REVIEWED AND NEGATIVE. Physical Exam - Notes Notes: General Appearance: Well nourished, alert, cooperative, no acute distress, no obvious discomfort. Well-appearing Vitals: reviewed, See vital signs table. Head: no swelling or tenderness to the head Eyes: PERRL, EOMI, Conjuctiva clear Mouth: No decreasd moisture Lungs: No wheezing, No rales, No rhonci, No accessory muscle use, good air exchange bilaterally. Heart: Normal rate, Regular rythm, No murmur, no rub Abdomen: Normal BS, soft, No rigidity, No abdominal tenderness, No guarding, no rebound, no abdominal masses, no organomegaly Extremities: strength 5/5 in all extremities, good pulses in all extremities, no swelling or tenderness in the extremities, no edema. Skin: warm, dry, appropriate color, no rash Neuro: speech clear, oriented x 3, normal affect, responds appropriately to questions. Course - Re-evaluation Re-evalutation: 02/28/18 00:09 Patient has not had any further vomiting blood since she has been here and been started on octreotide drip. She clinically looks well and her vital signs are stable. Due to her history of esophageal varices I think is appropriate to observe overnight in the hospital. I did speak with her GI physician, Dr. Orr , who agrees to see her in the morning. I did speak with the hospitalist, Dr. Brooks, agrees with the patient. Patient does have a leukocytosis. I think this most likely demargination from a stress reaction pain the patient has no fever, no recent signs of infection, no abdominal pain, no diarrhea. Dictation of this chart was performed using voice recognition software; therefore, there may be some unintended grammatical errors. - Laboratory Result Diagrams: 02/27/18 22:18 02/27/18 22:18 Laboratory results interpreted by me: 02/27/18 02/27/18 02/27/18 22:18 22:18 22:18 WBC 19.4 H Hgb 11.7 L MCV 72 L MCH 22.5 L MCHC 31.3 L RDW 19.7 H Absolute Neutrophils 12.9 H Absolute Lymphocytes 5.0 H APTT 37.9 H BUN 28 H Creatinine 0.41 L Glucose 113 H Calcium 10.5 H Discharge - Discharge Clinical Impression: GI bleed Qualifiers: GI bleed type/associated pathology: unspecified gastrointestinal hemorrhage type Qualified Code(s): K92.2 - Gastrointestinal hemorrhage, unspecified Leukocytosis Qualifiers: Leukocytosis type: unspecified Qualified Code(s): D72.829 - Elevated white blood cell count, unspecified Condition: Stable Disposition: ADMITTED OBSERVATION Admitting Provider: Hospitalist Unit Admitted: IMCU Referrals: COURTNEY BRODY DO [Primary Care Provider] - Follow up as needed
[2018-02-28] MEDS ORDERED: NORMAL SALINE 1000 ML 1,000 ML IV SCH (00:15)
[2018-02-28] MEDS ORDERED: OCTREOTIDE ACETATE INJ/PF 100 MCG/1 ML SDV IV PRN (00:17)
[2018-02-28 05:04] LABS: ABSOLUTE BASOPHILS # (AUTO) 0.1 10^3/uL (0.0-0.2); ABSOLUTE EOSINOPHILS # (AUTO) 0.1 10^3/uL (0.0-0.6); ABSOLUTE LYMPHOCYTES (AUTO) 5.2 10^3/uL (0.5-4.7); ABSOLUTE MONOCYTES (AUTO) 0.8 10^3/uL (0.1-1.4); BASOPHILS % (AUTO) 0.6 % (0-2); EOSINOPHILS % (AUTO) 0.6 % (0-6); HEMATOCRIT 35.5 % (36.0-47.0); HEMOGLOBIN 11.1 g/dL (12.0-15.5); LYMPHOCYTES % (AUTO) 34.2 % (13-45); MEAN CORPUSCULAR HEMOGLOBIN 22.6 pg (27.0-33.4); MEAN CORPUSCULAR HGB CONC 31.4 g/dL (32.0-36.0); MEAN CORPUSCULAR VOLUME 72 fl (80-97); MONOCYTES % (AUTO) 5.5 % (3-13); PLATELET COUNT 288 10^3/uL (150-450); RED BLOOD COUNT 4.93 10^6/uL (3.72-5.28); RED CELL DISTRIBUTION WIDTH 20.3 % (11.5-14.0); SEGMENTED NEUTROPHILS % (AUTO) 59.1 % (42-78); TOTAL CELLS COUNTED % (AUTO) 100 %; WHITE BLOOD COUNT 15.2 10^3/uL (4.0-10.5)
[2018-02-28] MEDS: HEPARIN SOD (PORCINE) 5,000 UNIT/ML 1 ML SYRINGE SUBCUT SCH ×3 (05:09→22:04)
[2018-02-28 05:19] LABS: IRON(TIBC) 44.6 ug/dL (37-170)
[2018-02-28 05:21] LABS: ANION GAP 14 (5-19); BLOOD UREA NITROGEN 27 mg/dL (7-20); CALCIUM 10.4 mg/dL (8.4-10.2); CARBON DIOXIDE 24 mmol/L (22-30); CHLORIDE 107 mmol/L (98-107); GLUCOSE 141 mg/dL (75-110); POTASSIUM 4.8 mmol/L (3.6-5.0)
[2018-02-28 05:26] LABS: ABSOLUTE RETICS # 0.117 10^6/uL (0.028-0.122); RETICULOCYTE COUNT (AUTO) 2.35 % (0.66-2.85)
--- NOTE | 2018-02-28 06:21 | PDOC H&P ---
History of Present Illness Admission Date/PCP: 02/28/18 00:21 COURTNEY BRODY DO Patient complains of: Vomiting blood History of Present Illness: NIKKIE PAN is a 52 year old female with history of hepatic cirrhosis following successful treatment of ovarian cancer, coronary artery disease, congestive heart failure, hypertension, osteoarthritis, depression. Patient presents with 6 hours of nausea followed by a single episode of vomiting bright red blood loss of 2 cups. She admits previous episode approximately a year ago requiring banding of esophageal varices. Patient denies pain recent change in medications and is otherwise felt well. In the emergency room she is found to have microcytic anemia, leukocytosis, gastroenterology consulted, started on octreotide and referred the hospitalist for admission. Past Medical History Cardiac Medical History: Reports: Congestive Heart Failure, Coronary Artery Disease, Myocardial Infarction, Hyperlipidema, Hypertension, Peripheral Vascular Disease Pulmonary Medical History: Denies: Asthma, Bronchitis, Chronic Obstructive Pulmonary Disease (COPD), Pneumonia Neurological Medical History: Reports: Migraine Denies: Seizures Malignancy Medical History: Reports: Ovarian Cancer Musculoskeltal Medical History: Reports: Arthritis Psychiatric Medical History: Reports: Bipolar Disorder, Depression Hematology: Denies: Anemia Past Surgical History Past Surgical History: Reports: Coronary Stent - x2, Hysterectomy, Orthopedic Surgery - C7 plate/fusion, Tonsillectomy Social History Information Source: Patient, [facility] Smoking Status: Current Every Day Smoker Cigarettes Packs Per Day: 1 Number of Years Smokin Frequency of Alcohol Use: None Hx Recreational Drug Use: No Drugs: None Hx Prescription Drug Abuse: No - Advance Directive Resuscitation Status: Full Code Family History Family History: CAD, Malignancy Parental Family History Reviewed: Yes Children Family History Reviewed: Yes Sibling(s) Family History Reviewed.: Yes Medication/Allergy Home Medications: Spironolactone [Aldactone 25 mg Tablet] 100 mg PO DAILY 03/07/17 Gabapentin 600 tab PO QID 10/23/17 Nadolol [Corgard 40 mg Tablet] 2 tab PO QAM 10/23/17 Sucralfate [Carafate 1 gm Tablet] 1 gm PO QID 10/24/17 Duloxetine HCl 1 cap PO QHS 02/28/18 Lorazepam 1 tab PO Q6HP PRN 02/28/18 Methocarbamol 1 tab PO TID 02/28/18 Potassium Chloride [K-Tab ER] 1 tab PO DAILY 02/28/18 Allergies/Adverse Reactions: No Known Allergies Allergy (Verified 10/24/17 16:13) Review of Systems Constitutional: ABSENT: chills, fever(s), headache(s), weight gain, weight loss Eyes: ABSENT: visual disturbances Ears: ABSENT: hearing changes Cardiovascular: ABSENT: chest pain, dyspnea on exertion, edema, orthropnea, palpitations Respiratory: ABSENT: cough, hemoptysis Gastrointestinal: ABSENT: abdominal pain, constipation, diarrhea, hematemesis, hematochezia, nausea, vomiting Genitourinary: ABSENT: dysuria, hematuria Musculoskeletal: ABSENT: joint swelling Integumentary: ABSENT: rash, wounds Neurological: ABSENT: abnormal gait, abnormal speech, confusion, dizziness, focal weakness, syncope Psychiatric: ABSENT: anxiety, depression, homidical ideation, suicidal ideation Endocrine: ABSENT: cold intolerance, heat intolerance, polydipsia, polyuria Hematologic/Lymphatic: ABSENT: easy bleeding, easy bruising Physical Exam Vital Signs: Temp Pulse Resp BP Pulse Ox 98.7 F 65 16 129/70 H 99 02/28/18 04:27 02/28/18 04:27 02/28/18 04:27 02/28/18 04:27 02/28/18 04:27 Intake & Output 02/26/18 02/27/18 02/28/18 11:59 11:59 11:59 Intake Total 1000 Balance 1000 Weight 67.2 kg General appearance: PRESENT: no acute distress, well-developed, well-nourished Head exam: PRESENT: atraumatic, normocephalic Eye exam: PRESENT: conjunctiva pink, EOMI, PERRLA. ABSENT: scleral icterus Ear exam: PRESENT: normal external ear exam Mouth exam: PRESENT: moist, tongue midline Neck exam: ABSENT: carotid bruit, JVD, lymphadenopathy, thyromegaly Respiratory exam: PRESENT: clear to auscultation alecia. ABSENT: rales, rhonchi, wheezes Cardiovascular exam: PRESENT: RRR. ABSENT: diastolic murmur, rubs, systolic murmur Pulses: PRESENT: normal dorsalis pedis pul Vascular exam: PRESENT: normal capillary refill GI/Abdominal exam: PRESENT: normal bowel sounds, soft. ABSENT: distended, guarding, mass, organolmegaly, rebound, tenderness Rectal exam: PRESENT: deferred Extremities exam: PRESENT: full ROM. ABSENT: calf tenderness, clubbing, pedal edema Neurological exam: PRESENT: alert, awake, oriented to person, oriented to place , oriented to time, oriented to situation, CN II-XII grossly intact. ABSENT: motor sensory deficit Psychiatric exam: PRESENT: appropriate affect, normal mood. ABSENT: homicidal ideation, suicidal ideation Skin exam: PRESENT: dry, intact, warm. ABSENT: cyanosis, rash Results Laboratory Results: 02/28/18 04:34 02/28/18 04:34 02/28/18 02/28/18 02/28/18 04:34 04:34 04:34 WBC 15.2 H RBC 4.93 Hgb 11.1 L Hct 35.5 L MCV 72 L MCH 22.6 L MCHC 31.4 L RDW 20.3 H Plt Count 288 Seg Neutrophils % 59.1 Lymphocytes % 34.2 Monocytes % 5.5 Eosinophils % 0.6 Basophils % 0.6 Absolute Neutrophils 9.0 H Absolute Lymphocytes 5.2 H Absolute Monocytes 0.8 Absolute Eosinophils 0.1 Absolute Basophils 0.1 Retic Count (auto) 2.35 Absolute Retic 0.117 Sodium 145.0 Potassium 4.8 Chloride 107 Carbon Dioxide 24 Anion Gap 14 BUN 27 H Creatinine 0.50 L Est GFR ( Amer) > 60 Est GFR (Non-Af Amer) > 60 Glucose 141 H Calcium 10.4 H Assessment & Plan - Diagnosis (1) GI bleed Qualifiers: GI bleed type/associated pathology: unspecified gastrointestinal hemorrhage type Qualified Code(s): K92.2 - Gastrointestinal hemorrhage, unspecified Is this a current diagnosis for this admission?: Yes Plan: Currently stable, IMCU admission, octreotide, type and screen packed red blood cells, gastroenterology consulted for endoscopy and possible banding of esophageal varices. Follow-up CBC (2) Leukocytosis Qualifiers: Leukocytosis type: unspecified Qualified Code(s): D72.829 - Elevated white blood cell count, unspecified Is this a current diagnosis for this admission?: Yes Plan: Suspected stress response. Follow-up repeat CBC (3) Anemia Qualifiers: Is this a current diagnosis for this admission?: Yes Plan: Appears microcytic suspect iron deficiency, follow-up workup. Consider IV iron - Time Time Spent: 50 to 70 Minutes - Inpatient Certification Medical Necessity: Need Close Monitoring Due to Risk of Patient Decompensation
[2018-02-28 06:27] LABS: FOLATE 9.79 ng/mL (>2.76)
[2018-02-28] MEDS ORDERED: NADOLOL 40 MG TABLET PO SCH (10:00)
[2018-02-28 10:22] LABS: ABSOLUTE BASOPHILS # (AUTO) 0.1 10^3/uL (0.0-0.2); ABSOLUTE EOSINOPHILS # (AUTO) 0.1 10^3/uL (0.0-0.6); ABSOLUTE MONOCYTES (AUTO) 0.7 10^3/uL (0.1-1.4); ABSOLUTE NEUT (AUTO) 7.5 10^3/uL (1.7-8.2); BASOPHILS % (AUTO) 0.5 % (0-2); EOSINOPHILS % (AUTO) 0.6 % (0-6); HEMATOCRIT 32.5 % (36.0-47.0); HEMOGLOBIN 10.2 g/dL (12.0-15.5); LYMPHOCYTES % (AUTO) 32.8 % (13-45); MEAN CORPUSCULAR HEMOGLOBIN 22.4 pg (27.0-33.4); MEAN CORPUSCULAR HGB CONC 31.3 g/dL (32.0-36.0); MEAN CORPUSCULAR VOLUME 72 fl (80-97); MONOCYTES % (AUTO) 5.4 % (3-13); PLATELET COUNT 240 10^3/uL (150-450); RED BLOOD COUNT 4.54 10^6/uL (3.72-5.28); SEGMENTED NEUTROPHILS % (AUTO) 60.7 % (42-78); TOTAL CELLS COUNTED % (AUTO) 100 %; WHITE BLOOD COUNT 12.3 10^3/uL (4.0-10.5)
[2018-02-28] MEDS: SPIRONOLACTONE 25 MG TABLET PO SCH (10:28)
[2018-02-28] MEDS: PANTOPRAZOLE SODIUM 40 MG VIAL IV SCH (10:28)
[2018-02-28] MEDS ORDERED: NORMAL SALINE 500 ML with OCTREOTIDE ACETATE 500 MCG IV PRN ×2 (10:57)
[2018-02-28] MEDS ORDERED: GABAPENTIN PO SCH (11:00)
[2018-02-28] MEDS ORDERED: LORAZEPAM 1 MG TABLET PO PRN (11:00)
[2018-02-28] MEDS ORDERED: MORPHINE SULFATE 10 MG/ML INJ IV ONE (12:00)
[2018-02-28] MEDS: SUCRALFATE 1 GM TABLET PO SCH ×3 (13:53→22:11)
[2018-02-28] MEDS ORDERED: HYDROMORPHONE HCL INJ/PF 2 MG/ML AMPULE ONE (14:15)
--- NOTE | 2018-02-28 16:08 | PDOC PROGRESS REPORT ---
Subjective Progress Note for:: 02/28/18 Subjective:: The patient is a 52-year-old female with a history of hepatic cirrhosis following successful treatment of ovarian cancer, coronary artery disease, CHF, hypertension, osteoarthritis, chronic back pain, opiate dependence on continuous use, and depression who was admitted on 02/28/18 for report of hematemesis 1 at home. The patient is seen on morning rounds. She is found resting in bed comfortably on room air. She reports that her only complaint at present is her chronic back pain and absence of home medication, Belbuca. She reports no further episodes of nausea or vomiting. She denies abdominal pain, indigestion, nausea, diarrhea, constipation, and melena. She has no other questions or concerns at this time. Reason For Visit: GI BLEED Physical Exam Vital Signs: Temp Pulse Resp BP Pulse Ox 99.0 F 56 L 22 H 143/67 H 98 02/28/18 12:00 02/28/18 14:00 02/28/18 12:00 02/28/18 12:00 02/28/18 12:00 Intake & Output 02/27/18 02/28/18 03/01/18 06:59 06:59 06:59 Intake Total 1150 Output Total 300 Balance 1150 -300 Weight 62.9 kg General appearance: PRESENT: no acute distress, well-developed, well-nourished, other - Overweight Head exam: PRESENT: atraumatic, normocephalic Eye exam: PRESENT: conjunctiva pink, EOMI, PERRLA. ABSENT: scleral icterus Mouth exam: PRESENT: moist Neck exam: ABSENT: carotid bruit, JVD, lymphadenopathy, thyromegaly Respiratory exam: PRESENT: clear to auscultation alecia, symmetrical, unlabored. ABSENT: rales, rhonchi, wheezes Cardiovascular exam: PRESENT: RRR, +S1 - 1, +S2. ABSENT: diastolic murmur, rubs , systolic murmur Pulses: PRESENT: normal dorsalis pedis pul Vascular exam: PRESENT: normal capillary refill GI/Abdominal exam: PRESENT: normal bowel sounds, soft. ABSENT: distended, guarding, mass, organolmegaly, rebound, tenderness Rectal exam: PRESENT: deferred Extremities exam: PRESENT: full ROM. ABSENT: calf tenderness, clubbing, pedal edema Neurological exam: PRESENT: alert, awake, oriented to person, oriented to place , oriented to time, oriented to situation, CN II-XII grossly intact. ABSENT: motor sensory deficit Psychiatric exam: PRESENT: appropriate affect, normal mood. ABSENT: homicidal ideation, suicidal ideation Skin exam: PRESENT: dry, intact, warm. ABSENT: cyanosis, rash Results Laboratory Results: 02/28/18 10:02 02/28/18 04:34 02/28/18 02/28/18 02/28/18 04:34 04:34 04:34 WBC 15.2 H RBC 4.93 Hgb 11.1 L Hct 35.5 L MCV 72 L MCH 22.6 L MCHC 31.4 L RDW 20.3 H Plt Count 288 Seg Neutrophils % 59.1 Lymphocytes % 34.2 Monocytes % 5.5 Eosinophils % 0.6 Basophils % 0.6 Absolute Neutrophils 9.0 H Absolute Lymphocytes 5.2 H Absolute Monocytes 0.8 Absolute Eosinophils 0.1 Absolute Basophils 0.1 Retic Count (auto) 2.35 Absolute Retic 0.117 Sodium 145.0 Potassium 4.8 Chloride 107 Carbon Dioxide 24 Anion Gap 14 BUN 27 H Creatinine 0.50 L Est GFR ( Amer) > 60 Est GFR (Non-Af Amer) > 60 Glucose 141 H Calcium 10.4 H Iron TIBC % Saturation Ferritin Vitamin B12 Folate 02/28/18 02/28/18 04:34 10:02 WBC 12.3 H RBC 4.54 Hgb 10.2 L Hct 32.5 L MCV 72 L MCH 22.4 L MCHC 31.3 L RDW 20.0 H Plt Count 240 Seg Neutrophils % 60.7 Lymphocytes % 32.8 Monocytes % 5.4 Eosinophils % 0.6 Basophils % 0.5 Absolute Neutrophils 7.5 Absolute Lymphocytes 4.0 Absolute Monocytes 0.7 Absolute Eosinophils 0.1 Absolute Basophils 0.1 Retic Count (auto) Absolute Retic Sodium Potassium Chloride Carbon Dioxide Anion Gap BUN Creatinine Est GFR ( Amer) Est GFR (Non-Af Amer) Glucose Calcium Iron 44.6 TIBC 404 % Saturation 11 Ferritin 13.90 Vitamin B12 474.0 Folate 9.79 Assessment & Plan - Diagnosis (1) Hematemesis Qualifiers: Nausea presence: with nausea Qualified Code(s): K92.0 - Hematemesis Is this a current diagnosis for this admission?: Yes Plan: The patient is admitted with report of hematemesis 2 at home. She has a history of esophageal varices status post banding. Hemoglobin is stable; no further episodes of vomiting. She is admitted to [facility] on continuous cardiac telemetry. She is placed on octreotide drip. Protonix IV daily. She has been typed and screened. GI has been consulted; planning EGD this afternoon. (2) Leukocytosis Is this a current diagnosis for this admission?: Yes Plan: Likely secondary to stress response. WBCs are trending down. Patient remains afebrile. We will continue to monitor. No indication for antibiotics at this time. (3) Chronic back pain Is this a current diagnosis for this admission?: Yes Plan: Patient's family to bring in her home medication, Belbuca. Patient may continue medication once verified by pharmacy. In the interim, will provide Dilaudid as needed. We have continued her home dose Ativan. (4) Opiate dependence, continuous Is this a current diagnosis for this admission?: Yes Plan: As above. (5) Anemia Qualifiers: Is this a current diagnosis for this admission?: Yes Plan: Acute blood loss anemia secondary to hematemesis; likely esophageal varices. Anemia panel is normal. The patient has been typed and crossed in preparation for transfusion as necessary. We will continue to monitor with serial CBC. Transfuse as necessary. Remaining plan as above. - Time Time Spent with patient: 15-24 minutes Medications reviewed and adjusted accordingly: Yes
[2018-02-28 16:15] LABS: ABSOLUTE BASOPHILS # (AUTO) 0.1 10^3/uL (0.0-0.2); ABSOLUTE EOSINOPHILS # (AUTO) 0.1 10^3/uL (0.0-0.6); ABSOLUTE LYMPHOCYTES (AUTO) 3.2 10^3/uL (0.5-4.7); ABSOLUTE MONOCYTES (AUTO) 0.6 10^3/uL (0.1-1.4); ABSOLUTE NEUT (AUTO) 7.7 10^3/uL (1.7-8.2); BASOPHILS % (AUTO) 0.8 % (0-2); EOSINOPHILS % (AUTO) 0.6 % (0-6); HEMATOCRIT 32.6 % (36.0-47.0); HEMOGLOBIN 10.2 g/dL (12.0-15.5); LYMPHOCYTES % (AUTO) 27.1 % (13-45); MEAN CORPUSCULAR HEMOGLOBIN 22.3 pg (27.0-33.4); MEAN CORPUSCULAR HGB CONC 31.4 g/dL (32.0-36.0); MEAN CORPUSCULAR VOLUME 71 fl (80-97); MONOCYTES % (AUTO) 5.5 % (3-13); PLATELET COUNT 248 10^3/uL (150-450); RED BLOOD COUNT 4.59 10^6/uL (3.72-5.28); RED CELL DISTRIBUTION WIDTH 19.6 % (11.5-14.0); TOTAL CELLS COUNTED % (AUTO) 100 %; WHITE BLOOD COUNT 11.7 10^3/uL (4.0-10.5)
[2018-02-28] MEDS: GABAPENTIN 300 MG CAPSULE PO SCH ×2 (16:36→22:11)
[2018-02-28] MEDS ORDERED: ONDANSETRON HCL INJ/PF 4 MG/2 ML SDV ONE (16:53)
[2018-02-28] MEDS ORDERED: NALOXONE HCL INJ/PF 0.4 MG/1 ML SDV ONE (16:53)
[2018-02-28] MEDS ORDERED: DIPHENHYDRAMINE HCL 50 MG/ML VIAL ONE (16:53)
[2018-02-28] MEDS ORDERED: GLUCAGON,HUMAN RECOMB 1 MG INJ ONE (16:54)
[2018-02-28] MEDS ORDERED: EPINEPHRINE INJ 1 MG/10 ML DISP.SYRIN ONE (16:54)
[2018-02-28] MEDS ORDERED: FLUMAZENIL INJ 0.5 MG/5 ML VIAL ONE (16:54)
[2018-02-28] MEDS ORDERED: FENTANYL CITRATE INJ/PF 100 MCG/2 ML AMPUL ONE (16:54)
[2018-02-28] MEDS: MIDAZOLAM 2 MG/2 ML INJ ONE ×3 (18:00→18:06)
--- NOTE | 2018-02-28 18:09 | PDOC CONSULTATION ---
Consultation Consult Date: 02/27/18 History of Present Illness Admission Date/PCP: 02/28/18 00:21 COURTNEY BRODY DO History of Present Illness: NIKKIE PAN is a 52 year old female patient who was admitted with acute onset hematemesis. She had one episode of bright red blood vomitus prior to presenting to the emergency room. She has not had any more episodes. She was started on octreotide at the emergency room. She has had previous episodes of variceal bleeding and has had multiple EGD with banding. The last EGD with banding was in October of this year when 4 bands were applied. She is supposed to be on nadolol 40 mg daily. Patient has been noncompliant over the years with office visit and use of her medications. Past Medical History Cardiac Medical History: Reports: Congestive Heart Failure, Coronary Artery Disease, Myocardial Infarction, Hyperlipidema, Hypertension, Peripheral Vascular Disease Pulmonary Medical History: Denies: Asthma, Bronchitis, Chronic Obstructive Pulmonary Disease (COPD), Pneumonia Neurological Medical History: Reports: Migraine Denies: Seizures Malignancy Medical History: Reports: Ovarian Cancer GI History Note: Cirrhosis, variceal bleeding, esophageal varices, ascites, CVA, coronary artery disease, noncompliance, Musculoskeltal Medical History: Reports: Arthritis Psychiatric Medical History: Reports: Bipolar Disorder, Depression Hematology: Denies: Anemia Past Surgical History Past Surgical History: Reports: Coronary Stent - x2, Hysterectomy, Orthopedic Surgery - C7 plate/fusion, Tonsillectomy Social History Smoking Status: Current Every Day Smoker Cigarettes Packs Per Day: 1 Number of Years Smokin Frequency of Alcohol Use: None Hx Recreational Drug Use: No Drugs: None Hx Prescription Drug Abuse: No - Advance Directive Resuscitation Status: Full Code Family History Family History: CAD, Malignancy Parental Family History Reviewed: No Children Family History Reviewed: NA Sibling(s) Family History Reviewed.: NA Medication/Allergy Home Medications: Gabapentin 600 tab PO ACHS 10/23/17 Sucralfate [Carafate 1 gm Tablet] 1 gm PO QID 10/24/17 Atorvastatin Calcium [Lipitor 80 mg Tablet] 80 mg PO QHS 02/28/18 Buprenorphine HCl [Belbuca] 300 mcg BC Q12HP PRN 02/28/18 Duloxetine HCl 30 mg PO QHS 02/28/18 Furosemide [Lasix 40 mg Tablet] 40 mg PO QAM 02/28/18 Lorazepam 1 mg PO Q6HP PRN 02/28/18 Methocarbamol 500 mg PO TID 02/28/18 Mv-Min/Iron/Folic/Calcium/Vitk [One-A-Day Women's Tablet] 1 each PO DAILY Nadolol [Corgard] 40 mg PO DAILY MDD HOLD IF SBP<110 02/28/18 Potassium Chloride [K-Tab ER] 20 meq PO DAILY 02/28/18 Spironolactone [Aldactone 100 mg Tablet] 100 mg PO DAILY 02/28/18 Allergies/Adverse Reactions: No Known Allergies Allergy (Verified 02/28/18 09:16) Review of Systems All systems: reviewed and no additional remarkable complaints except as stated Physical Exam Vital Signs: Temp Pulse Resp BP Pulse Ox 98.9 F 58 L 21 H 141/65 H 100 02/28/18 17:00 02/28/18 18:00 02/28/18 18:00 02/28/18 18:00 02/28/18 18:00 Intake & Output 02/27/18 02/28/18 03/01/18 06:59 06:59 06:59 Intake Total 1150 Output Total 300 Balance 1150 -300 Weight 62.9 kg Exam: General: Patient is alert and looks well. HEENT: There is no pallor or jaundice. PERRLA. Oropharynx normal Respiratory: No chest deformity. No respiratory distress. Chest wall palpitation was unremarkable. Breath sounds were normal Cardiovascular: Heart sounds 1 and 2 normal with no murmurs. Abdominal: Not distended. Soft and nontender. Liver and spleen not palpable. No ascites demonstrated. Bowel sounds active. Rectal examination was deferred. Extremities: No edema Neurological: Alert and oriented x4. Grossly nonfocal. Normal speech Skin: No significant rash Psychological: Normal affect Results Laboratory Results: 02/28/18 16:05 02/28/18 04:34 02/28/18 02/28/18 02/28/18 04:34 04:34 04:34 WBC 15.2 H RBC 4.93 Hgb 11.1 L Hct 35.5 L MCV 72 L MCH 22.6 L MCHC 31.4 L RDW 20.3 H Plt Count 288 Seg Neutrophils % 59.1 Lymphocytes % 34.2 Monocytes % 5.5 Eosinophils % 0.6 Basophils % 0.6 Absolute Neutrophils 9.0 H Absolute Lymphocytes 5.2 H Absolute Monocytes 0.8 Absolute Eosinophils 0.1 Absolute Basophils 0.1 Retic Count (auto) 2.35 Absolute Retic 0.117 Sodium 145.0 Potassium 4.8 Chloride 107 Carbon Dioxide 24 Anion Gap 14 BUN 27 H Creatinine 0.50 L Est GFR ( Amer) > 60 Est GFR (Non-Af Amer) > 60 Glucose 141 H Calcium 10.4 H Iron TIBC % Saturation Ferritin Vitamin B12 Folate 02/28/18 02/28/18 02/28/18 04:34 10:02 16:05 WBC 12.3 H 11.7 H RBC 4.54 4.59 Hgb 10.2 L 10.2 L Hct 32.5 L 32.6 L MCV 72 L 71 L MCH 22.4 L 22.3 L MCHC 31.3 L 31.4 L RDW 20.0 H 19.6 H Plt Count 240 248 Seg Neutrophils % 60.7 66.0 Lymphocytes % 32.8 27.1 Monocytes % 5.4 5.5 Eosinophils % 0.6 0.6 Basophils % 0.5 0.8 Absolute Neutrophils 7.5 7.7 Absolute Lymphocytes 4.0 3.2 Absolute Monocytes 0.7 0.6 Absolute Eosinophils 0.1 0.1 Absolute Basophils 0.1 0.1 Retic Count (auto) Absolute Retic Sodium Potassium Chloride Carbon Dioxide Anion Gap BUN Creatinine Est GFR ( Amer) Est GFR (Non-Af Amer) Glucose Calcium Iron 44.6 TIBC 404 % Saturation 11 Ferritin 13.90 Vitamin B12 474.0 Folate 9.79 Assessment & Plan - Diagnosis (1) GI bleed Qualifiers: GI bleed type/associated pathology: unspecified gastrointestinal hemorrhage type Qualified Code(s): K92.2 - Gastrointestinal hemorrhage, unspecified Is this a current diagnosis for this admission?: Yes Plan: She probably bled from her esophageal varices. She will undergo an EGD with variceal rubber banding. She will also continue with the octreotide (2) Hematemesis Qualifiers: Nausea presence: with nausea Qualified Code(s): K92.0 - Hematemesis Is this a current diagnosis for this admission?: Yes (3) Esophageal varices Qualifiers: Esophageal varices type: secondary Esophageal varices bleeding: without bleeding Qualified Code(s): I85.10 - Secondary esophageal varices without bleeding Is this a current diagnosis for this admission?: Yes Plan: She should remain on nadolol to keep her heart rate between 50 and 60 (4) Liver cirrhosis Qualifiers: Hepatic cirrhosis type: unspecified hepatic cirrhosis Ascites presence: with ascites Qualified Code(s): K74.60 - Unspecified cirrhosis of liver Is this a current diagnosis for this admission?: Yes
--- NOTE | 2018-02-28 18:28 | Operative Report ---
Operative Report DATE OF SURGERY: 02/28/18 Operative Report: Pre-op diagnosis: GI bleed with history of esophageal varices Post-op diagnosis: 1. Small distal esophageal varices Surgery: Esophagogastroduodenoscopy with rubber banding Medications: Versed 4mg Fentanyl 100mcg IV push Tissue removed: None Procedure: After informed consent obtained from patient, the throat was sprayed with Hurricane and conscious sedation was achieved. The upper endoscope was inserted into the esophagus under direct vision and advanced into the stomach. The duodenum was entered and examined to the second part. Endoscope was then slowly pulled out of the patient as the mucosa was examined into details. Patient tolerated procedure well. Findings Esophagus: There were 2 short varices noted in the distal esophagus in association with scarring from previous rubberbanding. 2 rubber bands were placed Antrum: Normal Body: Normal Fundus: Normal Duodenum first part: Normal Duodenum second part: Normal Plan: Continue octreotide and nadolol OPERATION: .
[2018-02-28] MEDS ORDERED: ACETAMINOPHEN 325 MG TABLET ONE (22:10)
[2018-02-28] MEDS: ATORVASTATIN CALCIUM 80 MG TABLET PO SCH (22:11)
[2018-02-28] MEDS: DULOXETINE HCL 30 MG CAPSULE.DR PO SCH (22:11)
[2018-02-28] MEDS ORDERED: ACETAMINOPHEN 325 MG TABLET PO PRN (22:12)
[2018-02-28 22:28] LABS: ABSOLUTE BASOPHILS # (AUTO) 0.1 10^3/uL (0.0-0.2); ABSOLUTE EOSINOPHILS # (AUTO) 0.1 10^3/uL (0.0-0.6); ABSOLUTE LYMPHOCYTES (AUTO) 3.6 10^3/uL (0.5-4.7); ABSOLUTE MONOCYTES (AUTO) 0.7 10^3/uL (0.1-1.4); ABSOLUTE NEUT (AUTO) 7.2 10^3/uL (1.7-8.2); BASOPHILS % (AUTO) 1.2 % (0-2); EOSINOPHILS % (AUTO) 0.5 % (0-6); HEMATOCRIT 31.3 % (36.0-47.0); HEMOGLOBIN 9.9 g/dL (12.0-15.5); MEAN CORPUSCULAR HEMOGLOBIN 22.8 pg (27.0-33.4); MEAN CORPUSCULAR HGB CONC 31.7 g/dL (32.0-36.0); MEAN CORPUSCULAR VOLUME 72 fl (80-97); MONOCYTES % (AUTO) 6.1 % (3-13); PLATELET COUNT 232 10^3/uL (150-450); RED BLOOD COUNT 4.34 10^6/uL (3.72-5.28); RED CELL DISTRIBUTION WIDTH 19.8 % (11.5-14.0); SEGMENTED NEUTROPHILS % (AUTO) 61.2 % (42-78); TOTAL CELLS COUNTED % (AUTO) 100 %; WHITE BLOOD COUNT 11.7 10^3/uL (4.0-10.5)
[2018-03-01] MEDS: HYDROMORPHONE HCL INJ/PF 2 MG/ML AMPULE IV PRN ×3 (04:41→19:32)
[2018-03-01 04:51] LABS: HEMATOCRIT 33.9 % (36.0-47.0); HEMOGLOBIN 10.6 g/dL (12.0-15.5); MEAN CORPUSCULAR HEMOGLOBIN 22.1 pg (27.0-33.4); MEAN CORPUSCULAR HGB CONC 31.1 g/dL (32.0-36.0); MEAN CORPUSCULAR VOLUME 71 fl (80-97); PLATELET COUNT 257 10^3/uL (150-450); RED BLOOD COUNT 4.77 10^6/uL (3.72-5.28); RED CELL DISTRIBUTION WIDTH 19.8 % (11.5-14.0); WHITE BLOOD COUNT 11.9 10^3/uL (4.0-10.5)
[2018-03-01] MEDS: HEPARIN SOD (PORCINE) 5,000 UNIT/ML 1 ML SYRINGE SUBCUT SCH ×3 (05:07→21:33)
[2018-03-01 05:09] LABS: ANION GAP 8 (5-19); BLOOD UREA NITROGEN 18 mg/dL (7-20); CALCIUM 9.5 mg/dL (8.4-10.2); CARBON DIOXIDE 25 mmol/L (22-30); CHLORIDE 110 mmol/L (98-107); GLUCOSE 120 mg/dL (75-110); SODIUM 143.3 mmol/L (137-145)
[2018-03-01] MEDS: GABAPENTIN 300 MG CAPSULE PO SCH ×4 (08:44→21:33)
[2018-03-01] MEDS: FUROSEMIDE 40 MG TABLET PO SCH (08:45)
[2018-03-01] MEDS: PANTOPRAZOLE SODIUM 40 MG VIAL IV SCH (09:23)
[2018-03-01] MEDS: POTASSIUM CHLORIDE 10 MEQ TABLET.SA PO SCH (09:24)
[2018-03-01] MEDS: SPIRONOLACTONE 25 MG TABLET PO SCH (09:24)
[2018-03-01] MEDS: NADOLOL 40 MG TABLET PO SCH (09:24)
[2018-03-01] MEDS: MULTIVITAMIN TABLET PO SCH (09:26)
[2018-03-01] MEDS: SUCRALFATE 1 GM TABLET PO SCH ×4 (09:26→21:33)
[2018-03-01] MEDS ORDERED: (PENDING PHARMACY ID) (Nadolol [Corgard] 40 MG) PO SCH (10:00)
[2018-03-01] MEDS ORDERED: SPIRONOLACTONE 25 MG TABLET PO SCH (10:00)
[2018-03-01] MEDS ORDERED: (PENDING PHARMACY ID) (Potassium Chloride [K-Tab Er] 20 MEQ) PO SCH (10:00)
[2018-03-01] MEDS ORDERED: (PENDING PHARMACY ID) (Spironolactone [Aldactone 100 Mg Tablet] 100 MG) PO SCH (10:00)
[2018-03-01] MEDS ORDERED: (PENDING PHARMACY ID) (Mv-Min/Iron/Folic/Calcium/Vitk [One-A-Day Women's Tablet] 1 EACH) PO SCH (10:00)
[2018-03-01 15:15] LABS: HEMATOCRIT 31.1 % (36.0-47.0); HEMOGLOBIN 9.6 g/dL (12.0-15.5); MEAN CORPUSCULAR HEMOGLOBIN 22.7 pg (27.0-33.4); MEAN CORPUSCULAR VOLUME 73 fl (80-97); PLATELET COUNT 261 10^3/uL (150-450); RED BLOOD COUNT 4.25 10^6/uL (3.72-5.28); RED CELL DISTRIBUTION WIDTH 20.3 % (11.5-14.0); WHITE BLOOD COUNT 10.6 10^3/uL (4.0-10.5)
[2018-03-01] MEDS ORDERED: LORAZEPAM 1 MG TABLET PO PRN (15:44)
[2018-03-01] MEDS ORDERED: NORMAL SALINE 1000 ML 500 ML IV ONE (16:00)
--- NOTE | 2018-03-01 16:35 | PDOC PROGRESS REPORT ---
Subjective Progress Note for:: 03/01/18 Subjective:: The patient is a 52-year-old female with a history of hepatic cirrhosis following successful treatment of ovarian cancer, coronary artery disease, CHF, hypertension, osteoarthritis, chronic back pain, opiate dependence on continuous use, and depression who was admitted on 02/28/18 for report of hematemesis 1 at home. The patient is seen on rounds. She is found resting in bed comfortably on room air. Her only complaint continues to be her chronic back pain. She reports that the Dilaudid is beneficial; she did not request that her family members bring in her home medication as previously great. She denies further episodes of nausea or vomiting. She denies abdominal pain, indigestion, nausea, diarrhea, constipation, and melena. She has no other questions or concerns at this time. Reason For Visit: GI BLEED Physical Exam Vital Signs: Temp Pulse Resp BP Pulse Ox 98.0 F 55 L 16 89/38 L 94 03/01/18 12:12 03/01/18 14:00 03/01/18 12:12 03/01/18 12:12 03/01/18 12:12 Intake & Output 02/28/18 03/01/18 03/02/18 06:59 06:59 06:59 Intake Total 1150 1169 624 Output Total 300 Balance 1150 869 624 Weight 62.9 kg 64.8 kg General appearance: PRESENT: no acute distress, disheveled, well-developed, well -nourished, other - Overweight Head exam: PRESENT: atraumatic, normocephalic Eye exam: PRESENT: conjunctiva pink, EOMI, PERRLA. ABSENT: scleral icterus Mouth exam: PRESENT: moist, tongue midline Neck exam: ABSENT: carotid bruit, JVD, lymphadenopathy, thyromegaly Respiratory exam: PRESENT: clear to auscultation alecia, symmetrical, unlabored. ABSENT: rales, rhonchi, wheezes Cardiovascular exam: PRESENT: RRR, +S1, +S2. ABSENT: diastolic murmur, rubs, systolic murmur Pulses: PRESENT: normal dorsalis pedis pul Vascular exam: PRESENT: normal capillary refill GI/Abdominal exam: PRESENT: normal bowel sounds, soft. ABSENT: distended, guarding, mass, organolmegaly, rebound, tenderness Rectal exam: PRESENT: deferred Extremities exam: PRESENT: full ROM. ABSENT: calf tenderness, clubbing, pedal edema Neurological exam: PRESENT: alert, awake, oriented to person, oriented to place , oriented to time, oriented to situation, CN II-XII grossly intact. ABSENT: motor sensory deficit Psychiatric exam: PRESENT: appropriate affect, normal mood. ABSENT: homicidal ideation, suicidal ideation Skin exam: PRESENT: dry, intact, warm. ABSENT: cyanosis, rash Results Laboratory Results: 03/01/18 14:43 03/01/18 04:20 02/28/18 03/01/18 03/01/18 22:25 04:20 04:20 WBC 11.7 H 11.9 H RBC 4.34 4.77 Hgb 9.9 L 10.6 L Hct 31.3 L 33.9 L MCV 72 L 71 L MCH 22.8 L 22.1 L MCHC 31.7 L 31.1 L RDW 19.8 H 19.8 H Plt Count 232 257 Seg Neutrophils % 61.2 Lymphocytes % 31.0 Monocytes % 6.1 Eosinophils % 0.5 Basophils % 1.2 Absolute Neutrophils 7.2 Absolute Lymphocytes 3.6 Absolute Monocytes 0.7 Absolute Eosinophils 0.1 Absolute Basophils 0.1 Sodium 143.3 Potassium 4.0 Chloride 110 H Carbon Dioxide 25 Anion Gap 8 BUN 18 Creatinine 0.52 Est GFR ( Amer) > 60 Est GFR (Non-Af Amer) > 60 Glucose 120 H Calcium 9.5 03/01/18 14:43 WBC 10.6 H RBC 4.25 Hgb 9.6 L Hct 31.1 L MCV 73 L MCH 22.7 L MCHC 31.0 L RDW 20.3 H Plt Count 261 Seg Neutrophils % Lymphocytes % Monocytes % Eosinophils % Basophils % Absolute Neutrophils Absolute Lymphocytes Absolute Monocytes Absolute Eosinophils Absolute Basophils Sodium Potassium Chloride Carbon Dioxide Anion Gap BUN Creatinine Est GFR ( Amer) Est GFR (Non-Af Amer) Glucose Calcium Assessment & Plan - Diagnosis (1) Hematemesis Qualifiers: Nausea presence: with nausea Qualified Code(s): K92.0 - Hematemesis Is this a current diagnosis for this admission?: Yes Plan: Resolved; patient underwent EGD with variceal banding by Dr. Wyatt yesterday evening. I spoke with Dr. Wyatt today; he recommended discontinuing octreotide drip, continue nadolol, and approved the patient for discharge with follow-up in his office. Patient denies further episodes of nausea, emesis, hematemesis. Hemoglobin is slightly decreased today; believe this to be a result of hemodilution. She is admitted to [facility] on continuous cardiac telemetry. Continue nadolol, spironolactone, furosemide. Resumed patient's home dose carafate. Continue PPI. (2) Leukocytosis Is this a current diagnosis for this admission?: Yes Plan: Continues to trend down. Likely secondary to stress response. Patient remains afebrile. We will continue to monitor. No indication for antibiotics at this time. (3) Chronic back pain Is this a current diagnosis for this admission?: Yes Plan: Patient's family to bring in her home medication, Belbuca. Patient may continue medication once verified by pharmacy. The patient is noted to be rather sedated today and has had hypotension. We will decrease dose and frequency of as needed Dilaudid. Have decreased frequency of patient's home dose Ativan. I did discuss with the patient the indication for reducing her narcotic pain medications and again advised the patient to bring in her home medications that could be resumed for management of her chronic pain. (4) Opiate dependence, continuous Is this a current diagnosis for this admission?: Yes Plan: As above. (5) Anemia Qualifiers: Is this a current diagnosis for this admission?: Yes Plan: Acute blood loss anemia secondary to hematemesis; likely esophageal varices. Anemia panel is normal. Hgb down slightly: 10.2--> 9.6; no evidence of active bleeding. The patient has been typed and crossed in preparation for transfusion as necessary. We will continue to monitor with serial CBC. Transfuse as necessary. Remaining plan as above. (6) Hypotension Is this a current diagnosis for this admission?: Yes Plan: Likely secondary to as needed Dilaudid dosing in combination with her home dosed Ativan. Much less likely to be reflective of acute blood loss anemia as her hemoglobin is relatively stable, EGD with variceal banding completed yesterday without observed active bleeding. Discussed with patient the importance of reducing her dilaudid and ativan dose/ schedule. We will will provide a IV fluid bolus followed by gentle maintenance fluids. If blood pressure decreases further or is not improved in the morning, will need to reevaluate her home medications of (nadolol, spell lactone, furosemide). - Time Time Spent with patient: 15-24 minutes Medications reviewed and adjusted accordingly: Yes Anticipated discharge: Home Within: within 24 hours
[2018-03-01] MEDS: ATORVASTATIN CALCIUM 80 MG TABLET PO SCH (21:33)
[2018-03-01] MEDS: DULOXETINE HCL 30 MG CAPSULE.DR PO SCH (21:33)
[2018-03-01] MEDS: NORMAL SALINE 1000 ML 1,000 ML IV PRN (21:33)
[2018-03-02] MEDS: HYDROMORPHONE HCL INJ/PF 2 MG/ML AMPULE IV PRN (04:25)
[2018-03-02 05:20] LABS: HEMATOCRIT 30.2 % (36.0-47.0); HEMOGLOBIN 9.4 g/dL (12.0-15.5); MEAN CORPUSCULAR HEMOGLOBIN 22.7 pg (27.0-33.4); MEAN CORPUSCULAR HGB CONC 31.3 g/dL (32.0-36.0); MEAN CORPUSCULAR VOLUME 73 fl (80-97); PLATELET COUNT 206 10^3/uL (150-450); RED BLOOD COUNT 4.16 10^6/uL (3.72-5.28); RED CELL DISTRIBUTION WIDTH 19.4 % (11.5-14.0); WHITE BLOOD COUNT 9.6 10^3/uL (4.0-10.5)
[2018-03-02] MEDS: HEPARIN SOD (PORCINE) 5,000 UNIT/ML 1 ML SYRINGE SUBCUT SCH (05:33)
[2018-03-02] MEDS: NORMAL SALINE 1000 ML 1,000 ML IV PRN (06:31)
[2018-03-02] MEDS: GABAPENTIN 300 MG CAPSULE PO SCH (10:05)
[2018-03-02] MEDS: SPIRONOLACTONE 25 MG TABLET PO SCH (10:06)
[2018-03-02] MEDS: PANTOPRAZOLE SODIUM 40 MG VIAL IV SCH (10:06)
[2018-03-02] MEDS: FUROSEMIDE 40 MG TABLET PO SCH (10:07)
[2018-03-02] MEDS: NADOLOL 40 MG TABLET PO SCH (10:07)
[2018-03-02] MEDS: SUCRALFATE 1 GM TABLET PO SCH (10:07)
[2018-03-02] MEDS: MULTIVITAMIN TABLET PO SCH (10:08)
[2018-03-02] MEDS: POTASSIUM CHLORIDE 10 MEQ TABLET.SA PO SCH (10:10)
[2018-03-02 11:31] VITALS: BP 132/88
--- NOTE | 2018-03-02 12:40 | PDOC DISCHARGE SUMMARY ---
General - Admit/Disc Date/PCP Admission Date/Primary Care Provider: 02/28/18 00:21 COURTNEY BRODY, Discharge Date: 03/02/18 - Discharge Diagnosis (1) Hematemesis Is this a current diagnosis for this admission?: Yes (2) Leukocytosis Is this a current diagnosis for this admission?: Yes (3) Chronic back pain Is this a current diagnosis for this admission?: Yes (4) Opiate dependence, continuous Is this a current diagnosis for this admission?: Yes (5) Anemia Is this a current diagnosis for this admission?: Yes (6) Hypotension Is this a current diagnosis for this admission?: Yes - Additional Information Resuscitation Status: Full Code Discharge Diet: As Tolerated Discharge Activity: Activity As Tolerated, Balance Activity w/Rest Prescriptions: Famotidine [Pepcid 20 mg Tablet] 20 mg PO DAILY #30 tablet Home Medications: Gabapentin 600 tab PO ACHS 10/23/17 Sucralfate [Carafate 1 gm Tablet] 1 gm PO QID 10/24/17 Atorvastatin Calcium [Lipitor 80 mg Tablet] 80 mg PO QHS 02/28/18 Buprenorphine HCl [Belbuca] 300 mcg BC Q12HP PRN 02/28/18 Duloxetine HCl 30 mg PO QHS 02/28/18 Furosemide [Lasix 40 mg Tablet] 40 mg PO QAM 02/28/18 Lorazepam 1 mg PO Q6HP PRN 02/28/18 Methocarbamol 500 mg PO TID 02/28/18 Mv-Min/Iron/Folic/Calcium/Vitk [One-A-Day Women's Tablet] 1 each PO DAILY Nadolol [Corgard] 40 mg PO DAILY MDD HOLD IF SBP<110 02/28/18 Potassium Chloride [K-Tab ER] 20 meq PO DAILY 02/28/18 Spironolactone [Aldactone 100 mg Tablet] 100 mg PO DAILY 02/28/18 Acetaminophen [Tylenol 325 mg Tablet] 650 mg PO Q8HP PRN tablet 03/02/18 Famotidine [Pepcid 20 mg Tablet] 20 mg PO DAILY #30 tablet 03/02/18 Spironolactone [Aldactone 25 mg Tablet] 100 mg PO DAILY tablet 03/02/18 History of Present Illness History of Present Illness: Per H&P by Dr. Brooks: NIKKIE PAN is a 52 year old female with history of hepatic cirrhosis following successful treatment of ovarian cancer, coronary artery disease, congestive heart failure, hypertension, osteoarthritis, depression. Patient presents with 6 hours of nausea followed by a single episode of vomiting bright red blood loss of 2 cups. She admits previous episode approximately a year ago requiring banding of esophageal varices. Patient denies pain recent change in medications and is otherwise felt well. In the emergency room she is found to have microcytic anemia, leukocytosis, gastroenterology consulted, started on octreotide and referred the hospitalist for admission. Hospital Course Hospital Course: The patient was admitted with report of having had emesis 2 at home resulting in proximal milk 2 cups of bright red blood. She was initially placed n.p.o., provided IV fluids, and started on octreotide drip with IV Protonix daily. GI was consulted and on 02/28/18 completed an EGD finding 2 small esophageal varices that he was able to successfully band. Following procedure, the patient's diet was slowly advanced and she had no further episodes of nausea, vomiting, hematemesis. Throughout her admission she was continued on her home dosed nadolol, spironolactone, furosemide, and Carafate. The patient's leukocytosis, likely secondary to a stress response, trended down and has resolved at time of discharge. The patient's home medication, Belbuca, for her chronic back pain was unavailable. Therefore, she was provided IV Dilaudid which did result in some hypotension which also resolved with IV fluids and dilaudid dose reduction. At time of discharge, the patient is in stable condition, her hemoglobin is stable without evidence of active bleeding, she is tolerating a regular diet and is therefore discharged to home. She is provided prescriptions for Pepcid to take in addition to her home medications. She is instructed to follow-up with her primary care provider within 1 week and with her established fourchette sewer (Dr. Wyatt) as scheduled. Physical Exam Vital Signs: Temp Pulse Resp BP Pulse Ox 98.5 F 65 16 132/88 H 94 03/02/18 11:21 03/02/18 11:21 03/02/18 11:21 03/02/18 11:21 03/02/18 11:21 Intake & Output 03/01/18 03/02/18 03/03/18 06:59 06:59 06:59 Intake Total 1169 2651 Output Total 300 Balance 869 2651 Weight 64.8 kg 66.9 kg General appearance: PRESENT: no acute distress, disheveled, well-developed, well -nourished Head exam: PRESENT: atraumatic, normocephalic Eye exam: PRESENT: conjunctiva pink, EOMI, PERRLA. ABSENT: scleral icterus Mouth exam: PRESENT: moist, tongue midline Neck exam: ABSENT: carotid bruit, JVD, lymphadenopathy, thyromegaly Respiratory exam: PRESENT: clear to auscultation alecia, symmetrical, unlabored. ABSENT: rales, rhonchi, wheezes Cardiovascular exam: PRESENT: RRR, +S1, +S2. ABSENT: diastolic murmur, rubs, systolic murmur Pulses: PRESENT: normal dorsalis pedis pul Vascular exam: PRESENT: normal capillary refill GI/Abdominal exam: PRESENT: normal bowel sounds, soft. ABSENT: distended, guarding, mass, organolmegaly, rebound, tenderness Rectal exam: PRESENT: deferred Extremities exam: PRESENT: full ROM. ABSENT: calf tenderness, clubbing, pedal edema Neurological exam: PRESENT: alert, awake, oriented to person, oriented to place , oriented to time, oriented to situation, CN II-XII grossly intact. ABSENT: motor sensory deficit Psychiatric exam: PRESENT: appropriate affect, normal mood. ABSENT: homicidal ideation, suicidal ideation Skin exam: PRESENT: dry, intact, warm. ABSENT: cyanosis, rash Results Laboratory Results: 03/02/18 04:16 03/01/18 04:20 03/01/18 03/02/18 14:43 04:16 WBC 10.6 H 9.6 RBC 4.25 4.16 Hgb 9.6 L 9.4 L Hct 31.1 L 30.2 L MCV 73 L 73 L MCH 22.7 L 22.7 L MCHC 31.0 L 31.3 L RDW 20.3 H 19.4 H Plt Count 261 206 Qualifiers - * PATIENT BEING DISCHARGED WITH ANY OF THE FOLLOWING DIAGNOSIS: No Plan Discharge Plan: Discharge to home with self-care. Follow-up with primary care provider within 1 week. Follow-up with GI (Dr. Wyatt) as scheduled.
== END 2018-03-02 12:17 | disposition home or self-care (01) | DRG 378 ==
LOC: ER 21:17 → EH 02-28 00:21 → 3W 02-28 04:03 → UNDODISIN 03-02 10:05
PROVIDERS: ADMIT Internal Medicine; ATTEND Internal Medicine
PROC: 3E0F73Z Introduction of Anti-inflammatory into Respiratory Tract, Via Natural or Artificial Opening (ICD-10-PCS; 2018-02-28)
PROC: 06L38CZ Occlusion of Esophageal Vein with Extraluminal Device, Via Natural or Artificial Opening Endoscopic (ICD-10-PCS; principal; 2018-02-28 17:30)
DX: K92.0 Hematemesis (principal); F11.20 Opioid dependence, uncomplicated; R18.8 Other ascites; D62 Acute posthemorrhagic anemia; I85.10 Secondary esophageal varices without bleeding; G89.29 Other chronic pain; M54.9 Dorsalgia, unspecified; I25.10 Atherosclerotic heart disease of native coronary artery without angina pectoris; I50.9 Heart failure, unspecified; I11.0 Hypertensive heart disease with heart failure; M19.90 Unspecified osteoarthritis, unspecified site; E78.00 Pure hypercholesterolemia, unspecified; I73.9 Peripheral vascular disease, unspecified; G43.909 Migraine, unspecified, not intractable, without status migrainosus; F31.9 Bipolar disorder, unspecified; F17.210 Nicotine dependence, cigarettes, uncomplicated; K74.60 Unspecified cirrhosis of liver; I95.2 Hypotension due to drugs; T40.2X5A Adverse effect of other opioids, initial encounter; T42.4X5A Adverse effect of benzodiazepines, initial encounter; I25.2 Old myocardial infarction; Z79.899 Other long term (current) drug therapy; Z85.43 Personal history of malignant neoplasm of ovary; Z91.14 Patient's other noncompliance with medication regimen; Z95.5 Presence of coronary angioplasty implant and graft; Z90.710 Acquired absence of both cervix and uterus; Z80.9 Family history of malignant neoplasm, unspecified; Z82.49 Family history of ischemic heart disease and other diseases of the circulatory system
CPT/HCPCS: 36415; 43244; 80048; 80053; 82607; 82728; 82746; 83540; 83550; 83690; 85025; 85027; 85045; 85610; 85730; 86850; 86900; 86901; 96374; 96375; 99285; J0171; J1170; J1200; J1610; J1644; J2250; J2270; J2310; J2354; J2405; J3010; J3490; J7030; J7040; S0164

== ENCOUNTER 2018-07-03 16:06 | Day surgery (SDC) | payer MEDICARE, MEDICAID ==
[2018-07-03] MEDS ORDERED: ONDANSETRON HCL INJ/PF 4 MG/2 ML SDV ONE (16:16)
[2018-07-03] MEDS ORDERED: DIPHENHYDRAMINE HCL 50 MG/ML VIAL ONE (16:16)
[2018-07-03] MEDS ORDERED: GLUCAGON,HUMAN RECOMB 1 MG INJ ONE (16:17)
[2018-07-03] MEDS ORDERED: FLUMAZENIL INJ 0.5 MG/5 ML VIAL ONE (16:17)
[2018-07-03] MEDS ORDERED: NALOXONE HCL INJ/PF 0.4 MG/1 ML SDV ONE (16:17)
[2018-07-03] MEDS ORDERED: EPINEPHRINE INJ 1 MG/10 ML DISP.SYRIN ONE (16:17)
[2018-07-03] MEDS: MIDAZOLAM 2 MG/2 ML INJ ONE ×4 (16:50→16:56)
[2018-07-03] MEDS: FENTANYL CITRATE INJ/PF 100 MCG/2 ML AMPUL ONE ×2 (16:52→16:54)
--- NOTE | 2018-07-03 17:22 | Operative Report ---
Operative Report DATE OF SURGERY: 07/03/18 Operative Report: Pre-op diagnosis: History of cirrhosis and esophageal varices Post-op diagnosis: 1. Antral gastritis 2. No significant esophageal varices Surgery: Esophagogastroduodenoscopy with biopsy Medications: Versed 4mg Fentanyl 100mcg IV push Tissue removed: Antral and gastric body biopsy for pathology Procedure: After informed consent obtained from patient, the throat was sprayed with Hurricane and conscious sedation was achieved. The upper endoscope was inserted into the esophagus under direct vision and advanced into the stomach. The duodenum was entered and examined to the second part. Endoscope was then slowly pulled out of the patient as the mucosa was examined into details. Patient tolerated procedure well. Findings Esophagus: There was scarring from previous rubberbanding. No significant varix was identified Antrum: Mild erythema Body: Normal Fundus: Normal Duodenum first part: Normal Duodenum second part: Normal Plan: Await pathology. Follow-up EGD in 12 months OPERATION: .
[2018-07-03 18:18] VITALS: BP 110/52
== END 2018-07-03 18:06 | disposition home or self-care (01) ==
LOC: END 16:06
PROVIDERS: ATTEND Internal Medicine Gastroenterology
DX: K31.9 Disease of stomach and duodenum, unspecified (principal); Z09 Encounter for follow-up examination after completed treatment for conditions other than malignant neoplasm; Z87.19 Personal history of other diseases of the digestive system; K74.69 Other cirrhosis of liver; K92.2 Gastrointestinal hemorrhage, unspecified; R16.0 Hepatomegaly, not elsewhere classified; I10 Essential (primary) hypertension; E78.00 Pure hypercholesterolemia, unspecified; I25.10 Atherosclerotic heart disease of native coronary artery without angina pectoris; G62.9 Polyneuropathy, unspecified; M46.90 Unspecified inflammatory spondylopathy, site unspecified; Z79.899 Other long term (current) drug therapy; Z85.43 Personal history of malignant neoplasm of ovary; Z86.73 Personal history of transient ischemic attack (TIA), and cerebral infarction without residual deficits
CPT/HCPCS: 43239; 88342 ×2; 88305 ×2; J2250; J3010; J0171; J1200; J1610; J2310; J2405; J3490

== ENCOUNTER 2018-07-17 19:09 | Emergency (ER) | payer MEDICARE, MEDICAID ==
--- NOTE | 2018-07-17 19:39 | ER Document Report ---
ED Medical Screen (RME) - General Chief Complaint: Leg Swelling Stated Complaint: CELLULITIS Time Seen by Provider: 07/17/18 19:26 Notes: Patient is a 53-year-old female with multiple medical problems including CHF, hypertension, and cirrhosis that presents to the emergency department for chief complaint of left lower extremity swelling and redness. Patient first noticed this yesterday and seem to get worse through today so she called EMS and was brought to the emergency department. ROS: Unless otherwise stated in this report the patient's positive and negative responses for review of systems for constitutional, eyes, ENT, cardiovascular, respiratory, gastrointestinal, neurological, genitourinary, musculoskeletal, and integumentary systems and related systems to the presenting problem are either as stated in the HPI or were not pertinent or were negative for the symptoms and/or complaints related to the presenting medical problem. PHYSICAL EXAMINATION: Vital signs reviewed. GENERAL: Well-appearing, well-nourished and in no acute distress. HEAD: Atraumatic, normocephalic. EYES: Pupils equal round extraocular movements intact, conjunctiva are normal. ENT: Nares patent NECK: Normal range of motion CV: Heart regular rate and rhythm LUNGS: No respiratory distress Musculoskeletal: Left lower extremity is tender and erythematous, and edematous to the proximal tibia, with pitting edema, right lower extremity is unremarkable NEUROLOGICAL: Normal speech PSYCH: Normal mood, normal affect. MDM: Patient seen and examined for rapid initial assessment. Vital signs reviewed. A comprehensive ED assessment and evaluation of the patient, analysis of test results and completion of the medical decision making process will be conducted by additional ED providers. *Note is created using voice recognition software and may contain spelling, syntax or grammatical errors. TRAVEL OUTSIDE OF THE [place] IN LAST 30 DAYS: No - Related Data Allergies/Adverse Reactions: No Known Allergies Allergy (Verified 07/17/18 19:10) Past Medical History - Social History Chew tobacco use (# tins/day): No Frequency of alcohol use: None Drug Abuse: None - Past Medical History Cardiac Medical History: Reports: Hx Congestive Heart Failure, Hx Coronary Artery Disease, Hx Heart Attack, Hx Hypercholesterolemia, Hx Hypertension, Hx Peripheral Vascular Disease Pulmonary Medical History: Denies: Hx Asthma, Hx Bronchitis, Hx COPD, Hx Pneumonia Neurological Medical History: Reports: Hx Cerebrovascular Accident - SUMMER 2016 , Hx Migraine. Denies: Hx Seizures Renal/ Medical History: Reports: Hx Kidney Stones. Denies: Hx Peritoneal Dialysis Malignancy Medical History: Reports: Hx Ovarian Cancer GI Medical History: Reports: Hx Endoscopy Musculoskeltal Medical History: Reports Hx Arthritis Psychiatric Medical History: Reports: Hx Anxiety, Hx Bipolar Disorder, Hx Depression Past Surgical History: Reports: Hx Cardiac Surgery, Hx Coronary Stent - x2, Hx Gynecologic Surgery, Hx Hysterectomy, Hx Oral Surgery, Hx Orthopedic Surgery - C7 plate/fusion, Hx Tonsillectomy - Immunizations Hx Diphtheria, Pertussis, Tetanus Vaccination: Yes History of Influenza Vaccine for 06/2017 - 11/2017 Season: No Physical Exam - Vital signs Vitals: Temp Pulse Resp BP Pulse Ox 98.1 F 70 16 123/60 97 07/17/18 19:25 07/17/18 19:25 07/17/18 19:25 07/17/18 19:25 07/17/18 19:25 Course - Vital Signs Vital signs: Temp Pulse Resp BP Pulse Ox 98.1 F 70 16 123/60 97 07/17/18 19:25 07/17/18 19:25 07/17/18 19:25 07/17/18 19:25 07/17/18 19:25
--- NOTE | 2018-07-17 21:03 | EKG REPORT ---
SEVERITY:- ABNORMAL ECG - SINUS RHYTHM LVH WITH SECONDARY REPOLARIZATION ABNORMALITY CONSIDER ANTERIOR INFARCT BORDERLINE PROLONGED QT INTERVAL : Confirmed by: Zain Mccoy 17-Jul-2018 21:02:32
--- NOTE | 2018-07-17 21:06 | RADIOLOGY REPORT (SQ) ---
DUPLEX LOWER EXTREMITY VENOUS DOPPLER: Clinical Statement: LLE swelling and erythema , Findings: Color and spectral Doppler ultrasonography of the left lower extremity deep venous system is performed. The left femoral and popliteal veins and the proximal visualized portions of the posterior tibial, peroneal, soleal and gastrocnemius veins show no direct or indirect evidence of thrombosis. There is normal phasic spontaneous flow in these veins which are also compressible. Spectral analysis shows normal flow augmentation in these vessels with physiologic maneuvers. The greater and lesser saphenous veins are also patent. IMPRESSION: No evidence of deep vein thrombosis in the left lower extremity.
[2018-07-17 21:11] LABS: ABSOLUTE BASOPHILS # (AUTO) 0.1 10^3/uL (0.0-0.2); ABSOLUTE EOSINOPHILS # (AUTO) 0.1 10^3/uL (0.0-0.6); ABSOLUTE MONOCYTES (AUTO) 0.6 10^3/uL (0.1-1.4); ABSOLUTE NEUT (AUTO) 6.5 10^3/uL (1.7-8.2); BASOPHILS % (AUTO) 0.9 % (0-2); EOSINOPHILS % (AUTO) 1.1 % (0-6); HEMOGLOBIN 11.6 g/dL (12.0-15.5); LYMPHOCYTES % (AUTO) 21.5 % (13-45); MEAN CORPUSCULAR HEMOGLOBIN 21.9 pg (27.0-33.4); MEAN CORPUSCULAR HGB CONC 31.3 g/dL (32.0-36.0); MEAN CORPUSCULAR VOLUME 70 fl (80-97); MONOCYTES % (AUTO) 6.9 % (3-13); PLATELET COUNT 169 10^3/uL (150-450); RED CELL DISTRIBUTION WIDTH 24.9 % (11.5-14.0); SEGMENTED NEUTROPHILS % (AUTO) 69.6 % (42-78); TOTAL CELLS COUNTED % (AUTO) 100 %; WHITE BLOOD COUNT 9.4 10^3/uL (4.0-10.5)
[2018-07-17 21:14] LABS: ALANINE AMINOTRANSFERASE 17 U/L (9-52); ALBUMIN 3.7 g/dL (3.5-5.0); ALKALINE PHOSPHATASE 130 U/L (38-126); ANION GAP 9 (5-19); ASPARTATE AMINO TRANSFERASE 21 U/L (14-36); BILIRUBIN,DIRECT 0.4 mg/dL (0.0-0.4); BILIRUBIN,TOTAL 0.6 mg/dL (0.2-1.3); BLOOD UREA NITROGEN 10 mg/dL (7-20); CALCIUM 9.4 mg/dL (8.4-10.2); CARBON DIOXIDE 28 mmol/L (22-30); CHLORIDE 103 mmol/L (98-107); GLUCOSE 143 mg/dL (75-110); POTASSIUM 4.1 mmol/L (3.6-5.0); SODIUM 139.6 mmol/L (137-145); TOTAL PROTEIN 6.7 g/dL (6.3-8.2)
[2018-07-17 21:19] LABS: INTERNATIONAL RATION (INR) 1.22
[2018-07-17 21:20] LABS: PARTIAL THROMBOPLASTIN TIME 40.6 SEC (23.5-35.8)
[2018-07-17 21:36] LABS: ANISOCYTOSIS 3+; HYPOCHROMASIA 1+; PLATELET COMMENT ADEQUATE; POIKILOCYTOSIS 1+; TOXIC GRANULATION SLIGHT
[2018-07-17] MEDS ORDERED: LIDOCAINE 2% VISCOUS SOLN 20 ML UDCUP PO ONE (22:01)
[2018-07-17] MEDS ORDERED: OXYCODONE HCL IR 5 MG TABLET PO ONE (22:02)
[2018-07-17] MEDS ORDERED: CEPHALEXIN 500 MG CAPSULE PO ONE (22:02)
--- NOTE | 2018-07-17 22:06 | ER Document Report ---
ED General - General Chief Complaint: Leg Swelling Stated Complaint: CELLULITIS Time Seen by Provider: 07/17/18 19:26 Mode of Arrival: Ambulatory Information source: Patient TRAVEL OUTSIDE OF THE [place] IN LAST 30 DAYS: No - HPI Patient complains to provider of: Left leg swelling Onset: Other - 53-year-old female with a history of cirrhosis that presents for evaluation of left leg swelling and pain over the last 2 days. She denies any fevers or chills, abdominal pain, diarrhea constipation dysuria or other symptoms, she notes that it has started office some redness near the knee and is seemed to worsen slightly extending further down the leg. Nothing is made it better or worse. She is taking all her normal medications as previously. She has had one episode like this in the past at which time she had edema and treated it with a water pill. - Related Data Allergies/Adverse Reactions: No Known Allergies Allergy (Verified 07/17/18 19:10) Past Medical History - General Information source: Patient - Social History Smoking Status: Current Every Day Smoker Chew tobacco use (# tins/day): No Frequency of alcohol use: None Drug Abuse: None Family History: CAD, Malignancy Patient has suicidal ideation: No Patient has homicidal ideation: No - Past Medical History Cardiac Medical History: Reports: Hx Congestive Heart Failure, Hx Coronary Artery Disease, Hx Heart Attack, Hx Hypercholesterolemia, Hx Hypertension, Hx Peripheral Vascular Disease Pulmonary Medical History: Denies: Hx Asthma, Hx Bronchitis, Hx COPD, Hx Pneumonia Neurological Medical History: Reports: Hx Cerebrovascular Accident - SUMMER 2016 , Hx Migraine. Denies: Hx Seizures Renal/ Medical History: Reports: Hx Kidney Stones. Denies: Hx Peritoneal Dialysis Malignancy Medical History: Reports: Hx Ovarian Cancer GI Medical History: Reports: Hx Endoscopy Musculoskeletal Medical History: Reports Hx Arthritis Psychiatric Medical History: Reports: Hx Anxiety, Hx Bipolar Disorder, Hx Depression Past Surgical History: Reports: Hx Cardiac Surgery, Hx Coronary Stent - x2, Hx Gynecologic Surgery, Hx Hysterectomy, Hx Oral Surgery, Hx Orthopedic Surgery - C7 plate/fusion, Hx Tonsillectomy - Immunizations Hx Diphtheria, Pertussis, Tetanus Vaccination: Yes Review of Systems - Review of Systems -: Yes All other systems reviewed and negative Physical Exam - Vital signs Vitals: Temp Pulse Resp BP Pulse Ox 98.1 F 70 16 123/60 97 07/17/18 19:25 07/17/18 19:25 07/17/18 19:25 07/17/18 19:25 07/17/18 19:25 - General General appearance: Appears well In distress: None - HEENT Head: Normocephalic Eyes: Normal Conjunctiva: Normal Cornea: Normal Mouth/Lips: Caries, Dental fracture Mucous membranes: Normal Pharynx: Other - The mouth demonstrates essentially entire erosion of all teeth, Neck: Normal - Respiratory Respiratory status: No respiratory distress Chest status: Nontender Breath sounds: Normal Chest palpation: Normal - Cardiovascular Rhythm: Regular Heart sounds: Normal auscultation Murmur: No - Abdominal Inspection: Normal Distension: Fluid wave Tenderness: Nontender - Back Back: Normal - Extremities General upper extremity: Normal inspection, Nontender, Normal strength, Normal temperature General lower extremity: Other - The left lower extremity is markedly erythematous and mild early swelling paracent to the right. - Neurological Neuro grossly intact: Yes Cognition: Normal Orientation: AAOx4 Abner Coma Scale Eye Opening: Spontaneous [place] Coma Scale Verbal: Oriented Abner Coma Scale Motor: Obeys Commands Abner Coma Scale Total: 15 Speech: Normal Cranial nerves: Normal Cerebellar coordination: Normal Motor strength normal: LUE, RUE, LLE, RLE - Psychological Associated symptoms: Normal affect Course - Re-evaluation Re-evalutation: 07/18/18 02:05 53-year-old female that presents for evaluation of swelling and redness in her left lower extremity. She also endorses teeth pain. Through triage she had labs ordered as well as an ultrasound of the left lower extremity. Ultrasound does not demonstrate any acute clot clinically this patient has cellulitis in the soft tissues of the left lower extremity. She also has essentially entirely eroded teeth, she has multiple fractures through the teeth and caries. We will plan for discharge of this patient on treatment for cellulitis as well as lighted cane swishes for her dental pain. She is also using Orajel. She was told that she needs to follow-up with a dentist for probable extractions. She was in agreement with this plan at this time and current course of action, at the time of discharge she was hemodynamically stable able to tolerate p.o. - Vital Signs Vital signs: Temp Pulse Resp BP Pulse Ox 98.6 F 71 16 174/75 H 98 07/17/18 22:19 07/17/18 22:19 07/17/18 22:19 07/17/18 22:19 07/17/18 22:19 - Laboratory Result Diagrams: 07/17/18 20:45 07/17/18 20:45 Laboratory results interpreted by me: 07/17/18 07/17/18 07/17/18 20:45 20:45 20:45 RBC 5.30 H Hgb 11.6 L MCV 70 L MCH 21.9 L MCHC 31.3 L RDW 24.9 H PT 16.0 H APTT 40.6 H Glucose 143 H Alkaline Phosphatase 130 H Discharge - Discharge Clinical Impression: Toothache Cellulitis Qualifiers: Site of cellulitis: unspecified site Qualified Code(s): L03.90 - Cellulitis, unspecified Leg pain Qualifiers: Laterality: left Qualified Code(s): M79.605 - Pain in left leg Condition: Good Disposition: HOME, SELF-CARE Instructions: [facility], Cellulitis ([facility]), Toothache ([facility]) Prescriptions: Cephalexin Monohydrate [Keflex 500 mg Capsule] 500 mg PO Q6H 5 Days #40 capsule Lidocaine HCl [Lidocaine HCl Viscous] 15 ml MM BID #100 ml
[2018-07-17 22:20] VITALS: BP 174/75
== END 2018-07-17 22:20 | disposition home or self-care (01) ==
LOC: ER 19:09
DX: L03.116 Cellulitis of left lower limb (principal); K02.9 Dental caries, unspecified; K03.2 Erosion of teeth; K08.89 Other specified disorders of teeth and supporting structures; M79.605 Pain in left leg; F17.200 Nicotine dependence, unspecified, uncomplicated; Z79.899 Other long term (current) drug therapy; I25.10 Atherosclerotic heart disease of native coronary artery without angina pectoris; I10 Essential (primary) hypertension; Z85.43 Personal history of malignant neoplasm of ovary; Z95.5 Presence of coronary angioplasty implant and graft
CPT/HCPCS: 93005; 99284; 36415; 85025; 85610; 85730; 80053; 93971; 93010; A9270 ×2; J3490

== ENCOUNTER → 2018-07-27 | Outpatient (CLI) | payer MEDICARE, MEDICAID ==
--- NOTE | 2018-07-27 19:32 | RADIOLOGY REPORT (SQ) ---
EXAM DESCRIPTION: WRIST RIGHT 3 VIEWS COMPLETED DATE/TIME: 07/27/2018 5:12 pm REASON FOR STUDY: ACUTE PAIN OF RIGHT WRIST M25.531 PAIN IN RIGHT WRIST COMPARISON: None. NUMBER OF VIEWS: Three views. TECHNIQUE: AP, lateral, and oblique radiographic images acquired of the right wrist. LIMITATIONS: None. FINDINGS: MINERALIZATION: Normal. BONES: No acute fracture or dislocation. No worrisome bone lesions. Normal alignment. SOFT TISSUES: No soft tissue swelling. No foreign body. OTHER: No other significant finding. IMPRESSION: NEGATIVE STUDY OF THE RIGHT WRIST. NO RADIOGRAPHIC EVIDENCE OF ACUTE INJURY. TECHNICAL DOCUMENTATION: JOB ID: [id number] [employer]- All Rights Reserved Reading location - IP/workstation name: [email or web address]
== END ==
LOC: OD 17:02
PROVIDERS: ATTEND Family Medicine
DX: M25.531 Pain in right wrist (principal)

== ENCOUNTER → 2018-07-30 | Outpatient (CLI) | payer MEDICARE, MEDICAID ==
--- NOTE | 2018-07-30 12:43 | RADIOLOGY REPORT (SQ) ---
EXAM DESCRIPTION: CHEST PA/LATERAL COMPLETED DATE/TIME: 07/30/2018 10:43 am REASON FOR STUDY: PLEURODYNIA COMPARISON: 02/28/2017. EXAM PARAMETERS: NUMBER OF VIEWS: two views TECHNIQUE: Digital Frontal and Lateral radiographic views of the chest acquired. RADIATION DOSE: NA LIMITATIONS: none FINDINGS: LUNGS AND PLEURA: No opacities, masses or pneumothorax. No pleural effusion. MEDIASTINUM AND HILAR STRUCTURES: No masses or contour abnormalities. HEART AND VASCULAR STRUCTURES: Heart normal size. No evidence for failure. BONES: No acute findings. HARDWARE: None in the chest. OTHER: No other significant finding. IMPRESSION: NO SIGNIFICANT RADIOGRAPHIC FINDING IN THE CHEST. TECHNICAL DOCUMENTATION: JOB ID: [id number] [employer]- All Rights Reserved Reading location - IP/workstation name: [email or web address]
== END ==
LOC: OD 10:28
PROVIDERS: ATTEND Family Medicine
DX: R07.81 Pleurodynia (principal)
CPT/HCPCS: 71046

== ENCOUNTER 2018-08-22 16:46 | Emergency (ER) | payer MEDICARE, MEDICAID ==
--- NOTE | 2018-08-22 17:51 | ER Document Report ---
ED Medical Screen (RME) - General Chief Complaint: Dizziness Stated Complaint: DIZZINESS Time Seen by Provider: 08/22/18 17:45 Notes: 53 years old female presents today with confusion thinking that her ammonia level is high. She sustained cirrhosis after chemotherapy for ovarian cancer. Also claims she had a fall yesterday and injured her lower back. She has a previous history of fracture of the coccyx. TRAVEL OUTSIDE OF THE [place] IN LAST 30 DAYS: No - Related Data Allergies/Adverse Reactions: No Known Allergies Allergy (Verified 08/22/18 16:47) Past Medical History - Social History Chew tobacco use (# tins/day): No Frequency of alcohol use: None Drug Abuse: None - Past Medical History Cardiac Medical History: Reports: Hx Congestive Heart Failure, Hx Coronary Artery Disease, Hx Heart Attack, Hx Hypercholesterolemia, Hx Hypertension, Hx Peripheral Vascular Disease Pulmonary Medical History: Denies: Hx Asthma, Hx Bronchitis, Hx COPD, Hx Pneumonia Neurological Medical History: Reports: Hx Cerebrovascular Accident - SUMMER 2016 , Hx Migraine. Denies: Hx Seizures Renal/ Medical History: Reports: Hx Kidney Stones. Denies: Hx Peritoneal Dialysis Malignancy Medical History: Reports: Hx Ovarian Cancer GI Medical History: Reports: Hx Endoscopy Musculoskeltal Medical History: Reports Hx Arthritis Psychiatric Medical History: Reports: Hx Anxiety, Hx Bipolar Disorder, Hx Depression Past Surgical History: Reports: Hx Cardiac Surgery, Hx Coronary Stent - x2, Hx Gynecologic Surgery, Hx Hysterectomy, Hx Oral Surgery, Hx Orthopedic Surgery - C7 plate/fusion, Hx Tonsillectomy - Immunizations Hx Diphtheria, Pertussis, Tetanus Vaccination: Yes History of Influenza Vaccine for 06/2017 - 11/2017 Season: No Physical Exam - Vital signs Vitals: Temp Pulse Resp BP Pulse Ox 97.8 F 78 16 130/72 H 98 08/22/18 16:58 08/22/18 16:58 08/22/18 16:58 08/22/18 16:58 08/22/18 16:58 Course - Vital Signs Vital signs: Temp Pulse Resp BP Pulse Ox 97.8 F 78 16 130/72 H 98 08/22/18 16:58 08/22/18 16:58 08/22/18 16:58 08/22/18 16:58 08/22/18 16:58 Doctor's Discharge - Discharge Referrals: COURTNEY BRODY DO [Primary Care Provider] - Follow up as needed
--- NOTE | 2018-08-22 18:47 | RADIOLOGY REPORT (SQ) ---
EXAM DESCRIPTION: L SPINE WHOLE COMPLETED DATE/TIME: 08/22/2018 6:38 pm REASON FOR STUDY: injury low back pain COMPARISON: 01/12/2012 NUMBER OF VIEWS: Five views including obliques. TECHNIQUE: AP, lateral, oblique, and sacral radiographic images acquired of the lumbar spine. LIMITATIONS: None. FINDINGS: MINERALIZATION: Osteopenia. SEGMENTATION: Normal. No transitional anatomy. ALIGNMENT: Normal. VERTEBRAE: There is a approximately 30 to 40% compression deformity at L4. No obvious retropulsion. DISCS: Preserved height. No significant osteophytes or end plate irregularity. POSTERIOR ELEMENTS: Pedicles and facets are intact. No pars defect or posterior arch defects. HARDWARE: None in the spine. PARASPINAL SOFT TISSUES: Normal. PELVIS: Intact as visualized. No fractures or worrisome bone lesions. SI joints intact. OTHER: No other significant finding. IMPRESSION: 30 to 40% compression deformity at L4. No obvious retropulsion. Diffuse osteopenia. TECHNICAL DOCUMENTATION: JOB ID: [id number] [employer]- All Rights Reserved Reading location - IP/workstation name: [email or web address]
[2018-08-22 18:53] LABS: ABSOLUTE BASOPHILS # (AUTO) 0.2 10^3/uL (0.0-0.2); ABSOLUTE EOSINOPHILS # (AUTO) 0.1 10^3/uL (0.0-0.6); ABSOLUTE LYMPHOCYTES (AUTO) 2.6 10^3/uL (0.5-4.7); ABSOLUTE MONOCYTES (AUTO) 0.7 10^3/uL (0.1-1.4); ABSOLUTE NEUT (AUTO) 8.1 10^3/uL (1.7-8.2); BASOPHILS % (AUTO) 1.4 % (0-2); EOSINOPHILS % (AUTO) 0.8 % (0-6); HEMATOCRIT 39.7 % (36.0-47.0); HEMOGLOBIN 12.5 g/dL (12.0-15.5); LYMPHOCYTES % (AUTO) 22.4 % (13-45); MEAN CORPUSCULAR HEMOGLOBIN 22.7 pg (27.0-33.4); MEAN CORPUSCULAR HGB CONC 31.4 g/dL (32.0-36.0); MEAN CORPUSCULAR VOLUME 72 fl (80-97); MONOCYTES % (AUTO) 5.9 % (3-13); PLATELET COUNT 253 10^3/uL (150-450); RED CELL DISTRIBUTION WIDTH 20.1 % (11.5-14.0); SEGMENTED NEUTROPHILS % (AUTO) 69.5 % (42-78); TOTAL CELLS COUNTED % (AUTO) 100 %; WHITE BLOOD COUNT 11.6 10^3/uL (4.0-10.5)
[2018-08-22 19:49] LABS: ALANINE AMINOTRANSFERASE 19 U/L (9-52); ALBUMIN 3.9 g/dL (3.5-5.0); ALKALINE PHOSPHATASE 165 U/L (38-126); ANION GAP 9 (5-19); ASPARTATE AMINO TRANSFERASE 27 U/L (14-36); BILIRUBIN,DIRECT 0.5 mg/dL (0.0-0.4); BILIRUBIN,TOTAL 0.8 mg/dL (0.2-1.3); BLOOD UREA NITROGEN 12 mg/dL (7-20); CALCIUM 9.5 mg/dL (8.4-10.2); CARBON DIOXIDE 28 mmol/L (22-30); CHLORIDE 103 mmol/L (98-107); GLUCOSE 115 mg/dL (75-110); LIPASE 99.5 U/L (23-300); POTASSIUM 3.8 mmol/L (3.6-5.0); SODIUM 139.9 mmol/L (137-145); TOTAL PROTEIN 7.2 g/dL (6.3-8.2)
[2018-08-22] MEDS ORDERED: FENTANYL CITRATE INJ/PF 100 MCG/2 ML AMPUL IV ONE (20:49)
--- NOTE | 2018-08-22 21:53 | RADIOLOGY REPORT (SQ) ---
EXAM DESCRIPTION: CT LUMBAR SPINE WITHOUT IV CONTRAST COMPLETED DATE/TME: 08/22/2018 20:49 CLINICAL HISTORY: 53 years ,Female ,query canal stenosis COMPARISON: Plain film 08/22/2018. TECHNIQUE: Contiguous axial images obtained through the lumbar spine without IV contrast. Coronal and sagittal reformatted images obtained. This exam was performed according to our department optimization program which includes automated exposure control, adjustment of the mA and/or kv according to patient size and/or use of iterative reconstruction technique. FINDINGS: There is normal lumbar alignment. Vascular calcification is present. There is partial lumbarization of the S1 level. As noted on the plain film, there is moderate compression at L4. This appears acute or subacute in nature. The fracture line extends from the anterior to the posterior cortex. There is mild narrowing of the central canal. Mild narrowing of the neural foramina bilaterally at L3-L4. Mild disc bulging and facet arthropathy at L4-5 with mild bilateral neural foraminal stenosis mild central canal stenosis. Broad-based disc bulge at L5-S1 with moderate neural foraminal stenosis. IMPRESSION: Moderate acute or subacute compression at L4 with mild retropulsion of the superior cortex. This results in mild narrowing of the central canal Additional degenerative changes as above.
--- NOTE | 2018-08-22 21:55 | ER Document Report ---
ED General - General Chief Complaint: Dizziness Stated Complaint: DIZZINESS Time Seen by Provider: 08/22/18 17:45 Mode of Arrival: Medic Information source: Patient TRAVEL OUTSIDE OF THE [place] IN LAST 30 DAYS: No - HPI Patient complains to provider of: Back pain Onset: Other - 53-year-old female with past medical history of cirrhosis esophageal varices and hyperammonemia presents for evaluation of an episode last night which she fell while in the kitchen on her back she has had worsening back pain since that time. She has been using a walker to try and help her get around now. Nothing is helped with this pain, she has had a previous history of disc protrusion in the past the L4-L5 space for which she had been evaluated for potential surgery though she is not currently scheduled to pursue this at this time. - Related Data Allergies/Adverse Reactions: No Known Allergies Allergy (Verified 08/22/18 16:47) Past Medical History - General Information source: Patient, Relative - Social History Smoking Status: Current Every Day Smoker Chew tobacco use (# tins/day): No Frequency of alcohol use: None Drug Abuse: None Family History: CAD, Malignancy Patient has suicidal ideation: No Patient has homicidal ideation: No - Past Medical History Cardiac Medical History: Reports: Hx Congestive Heart Failure, Hx Coronary Artery Disease, Hx Heart Attack, Hx Hypercholesterolemia, Hx Hypertension, Hx Peripheral Vascular Disease Pulmonary Medical History: Denies: Hx Asthma, Hx Bronchitis, Hx COPD, Hx Pneumonia Neurological Medical History: Reports: Hx Cerebrovascular Accident - SUMMER 2016 , Hx Migraine. Denies: Hx Seizures Renal/ Medical History: Reports: Hx Kidney Stones. Denies: Hx Peritoneal Dialysis Malignancy Medical History: Reports: Hx Ovarian Cancer GI Medical History: Reports: Hx Endoscopy Musculoskeletal Medical History: Reports Hx Arthritis Psychiatric Medical History: Reports: Hx Anxiety, Hx Bipolar Disorder, Hx Depression Past Surgical History: Reports: Hx Cardiac Surgery, Hx Coronary Stent - x2, Hx Gynecologic Surgery, Hx Hysterectomy, Hx Oral Surgery, Hx Orthopedic Surgery - C7 plate/fusion, Hx Tonsillectomy - Immunizations Hx Diphtheria, Pertussis, Tetanus Vaccination: Yes Review of Systems - Review of Systems -: Yes All other systems reviewed and negative Physical Exam - Vital signs Vitals: Temp Pulse Resp BP Pulse Ox 97.8 F 78 16 130/72 H 98 08/22/18 16:58 08/22/18 16:58 08/22/18 16:58 08/22/18 16:58 08/22/18 16:58 - General General appearance: Appears well, Alert - HEENT Head: Normocephalic, Atraumatic Eyes: Normal Pupils: PERRL - Respiratory Respiratory status: No respiratory distress Chest status: Nontender Breath sounds: Normal Chest palpation: Normal - Cardiovascular Rhythm: Regular Heart sounds: Normal auscultation Murmur: No - Abdominal Inspection: Normal Distension: No distension Bowel sounds: Normal Tenderness: Nontender Organomegaly: No organomegaly - Back Back: Tender - Marked tenderness in the lower lumbar spine, no obvious step- offs no obvious deformities - Extremities General upper extremity: Normal inspection, Nontender, Normal color, Normal ROM , Normal temperature General lower extremity: Normal inspection, Nontender, Normal color, Normal ROM , Normal temperature, Normal weight bearing. No: Ange's sign - Neurological Neuro grossly intact: Yes Cognition: Normal Orientation: AAOx4 Keno Coma Scale Eye Opening: Spontaneous [place] Coma Scale Verbal: Oriented Keno Coma Scale Motor: Obeys Commands Abner Coma Scale Total: 15 Speech: Normal Motor strength normal: LUE, RUE, LLE, RLE Sensory: Normal Knee - Reflex grade: 1 = Hypoactive - Decreased deep tendon reflex over the knee and the left lower extremity - Psychological Associated symptoms: Normal affect, Normal mood Course - Re-evaluation Re-evalutation: 08/23/18 02:48 53-year-old woman with multiple medical comorbidities who presents for evaluation for back pain. She has known radicular symptoms and sciatica as a result of disks between 4 and 5 protrusion. On examination she does have tenderness in the back. Her examination is otherwise nonfocal. She did have labs drawn through triage and thought that her ammonia may be elevated. She does not demonstrate asterixis she is not demonstrate any obvious global amnesia. Her ammonia is normal, her H&H and function tests are essentially at baseline. She is chronically anemic and is at her baseline level. Her x-rays from the lateral demonstrate a wedge fracture in the L4-L5 area. Because of the concern for back pain and this compression fracture will obtain CT of the lumbar spine. Patient does have intact motor sense in the lower extremities. She has diminished patellar reflexes in the left lower extremity which she says are baseline. CT of the lumbar spine demonstrates mild retropulsion of her L4 fragment with a compression fracture without any obvious compression of the cord with some narrowing. Contacted on-call orthopedist Dr. Nader Whitmore who states that this is likely a stable fracture which does not require bracing at this time. We will plan to defer bracing at this time will administer analgesia for this patient in follow-up with Dr. Lindsay Portillo in pain management clinic for her lumbar fracture. She was given very specific return precautions related to compression suggestive of cauda equina syndrome. At the time of discharge she was ambulatory without assistance and neurologically intact. - Vital Signs Vital signs: Temp Pulse Resp BP Pulse Ox 97.4 F 77 16 141/78 H 99 08/22/18 22:38 08/22/18 22:38 08/22/18 22:38 08/22/18 22:38 08/22/18 22:38 - Laboratory Result Diagrams: 08/22/18 18:30 08/22/18 19:15 Laboratory results interpreted by me: 08/22/18 08/22/18 18:30 19:15 WBC 11.6 H RBC 5.50 H MCV 72 L MCH 22.7 L MCHC 31.4 L RDW 20.1 H Creatinine 0.48 L Glucose 115 H Direct Bilirubin 0.5 H Alkaline Phosphatase 165 H Discharge - Discharge Clinical Impression: Compression fracture Fall Qualifiers: Encounter type: initial encounter Qualified Code(s): W19.XXXA - Unspecified fall, initial encounter Back pain Qualifiers: Back pain location: low back pain Chronicity: unspecified Back pain laterality : midline Sciatica presence: unspecified whether sciatica present Qualified Code (s): M54.5 - Low back pain Condition: Good Disposition: HOME, SELF-CARE Instructions: Compression Fracture of the Spine ([facility]) Additional Instructions: Your seen today for your compression fracture in your spine and your fall. He had an evaluation including a physical exam, blood work, x-rays, a CT scan of your spine. It appears that the fracture of your spine is a stable fracture. You should use your walker for assistance with walking at home. Use the pain medication prescribed you only as needed. Schedule an appointment with the doctor you have been referred to Lindsay Owens. Return for worsening fevers or chills, if you lose control of your bowels you cannot urinate or you have new numbness or weakness in your legs. Prescriptions: Oxycodone HCl [Oxy-Ir 5 mg Tablet] 5 mg PO Q6HP PRN 4 Days #20 tab PRN Reason: Lidocaine HCl [Xylocaine] 35 gm TP BID PRN #2 oint..gm. PRN Reason: Referrals: COURTNEY BRODY DO [Primary Care Provider] - Follow up as needed LINDSAY PORTILLO MD [ACTIVE STAFF] - Follow up as needed
[2018-08-22] MEDS ORDERED: OXYCODONE HCL IR 5 MG TABLET PO ONE (22:10)
[2018-08-22 22:39] VITALS: BP 141/78
== END 2018-08-22 22:48 | disposition home or self-care (01) ==
LOC: ER 16:46
DX: S32.040A Wedge compression fracture of fourth lumbar vertebra, initial encounter for closed fracture (principal); W19.XXXA Unspecified fall, initial encounter; D64.9 Anemia, unspecified; I25.10 Atherosclerotic heart disease of native coronary artery without angina pectoris; I10 Essential (primary) hypertension; F17.200 Nicotine dependence, unspecified, uncomplicated; Z85.43 Personal history of malignant neoplasm of ovary; Z95.5 Presence of coronary angioplasty implant and graft
CPT/HCPCS: 99284; 96374; 36415; 82140; 83690; 85025; 80053; 72110; 72131; J3010; A9270

== ENCOUNTER 2019-07-18 19:40 | Inpatient (IN) | payer MEDICARE, MEDICAID ==
--- NOTE | 2019-07-18 21:25 | ER Document Report ---
ED Medical Screen (RME) - General Chief Complaint: Abdominal Pain Stated Complaint: ABDOMINAL PAIN Time Seen by Provider: 07/18/19 21:21 Primary Care Provider: COURTNEY BRODY DO [Primary Care Provider] - Follow up as needed Mode of Arrival: Medic Information source: Patient Notes: 34-year-old female presents to ED for complaint of abdominal pain since earlier today. She states she does have diarrhea. She states she has had about 5 stools today. She is alert oriented respirations regular nonlabored speaking in full sentences. Patient has a history of an abdominal hernia and cirrhosis. Patient states she smokes a pack a day states she does not drink alcohol. Had ovarian cancer and the cirrhosis came from the chemotherapy. I have greeted and performed a rapid initial assessment of this patient. A comprehensive ED assessment and evaluation of the patient, analysis of test results and completion of medical decision making process will be conducted by an additional ED providers. TRAVEL OUTSIDE OF THE [place] IN LAST 30 DAYS: No - Related Data Allergies/Adverse Reactions: No Known Allergies Allergy (Verified 08/22/18 16:47) Past Medical History - Past Medical History Cardiac Medical History: Reports: Hx Congestive Heart Failure, Hx Coronary Artery Disease, Hx Heart Attack, Hx Hypercholesterolemia, Hx Hypertension, Hx Peripheral Vascular Disease Pulmonary Medical History: Denies: Hx Asthma, Hx Bronchitis, Hx COPD, Hx Pneumonia Neurological Medical History: Reports: Hx Cerebrovascular Accident - SUMMER 2016, Hx Migraine. Denies: Hx Seizures Renal/ Medical History: Reports: Hx Kidney Stones. Denies: Hx Peritoneal Dialysis Malignancy Medical History: Reports: Hx Ovarian Cancer GI Medical History: Reports: Hx Endoscopy Musculoskeltal Medical History: Reports Hx Arthritis Psychiatric Medical History: Reports: Hx Anxiety, Hx Bipolar Disorder, Hx Depression Past Surgical History: Reports: Hx Cardiac Surgery, Hx Coronary Stent - x2, Hx Gynecologic Surgery, Hx Hysterectomy, Hx Oral Surgery, Hx Orthopedic Surgery - C7 plate/fusion, Hx Tonsillectomy - Immunizations Hx Diphtheria, Pertussis, Tetanus Vaccination: Yes Physical Exam - Vital signs Vitals: Temp Pulse Resp BP Pulse Ox 97.8 F 98 18 148/94 H 97 07/18/19 20:18 07/18/19 20:18 07/18/19 20:18 07/18/19 20:18 07/18/19 20:18 Course - Vital Signs Vital signs: Temp Pulse Resp BP Pulse Ox 97.8 F 98 18 148/94 H 97 07/18/19 20:18 07/18/19 20:18 07/18/19 20:18 07/18/19 20:18 07/18/19 20:18 Doctor's Discharge - Discharge Referrals: COURTNEY BRODY DO [Primary Care Provider] - Follow up as needed
[2019-07-18 21:55] LABS: ABSOLUTE LYMPHOCYTES (AUTO) 1.3 10^3/uL (0.5-4.7); ABSOLUTE MONOCYTES (AUTO) 0.7 10^3/uL (0.1-1.4); ABSOLUTE NEUT (AUTO) 9.7 10^3/uL (1.7-8.2); BASOPHILS % (AUTO) 0.2 % (0-2); EOSINOPHILS % (AUTO) 0.2 % (0-6); HEMATOCRIT 43.1 % (36.0-47.0); HEMOGLOBIN 13.8 g/dL (12.0-15.5); LYMPHOCYTES % (AUTO) 11.2 % (13-45); MEAN CORPUSCULAR HEMOGLOBIN 23.8 pg (27.0-33.4); MEAN CORPUSCULAR VOLUME 75 fl (80-97); MONOCYTES % (AUTO) 5.8 % (3-13); PLATELET COUNT 258 10^3/uL (150-450); RED BLOOD COUNT 5.79 10^6/uL (3.72-5.28); RED CELL DISTRIBUTION WIDTH 17.6 % (11.5-14.0); SEGMENTED NEUTROPHILS % (AUTO) 82.6 % (42-78); TOTAL CELLS COUNTED % (AUTO) 100 %; WHITE BLOOD COUNT 11.7 10^3/uL (4.0-10.5)
[2019-07-18 22:20] LABS: ALBUMIN 3.9 g/dL (3.5-5.0); ALKALINE PHOSPHATASE 183 U/L (38-126); ANION GAP 11 (5-19); ASPARTATE AMINO TRANSFERASE 48 U/L (14-36); BILIRUBIN,DIRECT 0.6 mg/dL (0.0-0.4); BILIRUBIN,TOTAL 1.6 mg/dL (0.2-1.3); BLOOD UREA NITROGEN 14 mg/dL (7-20); CALCIUM 9.2 mg/dL (8.4-10.2); CARBON DIOXIDE 35 mmol/L (22-30); CHLORIDE 94 mmol/L (98-107); GLUCOSE 137 mg/dL (75-110); TOTAL PROTEIN 7.1 g/dL (6.3-8.2)
[2019-07-18 22:42] LABS: POTASSIUM 2.6 mmol/L (3.6-5.0)
[2019-07-18 22:51] LABS: APPEARANCE,URINE CLEAR; BILIRUBIN,URINE SMALL (NEGATIVE); GLUCOSE, URINE NEGATIVE (NEGATIVE); KETONES,URINE 20 mg/dL (NEGATIVE); PROTEIN,URINE NEGATIVE (NEGATIVE); URINE SPECIFIC GRAVITY 1.019
[2019-07-18 22:52] LABS: COLOR,URINE YELLOW
[2019-07-18 23:08] LABS: URINE AMPHETAMINES SCREEN NEGATIVE; URINE BARBITURATES SCREEN NEGATIVE; URINE BENZODIAZEPINES SCREEN NEGATIVE; URINE COCAINE SCREEN NEGATIVE; URINE MARIJUANA (THC) SCREEN UNCONFIRMED POSITIVE; URINE METHADONE SCREEN NEGATIVE; URINE PHENCYCLIDINE SCREEN NEGATIVE
--- NOTE | 2019-07-19 00:55 | ER Document Report ---
ED General - General Chief Complaint: Abdominal Pain Stated Complaint: ABDOMINAL PAIN Time Seen by Provider: 07/18/19 21:21 Primary Care Provider: COURTNEY BRODY DO [Primary Care Provider] - Follow up as needed Mode of Arrival: Medic TRAVEL OUTSIDE OF THE [place] IN LAST 30 DAYS: No - Related Data Allergies/Adverse Reactions: No Known Allergies Allergy (Verified 08/22/18 16:47) Past Medical History - General Information source: Patient - Social History Smoking Status: Current Every Day Smoker Chew tobacco use (# tins/day): No Frequency of alcohol use: None Family History: CAD, Malignancy Patient has suicidal ideation: No Patient has homicidal ideation: No - Past Medical History Cardiac Medical History: Reports: Hx Congestive Heart Failure, Hx Coronary Artery Disease, Hx Heart Attack, Hx Hypercholesterolemia, Hx Hypertension, Hx Peripheral Vascular Disease Pulmonary Medical History: Denies: Hx Asthma, Hx Bronchitis, Hx COPD, Hx Pneumonia Neurological Medical History: Reports: Hx Cerebrovascular Accident - summer, Hx Migraine. Denies: Hx Seizures Renal/ Medical History: Reports: Hx Kidney Stones. Denies: Hx Peritoneal Dialysis Malignancy Medical History: Reports: Hx Ovarian Cancer GI Medical History: Reports: Hx Endoscopy Musculoskeletal Medical History: Reports Hx Arthritis Psychiatric Medical History: Reports: Hx Anxiety, Hx Bipolar Disorder, Hx Depression Past Surgical History: Reports: Hx Cardiac Surgery, Hx Coronary Stent - x2, Hx Gynecologic Surgery, Hx Hysterectomy, Hx Oral Surgery, Hx Orthopedic Surgery - C7 plate/fusion, Hx Tonsillectomy - Immunizations Hx Diphtheria, Pertussis, Tetanus Vaccination: Yes Physical Exam - Vital signs Vitals: Temp Pulse Resp BP Pulse Ox 97.8 F 98 18 148/94 H 97 07/18/19 20:18 07/18/19 20:18 07/18/19 20:18 07/18/19 20:18 07/18/19 20:18 - Notes Notes: Patient presents the emergency department complaining of periumbilical pain that is been going on for the past year. Intermittent in nature and they felt was related to her umbilical hernia. Pain got worse today and was associated with nausea vomiting and diarrhea. Vomiting has been brown but not coffee-ground in nature with no blood. The diarrhea is watery and no blood. There is been no recent antibiotics. Any fevers with this and no chest pain. He has chronic shortness of breath which is unchanged he is asked me twice for something for pain\ \ Past medical history significant for cirrhosis coronary artery disease with stents ovarian cancer treated with chemo 2009 CHF hypertension depression GI bleed with esophageal varices admitted in February for same Meds from her last visit been reviewed Review of systems all systems were reviewed and acutely negative except as in HPI PHYSICAL EXAMINATION: Vital signs are noted triage note reviewed GENERAL: Well-appearing, well-nourished and in no acute distress. HEAD: Atraumatic, normocephalic. EYES: Pupils equal round and reactive to light, extraocular movements intact, sclera anicteric, conjunctiva are normal. ENT: nares patent, oropharynx clear without exudates. Slightly dry mucous membranes. NECK: Normal range of motion, supple without lymphadenopathy LUNGS: Breath sounds clear to auscultation bilaterally and equal. No wheezes rales or rhonchi. HEART: Regular rate and rhythm when checked by me Abdomen she appears to be slightly distended positive bowel sounds is a small umbilical hernia reducible that is tender but she has minimal diffuse tenderness throughout no peritoneal signs is a midline incision Back reveals no bony tenderness or CVA tenderness She has a normal affect Neuro alert and oriented x4 with a nonfocal exam Skin reveals no lesions Extremities are nontender with no edema Course - Vital Signs Vital signs: Temp Pulse Resp BP Pulse Ox 97.8 F 98 18 148/94 H 97 07/18/19 20:18 07/18/19 20:18 07/18/19 20:18 07/18/19 20:18 07/18/19 20:18 - Laboratory Result Diagrams: 07/18/19 21:36 07/18/19 21:36 Laboratory results interpreted by me: 07/18/19 07/18/19 07/18/19 21:36 21:36 21:36 WBC 11.7 H RBC 5.79 H MCV 75 L MCH 23.8 L RDW 17.6 H Lymph % (Auto) 11.2 L Absolute Neuts (auto) 9.7 H Seg Neutrophils % 82.6 H Potassium 2.6 L* Chloride 94 L Carbon Dioxide 35 H Creatinine 0.42 L Glucose 137 H Total Bilirubin 1.6 H Direct Bilirubin 0.6 H AST 48 H Alkaline Phosphatase 183 H Creatine Kinase 206 H CK-MB (CK-2) Urine Ketones Urine Bilirubin Urine Urobilinogen 07/18/19 07/18/19 21:36 22:15 WBC RBC MCV MCH RDW Lymph % (Auto) Absolute Neuts (auto) Seg Neutrophils % Potassium Chloride Carbon Dioxide Creatinine Glucose Total Bilirubin Direct Bilirubin AST Alkaline Phosphatase Creatine Kinase CK-MB (CK-2) 6.87 H Urine Ketones 20 H Urine Bilirubin SMALL H Urine Urobilinogen 4.0 H - EKG Interpretation by Me Additional EKG results interpreted by me: 07/19/19 00:50 Initial EKG shows a normal sinus rhythm with a rate of 99. There is some LVH with strain baseline artifact. prolonged QT interval there is a normal axis and QRS. Repeat EKG done 1 hour later shows sinus tachycardia rate of 98 there is some LVH with strain and unchanged from the first the QT interval has prolonged 0.52 there is an old EKG from June 2018 no significant change 07/19/19 04:21 30 EKG was obtained because of troponin upper limits of normal and shows a normal sinus rhythm BH with strain along QT interval but otherwise unchanged from previous Discharge - Discharge Clinical Impression: Hypokalemia, Ascites Abdominal pain Qualifiers: Abdominal location: periumbilical Qualified Code(s): R10.33 - Periumbilical pain Disposition: ADMITTED INPATIENT Admitting Provider: Todd (Hospitalist) Unit Admitted: [facility] Referrals: COURTNEY BRODY DO [Primary Care Provider] - Follow up as needed
[2019-07-19] MEDS ORDERED: ONDANSETRON HCL INJ/PF 4 MG/2 ML SDV IV ONE (00:57)
[2019-07-19] MEDS ORDERED: HYDROCODONE/ACETAMINOPHEN 5-325 MG TABLET PO ONE (00:57)
[2019-07-19] MEDS ORDERED: MAGNESIUM SULFATE/D5W 1 GM/100 ML RTUPB IV ONE (01:04)
[2019-07-19] MEDS ORDERED: POTASSI CL 20 MEQ/50 ML RIDER 20 MEQ/50 ML RTUPB IV ONE (01:04)
[2019-07-19 01:15] LABS: CREATINE KINASE MB 6.87 ng/mL (<4.55); TROPONIN I 0.033 ng/mL
--- NOTE | 2019-07-19 02:01 | RADIOLOGY REPORT (SQ) ---
EXAM DESCRIPTION: XR CHEST 2 VIEWS COMPLETED DATE/TME: 07/19/2019 00:22 CLINICAL HISTORY: 54 years, Female, Chest pain chest pain COMPARISON: None. NUMBER OF VIEWS: TECHNIQUE: LIMITATIONS: None. FINDINGS: No evidence of pulmonary infiltrate or pleural effusion. The heart and mediastinum are unremarkable. Pulmonary vascularity appears normal. There are old left-sided and possible old right-sided rib fractures. There are postoperative changes in the lower cervical spine. IMPRESSION: No acute finding. copyright 2010 [employer]- All Rights Reserved
--- NOTE | 2019-07-19 02:29 | RADIOLOGY REPORT (SQ) ---
CLINICAL HISTORY: upper abdominal pain since earlier today with 5 diarrhea stools. Denies N/V COMPARISON: None. TECHNIQUE: CT ABDOMEN PELVIS WITH IV CONTRAST on 07/19/2019 1:00 AM CDT This exam was performed according to our departmental dose-optimization program, which includes automated exposure control, adjustment of the mA and/or kV according to patient size and/or use of iterative reconstruction technique. FINDINGS: Lower lungs are clear. Abdomen: The liver is normal in appearance. There is no biliary dilatation. Gallbladder is unremarkable. Spleen is borderline in size at 14.1 cm. There is moderate slightly loculated upper abdominal ascites. The adrenal glands and kidneys are unremarkable. Abdominal aorta is normal in course and caliber without aneurysm. There is no free air. There is no retroperitoneal adenopathy.There is a small umbilical fat-containing ventral hernia. Pelvis: The colon is relatively decompressed but mildly thickened diffusely. There is a small infraumbilical ventral hernia containing short segment of small bowel. Urinary bladder is unremarkable. There is small amount of free pelvic fluid anteriorly. Hysterectomy was performed. Appendix is poorly seen. Skeleton: There are no acute osseous findings. No suspicious bony lesions. IMPRESSION: Ascites, with suggestion of some loculation. Decompressed but diffusely thickened colon may be due to an underlying infectious or inflammatory colitis.
[2019-07-19] MEDS ORDERED: POTASSIUM CHLORIDE 20 MEQ PACKET PO ONE (02:56)
[2019-07-19] MEDS ORDERED: GABAPENTIN 300 MG CAPSULE PO ONE (02:56)
[2019-07-19] MEDS ORDERED: AMPICILLIN SOD/SULBACTAM 3 GM VIAL IV ONE (02:57)
[2019-07-19] MEDS ORDERED: IPRATROPIUM/ALBUTEROL 0.5-2.5 MG/3 ML AMPUL NEB PRN (05:16)
[2019-07-19] MEDS ORDERED: MAGNESIUM HYDROXIDE SUSP 30 ML UDCUP PO PRN (05:16)
[2019-07-19] MEDS ORDERED: MAG HYDROX/AL HYDROX/SIMETH SUSP 30 ML UDCUP PO PRN (05:16)
[2019-07-19] MEDS ORDERED: IMIPENEM/CILASTATIN SODIUM INJ 500 MG VIAL IV PRN (05:25)
[2019-07-19] MEDS ORDERED: PHYTONADIONE INJ 10 MG/1 ML AMPULE SUBCUT ONE (05:30)
[2019-07-19] MEDS ORDERED: IMIPENEM/CILASTATIN SODIUM 1,000 MG in NORMAL SALINE 250 ML IV SCH ×2 (06:00→09:00)
--- NOTE | 2019-07-19 06:20 | PDOC H&P ---
History of Present Illness Admission Date/PCP: 07/19/19 05:25 COURTNEY BRODY DO Patient complains of: Abdominal pain nausea vomiting History of Present Illness: NIKKIE PAN is a 54 year old female with a past medical history of hepatic cirrhosis thought subsequent to chemotherapy, coronary artery disease, congestive heart failure, hypertension, osteoarthritis depression and chronic pain. She presents with 3 days of abdominal pain nausea vomiting and diarrhea. Prompting evaluation in the emergency room she is found to have leukocytosis, hypokalemia and a CT abdomen pelvis concerning for SBP versus colitis. She received empiric antibiotics and referred to the hospitalist for admission. Past Medical History Cardiac Medical History: Reports: Congestive Heart Failure, Coronary Artery Disease, Myocardial Infarction, Hyperlipidema, Hypertension, Peripheral Vascular Disease Pulmonary Medical History: Denies: Asthma, Bronchitis, Chronic Obstructive Pulmonary Disease (COPD), Pneumonia Neurological Medical History: Reports: Migraine Denies: Seizures Malignancy Medical History: Reports: Ovarian Cancer Musculoskeltal Medical History: Reports: Arthritis Psychiatric Medical History: Reports: Bipolar Disorder, Depression Hematology: Denies: Anemia Past Surgical History Past Surgical History: Reports: Coronary Stent - x2, Hysterectomy, Orthopedic Surgery - C7 plate/fusion, Tonsillectomy Social History Information Source: Patient Lives with: Spouse/Significant other Smoking Status: Current Every Day Smoker Electronic Cigarette use?: No Frequency of Alcohol Use: None Hx Recreational Drug Use: No Drugs: None Hx Prescription Drug Abuse: No - Advance Directive Resuscitation Status: Full Code Family History Family History: CAD, Malignancy Parental Family History Reviewed: Yes Children Family History Reviewed: Yes Sibling(s) Family History Reviewed.: Yes Medication/Allergy Home Medications: Gabapentin 600 tab PO QID 10/23/17 Sucralfate [Carafate 1 gm Tablet] 1 gm PO QID 10/24/17 Atorvastatin Calcium [Lipitor 80 mg Tablet] 80 mg PO QHS 02/28/18 Duloxetine HCl 30 mg PO QHS 02/28/18 Lorazepam 1 mg PO Q6HP PRN 02/28/18 Methocarbamol 500 mg PO TID 02/28/18 Nadolol [Corgard] 40 mg PO DAILY MDD HOLD IF SBP<110 02/28/18 Spironolactone [Aldactone 25 mg Tablet] 100 mg PO DAILY tablet 03/02/18 Ondansetron HCl [Zofran 4 mg Tablet] 1 - 2 tab PO Q4H PRN 07/03/18 Cephalexin Monohydrate [Keflex 500 mg Capsule] 500 mg PO Q6H 5 Days #40 capsule 07/17/18 Lidocaine HCl [Lidocaine HCl Viscous] 15 ml MM BID #100 ml 07/17/18 Lidocaine HCl [Xylocaine] 35 gm TP BID PRN #2 oint..gm. 08/22/18 Oxycodone HCl [Oxy-Ir 5 mg Tablet] 5 mg PO Q6HP PRN 4 Days #20 tab 08/22/18 Allergies/Adverse Reactions: No Known Allergies Allergy (Verified 08/22/18 16:47) Review of Systems Constitutional: ABSENT: chills, fever(s), headache(s), weight gain, weight loss Eyes: ABSENT: visual disturbances Ears: ABSENT: hearing changes Cardiovascular: ABSENT: chest pain, dyspnea on exertion, edema, orthropnea, palpitations Respiratory: ABSENT: cough, hemoptysis Gastrointestinal: ABSENT: abdominal pain, constipation, diarrhea, hematemesis, hematochezia, nausea, vomiting Genitourinary: ABSENT: dysuria, hematuria Musculoskeletal: ABSENT: joint swelling Integumentary: ABSENT: rash, wounds Neurological: ABSENT: abnormal gait, abnormal speech, confusion, dizziness, focal weakness, syncope Psychiatric: ABSENT: anxiety, depression, homidical ideation, suicidal ideation Endocrine: ABSENT: cold intolerance, heat intolerance, polydipsia, polyuria Hematologic/Lymphatic: ABSENT: easy bleeding, easy bruising Physical Exam Vital Signs: Temp Pulse Resp BP Pulse Ox 97.8 F 98 18 148/94 H 97 07/18/19 20:18 07/18/19 20:18 07/18/19 20:18 07/18/19 20:18 07/18/19 20:18 Intake & Output 07/17/19 07/18/19 07/19/19 11:59 11:59 11:59 Intake Total 100 Balance 100 Weight 55.6 kg General appearance: PRESENT: cooperative, disheveled, mild distress, well- developed, well-nourished Head exam: PRESENT: atraumatic, normocephalic Eye exam: PRESENT: conjunctiva pink, EOMI, PERRLA. ABSENT: scleral icterus Ear exam: PRESENT: normal external ear exam Mouth exam: PRESENT: dry mucosa, tongue midline Neck exam: ABSENT: carotid bruit, JVD, lymphadenopathy, thyromegaly Respiratory exam: PRESENT: clear to auscultation alecia. ABSENT: rales, rhonchi, wheezes Cardiovascular exam: PRESENT: tachycardia. ABSENT: diastolic murmur, rubs, systolic murmur Pulses: PRESENT: normal dorsalis pedis pul Vascular exam: PRESENT: normal capillary refill GI/Abdominal exam: PRESENT: ascites, diminished bowel sounds, distended, hypoactive bowel sounds, soft, tenderness. ABSENT: firm Rectal exam: PRESENT: deferred Extremities exam: PRESENT: full ROM. ABSENT: calf tenderness, clubbing, pedal edema Neurological exam: PRESENT: alert, awake, oriented to person, oriented to place, oriented to time, oriented to situation, CN II-XII grossly intact. ABSENT: motor sensory deficit Psychiatric exam: PRESENT: appropriate affect, normal mood. ABSENT: homicidal ideation, suicidal ideation Skin exam: PRESENT: dry, intact, warm. ABSENT: cyanosis, rash Results Laboratory Results: 07/18/19 21:36 07/18/19 21:36 07/18/19 07/18/19 07/18/19 21:36 21:36 21:36 WBC 11.7 H RBC 5.79 H Hgb 13.8 Hct 43.1 MCV 75 L MCH 23.8 L MCHC 32.0 RDW 17.6 H Plt Count 258 Seg Neutrophils % 82.6 H Sodium 140.0 Potassium 2.6 L* Chloride 94 L Carbon Dioxide 35 H Anion Gap 11 BUN 14 Creatinine 0.42 L Est GFR ( Amer) > 60 Glucose 137 H Calcium 9.2 Magnesium 2.0 Total Bilirubin 1.6 H AST 48 H Alkaline Phosphatase 183 H Total Protein 7.1 Albumin 3.9 Lipase 46.8 Urine Color Urine Appearance Urine pH Ur Specific [place] Urine Protein Urine Glucose (UA) Urine Ketones Urine Blood Urine RBC (Auto) 07/18/19 22:15 WBC RBC Hgb Hct MCV MCH MCHC RDW Plt Count Seg Neutrophils % Sodium Potassium Chloride Carbon Dioxide Anion Gap BUN Creatinine Est GFR ( Amer) Glucose Calcium Magnesium Total Bilirubin AST Alkaline Phosphatase Total Protein Albumin Lipase Urine Color YELLOW Urine Appearance CLEAR Urine pH 6.0 Ur Specific [place] 1.019 Urine Protein NEGATIVE Urine Glucose (UA) NEGATIVE Urine Ketones 20 H Urine Blood NEGATIVE Urine RBC (Auto) 2 07/18/19 07/18/19 07/19/19 21:36 21:36 03:30 Creatine Kinase 206 H CK-MB (CK-2) 6.87 H Troponin I 0.033 0.023 Impressions: Chest X-Ray 07/19/19 00:22 IMPRESSION: No acute finding. copyright 2011 [employer]- All Rights Reserved Abdomen/Pelvis CT 07/19/19 01:00 IMPRESSION: Ascites, with suggestion of some loculation. Decompressed but diffusely thickened colon may be due to an underlying infectious or inflammatory colitis. Assessment and Plan - Diagnosis (1) Spontaneous bacterial peritonitis Is this a current diagnosis for this admission?: Yes Plan: SBP versus colitis by history and imaging. Imipenem trial, follow-up CBC and blood culture. Consider paracentesis (2) Hypokalemia Is this a current diagnosis for this admission?: Yes Plan: Likely secondary to diarrhea, IV repletion, follow-up magnesium level and chemistry (3) Liver cirrhosis Qualifiers: Is this a current diagnosis for this admission?: Yes Plan: Follow-up INR, history of hemorrhagic gastritis. Vitamin K ordered. - Time Time Spent with patient: 25-34 minutes - Inpatient Certification Medical Necessity: Need Close Monitoring Due to Risk of Patient Decompensation
[2019-07-19] MEDS: HEPARIN SOD (PORCINE) 5,000 UNIT/ML 1 ML VIAL SUBCUT SCH ×3 (07:08→23:27)
[2019-07-19 07:17] LABS: INTERNATIONAL RATION (INR) 1.14; PROTHROMBIN TIME 14.7 SEC (11.4-15.4)
[2019-07-19 10:04] LABS: C DIFFICILE GDH NEGATIVE (NEGATIVE)
[2019-07-19] MEDS ORDERED: LORAZEPAM 1 MG TABLET PO PRN (15:49)
[2019-07-19 16:50] LABS: ANION GAP 11 (5-19); BLOOD UREA NITROGEN 9 mg/dL (7-20); CALCIUM 9.2 mg/dL (8.4-10.2); CARBON DIOXIDE 31 mmol/L (22-30); CHLORIDE 100 mmol/L (98-107); GLUCOSE 136 mg/dL (75-110); POTASSIUM 3.1 mmol/L (3.6-5.0)
[2019-07-19] MEDS ORDERED: OXYCODONE HCL SR 10 MG TABLET PO ONE (18:00)
[2019-07-19] MEDS ORDERED: SPIRONOLACTONE 25 MG TABLET PO ONE (18:00)
[2019-07-19] MEDS: SUCRALFATE 1 GM TABLET PO SCH (18:01)
--- NOTE | 2019-07-19 19:07 | EKG REPORT ---
SEVERITY:- ABNORMAL ECG - SINUS RHYTHM PROBABLE LEFT ATRIAL ABNORMALITY LVH WITH SECONDARY REPOLARIZATION ABNORMALITY CONSIDER ANTERIOR INFARCT ST DEPRESSION, CONSIDER ISCHEMIA, ANT-LAT LDS PROLONGED QT INTERVAL : Confirmed by: Zohra Barcenas MD 19-Jul-2019 19:07:29
--- NOTE | 2019-07-19 19:08 | EKG REPORT ---
SEVERITY:- ABNORMAL ECG - SINUS TACHYCARDIA ATRIAL PREMATURE COMPLEX PROBABLE LEFT ATRIAL ABNORMALITY LVH WITH SECONDARY REPOLARIZATION ABNORMALITY ST DEPRESSION, CONSIDER ISCHEMIA, ANT-LAT LDS PROLONGED QT INTERVAL : Confirmed by: Zohra Barcenas MD 19-Jul-2019 19:07:35
--- NOTE | 2019-07-19 19:08 | EKG REPORT ---
SEVERITY:- ABNORMAL ECG - SINUS RHYTHM PROBABLE LEFT ATRIAL ABNORMALITY LVH WITH SECONDARY REPOLARIZATION ABNORMALITY ANTEROLATERAL INFARCT, AGE INDETERMINATE BORDERLINE PROLONGED QT INTERVAL : Confirmed by: Zohra Barcenas MD 19-Jul-2019 19:07:38
[2019-07-19] MEDS: GABAPENTIN 300 MG CAPSULE PO SCH (21:42)
[2019-07-19] MEDS ORDERED: DULOXETINE HCL 30 MG CAPSULE.DR PO SCH (22:00)
[2019-07-19] MEDS: OXYCODONE HCL IR 5 MG TABLET PO PRN (23:27)
[2019-07-20 05:18] LABS: ABSOLUTE LYMPHOCYTES (AUTO) 1.9 10^3/uL (0.5-4.7); ABSOLUTE MONOCYTES (AUTO) 0.5 10^3/uL (0.1-1.4); BASOPHILS % (AUTO) 0.6 % (0-2); EOSINOPHILS % (AUTO) 0.3 % (0-6); HEMOGLOBIN 13.2 g/dL (12.0-15.5); LYMPHOCYTES % (AUTO) 25.6 % (13-45); MEAN CORPUSCULAR HEMOGLOBIN 23.8 pg (27.0-33.4); MEAN CORPUSCULAR HGB CONC 32.3 g/dL (32.0-36.0); MEAN CORPUSCULAR VOLUME 74 fl (80-97); MONOCYTES % (AUTO) 7.3 % (3-13); PLATELET COUNT 210 10^3/uL (150-450); RED BLOOD COUNT 5.56 10^6/uL (3.72-5.28); RED CELL DISTRIBUTION WIDTH 17.6 % (11.5-14.0); SEGMENTED NEUTROPHILS % (AUTO) 66.2 % (42-78); TOTAL CELLS COUNTED % (AUTO) 100 %; WHITE BLOOD COUNT 7.5 10^3/uL (4.0-10.5)
[2019-07-20] MEDS: HEPARIN SOD (PORCINE) 5,000 UNIT/ML 1 ML VIAL SUBCUT SCH ×2 (05:23→13:49)
[2019-07-20 05:30] LABS: ALBUMIN 3.5 g/dL (3.5-5.0); ALKALINE PHOSPHATASE 148 U/L (38-126); ANION GAP 12 (5-19); ASPARTATE AMINO TRANSFERASE 31 U/L (14-36); BILIRUBIN,DIRECT 0.4 mg/dL (0.0-0.4); BILIRUBIN,TOTAL 0.9 mg/dL (0.2-1.3); BLOOD UREA NITROGEN 6 mg/dL (7-20); CALCIUM 8.9 mg/dL (8.4-10.2); CARBON DIOXIDE 28 mmol/L (22-30); CHLORIDE 102 mmol/L (98-107); GLUCOSE 138 mg/dL (75-110); TOTAL PROTEIN 6.7 g/dL (6.3-8.2)
[2019-07-20 05:49] LABS: POTASSIUM 2.6 mmol/L (3.6-5.0)
[2019-07-20] MEDS: POTASSIUM CHLORIDE 20 MEQ/50 ML RTU IV SCH ×2 (06:23→08:27)
[2019-07-20] MEDS ORDERED: POTASSIUM CHLORIDE 10 MEQ CAPSULE.ER PO ONE (07:00)
[2019-07-20] MEDS ORDERED: (PENDING PHARMACY ID) (Nadolol [Corgard] 40 MG) PO SCH (08:00)
[2019-07-20] MEDS ORDERED: NADOLOL 40 MG TABLET PO SCH (08:00)
[2019-07-20] MEDS: SUCRALFATE 1 GM TABLET PO SCH (09:59)
[2019-07-20] MEDS: GABAPENTIN 300 MG CAPSULE PO SCH (09:59)
[2019-07-20] MEDS ORDERED: SPIRONOLACTONE 25 MG TABLET PO SCH (10:00)
[2019-07-20] MEDS ORDERED: CIPROFLOXACIN HCL 500 MG TABLET PO SCH (10:00)
[2019-07-20] MEDS: OXYCODONE HCL IR 5 MG TABLET PO PRN (12:02)
--- NOTE | 2019-07-20 12:40 | PDOC DISCHARGE SUMMARY ---
Impression - Admit/DC Date/PCP Admission Date/Primary Care Provider: 07/19/19 05:25 COURTNEY BRODY DO Discharge Date: 07/20/19 - Discharge Diagnosis (3) Liver cirrhosis Is this a current diagnosis for this admission?: Yes - Assessment Summary: 54-year-old female with a history of cirrhosis secondary to chemotherapy, ovarian cancer, chronic pain, presented with diarrhea and nausea and vomiting. Patient initially also endorsed mild abdominal pain. On examination patient had mild mild tenderness at the site of a reducible hernia umbilical, no other tenderness in other areas of the abdomen, negative rebound tenderness and no peritoneal signs. CT scan revealed ascites with small areas of loculations and inflammation of the colon. On discussion with radiology was confirmed that there was no evidence of abscess or masses. Patient was placed on antibiotics for treatment of infectious colitis. Spontaneous bacterial peritonitis was thought to be unlikely given the lack of peritoneal signs thanks. C. difficile testing was negative. Patient was also hypokalemic during this admission secondary to diarrhea and was given adequate repletion's. Patient was discharged in stable conditions to complete a 7-day course of antibiotics as well as with some potassium supplements. - Additional Information Resuscitation Status: Full Code Discharge Activity: Activity As Tolerated Referrals: COURTNEY BRODY DO [Primary Care Provider] - Follow up as needed Prescriptions: Ciprofloxacin HCl [Cipro 500 mg Tablet] 500 mg PO DAILY 5 Days tablet Potassium Chloride 20 meq PO BID #7 tablet.er Home Medications: Duloxetine HCl [Cymbalta 30 mg Capsule.dr] 30 mg PO QHS 07/19/19 Fluocinolone Acetonide 1 applic TP TID 07/19/19 Gabapentin [Neurontin] 1,200 mg PO NOON 07/19/19 Gabapentin [Neurontin] 1,200 mg PO QHS 07/19/19 Gabapentin [Neurontin] 600 mg PO QAM 07/19/19 Lorazepam [Ativan 1 mg Tablet] 1 mg PO Q6HP PRN 07/19/19 Nadolol [Corgard] 40 mg PO QAM 07/19/19 Olopatadine HCl [Pataday] 1 drop OU DAILY 07/19/19 Omeprazole 40 mg PO Q6AM 07/19/19 Oxymorphone HCl [Oxymorphone HCl ER] 10 mg PO Q12 07/19/19 Spironolactone [Aldactone 100 mg Tablet] 100 mg PO DAILY 07/19/19 Sucralfate [Carafate 1 gm Tablet] 1 gm PO BID 07/19/19 Ciprofloxacin HCl [Cipro 500 mg Tablet] 500 mg PO DAILY 5 Days tablet 07/20/19 Potassium Chloride 20 meq PO BID #7 tablet.er 07/20/19 Additional Information: Please note that spontaneous bacterial peritonitis was not listed on the discharge diagnosis because it was determined to be unlikely given lack of peritoneal signs History of Present Illiness History of Present Illness: NIKKIE PAN is a 54 year old female with a past medical history of hepatic cirrhosis thought subsequent to chemotherapy, coronary artery disease, congestive heart failure, hypertension, osteoarthritis depression and chronic pain. She presents with 3 days of abdominal pain nausea vomiting and diarrhea. Prompting evaluation in the emergency room she is found to have leukocytosis, hypokalemia and a CT abdomen pelvis concerning for SBP versus colitis. She received empiric antibiotics and referred to the hospitalist for admission. Physical Exam Vital Signs: Temp Pulse Resp BP Pulse Ox 98.0 F 63 16 141/86 H 97 07/20/19 07:32 07/20/19 10:06 07/20/19 10:06 07/20/19 07:32 07/20/19 10:06 Intake & Output 07/19/19 07/20/19 07/21/19 06:59 06:59 06:59 Intake Total 100 1966 100 Output Total 400 Balance 100 1566 100 Weight 55.6 kg 61.4 kg General appearance: PRESENT: no acute distress, cooperative Head exam: PRESENT: normocephalic Eye exam: PRESENT: EOMI Neck exam: ABSENT: JVD, tracheal deviation Respiratory exam: PRESENT: clear to auscultation alecia. ABSENT: rales Cardiovascular exam: PRESENT: RRR, +S1, systolic murmur Vascular exam: ABSENT: pallor GI/Abdominal exam: PRESENT: ascites, hernia - Reducible umbilical hernia, hyperactive bowel sounds, soft, tenderness - Only very mild and at site of umbilical hernia which is reducible. ABSENT: guarding, rebound, rigid Rectal exam: ABSENT: deferred Extremities exam: ABSENT: tenderness, +1 edema Musculoskeletal exam: PRESENT: ambulatory Neurological exam: PRESENT: alert, awake, oriented to person, oriented to place, oriented to time, oriented to situation Psychiatric exam: PRESENT: normal mood Results Laboratory Results: WBC 7.5 10^3/uL (4.0-10.5) 07/20/19 04:28 RBC 5.56 10^6/uL (3.72-5.28) H 07/20/19 04:28 Hgb 13.2 g/dL (12.0-15.5) 07/20/19 04:28 Hct 41.0 % (36.0-47.0) 07/20/19 04:28 MCV 74 fl (80-97) L 07/20/19 04:28 MCH 23.8 pg (27.0-33.4) L 07/20/19 04:28 MCHC 32.3 g/dL (32.0-36.0) 07/20/19 04:28 RDW 17.6 % (11.5-14.0) H 07/20/19 04:28 Plt Count 210 10^3/uL (150-450) 07/20/19 04:28 Lymph % (Auto) 25.6 % (13-45) 07/20/19 04:28 [place] % (Auto) 7.3 % (3-13) 07/20/19 04:28 Eos % (Auto) 0.3 % (0-6) 07/20/19 04:28 Baso % (Auto) 0.6 % (0-2) 07/20/19 04:28 Absolute Neuts (auto) 5.0 10^3/uL (1.7-8.2) 07/20/19 04:28 Absolute Lymphs (auto) 1.9 10^3/uL (0.5-4.7) 07/20/19 04:28 Absolute Monos (auto) 0.5 10^3/uL (0.1-1.4) 07/20/19 04:28 Absolute Eos (auto) 0.0 10^3/uL (0.0-0.6) 07/20/19 04:28 Absolute Basos (auto) 0.0 10^3/uL (0.0-0.2) 07/20/19 04:28 Seg Neutrophils % 66.2 % (42-78) 07/20/19 04:28 PT 14.7 SEC (11.4-15.4) 07/19/19 06:55 INR 1.14 07/19/19 06:55 Sodium 141.5 mmol/L (137-145) 07/20/19 04:28 Potassium 2.6 mmol/L (3.6-5.0) L* 07/20/19 04:28 Chloride 102 mmol/L (98-107) 07/20/19 04:28 Carbon Dioxide 28 mmol/L (22-30) 07/20/19 04:28 Anion Gap 12 (5-19) 07/20/19 04:28 BUN 6 mg/dL (7-20) L 07/20/19 04:28 Creatinine 0.52 mg/dL (0.52-1.25) 07/20/19 04:28 Est GFR ( Amer) > 60 (>60) 07/20/19 04:28 Est GFR (MDRD) Non-Af > 60 (>60) 07/20/19 04:28 Glucose 138 mg/dL (75-110) H 07/20/19 04:28 Calcium 8.9 mg/dL (8.4-10.2) 07/20/19 04:28 Phosphorus 3.4 mg/dL (2.5-4.5) 07/19/19 06:55 Magnesium 2.1 mg/dL (1.6-2.3) 07/20/19 04:28 Total Bilirubin 0.9 mg/dL (0.2-1.3) 07/20/19 04:28 Direct Bilirubin 0.4 mg/dL (0.0-0.4) 07/20/19 04:28 Neonat Total Bilirubin Not Reportable 07/20/19 04:28 Neonat Direct Bilirubin Not Reportable 07/20/19 04:28 Neonat Indirect Bili Not Reportable 07/20/19 04:28 AST 31 U/L (14-36) 07/20/19 04:28 ALT 22 U/L (<35) 07/20/19 04:28 Alkaline Phosphatase 148 U/L (38-126) H 07/20/19 04:28 Creatine Kinase 206 U/L (30-135) H 07/18/19 21:36 CK-MB (CK-2) 6.87 ng/mL (<4.55) H 07/18/19 21:36 Troponin I 0.023 ng/mL 07/19/19 03:30 Total Protein 6.7 g/dL (6.3-8.2) 07/20/19 04:28 Albumin 3.5 g/dL (3.5-5.0) 07/20/19 04:28 Lipase 46.8 U/L (23-300) 07/18/19 21:36 Urine Color YELLOW 07/18/19 22:15 Urine Appearance CLEAR 07/18/19 22:15 Urine pH 6.0 (5.0-9.0) 07/18/19 22:15 Ur Specific [place] 1.019 07/18/19 22:15 Urine Protein NEGATIVE mg/dL (NEGATIVE) 07/18/19 22:15 Urine Glucose (UA) NEGATIVE mg/dL (NEGATIVE) 07/18/19 22:15 Urine Ketones 20 mg/dL (NEGATIVE) H 07/18/19 22:15 Urine Blood NEGATIVE (NEGATIVE) 07/18/19 22:15 Urine Nitrite (Reflex) NEGATIVE (NEGATIVE) 07/18/19 22:15 Urine Bilirubin SMALL (NEGATIVE) H 07/18/19 22:15 Urine Urobilinogen 4.0 mg/dL (<2.0) H 07/18/19 22:15 Leukocyte Esterase Rfl NEGATIVE (NEGATIVE) 07/18/19 22:15 Urine RBC (Auto) 2 /HPF 07/18/19 22:15 Urine WBC (Reflex) 2 /HPF 07/18/19 22:15 Squamous Epi Cells Auto 1 /HPF 07/18/19 22:15 Urine Mucus (Auto) FEW /LPF 07/18/19 22:15 Urine Ascorbic Acid NEGATIVE (NEGATIVE) 07/18/19 22:15 Stl C. Difficile GDH Ag NEGATIVE (NEGATIVE) 07/19/19 04:20 Stl C.difficile Tox A&B NEGATIVE (NEGATIVE) 07/19/19 04:20 Urine Opiates Screen NEGATIVE 07/18/19 22:15 Urine Methadone Screen NEGATIVE 07/18/19 22:15 Ur Barbiturates Screen NEGATIVE 07/18/19 22:15 Ur Phencyclidine Scrn NEGATIVE 07/18/19 22:15 Ur Amphetamines Screen NEGATIVE 07/18/19 22:15 U Benzodiazepines Scrn NEGATIVE 07/18/19 22:15 Urine Cocaine Screen NEGATIVE 07/18/19 22:15 U Marijuana (THC) Screen UNCONFIRMED POSITIVE 07/18/19 22:15 07/18/19 07/19/19 21:36 03:30 CK-MB (CK-2) 6.87 H Troponin I 0.033 0.023 Impressions: Chest X-Ray 07/19/19 00:22 IMPRESSION: No acute finding. copyright 2010 [employer]- All Rights Reserved Abdomen/Pelvis CT 07/19/19 01:00 IMPRESSION: Ascites, with suggestion of some loculation. Decompressed but diffusely thickened colon may be due to an underlying infectious or inflammatory colitis. Stroke Is this a Stroke Patient?: No Acute Heart Failure - Is this a Heart Failure Patient?: No
[2019-07-20 14:02] LABS: ANION GAP 12 (5-19); BLOOD UREA NITROGEN 6 mg/dL (7-20); CALCIUM 8.7 mg/dL (8.4-10.2); CARBON DIOXIDE 26 mmol/L (22-30); CHLORIDE 102 mmol/L (98-107); GLUCOSE 138 mg/dL (75-110); POTASSIUM 3.1 mmol/L (3.6-5.0)
[2019-07-20 16:39] VITALS: BP 166/85
== END 2019-07-20 16:55 | disposition home or self-care (01) | DRG 392 ==
LOC: ER 19:40 → EH 07-19 05:25 → 3W 07-19 14:53
PROVIDERS: ADMIT Internal Medicine; ATTEND Internal Medicine
DX: A09 Infectious gastroenteritis and colitis, unspecified (principal); R18.8 Other ascites; E87.6 Hypokalemia; I11.0 Hypertensive heart disease with heart failure; I25.10 Atherosclerotic heart disease of native coronary artery without angina pectoris; K74.69 Other cirrhosis of liver; T45.1X5A Adverse effect of antineoplastic and immunosuppressive drugs, initial encounter; I25.2 Old myocardial infarction; E78.5 Hyperlipidemia, unspecified; I50.9 Heart failure, unspecified; I73.9 Peripheral vascular disease, unspecified; M19.90 Unspecified osteoarthritis, unspecified site; F31.9 Bipolar disorder, unspecified; D72.829 Elevated white blood cell count, unspecified; F17.210 Nicotine dependence, cigarettes, uncomplicated; K42.9 Umbilical hernia without obstruction or gangrene; G89.29 Other chronic pain; Z85.43 Personal history of malignant neoplasm of ovary; Z95.5 Presence of coronary angioplasty implant and graft; Z79.899 Other long term (current) drug therapy; Z86.73 Personal history of transient ischemic attack (TIA), and cerebral infarction without residual deficits
CPT/HCPCS: 36415; 71046; 74177; 80048; 80053; 80307; 81001; 82550; 82553; 83690; 83735; 84100; 84484; 85025; 85610; 87040; 87324; 87449; 93005; 93010; 96365; 96366; 96367; 96368; 96375; 99285; J0295; J0743; J1644; J2405; J3475; J3480; J3490; J7050

== ENCOUNTER 2019-11-05 18:13 | Emergency (ER) | payer OTHER, MEDICARE, MEDICAID ==
[2019-11-05] MEDS ORDERED: DIPH/PERTUSS(ACELL)/TETANUS VAC/PF 0.5 ML SYR (>=10YO) IM ONE (19:58)
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
[2019-11-05] MEDS ORDERED: NORMAL SALINE 1000 ML 1,000 ML IV ONE (20:07)
[2019-11-05] MEDS ORDERED: IPRATROPIUM/ALBUTEROL 0.5-2.5 MG/3 ML AMPUL NEB ONE (20:10)
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
[2019-11-06] MEDS ORDERED: IPRATROPIUM/ALBUTEROL 0.5-2.5 MG/3 ML AMPUL NEB ONE (01:15)
[2019-11-06] MEDS ORDERED: DIPH/PERTUSS(ACELL)/TETANUS VAC/PF 0.5 ML SYR (>=10YO) IM ONE ×2 (01:15→06:29)
[2019-11-06 01:56] LABS: ABSOLUTE BASOPHILS # (AUTO) 0.1 10^3/uL (0.0-0.2); ABSOLUTE MONOCYTES (AUTO) 0.6 10^3/uL (0.1-1.4); ABSOLUTE NEUT (AUTO) 4.5 10^3/uL (1.7-8.2); BASOPHILS % (AUTO) 0.8 % (0-2); EOSINOPHILS % (AUTO) 0.5 % (0-6); HEMATOCRIT 38.8 % (36.0-47.0); HEMOGLOBIN 12.9 g/dL (12.0-15.5); LYMPHOCYTES % (AUTO) 28.4 % (13-45); MEAN CORPUSCULAR HEMOGLOBIN 26.3 pg (27.0-33.4); MEAN CORPUSCULAR HGB CONC 33.2 g/dL (32.0-36.0); MEAN CORPUSCULAR VOLUME 79 fl (80-97); PLATELET COUNT 159 10^3/uL (150-450); RED BLOOD COUNT 4.91 10^6/uL (3.72-5.28); RED CELL DISTRIBUTION WIDTH 18.6 % (11.5-14.0); SEGMENTED NEUTROPHILS % (AUTO) 62.3 % (42-78); TOTAL CELLS COUNTED % (AUTO) 100 %; WHITE BLOOD COUNT 7.2 10^3/uL (4.0-10.5)
[2019-11-06 02:16] LABS: ANION GAP 9 (5-19); BLOOD UREA NITROGEN 13 mg/dL (7-20); CALCIUM 9.6 mg/dL (8.4-10.2); CARBON DIOXIDE 26 mmol/L (22-30); CHLORIDE 102 mmol/L (98-107); GLUCOSE 91 mg/dL (75-110); POTASSIUM 4.2 mmol/L (3.6-5.0)
[2019-11-06 02:17] LABS: ALCOHOL < 10 mg/dL (NONE DETECTED)
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
[2019-11-06 04:35] LABS: APPEARANCE,URINE CLEAR; BILIRUBIN,URINE NEGATIVE (NEGATIVE); COLOR,URINE STRAW; GLUCOSE, URINE NEGATIVE (NEGATIVE); KETONES,URINE NEGATIVE (NEGATIVE); LEUKOCYTE ESTERASE,URINE NEGATIVE (NEGATIVE); NITRITE,URINE NEGATIVE (NEGATIVE); PROTEIN,URINE NEGATIVE (NEGATIVE); URINE SPECIFIC GRAVITY 1.003; UROBILINOGEN,URINE NEGATIVE mg/dL (<2.0)
[2019-11-06 04:51] LABS: URINE AMPHETAMINES SCREEN NEGATIVE; URINE BARBITURATES SCREEN NEGATIVE; URINE BENZODIAZEPINES SCREEN NEGATIVE; URINE COCAINE SCREEN NEGATIVE; URINE MARIJUANA (THC) SCREEN NEGATIVE; URINE METHADONE SCREEN NEGATIVE; URINE PHENCYCLIDINE SCREEN NEGATIVE
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
[2019-11-06 07:21] VITALS: BP 131/80
--- NOTE | 2019-11-07 09:05 | EKG REPORT ---
SEVERITY:- ABNORMAL ECG - SINUS RHYTHM PROBABLE LEFT ATRIAL ABNORMALITY LVH WITH SECONDARY REPOLARIZATION ABNORMALITY CONSIDER ANTERIOR INFARCT BORDERLINE PROLONGED QT INTERVAL : Confirmed by: Kevin Lange MD 07-Nov-2019 07:03:38
== END 2019-11-06 07:30 | disposition home or self-care (01) ==
LOC: ER 18:13
DX: S01.01XA Laceration without foreign body of scalp, initial encounter (principal); S30.0XXA Contusion of lower back and pelvis, initial encounter; S70.01XA Contusion of right hip, initial encounter; S70.11XA Contusion of right thigh, initial encounter; R10.9 Unspecified abdominal pain; R07.9 Chest pain, unspecified; V49.40XA Driver injured in collision with unspecified motor vehicles in traffic accident, initial encounter; I25.10 Atherosclerotic heart disease of native coronary artery without angina pectoris; I10 Essential (primary) hypertension; F17.200 Nicotine dependence, unspecified, uncomplicated
CPT/HCPCS: 36415; 70450; 71046; 71260; 72070; 72110; 72125; 74177; 80048; 80307; 81001; 84484; 85025; 90471; 90715; 93005; 93010; 99284

== ENCOUNTER 2020-04-18 17:16 | Observation (INO) | payer MEDICARE, MEDICAID ==
[2020-04-18] MEDS ORDERED: NORMAL SALINE 1000 ML 1,000 ML IV ONE (17:37)
[2020-04-18 18:05] LABS: ABSOLUTE BASOPHILS # (AUTO) 0.1 10^3/uL (0.0-0.2); ABSOLUTE EOSINOPHILS # (AUTO) 0.1 10^3/uL (0.0-0.6); ABSOLUTE LYMPHOCYTES (AUTO) 2.3 10^3/uL (0.5-4.7); ABSOLUTE MONOCYTES (AUTO) 0.7 10^3/uL (0.1-1.4); ABSOLUTE NEUT (AUTO) 4.6 10^3/uL (1.7-8.2); BASOPHILS % (AUTO) 1.1 % (0-2); EOSINOPHILS % (AUTO) 0.8 % (0-6); HEMATOCRIT 43.4 % (36.0-47.0); HEMOGLOBIN 14.7 g/dL (12.0-15.5); LYMPHOCYTES % (AUTO) 29.4 % (13-45); MEAN CORPUSCULAR HEMOGLOBIN 27.1 pg (27.0-33.4); MEAN CORPUSCULAR HGB CONC 33.8 g/dL (32.0-36.0); MEAN CORPUSCULAR VOLUME 80 fl (80-97); MONOCYTES % (AUTO) 9.3 % (3-13); PLATELET COUNT 282 10^3/uL (150-450); RED BLOOD COUNT 5.43 10^6/uL (3.72-5.28); RED CELL DISTRIBUTION WIDTH 17.8 % (11.5-14.0); SEGMENTED NEUTROPHILS % (AUTO) 59.4 % (42-78); TOTAL CELLS COUNTED % (AUTO) 100 %; WHITE BLOOD COUNT 7.7 10^3/uL (4.0-10.5)
--- NOTE | 2020-04-18 18:05 | RADIOLOGY REPORT (SQ) ---
EXAM DESCRIPTION: CHEST SINGLE VIEW IMAGES COMPLETED DATE/TIME: 04/18/2020 5:53 pm REASON FOR STUDY: Altered mental status COMPARISON: 11/05/2019 EXAM PARAMETERS: NUMBER OF VIEWS: One view. TECHNIQUE: Single frontal radiographic view of the chest acquired. RADIATION DOSE: NA LIMITATIONS: None. FINDINGS: LUNGS AND PLEURA: Linear atelectasis right mid zone. Left lung is clear. MEDIASTINUM AND HILAR STRUCTURES: No masses. Contour normal. HEART AND VASCULAR STRUCTURES: Heart normal in size. Normal vasculature. BONES: No acute findings. HARDWARE: None in the chest. OTHER: No other significant finding. IMPRESSION: Minimal atelectasis in the right mid zone. TECHNICAL DOCUMENTATION: JOB ID: [id number] 2010 [employer]- All Rights Reserved Reading location - IP/workstation name: [email or web address]
--- NOTE | 2020-04-18 18:10 | RADIOLOGY REPORT (SQ) ---
EXAM DESCRIPTION: CT HEAD WITHOUT IMAGES COMPLETED DATE/TIME: 04/18/2020 4:59 pm REASON FOR STUDY: Altered mental status COMPARISON: CT head, 11/05/2019. TECHNIQUE: Axial images acquired through the brain without intravenous contrast. Images reviewed wi th bone, brain and subdural windows. Additional sagittal and coronal reconstructions were generated. Images stored on PACS. All CT scanners at this facility use dose modulation, iterative reconstruction, and/or weight based d osing when appropriate to reduce radiation dose to as low as reasonably achievable (ALARA). [facility]: Dose Right [facility]: CareDose [facility]: Dose Right [facility]: Teradose 4D [facility]: Smart UNX RADIATION DOSE: CT Rad equipment meets quality standard of care and radiation dose reduction techniq ues were employed. CTDIvol: 53.2 mGy. DLP: 937 mGy-cm. mGy. LIMITATIONS: None. FINDINGS: VENTRICLES: Normal size and contour. CEREBRUM: No masses. No hemorrhage. No midline shift. No evidence for acute infarction. Chronic en cephalomalacia and gliosis in the right frontal lobe is stable from prior examination. Chronic lacun ar infarct in the posterior limb of the right internal capsule is also unchanged. They are is mild p eriventricular and deep white matter hypodense attenuation consistent with mild chronic small vessel ischemic change. There is intracranial atherosclerosis. Normal pete-white matter differentiation. CEREBELLUM: No masses. No hemorrhage. No alteration of density. No evidence for acute infarction. EXTRAAXIAL SPACES: No fluid collections. No masses. ORBITS AND GLOBE: No intra- or extraconal masses. Normal contour of globe without masses. CALVARIUM: No fracture. PARANASAL SINUSES: No fluid or mucosal thickening. SOFT TISSUES: No mass or hematoma. OTHER: No other significant finding. IMPRESSION: 1. No acute intracranial hemorrhage, mass, or evidence of acute territorial infarct. 2. Chronic encephalomalacia and gliosis and chronic lacunar infarct in the right frontal lobe and int ernal capsule, stable from prior. 3. Mild chronic small vessel ischemic change and intracranial atherosclerosis. EVIDENCE OF ACUTE STROKE: NO. COMMENT: Quality ID # [id number]: Final reports with documentation of one or more dose reduction techniques (e.g., Automated exposure control, adjustment of the mA and/or kV according to patient size, use of iterative reconstruction technique) TECHNICAL DOCUMENTATION: JOB ID: [id number] [employer]- All Rights Reserved Reading location - IP/workstation name: [email or web address]
[2020-04-18 18:14] LABS: ALKALINE PHOSPHATASE 131 U/L (38-126); ANION GAP 6 (5-19); ASPARTATE AMINO TRANSFERASE 30 U/L (14-36); BILIRUBIN,DIRECT 0.2 mg/dL (0.0-0.4); BLOOD UREA NITROGEN 10 mg/dL (7-20); CALCIUM 9.2 mg/dL (8.4-10.2); CARBON DIOXIDE 29 mmol/L (22-30); CHLORIDE 98 mmol/L (98-107); CREATINE KINASE 73 U/L (30-135); GLUCOSE 144 mg/dL (75-110); POTASSIUM 4.2 mmol/L (3.6-5.0); TOTAL PROTEIN 6.3 g/dL (6.3-8.2)
[2020-04-18 18:16] LABS: ALCOHOL < 10 mg/dL (NONE DETECTED)
[2020-04-18 18:23] LABS: CREATINE KINASE MB 3.42 ng/mL (<4.55)
[2020-04-18] MEDS ORDERED: NALOXONE HCL INJ/PF 0.4 MG/1 ML SDV IV ONE ×2 (18:23→18:43)
[2020-04-18 18:24] LABS: TROPONIN I < 0.012 ng/mL
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
[2020-04-18 19:33] LABS: APPEARANCE,URINE CLEAR; BILIRUBIN,URINE NEGATIVE (NEGATIVE); COLOR,URINE YELLOW; GLUCOSE, URINE NEGATIVE (NEGATIVE); KETONES,URINE NEGATIVE (NEGATIVE); PROTEIN,URINE NEGATIVE (NEGATIVE); URINE SPECIFIC GRAVITY 1.004
[2020-04-18] MEDS ORDERED: RINGERS SOLUTION,LACTATED 1,000 ML IV ONE ×2 (19:47→22:00)
[2020-04-18] MEDS ORDERED: ONDANSETRON HCL INJ/PF 4 MG/2 ML SDV IV PRN (20:33)
[2020-04-18] MEDS ORDERED: LEVALBUTEROL HCL NEB 0.63 MG/3 ML AMPUL NEB PRN (20:33)
[2020-04-18] MEDS ORDERED: DEXTROSE 50%-WATER 25 GM/50 ML DISP.SYRIN IV PRN ×2 (20:38)
[2020-04-18] MEDS ORDERED: DEXTROSE 40% GEL 15 GM TUBE PO PRN ×2 (20:38)
[2020-04-18] MEDS ORDERED: GLUCAGON,HUMAN RECOMB 1 MG INJ IM PRN (20:38)
[2020-04-18] MEDS ORDERED: NICOTINE 21 MG/24 HR PATCH.TD24 TD PRN (20:42)
[2020-04-18] MEDS ORDERED: ACETAMINOPHEN 650 MG SUPP.RECT PR PRN (20:42)
--- NOTE | 2020-04-18 21:40 | EKG REPORT ---
SEVERITY:- ABNORMAL ECG - SINUS RHYTHM LVH WITH SECONDARY REPOLARIZATION ABNORMALITY ST DEPRESSION, CONSIDER ISCHEMIA, ANT-LAT LDS : Confirmed by: Zain Mccoy 18-Apr-2020 21:39:10
[2020-04-18] MEDS ORDERED: NALOXONE HCL INJ 2 MG/2 ML DISP.SYRIN IV ONE (22:00)
[2020-04-18] MEDS ORDERED: DEXTROSE 5%-LACTATED RINGERS 1,000 ML IV ONE (22:00)
[2020-04-18 23:05] LABS: URINE AMPHETAMINES SCREEN NEGATIVE; URINE BARBITURATES SCREEN NEGATIVE; URINE BENZODIAZEPINES SCREEN NEGATIVE; URINE COCAINE SCREEN NEGATIVE; URINE MARIJUANA (THC) SCREEN NEGATIVE; URINE METHADONE SCREEN NEGATIVE; URINE PHENCYCLIDINE SCREEN NEGATIVE
[2020-04-18] MEDS: DEXTROSE 5%-LACTATED RINGERS 1,000 ML IV PRN (23:48)
[2020-04-19] MEDS: HEPARIN SOD (PORCINE) 5,000 UNIT/ML 1 ML VIAL SUBCUT SCH ×4 (03:07→21:22)
[2020-04-19] MEDS: FAMOTIDINE INJ/PF 20 MG/2 ML SDV IV SCH ×3 (03:08→21:22)
--- NOTE | 2020-04-19 04:56 | PDOC H&P ---
History of Present Illness Admission Date/PCP: 04/18/2020 19:50 COURTNEY BRODY DO Patient complains of: Altered mental status History of Present Illness: NIKKIE OWENS is a 55 year old female who presented the emergency room via EMS from home with acute altered mental status. The patient is somnolent and though arousable she is confused and disoriented and is thus unable to provide input into her medical history. Her son phoned her earlier today and felt that she was confused and somnolent, causing him alarm and prompting his call to EMS to bring the patient to the hospital. She is known to take hydromorphone for chronic pain and her medication bottle is noted by emergency room staff to be 18 tablets short of the count that should be present if she were taking it as prescribed based on the date of the prescription. In the emergency room her initial systolic blood pressure was in the 80s but improved rapidly to greater than 100 with 1 L of IV fluids. She was also administered low-dose Narcan 0.2 mg intravenously x1 in the emergency room and did arouse for short time and then her confusion, disorientation and somnolence reoccurred. Her emergency room evaluation was otherwise unremarkable. Patient was subsequently admitted to observation status on a telemetry bed for further evaluation and treatment. Past Medical History Past Medical History: Due to the patient's altered mental status she is unable to contribute to her m edical history, therefore all information presented here is obtained from the best available reliable source. Cardiac Medical History: Reports: Congestive Heart Failure, Coronary Artery Disease, Myocardial Infarction, Hyperlipidema, Hypertension, Peripheral Vascular Disease - Carotid artery disease Pulmonary Medical History: Reports: Chronic Obstructive Pulmonary Disease (COPD), Respiratory Failure, Other - Pneumothorax Denies: Asthma, Bronchitis, Pneumonia EENT Medical History: Denies: Cataracts, Ears - Hearing aids Neurological Medical History: Reports: Ischemic CVA, Migraine Denies: Hemorrhagic CVA, Seizures Endocrine Medical History: Denies: Diabetes Mellitus Type 1, Diabetes Mellitus Type 2, Hyperthyroidism, Hypothyroidism Renal/ Medical History: Denies: Chronic Kidney Disease, Nephrolithiasis Malignancy Medical History: Reports: Ovarian Cancer GI Medical History: Reports: Other - Umbilical hernia, GI hemorrhage Denies: Cirrhosis, Crohn's Disease, Gastroesophageal Reflux Disease, Hepatitis, Peptic Ulcer Disease, Ulcerative Colitis Musculoskeltal Medical History: Reports: Arthritis, Other - AVM of the hip; Chronic back pain: Opioid dependent Denies: Gout Skin Medical History: Denies: Eczema, Psoriasis Psychiatric Medical History: Reports: Bipolar Disorder, Depression, Substance Abuse, Tobacco Dependency Denies: Alcohol Dependency Traumatic Medical History: Reports: None Hematology: Reports: Anemia Denies: Bleeding Tendencies Infectious Medical History: Reports: None Past Surgical History Past Surgical History: Due to the patient's altered mental status she is unable to contribute to her medical history, therefore all information presented here is obtained from the best available reliable source. Past Surgical History: Reports: Cardiac Catheterization, Coronary Stent - x2, Hysterectomy, Orthopedic Surgery - C7 plate/fusion, Tonsillectomy Social History Information Source: Relative, [facility] Records Lives with: Alone Smoking Status: Current Every Day Smoker Cigarettes Packs Per Day: 1 Electronic Cigarette use?: No Frequency of Alcohol Use: None Hx Recreational Drug Use: Yes Drugs: Marijuana Hx Prescription Drug Abuse: No Past Social History Note: Due to the patient's altered mental status she is unable to contribute to her medical history, therefore all information presented here is obtained from the best available reliable source. - Advance Directive Resuscitation Status: Full Code Surrogate healthcare decision maker:: Irene Owens Family History Family History: CAD, Malignancy Family History: Due to the patient's altered mental status she is unable to contribute to her medical history, therefore all information presented here is obtained from the best available reliable source. Parental Family History Reviewed: Yes Children Family History Reviewed: No Sibling(s) Family History Reviewed.: Yes Medication/Allergy Home Medications: Duloxetine HCl [Cymbalta 30 mg Capsule.dr] 30 mg PO QHS 07/19/19 Fluocinolone Acetonide 1 applic TP TID 07/19/19 Gabapentin [Neurontin] 1,200 mg PO NOON 07/19/19 Gabapentin [Neurontin] 1,200 mg PO QHS 07/19/19 Gabapentin [Neurontin] 600 mg PO QAM 07/19/19 Lorazepam [Ativan 1 mg Tablet] 1 mg PO Q6HP PRN 07/19/19 Nadolol [Corgard] 40 mg PO QAM 07/19/19 Olopatadine HCl [Pataday] 1 drop OU DAILY 07/19/19 Omeprazole 40 mg PO Q6AM 07/19/19 Oxymorphone HCl [Oxymorphone HCl ER] 10 mg PO Q12 07/19/19 Spironolactone [Aldactone 100 mg Tablet] 100 mg PO DAILY 07/19/19 Sucralfate [Carafate 1 gm Tablet] 1 gm PO BID 07/19/19 Ciprofloxacin HCl [Cipro 500 mg Tablet] 500 mg PO DAILY 5 Days tablet 07/20/19 Potassium Chloride 20 meq PO BID #7 tablet.er 07/20/19 Allergies/Adverse Reactions: No Known Allergies Allergy (Verified 08/22/18 16:47) Review of Systems ROS unobtainable: Due to mental status - Confused, disoriented and somnolent Physical Exam Vital Signs: Temp Pulse Resp BP Pulse Ox 97.9 F 68 12 156/82 H 100 04/18/20 17:36 04/18/20 17:36 04/18/20 19:08 04/18/20 19:08 04/18/20 18:44 Intake & Output 04/16/20 04/17/20 04/18/20 23:59 23:59 23:59 Intake Total 1000 Balance 1000 Weight 51 kg General appearance: PRESENT: no acute distress, disheveled, other - Confused, disoriented, somnolent Head exam: PRESENT: atraumatic, normocephalic Eye exam: PRESENT: conjunctiva pink. ABSENT: conjunctival injection, scleral icterus Ear exam: PRESENT: normal external ear exam. ABSENT: bleeding, drainage Mouth exam: PRESENT: dry mucosa, neck supple Neck exam: ABSENT: thyromegaly, tracheal deviation Respiratory exam: PRESENT: clear to auscultation alecia, symmetrical, unlabored Cardiovascular exam: PRESENT: RRR, systolic murmur - 3/6 systolic murmur. ABSENT: clicks, gallop, rubs Pulses: PRESENT: normal radial pulses, normal dorsalis pedis pul Vascular exam: PRESENT: normal capillary refill. ABSENT: pallor GI/Abdominal exam: PRESENT: normal bowel sounds, soft Rectal exam: PRESENT: deferred Extremities exam: ABSENT: joint swelling, pedal edema Musculoskeletal exam: ABSENT: deformity, dislocation Neurological exam: PRESENT: altered - Confused, other - Somnolent. ABSENT: oriented to person, oriented to place, oriented to time, oriented to situation Psychiatric exam: PRESENT: other - Confused, disoriented and somnolent precluding adequate evaluation Skin exam: PRESENT: dry, intact, warm. ABSENT: jaundice, rash, urticaria Results Laboratory Results: 04/18/20 17:21 04/18/20 17:21 04/18/20 04/18/20 04/18/20 17:05 17:21 17:21 WBC 7.7 RBC 5.43 H Hgb 14.7 Hct 43.4 MCV 80 MCH 27.1 MCHC 33.8 RDW 17.8 H Plt Count 282 Seg Neutrophils % 59.4 Sodium 132.8 L Potassium 4.2 Chloride 98 Carbon Dioxide 29 Anion Gap 6 BUN 10 Creatinine 0.52 Est GFR ( Amer) > 60 Glucose 144 H Calcium 9.2 Total Bilirubin 1.0 AST 30 Alkaline Phosphatase 131 H Ammonia 9.2 Total Protein 6.3 Albumin 3.0 L Urine Color Urine Appearance Urine pH Ur Specific [place] Urine Protein Urine Glucose (UA) Urine Ketones Urine Blood 04/18/20 19:15 WBC RBC Hgb Hct MCV MCH MCHC RDW Plt Count Seg Neutrophils % Sodium Potassium Chloride Carbon Dioxide Anion Gap BUN Creatinine Est GFR ( Amer) Glucose Calcium Total Bilirubin AST Alkaline Phosphatase Ammonia Total Protein Albumin Urine Color YELLOW Urine Appearance CLEAR Urine pH 6.0 Ur Specific [place] 1.004 Urine Protein NEGATIVE Urine Glucose (UA) NEGATIVE Urine Ketones NEGATIVE Urine Blood NEGATIVE 04/18/20 04/18/20 17:21 17:21 Creatine Kinase 73 CK-MB (CK-2) 3.42 Troponin I < 0.012 Impressions: Chest X-Ray 04/18/20 17:34 IMPRESSION: Minimal atelectasis in the right mid zone. Head CT 04/18/20 17:35 IMPRESSION: 1. No acute intracranial hemorrhage, mass, or evidence of acute territorial infarct. 2. Chronic encephalomalacia and gliosis and chronic lacunar infarct in the right frontal lobe and internal capsule, stable from prior. 3. Mild chronic small vessel ischemic change and intracranial atherosclerosis. EVIDENCE OF ACUTE STROKE: NO. Assessment and Plan - Diagnosis (1) Acute hypoactive opioid intoxication delirium Is this a current diagnosis for this admission?: Yes (2) Opiate dependence, continuous Is this a current diagnosis for this admission?: Yes (3) Chronic back pain Qualifiers: Back pain location: back pain in unspecified location Back pain laterality: unspecified Qualified Code(s): M54.9 - Dorsalgia, unspecified; G89.29 - Other chronic pain Is this a current diagnosis for this admission?: Yes (4) Essential hypertension Is this a current diagnosis for this admission?: Yes (5) Peripheral vascular disease Is this a current diagnosis for this admission?: Yes (6) Hyperlipidemia Qualifiers: Hyperlipidemia type: unspecified Qualified Code(s): E78.5 - Hyperlipidemia, unspecified Is this a current diagnosis for this admission?: Yes (7) Coronary artery disease Qualifiers: Coronary Disease-Associated Artery/Lesion type: [place] artery [place] vs. transplanted heart: [place] heart Associated angina: without angina Qualified Code(s): I25.10 - Atherosclerotic heart disease of [place] coronary artery without angina pectoris Is this a current diagnosis for this admission?: Yes (8) Bipolar disorder Qualifiers: Active/Remission status: remission status unspecified Qualified Code(s): F31.9 - Bipolar disorder, unspecified Is this a current diagnosis for this admission?: Yes (9) Tobacco use disorder, severe, dependence Is this a current diagnosis for this admission?: Yes - Plan Summary Summary: Patient is admitted to the medical floor under observation status in a telemetry bed where she will receive routine supportive and symptomatic cares. She will be treated with IV fluids utilizing D5LR at 167 mL/h. Her neurologic status will be monitored every 2 hours and as needed. She will be n.p.o. until she is awake and alert and then she will be started on a cardiac diet. Her usual home medications will be resumed, as appropriate, when her medication list has been verified and reconciled and when she has become fully awake and alert. CT scan of the head, laboratory results and the patient's EKG performed in the emergency room have been reviewed and evaluated by myself. A psychiatric consultation may be obtained if the patient is expressing severe depression or acknowledges any suicidal ideation or suicidal intent of her current intoxication/overdose. - Time Time Spent with patient: Less than 15 minutes Medications reviewed and adjusted accordingly: Yes Anticipated Discharge Disposition: Home, Self Care Anticipated Discharge: within 24 hours - Inpatient Certification Based on my medical assessment, after consideration of the patient's comorbidities, presenting symptoms, or acuity I expect that the services needed warrant INPATIENT care.: No I certify that my determination is in accordance with my understanding of Medicare's requirements for reasonable and necessary INPATIENT services [42 CFR 412.3e].: No
[2020-04-19] MEDS: DEXTROSE 5%-LACTATED RINGERS 1,000 ML IV PRN ×3 (05:46→21:23)
--- NOTE | 2020-04-19 17:24 | PDOC PROGRESS REPORT ---
Subjective Progress Note for:: 04/19/20 Subjective:: At the time of exam patient was extremely drowsy but arousable to verbal and tactile stimuli Reason For Visit: ACUTE OPIOID INTOXICATION WITH HYPOACTIVE DELIRIUM Physical Exam Vital Signs: Temp Pulse Resp BP Pulse Ox 98.0 F 63 14 109/62 51 L 04/19/20 07:33 04/19/20 14:00 04/19/20 11:18 04/19/20 11:18 04/19/20 11:18 Intake & Output 04/18/20 04/19/20 04/20/20 06:59 06:59 06:59 Intake Total 2996 1000 Output Total 0 Balance 2996 1000 Weight 56.5 kg General appearance: PRESENT: no acute distress, well-developed, well-nourished Head exam: PRESENT: atraumatic, normocephalic Eye exam: PRESENT: conjunctiva pink Mouth exam: PRESENT: moist, tongue midline Neck exam: ABSENT: JVD Respiratory exam: PRESENT: clear to auscultation alecia, decreased breath sounds - Air entry diminished at bases bilaterally, symmetrical, unlabored. ABSENT: accessory muscle use, retraction Cardiovascular exam: PRESENT: RRR, +S1, +S2 Pulses: PRESENT: normal carotid pulses, normal radial pulses GI/Abdominal exam: PRESENT: normal bowel sounds, soft. ABSENT: distended, tenderness Rectal exam: PRESENT: deferred Musculoskeletal exam: PRESENT: other - Resting in bed Neurological exam: PRESENT: other - Drowsy but arousable to verbal/tactile stimuli falls back to sleep when not stimulated Psychiatric exam: ABSENT: agitated, anxious Skin exam: PRESENT: dry, normal color, warm Results Laboratory Results: 04/18/20 17:21 04/18/20 17:21 04/18/20 04/18/20 04/18/20 17:05 17:21 17:21 WBC 7.7 RBC 5.43 H Hgb 14.7 Hct 43.4 MCV 80 MCH 27.1 MCHC 33.8 RDW 17.8 H Plt Count 282 Seg Neutrophils % 59.4 Sodium 132.8 L Potassium 4.2 Chloride 98 Carbon Dioxide 29 Anion Gap 6 BUN 10 Creatinine 0.52 Est GFR ( Amer) > 60 Glucose 144 H Calcium 9.2 Total Bilirubin 1.0 AST 30 Alkaline Phosphatase 131 H Ammonia 9.2 Total Protein 6.3 Albumin 3.0 L Urine Color Urine Appearance Urine pH Ur Specific [place] Urine Protein Urine Glucose (UA) Urine Ketones Urine Blood 04/18/20 19:15 WBC RBC Hgb Hct MCV MCH MCHC RDW Plt Count Seg Neutrophils % Sodium Potassium Chloride Carbon Dioxide Anion Gap BUN Creatinine Est GFR ( Amer) Glucose Calcium Total Bilirubin AST Alkaline Phosphatase Ammonia Total Protein Albumin Urine Color YELLOW Urine Appearance CLEAR Urine pH 6.0 Ur Specific [place] 1.004 Urine Protein NEGATIVE Urine Glucose (UA) NEGATIVE Urine Ketones NEGATIVE Urine Blood NEGATIVE 04/18/20 04/18/20 17:21 17:21 Creatine Kinase 73 CK-MB (CK-2) 3.42 Troponin I < 0.012 Impressions: Chest X-Ray 04/18/20 17:34 IMPRESSION: Minimal atelectasis in the right mid zone. Head CT 04/18/20 17:35 IMPRESSION: 1. No acute intracranial hemorrhage, mass, or evidence of acute territorial infarct. 2. Chronic encephalomalacia and gliosis and chronic lacunar infarct in the right frontal lobe and internal capsule, stable from prior. 3. Mild chronic small vessel ischemic change and intracranial atherosclerosis. EVIDENCE OF ACUTE STROKE: NO. Assessment and Plan - Diagnosis (1) Altered mental status Qualifiers: Altered mental status type: unspecified Qualified Code(s): R41.82 - Altered mental status, unspecified Is this a current diagnosis for this admission?: Yes Plan: Patient remains drowsy at the time of exam Supportive care while effects of opioids wear off (2) Acute hypoactive opioid intoxication delirium Is this a current diagnosis for this admission?: Yes Plan: As noted above Hold all opioids at this time (3) Chronic pain syndrome Is this a current diagnosis for this admission?: Yes Plan: As noted above (4) HTN (hypertension) Is this a current diagnosis for this admission?: Yes Plan: Patient's BP remains soft Continue to hold antihypertensive medications (5) Bipolar disorder Qualifiers: Active/Remission status: remission status unspecified Qualified Code(s): F31.9 - Bipolar disorder, unspecified Is this a current diagnosis for this admission?: Yes Plan: We will need to determine if patient had any suicidal ideation as the jesus of her apparent opioid overdose (6) Tobacco abuse Is this a current diagnosis for this admission?: Yes Plan: Once patient is more interactive will provide smoking cessation counseling - Time Time Spent with patient: 25-34 minutes Medications reviewed and adjusted accordingly: Yes Anticipated Discharge Disposition: Home, Self Care Anticipated Discharge: Other
[2020-04-19] MEDS ORDERED: RINGERS SOLUTION,LACTATED 1,000 ML IV ONE (22:30)
[2020-04-20] MEDS: HEPARIN SOD (PORCINE) 5,000 UNIT/ML 1 ML VIAL SUBCUT SCH ×3 (06:13→21:35)
[2020-04-20 08:48] LABS: BLOOD UREA NITROGEN 7 mg/dL (7-20); CALCIUM 8.4 mg/dL (8.4-10.2); GLUCOSE 97 mg/dL (75-110); POTASSIUM 3.5 mmol/L (3.6-5.0)
[2020-04-20 08:53] LABS: CARBON DIOXIDE 25 mmol/L (22-30); CHLORIDE 107 mmol/L (98-107)
[2020-04-20 08:56] LABS: ANION GAP 2 (5-19)
[2020-04-20] MEDS: FAMOTIDINE INJ/PF 20 MG/2 ML SDV IV SCH ×2 (09:32→21:34)
[2020-04-20] MEDS ORDERED: ONDANSETRON HCL INJ/PF 4 MG/2 ML SDV IV PRN (10:30)
[2020-04-20] MEDS ORDERED: TUBERCULIN,PURIF.PROT.DERIV. 5 TU/0.1 ML TEST 1 ML VIAL ID ONE (16:00)
[2020-04-20] MEDS ORDERED: POTASSIUM CHLORIDE 10 MEQ TABLET.ER PO ONE (17:00)
--- NOTE | 2020-04-20 17:41 | PDOC PROGRESS REPORT ---
Subjective Progress Note for:: 04/20/20 Subjective:: Upon entering room patient sleeping. Easily arousable to verbal stimuli Reason For Visit: ACUTE OPIOID INTOXICATION WITH HYPOACTIVE DELIRIUM Physical Exam Vital Signs: Temp Pulse Resp BP Pulse Ox 97.5 F 63 20 143/85 H 98 04/20/20 11:07 04/20/20 14:00 04/20/20 11:07 04/20/20 11:07 04/20/20 11:07 Intake & Output 04/19/20 04/20/20 04/21/20 06:59 06:59 06:59 Intake Total 2996 2503 1600 Output Total 0 0 Balance 2996 2503 1600 Weight 56.5 kg 59.4 kg General appearance: PRESENT: no acute distress, cooperative, well-developed, well-nourished Head exam: PRESENT: atraumatic, normocephalic Eye exam: PRESENT: conjunctiva pink Mouth exam: PRESENT: moist, tongue midline Neck exam: ABSENT: JVD Respiratory exam: PRESENT: clear to auscultation alecia, symmetrical, unlabored Cardiovascular exam: PRESENT: RRR, +S1, +S2 Vascular exam: PRESENT: normal capillary refill GI/Abdominal exam: PRESENT: normal bowel sounds, soft. ABSENT: distended, tenderness Rectal exam: PRESENT: deferred Neurological exam: PRESENT: alert, awake, oriented to person, oriented to place, oriented to time, oriented to situation, CN II-XII grossly intact Psychiatric exam: ABSENT: agitated, anxious Skin exam: PRESENT: dry, normal color, warm Results Laboratory Results: 04/18/20 17:21 04/20/20 08:15 04/20/20 08:15 Sodium 134.0 L Potassium 3.5 L Chloride 107 Carbon Dioxide 25 Anion Gap 2 L BUN 7 Creatinine 0.53 Est GFR ( Amer) > 60 Glucose 97 Calcium 8.4 04/18/20 04/18/20 17:21 17:21 Creatine Kinase 73 CK-MB (CK-2) 3.42 Troponin I < 0.012 Impressions: Chest X-Ray 04/18/20 17:34 IMPRESSION: Minimal atelectasis in the right mid zone. Head CT 04/18/20 17:35 IMPRESSION: 1. No acute intracranial hemorrhage, mass, or evidence of acute territorial infarct. 2. Chronic encephalomalacia and gliosis and chronic lacunar infarct in the right frontal lobe and internal capsule, stable from prior. 3. Mild chronic small vessel ischemic change and intracranial atherosclerosis. EVIDENCE OF ACUTE STROKE: NO. Assessment and Plan - Diagnosis (1) Altered mental status Qualifiers: Altered mental status type: unspecified Qualified Code(s): R41.82 - Altered mental status, unspecified Is this a current diagnosis for this admission?: Yes Plan: Patient much more alert today (2) Acute hypoactive opioid intoxication delirium Is this a current diagnosis for this admission?: Yes Plan: Resolved [place] PDMP reviewed Patient received her last prescription for oxymorphone ER 10 mg (60 tabs) as well as oxymorphone 5 mg (30 tabs) on 04/10/2020. Prior to this her last filled prescription for an opioid was on 12/22/2019. Additionally she has had multiple prescriptions filled for lorazepam 1 mg. Her lorazepam prescriptions are for 30 tabs often with refills. Considering this it is unlikely that she will suffer opioid withdrawals from not getting opioids while inpatient since it appears that she is only been back on opioids for less than 1 week Opioids will not be prescribed while inpatient It does appear that patient has been taking lorazepam regularly To avoid the dangers of benzodiazepine withdrawal will order lorazepam 0.25 mg p.o. every 6 hours as needed for agitation (3) Chronic pain syndrome Is this a current diagnosis for this admission?: Yes Plan: Resume gabapentin 600 mg p.o. every morning/1200 mg p.o. q. noon/1200 mg p.o. nightly As noted above, continue to hold opioids (4) HTN (hypertension) Is this a current diagnosis for this admission?: Yes Plan: Resume nadolol 40 mg p.o. every morning (5) Bipolar disorder Qualifiers: Active/Remission status: remission status unspecified Qualified Code(s): F31.9 - Bipolar disorder, unspecified Is this a current diagnosis for this admission?: Yes Plan: Resume duloxetine 30 mg p.o. nightly (6) Tobacco abuse Is this a current diagnosis for this admission?: Yes Plan: Smoking cessation counseling provided Continue nicotine patch daily (7) Hypokalemia Is this a current diagnosis for this admission?: Yes Plan: Supplement potassium with KCl 40 M EQ p.o. x1 Resume spironolactone 100 mg p.o. daily starting tomorrow Monitor - Plan Summary Summary: According to nursing staff patient is planning on discharging to assisted living from the hospital as she is homeless. In order for this to occur she must have a negative SARS-CoV-2 test as well as a negative PPD. The PPD was placed today in the SARS-CoV-2 swab was obtained. - Time Time Spent with patient: 25-34 minutes Medications reviewed and adjusted accordingly: Yes Anticipated Discharge Disposition: Assisted Living with Home Health Services Anticipated Discharge: within 48 hours
[2020-04-20] MEDS ORDERED: HYDRALAZINE HCL INJ/PF 20 MG/1 ML SDV ONE (20:25)
[2020-04-20] MEDS ORDERED: HYDRALAZINE HCL INJ/PF 20 MG/1 ML SDV IV PRN (20:26)
[2020-04-20] MEDS: LORAZEPAM 0.5 MG TABLET PO PRN (20:36)
[2020-04-20] MEDS: DULOXETINE HCL 30 MG CAPSULE.DR PO SCH (21:35)
[2020-04-20] MEDS ORDERED: GABAPENTIN 400 MG CAPSULE PO SCH (22:00)
[2020-04-21] MEDS: HEPARIN SOD (PORCINE) 5,000 UNIT/ML 1 ML VIAL SUBCUT SCH ×3 (05:27→21:12)
[2020-04-21] MEDS: PANTOPRAZOLE SODIUM 40 MG TABLET.DR PO SCH (05:27)
[2020-04-21] MEDS: LORAZEPAM 0.5 MG TABLET PO PRN (05:27)
[2020-04-21] MEDS ORDERED: ACETAMINOPHEN 325 MG TABLET ONE (05:30)
[2020-04-21] MEDS: NADOLOL 40 MG TABLET PO SCH (07:39)
[2020-04-21] MEDS: GABAPENTIN 300 MG CAPSULE PO SCH ×3 (07:39→21:11)
[2020-04-21 07:49] LABS: ANION GAP 6 (5-19); BLOOD UREA NITROGEN 6 mg/dL (7-20); CARBON DIOXIDE 24 mmol/L (22-30); CHLORIDE 104 mmol/L (98-107); GLUCOSE 140 mg/dL (75-110)
[2020-04-21] MEDS ORDERED: (PENDING PHARMACY ID) (Nadolol [Corgard] 40 MG) PO SCH (08:00)
[2020-04-21] MEDS ORDERED: ACETAMINOPHEN 325 MG TABLET PO PRN (08:31)
[2020-04-21] MEDS ORDERED: LORAZEPAM 0.5 MG TABLET PO PRN (08:37)
[2020-04-21] MEDS: SPIRONOLACTONE 25 MG TABLET PO SCH (09:06)
[2020-04-21] MEDS: FAMOTIDINE INJ/PF 20 MG/2 ML SDV IV SCH ×2 (09:06→21:13)
[2020-04-21] MEDS ORDERED: (PENDING PHARMACY ID) (Spironolactone [Aldactone 100 Mg Tablet] 100 MG) PO SCH (10:00)
[2020-04-21] MEDS ORDERED: IBUPROFEN 600 MG TABLET PO PRN (11:13)
[2020-04-21] MEDS ORDERED: GABAPENTIN 400 MG CAPSULE PO SCH (12:00)
[2020-04-21] MEDS ORDERED: LIDOCAINE 5% (700 MG) TRANSDERMAL ADH..PATCH TP ONE (12:30)
[2020-04-21] MEDS ORDERED: OLANZAPINE 5 MG TABLET PO ONE (14:15)
[2020-04-21] MEDS ORDERED: RISPERIDONE 0.25 MG TABLET PO PRN (15:16)
--- NOTE | 2020-04-21 18:58 | PDOC PROGRESS REPORT ---
Subjective Progress Note for:: 04/21/20 Subjective:: The patient was seen on morning rounds. She was found resting in bed, comfortably, on room air. She is oriented to self, place [place] in a [facility], and year 2006. She tells me that she was brought to the hospital by her father because he is an "active duty member." She is unable to provide details regarding the circumstances behind her admission. Patient requesting adjustments to pain medications; reports chronic neck and back pain. She denies fever, chills, chest pain, palpitations, dyspnea, orthopnea, abdominal pain, nausea vomiting diarrhea. Tolerating a regular diet. Per nursing, patient has been following them into rooms, calling the hydrochloric acid operator, kitchen, and the nursing vending stand supervisor with multiple complaints, and has had hallucinations/delusions regarding "moldy food." Reason For Visit: ACUTE OPIOID INTOXICATION WITH HYPOACTIVE DELIRIUM Physical Exam Vital Signs: Temp Pulse Resp BP Pulse Ox 98.4 F 74 16 125/77 97 04/21/20 03:20 04/21/20 14:00 04/21/20 13:39 04/21/20 03:20 04/21/20 13:39 Intake & Output 04/20/20 04/21/20 04/22/20 06:59 06:59 06:59 Intake Total 2503 2798 250 Output Total 0 Balance 2503 2798 250 Weight 59.4 kg 58.8 kg General appearance: PRESENT: no acute distress, disheveled, well-developed, well-nourished Head exam: PRESENT: atraumatic, normocephalic Eye exam: PRESENT: conjunctiva pink, EOMI, PERRLA. ABSENT: scleral icterus Mouth exam: PRESENT: moist, tongue midline Teeth exam: PRESENT: poor dentation Respiratory exam: PRESENT: clear to auscultation alecia, symmetrical, unlabored. ABSENT: rales, rhonchi, wheezes Cardiovascular exam: PRESENT: RRR, +S1, +S2. ABSENT: diastolic murmur, rubs, sy stolic murmur Pulses: PRESENT: normal dorsalis pedis pul Vascular exam: PRESENT: normal capillary refill Extremities exam: PRESENT: full ROM. ABSENT: calf tenderness, clubbing, pedal edema Musculoskeletal exam: PRESENT: ambulatory Neurological exam: PRESENT: alert, awake, oriented to person, CN II-XII grossly intact. ABSENT: oriented to place, oriented to time, oriented to situation, motor sensory deficit Psychiatric exam: PRESENT: appropriate affect, normal mood. ABSENT: homicidal ideation, suicidal ideation Focused psych exam: PRESENT: restlessness, other - tangential Skin exam: PRESENT: dry, intact, warm. ABSENT: cyanosis, rash Results Laboratory Results: 04/18/20 17:21 04/21/20 06:10 04/21/20 06:10 Sodium 133.8 L Potassium 4.0 Chloride 104 Carbon Dioxide 24 Anion Gap 6 BUN 6 L Creatinine 0.51 L Est GFR ( Amer) > 60 Glucose 140 H Calcium 9.0 04/18/20 04/18/20 17:21 17:21 Creatine Kinase 73 CK-MB (CK-2) 3.42 Troponin I < 0.012 Impressions: Chest X-Ray 04/18/20 17:34 IMPRESSION: Minimal atelectasis in the right mid zone. Head CT 04/18/20 17:35 IMPRESSION: 1. No acute intracranial hemorrhage, mass, or evidence of acute territorial infarct. 2. Chronic encephalomalacia and gliosis and chronic lacunar infarct in the right frontal lobe and internal capsule, stable from prior. 3. Mild chronic small vessel ischemic change and intracranial atherosclerosis. EVIDENCE OF ACUTE STROKE: NO. Assessment and Plan - Diagnosis (1) Acute hypoactive opioid intoxication delirium Is this a current diagnosis for this admission?: Yes Plan: [facility] Patient received her last prescription for oxymorphone ER 10 mg (60 tabs) as well as oxymorphone 5 mg (30 tabs) on 04/10/2020. Prior to this her last filled prescription for an opioid was on 12/22/2019. Presumed opiate intoxication upon admission related to her pill counts being 18 tabs short. However, UDS was negative (unclear if Opana clears and is not typically detected with our drug screening tests). Patient with increased anxiety/agitation/tangential discussion today with increased confusion/delirium. Mental health consultation obtained; appreciate Ranulfo's assistance. During her assessment of the patient this afternoon, patient was still with tengential thinking but calmer disposition and no evidence of delerium. Patient was found to have her medications in her room. It is possible that the patient took 1 of her controlled medications (oxymorphone) and the behavior she noted this afternoon is closer to her baseline when not in opiate withdrawal. Recommend avoiding Zyprexa. May use as needed risperidone for acute agitation. They further recommend resuming low-dose opiates. Cleared from psychiatric services. (2) Altered mental status Qualifiers: Altered mental status type: unspecified Qualified Code(s): R41.82 - Altered mental status, unspecified Is this a current diagnosis for this admission?: Yes Plan: Alert; oriented to self, year 2007, [place] but in a [place], and not able to describe situation this morning on my exam. This afternoon, the patient was much more oriented when meeting with mental health services. Management as above. (3) Chronic pain syndrome Is this a current diagnosis for this admission?: Yes Plan: Continue lower-dose gabapentin Start oxycodone 5 mg every 6 hours scheduled (this is slightly less than half of her morphine equivalent Opana dosing) Continue Cymbalta. Continue Tylenol. Lidoderm patches. (4) HTN (hypertension) Is this a current diagnosis for this admission?: Yes Plan: Well controlled on home dose nadolol 40 mg p.o. every morning Cardiac diet (5) Tobacco abuse Is this a current diagnosis for this admission?: Yes Plan: Smoking cessation counseling provided Continue nicotine patch daily (6) Bipolar disorder Qualifiers: Active/Remission status: remission status unspecified Qualified Code(s): F31.9 - Bipolar disorder, unspecified Is this a current diagnosis for this admission?: Yes Plan: Resume duloxetine 30 mg p.o. nightly Mental health services consulted; medication recommendations pending. (7) Hypokalemia Is this a current diagnosis for this admission?: Yes Plan: Replete. - Time Time Spent with patient: 35 or more minutes Medications reviewed and adjusted accordingly: Yes Anticipated Discharge Disposition: Home, Self Care Anticipated Discharge: within 24 hours - awaiting mental health's medication rec ommendations
[2020-04-21] MEDS: OXYCODONE HCL IR 5 MG TABLET PO SCH (19:57)
[2020-04-21] MEDS: DULOXETINE HCL 30 MG CAPSULE.DR PO SCH (21:11)
[2020-04-21] MEDS ORDERED: HYDROXYZINE HCL 10 MG TABLET PO SCH (22:00)
[2020-04-22] MEDS: OXYCODONE HCL IR 5 MG TABLET PO SCH ×2 (01:00→06:03)
[2020-04-22] MEDS: HEPARIN SOD (PORCINE) 5,000 UNIT/ML 1 ML VIAL SUBCUT SCH (06:04)
[2020-04-22] MEDS: PANTOPRAZOLE SODIUM 40 MG TABLET.DR PO SCH (06:04)
[2020-04-22] MEDS: SPIRONOLACTONE 25 MG TABLET PO SCH (09:17)
[2020-04-22] MEDS: FAMOTIDINE INJ/PF 20 MG/2 ML SDV IV SCH (09:18)
[2020-04-22] MEDS: NADOLOL 40 MG TABLET PO SCH (09:18)
[2020-04-22] MEDS: GABAPENTIN 300 MG CAPSULE PO SCH (09:18)
[2020-04-22] MEDS ORDERED: LIDOCAINE 5% (700 MG) TRANSDERMAL ADH..PATCH TP SCH (10:00)
[2020-04-22 10:40] VITALS: BP 130/70
[2020-04-22] MEDS ORDERED: PHARMACY COMMUNICATION ORDER MC SCH (16:00)
--- NOTE | 2020-04-25 16:19 | PDOC DISCHARGE SUMMARY ---
Impression - Admit/DC Date/PCP Admission Date/Primary Care Provider: 04/18/20 20:49 COURTNEY BRODY DO Discharge Date: 04/22/20 - Discharge Diagnosis (1) Acute hypoactive opioid intoxication delirium Is this a current diagnosis for this admission?: Yes (2) Altered mental status Is this a current diagnosis for this admission?: Yes (3) Chronic pain syndrome Is this a current diagnosis for this admission?: Yes (4) HTN (hypertension) Is this a current diagnosis for this admission?: Yes (5) Tobacco abuse Is this a current diagnosis for this admission?: Yes (6) Bipolar disorder Is this a current diagnosis for this admission?: Yes (7) Hypokalemia Is this a current diagnosis for this admission?: Yes - Additional Information Resuscitation Status: Full Code Discharge Diet: Cardiac, Diabetic Discharge Activity: Activity As Tolerated, Balance Activity w/Rest, Slowly In crease Activity Referrals: COURTNEY BRODY DO [Primary Care Provider] - 04/29/20 2:45 pm (Follow-up within 1 week.) Prescriptions: Lidocaine [Lidoderm 5% (700 mg) Transdermal Patch] 1 patch TP DAILY #30 adh..patch Nicotine [Nicoderm 21 mg/24 Hr Transderm Patch] 1 each TD DAILYP PRN #30 patch.td24 PRN Reason: Home Medications: Duloxetine HCl [Cymbalta 30 mg Capsule.dr] 30 mg PO QHS 07/19/19 Gabapentin [Neurontin] 1,200 mg PO NOON 07/19/19 Gabapentin [Neurontin] 1,200 mg PO QHS 07/19/19 Gabapentin [Neurontin] 600 mg PO QAM 07/19/19 Lorazepam [Ativan 1 mg Tablet] 1 mg PO Q6HP PRN 07/19/19 Nadolol [Corgard] 40 mg PO QAM MDD HOLD IF SBP <110 07/19/19 Omeprazole 40 mg PO Q6AM 07/19/19 Oxymorphone HCl [Oxymorphone HCl ER] 10 mg PO Q12 07/19/19 Spironolactone [Aldactone 100 mg Tablet] 100 mg PO DAILY MDD HOLD IF SBP <110 07/19/19 Hydroxyzine HCl [Atarax 10 mg Tablet] 25 mg PO QHS MDD 50 MG 04/19/20 Oxymorphone HCl 5 mg PO DAILYP PRN 04/19/20 Acetaminophen [Tylenol 325 mg Tablet] 650 mg PO Q4HP PRN tablet 04/21/20 Nicotine [Nicoderm 21 mg/24 Hr Transderm Patch] 1 each TD DAILYP PRN #30 patch.td24 04/21/20 Lidocaine [Lidoderm 5% (700 mg) Transdermal Patch] 1 patch TP DAILY #30 adh..patch 04/22/20 History of Present Illiness History of Present Illness: Per H&P by Dr. Ortega: NIKKIE PAN is a 55 year old female who presented the emergency room via EMS from home with acute altered mental status. The patient is somnolent and though arousable she is confused and disoriented and is thus unable to provide input into her medical history. Her son phoned her earlier today and felt that she was confused and somnolent, causing him alarm and prompting his call to EMS to bring the patient to the hospital. She is known to take hydromorphone for chronic pain and her medication bottle is noted by emergency room staff to be 18 tablets short of the count that should be present if she were taking it as prescribed based on the date of the prescription. In the emergency room her initial systolic blood pressure was in the 80s but improved rapidly to greater than 100 with 1 L of IV fluids. She was also administered low-dose Narcan 0.2 mg intravenously x1 in the emergency room and did arouse for short time and then her confusion, disorientation and somnolence reoccurred. Her emergency room evaluation was otherwise unremarkable. Patient was subsequently admitted to observation status on a telemetry bed for further evaluation and treatment. Hospital Course Hospital Course: (1) Acute hypoactive opioid intoxication delirium Resolved. [place] PDMP Patient received her last prescription for oxymorphone ER 10 mg (60 tabs) as well as oxymorphone 5 mg (30 tabs) on 04/10/2020. Prior to this her last filled prescription for an opioid was on 12/22/2019. Presumed opiate intoxication upon admission related to her pill counts being 18 tabs short. Mental health consultation obtained; appreciate Ranulfo's assistance. During her assessment of the patient; patient with tengential thinking but calm disposition and no evidence of delerium. They recommend resuming low-dose opiates. Cleared from psychiatric services. (2) Altered mental status Resolved; A&Ox4 on day of discharge. Management as above. (3) Chronic pain syndrome Continue lower-dose gabapentin Received oxycodone 5 mg every 6 hours scheduled once delirium had resolved to prevent withdrawal. Continue Cymbalta. Continue Tylenol. Lidoderm patches. (4) HTN (hypertension) Well controlled on home dose nadolol 40 mg p.o. every morning Cardiac diet (5) Tobacco abuse Smoking cessation counseling provided Continue nicotine patch daily (6) Bipolar disorder Resume duloxetine 30 mg p.o. nightly Mental health services consulted; cleared for discharge. Recommend outpatient follow up (7) Hypokalemia Replete. Physical Exam Vital Signs: Temp Pulse Resp BP Pulse Ox 97.5 F 68 19 130/70 H 100 04/22/20 10:18 04/22/20 10:18 04/22/20 10:18 04/22/20 10:18 04/22/20 10:18 General appearance: PRESENT: no acute distress, cooperative, disheveled, well- developed, well-nourished Head exam: PRESENT: atraumatic, normocephalic Eye exam: PRESENT: conjunctiva pink, EOMI, PERRLA. ABSENT: scleral icterus Mouth exam: PRESENT: moist, tongue midline Teeth exam: PRESENT: poor dentation Respiratory exam: PRESENT: clear to auscultation alecia, symmetrical, unlabored. ABSENT: rales, rhonchi, wheezes Cardiovascular exam: PRESENT: RRR. ABSENT: diastolic murmur, rubs, systolic murmur Pulses: PRESENT: normal dorsalis pedis pul Vascular exam: PRESENT: normal capillary refill Extremities exam: PRESENT: full ROM. ABSENT: calf tenderness, clubbing, pedal edema Musculoskeletal exam: PRESENT: ambulatory Neurological exam: PRESENT: alert, awake, oriented to person, oriented to place, oriented to time, oriented to situation, CN II-XII grossly intact. ABSENT: motor sensory deficit Psychiatric exam: PRESENT: appropriate affect, normal mood. ABSENT: homicidal ideation, suicidal ideation Focused psych exam: PRESENT: restlessness, other - tangential thinking Skin exam: PRESENT: dry, intact, warm. ABSENT: cyanosis, rash Results Laboratory Results: WBC 7.7 10^3/uL (4.0-10.5) 04/18/20 17:21 RBC 5.43 10^6/uL (3.72-5.28) H 04/18/20 17:21 Hgb 14.7 g/dL (12.0-15.5) 04/18/20 17:21 Hct 43.4 % (36.0-47.0) 04/18/20 17:21 MCV 80 fl (80-97) 04/18/20 17:21 MCH 27.1 pg (27.0-33.4) 04/18/20 17: MCHC 33.8 g/dL (32.0-36.0) 04/18/20 17:21 RDW 17.8 % (11.5-14.0) H 04/18/20 17:21 Plt Count 282 10^3/uL (150-450) 04/18/20 17:21 Lymph % (Auto) 29.4 % (13-45) 04/18/20 17:21 [place] % (Auto) 9.3 % (3-13) 04/18/20 17: Eos % (Auto) 0.8 % (0-6) 04/18/20 17:21 Baso % (Auto) 1.1 % (0-2) 04/18/20 17:21 Absolute Neuts (auto) 4.6 10^3/uL (1.7-8.2) 04/18/20 17:21 Absolute Lymphs (auto) 2.3 10^3/uL (0.5-4.7) 04/18/20 17:21 Absolute Monos (auto) 0.7 10^3/uL (0.1-1.4) 04/18/20 17:21 Absolute Eos (auto) 0.1 10^3/uL (0.0-0.6) 04/18/20 17: Absolute Basos (auto) 0.1 10^3/uL (0.0-0.2) 04/18/20 17: Seg Neutrophils % 59.4 % (42-78) 04/18/20 17:21 Sodium 133.8 mmol/L (137-145) L 04/21/20 06:10 Potassium 4.0 mmol/L (3.6-5.0) 04/21/20 06:10 Chloride 104 mmol/L (98-107) 04/21/20 06:10 Carbon Dioxide 24 mmol/L (22-30) 04/21/20 06:10 Anion Gap 6 (5-19) 04/21/20 06:10 BUN 6 mg/dL (7-20) L 04/21/20 06:10 Creatinine 0.51 mg/dL (0.52-1.25) L 04/21/20 06:10 Est GFR ( Amer) > 60 (>60) 04/21/20 06:10 Est GFR (MDRD) Non-Af > 60 (>60) 04/21/20 06:10 Glucose 140 mg/dL (75-110) H 04/21/20 06:10 POC Glucose 81 mg/dL (70-110) 04/22/20 07:27 Calcium 9.0 mg/dL (8.4-10.2) 04/21/20 06:10 Total Bilirubin 1.0 mg/dL (0.2-1.3) 04/18/20 17:21 Direct Bilirubin 0.2 mg/dL (0.0-0.4) 04/18/20 17:21 Neonat Total Bilirubin Not Reportable 04/18/20 17:21 Neonat Direct Bilirubin Not Reportable 04/18/20 17:21 Neonat Indirect Bili Not Reportable 04/18/20 17:21 AST 30 U/L (14-36) 04/18/20 17:21 ALT 14 U/L (<35) 04/18/20 17:21 Alkaline Phosphatase 131 U/L (38-126) H 04/18/20 17:21 Ammonia 9.2 umol/L (9-33) 04/18/20 17:05 Creatine Kinase 73 U/L (30-135) 04/18/20 17:21 CK-MB (CK-2) 3.42 ng/mL (<4.55) 04/18/20 17:21 Troponin I < 0.012 ng/mL 04/18/20 17:21 Total Protein 6.3 g/dL (6.3-8.2) 04/18/20 17:21 Albumin 3.0 g/dL (3.5-5.0) L 04/18/20 17:21 Urine Color YELLOW 04/18/20 19:15 Urine Appearance CLEAR 04/18/20 19:15 Urine pH 6.0 (5.0-9.0) 04/18/20 19:15 Ur Specific [place] 1.004 04/18/20 19:15 Urine Protein NEGATIVE mg/dL (NEGATIVE) 04/18/20 19:15 Urine Glucose (UA) NEGATIVE mg/dL (NEGATIVE) 04/18/20 19:15 Urine Ketones NEGATIVE mg/dL (NEGATIVE) 04/18/20 19:15 Urine Blood NEGATIVE (NEGATIVE) 04/18/20 19:15 Urine Nitrite (Reflex) NEGATIVE (NEGATIVE) 04/18/20 19:15 Urine Bilirubin NEGATIVE (NEGATIVE) 04/18/20 19:15 Urine Urobilinogen 4.0 mg/dL (<2.0) H 04/18/20 19:15 Leukocyte Esterase Rfl NEGATIVE (NEGATIVE) 04/18/20 19:15 Urine Bacteria (Auto) TRACE /HPF 04/18/20 19:15 Urine WBC (Reflex) < 1 /HPF 04/18/20 19:15 Urine Mucus (Auto) RARE /LPF 04/18/20 19:15 Urine Ascorbic Acid NEGATIVE (NEGATIVE) 04/18/20 19:15 Urine Opiates Screen NEGATIVE 04/18/20 19:15 Urine Methadone Screen NEGATIVE 04/18/20 19:15 Ur Barbiturates Screen NEGATIVE 04/18/20 19:15 Ur Phencyclidine Scrn NEGATIVE 04/18/20 19:15 Ur Amphetamines Screen NEGATIVE 04/18/20 19:15 U Benzodiazepines Scrn NEGATIVE 04/18/20 19:15 Urine Cocaine Screen NEGATIVE 04/18/20 19:15 U Marijuana (THC) Screen NEGATIVE 04/18/20 19:15 Serum Alcohol < 10 mg/dL (NONE DETECTED) 04/18/20 17:21 COVID-19 Source NASOPHARYNGEAL 04/20/20 16:10 COVID-19 (EDUARDO) NOT DETECTED 04/20/20 16:10 04/18/20 17:21 CK-MB (CK-2) 3.42 Troponin I < 0.012 Impressions: Chest X-Ray 04/18/20 17:34 IMPRESSION: Minimal atelectasis in the right mid zone. Head CT 04/18/20 17:35 IMPRESSION: 1. No acute intracranial hemorrhage, mass, or evidence of acute territorial infarct. 2. Chronic encephalomalacia and gliosis and chronic lacunar infarct in the right frontal lobe and internal capsule, stable from prior. 3. Mild chronic small vessel ischemic change and intracranial atherosclerosis. EVIDENCE OF ACUTE STROKE: NO. Plan Plan of Treatment: Patient is discharged home in stable condition. 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 Strongly recommended her pain medications be decreased. Take medications as prescribed Do not smoke or drink alcohol. Do not use recreational drugs. Return to the emergency department as needed for concerning symptoms. Time Spent: Greater than 30 Minutes Stroke Is this a Stroke Patient?: No Acute Heart Failure - Is this a Heart Failure Patient?: No
== END 2020-04-22 11:24 | disposition home or self-care (01) ==
LOC: ER 17:16 → EH 20:49 → 5 04-19 00:10
PROVIDERS: ADMIT Emergency Medicine; ATTEND Registered Nurse
DX: F11.221 Opioid dependence with intoxication delirium (principal); G89.29 Other chronic pain; M54.9 Dorsalgia, unspecified; I10 Essential (primary) hypertension; I73.9 Peripheral vascular disease, unspecified; E78.5 Hyperlipidemia, unspecified; I25.10 Atherosclerotic heart disease of native coronary artery without angina pectoris; F31.9 Bipolar disorder, unspecified; F17.200 Nicotine dependence, unspecified, uncomplicated; G89.4 Chronic pain syndrome; M19.90 Unspecified osteoarthritis, unspecified site; D64.9 Anemia, unspecified; Z79.899 Other long term (current) drug therapy; I25.2 Old myocardial infarction; Z82.49 Family history of ischemic heart disease and other diseases of the circulatory system
CPT/HCPCS: 93005; 99285; 96361; 96374; 36415 ×3; 82553; 82962 ×4; 80307 ×2; 82140; 82550; 85025; 80048 ×2; 80053; 81001; 84484; 71045; 70450; 93010; G0378 ×5; U0003; J1644 ×4; A9270 ×20; J0360; J2310 ×2; J3490 ×5; J7121 ×2; J7030; J7120 ×2; S0028 ×4; C9803; 87635

== ENCOUNTER → 2020-07-02 | Outpatient (CLI) | payer MEDICARE, MEDICAID ==
--- NOTE | 2020-07-02 12:38 | RADIOLOGY REPORT (SQ) ---
EXAM DESCRIPTION: KNEE RIGHT 4 VIEWS IMAGES COMPLETED DATE/TIME: 07/02/2020 12:07 pm REASON FOR STUDY: UNSPECIFIED INJURY OF RIGHT LOWER LEG, INITIAL ENCOUNTER S89.91XA UNSPECIFIED INJ URY OF RIGHT LOWER LEG, INITIAL ENCO COMPARISON: None. NUMBER OF VIEWS: Four views. TECHNIQUE: AP, lateral, and both oblique radiographic images acquired of the right knee. LIMITATIONS: None. FINDINGS: MINERALIZATION: Osteopenia. BONES: No acute fracture or dislocation. No worrisome bone lesions. JOINT: No effusion. SOFT TISSUES: No soft tissue swelling. No radio-opaque foreign body. OTHER: No other significant finding. IMPRESSION: NEGATIVE STUDY OF THE RIGHT KNEE. NO RADIOGRAPHIC EVIDENCE OF ACUTE INJURY. TECHNICAL DOCUMENTATION: JOB ID: [id number] [email or web address]- All Rights Reserved Reading location - IP/workstation name: [email or web address]
== END ==
LOC: OD 11:53
PROVIDERS: ATTEND Family Medicine
DX: S89.91XA Unspecified injury of right lower leg, initial encounter (principal); X58.XXXA Exposure to other specified factors, initial encounter